=== PATIENT | female | born 1970 | race African-American/Black ===

== ENCOUNTER 2017-02-15 14:03 | Emergency (ER) | payer OTHER ==
--- NOTE | 2017-02-15 14:04 | PDOC ---
History of Present Illness - General History Source: Patient Exam Limitations: No Limitations - History of Present Illness Initial Comments: 02/15/17 14:49 The patient is a 46 year old female, with a significant past medical history of epilepsy, asthma and HTN, who presents to the emergency department with a seizure onset today while in the hospital. The patient used the bathroom while at radiology and was able to call for help befor eher seizure began. This event transpired at 1:55pm. A rapid response was called and the patient was brought to the ED. Upon presentation it is seen that the patient might of hit the left side of her head. The patient denies chest pain, shortness of breath, headache and dizziness. Denies fever, chills, nausea, vomit, diarrhea and constipation. Denies dysuria, frequency, urgency and hematuria. Allergies: None Past surgical history: Lung biopsy (2009) Social history: Marijuana use. Cigarette use (10 daily). No alcohol use. <Tre Mccracken - Last Filed: 02/15/17 14:49> <Iram Modi - Last Filed: 02/15/17 16:53> - General Chief Complaint: Seizure Stated Complaint: RAPID RESPONSE Time Seen by Provider: 02/15/17 14:04 Past History <Tre Mccracken - Last Filed: 02/15/17 14:49> - Past Medical History Asthma: Yes Diabetes: No HTN: Yes Suicide Attempt (Hx): No Seizures: Yes - Surgical History Lung Surgery: Yes (Lung biopsy 2009) - Immunization History Immunization Up to Date: Yes - Psycho/Social/Smoking Cessation Hx Anxiety: No Suicidal Ideation: No Smoking Status: Yes Smoking History: Current every day smoker Have you smoked in the past 12 months: Yes Number of Cigarettes Smoked Daily: 10 'Breaking Loose' booklet given: 06/08/16 Hx Alcohol Use: No Drug/Substance Use Hx: Yes (MARIJUANA) Substance Use Type: None Hx Substance Use Treatment: No <Iram Modi - Last Filed: 02/15/17 16:53> - Past Medical History Allergies/Adverse Reactions: Allergies Allergy/AdvReac Type Severity Reaction Status Date / Time No Known Allergies Allergy Verified 02/15/17 14:03 Home Medications: Ambulatory Orders Unobtainable [Unobtainable] 02/15/17 Review of Systems - Review of Systems Able to Perform ROS?: Yes Comments:: 02/15/17 14:49 GENERAL/CONSTITUTIONAL: No fever or chills. No weakness. HEAD, EYES, EARS, NOSE AND THROAT: No change in vision. No ear pain or discharge. No sore throat. CARDIOVASCULAR: No chest pain or shortness of breath RESPIRATORY: No cough, wheezing, or hemoptysis. GASTROINTESTINAL: No nausea, vomiting, diarrhea or constipation. GENITOURINARY: No dysuria, frequency, or change in urination. MUSCULOSKELETAL: No joint or muscle swelling or pain. No neck or back pain. SKIN: No rash NEUROLOGIC: (+) Seizure. No headache, vertigo, loss of consciousness, or change in strength/sensation. ENDOCRINE: No increased thirst. No abnormal weight change HEMATOLOGIC/LYMPHATIC: No anemia, easy bleeding, or history of blood clots. ALLERGIC/IMMUNOLOGIC: No hives or skin allergy. <Tre Mccracken - Last Filed: 02/15/17 14:49> *Physical Exam - Vital Signs Last Vital Signs Temp Pulse Resp BP Pulse Ox 95 H 16 180/100 98 02/15/17 14:04 02/15/17 14:04 02/15/17 14:04 02/15/17 14:04 <Tre Mccracken - Last Filed: 02/15/17 14:49> - Physical Exam Comments: GENERAL: Awake, alert, confused. Nonverbal. HEAD: No signs of trauma EYES: PERRLA, EOMI, sclera anicteric, conjunctiva clear ENT: Auricles normal inspection, hearing grossly normal, nares patent, oropharynx clear without exudates. Moist mucosa NECK: Normal ROM, supple, no lymphadenopathy, JVD, or masses LUNGS: Breath sounds equal, clear to auscultation bilaterally. No wheezes, and no crackles HEART: Regular rate and rhythm, normal S1 and S2, no murmurs, rubs or gallops ABDOMEN: Soft, nontender, normoactive bowel sounds. No guarding, no rebound. No masses EXTREMITIES: Normal range of motion, no edema. No clubbing or cyanosis. No cords, erythema, or tenderness NEUROLOGICAL: Cranial nerves II through XII grossly intact. Motor and sensation intact. SKIN: Warm, Dry, normal turgor, no rashes or lesions noted. <Iram Modi - Last Filed: 02/15/17 16:53> Heart Score/ECG Review - ECG Impressions Comment:: EKG read 14:22- NSR 98 bpm, no acute ST/T changes <Iram Modi - Last Filed: 02/15/17 16:53> ED Treatment Course - LABORATORY CBC & Chemistry Diagram: 02/15/17 14:04 02/15/17 14:04 - ADDITIONAL ORDERS Additional order review: Laboratory Results 02/15/17 14:04 Sodium 139 Potassium 3.6 Chloride 101 D Carbon Dioxide 23 D Anion Gap 15 BUN 8 Creatinine 0.7 Creat Clearance w eGFR > 60 Random Glucose 59 L D Calcium 9.8 Total Bilirubin 0.4 AST 37 D ALT 65 D Alkaline Phosphatase 111 D Total Protein 7.7 Albumin 4.0 02/15/17 14:04 RBC 4.10 MCV 102.7 H MCHC 32.6 RDW 13.2 MPV 8.7 Neutrophils % 47.8 Lymphocytes % 39.3 Monocytes % 7.4 Eosinophils % 4.7 H Basophils % 0.8 <Tre Mccracken - Last Filed: 02/15/17 14:49> - LABORATORY CBC & Chemistry Diagram: 02/15/17 14:04 02/15/17 14:04 <Iram Modi - Last Filed: 02/15/17 16:53> Medical Decision Making - Medical Decision Making 02/15/17 14:45 Patient awake and alert, answering questions. She is amnestic to the event. Last seizure was in December. She has not missed any meds. No recent illness. Requesting something to eat. <Iram Modi - Last Filed: 02/15/17 16:53> *DC/Admit/Observation/Transfer - Attestations Scribe Attestion: 02/15/17 14:50 Documentation prepared by Tre Mccracken, acting as medical data analyst for Iram Modi MD <Tre Mccracken - Last Filed: 02/15/17 14:49> - Discharge Dispostion Admit: No <Iram Modi - Last Filed: 02/15/17 16:53> Diagnosis at time of Disposition: Seizure disorder Seizure Qualifiers: Convulsion type: unspecified Qualified Code(s): R56.9 - Unspecified convulsions - Discharge Dispostion Disposition: HOME Condition at time of disposition: Stable - Referrals Referrals: Drea Cabral MD [Primary Care Provider] - - Patient Instructions Printed Discharge Instructions: DI for Seizure Disorder -- Adult
[2017-02-15] MEDS ORDERED: SODIUM CHLORIDE 1,000 ML IV STA (14:05)
[2017-02-15 14:06] VITALS: BMI 17.2
[2017-02-15 14:26] LABS: BASOPHIL 0.8 % (0-2.0); EOSINOPHIL 4.7 % (0-4.5); MCH 33.4 pg (25.7-33.7); MCHC 32.6 g/dl (32.0-36.0); MEAN CELL VOLUME 102.7 fl (80-96); MEAN PLT VOLUME 8.7 fl (7.5-11.1); NEUTROPHILS 47.8 % (42.8-82.8); PLATELET COUNT 315 K/MM3 (134-434); RDW 13.2 % (11.6-15.6); WHITE BLOOD COUNT 11.6 K/mm3 (4.0-10.0)
[2017-02-15 14:45] LABS: ANION GAP 15 (8-16); BILIRUBIN,TOTAL 0.4 mg/dL (0.2-1.0); CALCIUM 9.8 mg/dL (8.5-10.1); CO2 23 mmol/L (21-32); CREATININE 0.7 mg/dL (0.55-1.02); GLUCOSE,RANDOM 59 mg/dL (74-106); SGOT/AST 37 U/L (15-37); SGPT/ALT 65 U/L (12-78); TOT PROT 7.7 g/dl (6.4-8.2)
[2017-02-15 14:46] LABS: ALK PHOS 111 U/L (45-117)
[2017-02-15 15:59] VITALS: BP 159/88; PULSE 79
--- NOTE | 2017-02-17 11:17 | EKG ---
Test Reason : Blood Pressure : / mmHG Vent. Rate : 098 BPM Atrial Rate : 098 BPM P-R Int : 166 ms QRS Dur : 080 ms QT Int : 360 ms P-R-T Axes : 052 034 064 degrees QTc Int : 459 ms NORMAL SINUS RHYTHM POSSIBLE LEFT ATRIAL ENLARGEMENT BORDERLINE ECG WHEN COMPARED WITH ECG OF 25-JAN-2016 19:30, NO SIGNIFICANT CHANGE WAS FOUND Confirmed by KATHIE DUNN MD ([id number]) on 02/17/2017 11:16:50 AM Referred By: Confirmed By:KATHIE UDNN MD
== END 2017-02-15 15:59 | disposition home or self-care (01) ==
LOC: JER 14:03
PROC: 3E0337Z Introduction of Electrolytic and Water Balance Substance into Peripheral Vein, Percutaneous Approach (ICD-10-PCS; principal; 2017-02-15)
DX: G40.909 Epilepsy, unspecified, not intractable, without status epilepticus (principal); I10 Essential (primary) hypertension; J44.9 Chronic obstructive pulmonary disease, unspecified; F17.210 Nicotine dependence, cigarettes, uncomplicated
CPT/HCPCS: 36415; 80053; 81003; 84703; 85025; 93005; 93010; 96360; 99285-25

== ENCOUNTER 2017-02-23 05:50 | Emergency (ER) | payer OTHER ==
[2017-02-23 06:00] VITALS: BMI 24.5
--- NOTE | 2017-02-23 06:04 | PDOC ---
History of Present Illness - General History Source: Patient, Old Records Exam Limitations: No Limitations - History of Present Illness Initial Comments: 02/23/17 06:07 The patient is a 46 year old female with a significant past medical history of epilepsy, HTN, asthma, newly diagnosed diabetes, who presents to the emergency department s/p seizure. The patient is awake and oriented x3. The patient denies chest pain and shortness of breath. PCP: Dr. Cabral <Zain Eller - Last Filed: 02/23/17 06:07> - General History Source: Patient <Tre Cee - Last Filed: 02/23/17 20:47> - General Chief Complaint: Seizure Stated Complaint: LOW BLOOD SUGAR Time Seen by Provider: 02/23/17 06:00 Past History <Zain Eller - Last Filed: 02/23/17 06:07> - Past Medical History Asthma: Yes Diabetes: No HTN: Yes Suicide Attempt (Hx): No Seizures: Yes - Surgical History Lung Surgery: Yes (Lung biopsy 2009) - Immunization History Immunization Up to Date: Yes - Psycho/Social/Smoking Cessation Hx Anxiety: No Suicidal Ideation: No Smoking Status: Yes Smoking History: Never smoked Have you smoked in the past 12 months: Yes Number of Cigarettes Smoked Daily: 10 'Breaking Loose' booklet given: 06/08/16 Hx Alcohol Use: No Drug/Substance Use Hx: Yes (MARIJUANA) Substance Use Type: None Hx Substance Use Treatment: No <bNaoliverTre woodard - Last Filed: 02/23/17 20:47> - Past Medical History Allergies/Adverse Reactions: Allergies Allergy/AdvReac Type Severity Reaction Status Date / Time No Known Allergies Allergy Verified 02/23/17 05:59 Home Medications: Ambulatory Orders Levetiracetam [Keppra -] 750 mg PO BID #14 tablet 02/23/17 Levetiracetam [Keppra Xr -] 750 mg PO BID 02/23/17 Review of Systems - Review of Systems Able to Perform ROS?: Yes Comments:: 02/23/17 06:07 CONSTITUTIONAL: Absent: fever, no chills, no fatigue EYES: Absent: visual changes ENT: Absent: ear pain, no sore throat CARDIOVASCULAR: Absent: chest pain, no palpitations RESPIRATORY: Absent: cough, no SOB GI: Absent: abdominal pain, no nausea, no vomiting, no constipation, no diarrhea GENITOURINARY: Absent: dysuria, no frequency, no hematuria MUSCULOSKELETAL: Absent: back pain, no arthralgia, no myalgia SKIN: Absent: rash NEURO: Present: Seizure Absent: Motor deficits <RafitaZain - Last Filed: 02/23/17 06:07> *Physical Exam - Vital Signs Last Vital Signs Temp Pulse Resp BP Pulse Ox 98.5 F 81 18 149/88 100 02/23/17 05:59 02/23/17 05:59 02/23/17 05:59 02/23/17 05:59 02/23/17 05:59 - Physical Exam Comments: 02/23/17 06:08 GENERAL: Well-appearing, well-nourished. No apparent distress. HEENT: Normocephalic, atraumatic. PERRL, EOM intact. CARDIOVASCULAR: Normal S1, S2. Regular rate and rhythm. PULMONARY: Clear to auscultation bilaterally. ABDOMEN: Soft, non-distended, non-tender. EXTREMITIES: Normal ROM in all four extremities. No gross deformities. SKIN: Warm, dry. No rash NEUROLOGICAL: No focal neurological deficits. <Zain Eller - Last Filed: 02/23/17 06:07> - Vital Signs Last Vital Signs Temp Pulse Resp BP Pulse Ox 98.5 F 81 18 149/88 100 02/23/17 05:59 02/23/17 05:59 02/23/17 05:59 02/23/17 05:59 02/23/17 05:59 <Tre Cee - Last Filed: 02/23/17 20:47> ED Treatment Course - LABORATORY CBC & Chemistry Diagram: 02/23/17 06:30 02/23/17 06:30 <Tre Cee - Last Filed: 02/23/17 20:47> Medical Decision Making - Medical Decision Making 02/23/17 20:47 Dr. Cee: The scribe's documentation has been prepared under my direction and personally reviewed by me in its entirery. I confirm that the note above accurately reflects all work, treatment, procedures, and medical decision making performed by me. <Tre Cee - Last Filed: 02/23/17 20:47> *DC/Admit/Observation/Transfer - Attestations Scribe Attestion: 02/23/17 06:08 Documentation prepared by Zain Eller, acting as medical accountant for Tre Cee DO. <Zain Eller - Last Filed: 02/23/17 06:07> - Discharge Dispostion Admit: No <Tre Cee - Last Filed: 02/23/17 20:47> Diagnosis at time of Disposition: Seizure disorder - Discharge Dispostion Disposition: HOME Condition at time of disposition: Stable - Prescriptions Prescriptions: Levetiracetam [Keppra -] 750 mg PO BID #14 tablet - Referrals Referrals: Drea Cabral MD [Primary Care Provider] - - Patient Instructions Printed Discharge Instructions: DI for Seizure Disorder -- Adult
[2017-02-23] MEDS ORDERED: levETIRAcetam 500 MG/5 ML INJECTION VIAL IVPB ONE ×2 (06:05→06:41)
[2017-02-23 06:51] LABS: BASOPHIL 0.9 % (0-2.0); EOSINOPHIL 6.5 % (0-4.5); MCH 33.4 pg (25.7-33.7); MCHC 33.6 g/dl (32.0-36.0); MEAN CELL VOLUME 99.6 fl (80-96); MEAN PLT VOLUME 8.2 fl (7.5-11.1); NEUTROPHILS 59.6 % (42.8-82.8); PLATELET COUNT 255 K/MM3 (134-434); RDW 13.2 % (11.6-15.6)
[2017-02-23 07:00] LABS: INR 1.06 (0.82-1.09); PROTHROMBIN TIME (PATIENT) 11.7 SEC (9.98-11.88)
[2017-02-23 07:08] LABS: ALBUMIN 3.1 g/dl (3.4-5.0); ANION GAP 7 (8-16); BILIRUBIN,TOTAL 0.2 mg/dL (0.2-1.0); CALCIUM 8.8 mg/dL (8.5-10.1); CO2 27 mmol/L (21-32); CREATININE 0.6 mg/dL (0.55-1.02); GLUCOSE,RANDOM 175 mg/dL (74-106); SGOT/AST 24 U/L (15-37); SGPT/ALT 31 U/L (12-78)
[2017-02-23 07:09] LABS: ALK PHOS 69 U/L (45-117)
--- NOTE | 2017-02-23 07:29 | PDOC ---
*Physical Exam - Vital Signs Last Vital Signs Temp Pulse Resp BP Pulse Ox 98.5 F 81 18 149/88 100 02/23/17 05:59 02/23/17 05:59 02/23/17 05:59 02/23/17 05:59 02/23/17 05:59 ED Treatment Course - LABORATORY CBC & Chemistry Diagram: 02/23/17 06:30 02/23/17 06:30 - ADDITIONAL ORDERS Additional order review: Laboratory Results 02/23/17 02/23/17 02/23/17 06:30 06:30 06:30 INR 1.06 Sodium 141 Potassium 4.1 Chloride 107 Carbon Dioxide 27 Anion Gap 7 L BUN 15 D Creatinine 0.6 Creat Clearance w eGFR > 60 Random Glucose 175 H D Calcium 8.8 Total Bilirubin 0.2 D AST 24 D ALT 31 D Alkaline Phosphatase 69 D Total Protein 6.0 L D Albumin 3.1 L D Serum , Qual Negative 02/23/17 06:30 RBC 3.72 MCV 99.6 H MCHC 33.6 RDW 13.2 MPV 8.2 Neutrophils % 59.6 D Lymphocytes % 25.5 D Monocytes % 7.5 Eosinophils % 6.5 H Basophils % 0.9 - Medications Given in the ED: ED Medications Discontinued Medications Generic Name Dose Route Start Last Admin Trade Name Freq PRN Reason Stop Dose Admin Levetiracetam 1,000 mg 02/23/17 06:05 02/23/17 06:52 Keppra Injection - IVPB 02/23/17 06:06 1,000 mg ONCE ONE Administration Medical Decision Making - Medical Decision Making Patient awake and alert at time of 7am shift change. Labs returned with no significant findings. Patient requested a refill for her keppra, as she ran out. Will refund. Stable for DC home. *DC/Admit/Observation/Transfer Diagnosis at time of Disposition: Seizure disorder - Discharge Dispostion Disposition: HOME Condition at time of disposition: Stable Admit: No - Prescriptions Prescriptions: Levetiracetam [Keppra -] 750 mg PO BID #14 tablet - Referrals Referrals: Drea Cabral MD [Primary Care Provider] - - Patient Instructions Printed Discharge Instructions: DI for Seizure Disorder -- Adult - Post Discharge Activity
[2017-02-23 09:12] VITALS: BP 128/71; PULSE 71; TEMP 98
== END 2017-02-23 09:13 | disposition home or self-care (01) ==
LOC: JER 05:50
PROC: 3E033GC Introduction of Other Therapeutic Substance into Peripheral Vein, Percutaneous Approach (ICD-10-PCS; principal; 2017-02-23)
DX: G40.909 Epilepsy, unspecified, not intractable, without status epilepticus (principal); I10 Essential (primary) hypertension; E11.9 Type 2 diabetes mellitus without complications; J45.909 Unspecified asthma, uncomplicated
CPT/HCPCS: 36415; 80053; 84703; 85025; 85610; 96374; 99284-25

== ENCOUNTER 2018-11-18 17:15 | Observation (INO) | payer OTHER ==
--- NOTE | 2018-11-18 17:30 | PDOC ---
Attending Attestation - Resident Resident Name: Jennifer Wheat - ED Attending Attestation I have performed the following: I have examined & evaluated the patient, The case was reviewed & discussed with the resident, I agree w/resident's findings & plan, Exceptions are as noted - Medical Decision Making 11/18/18 18:01 48 yo F h/o DM and siezure disorder on topamax, here s/p seizure. ptstate was sleeping had witnessed seizure in bed. no head trauma. self limited. now at baseline. pt was brougth in by EMS and Police who stated received a call pt became combative. pt yelling on arrival, much calmer after transferred to room and handcuffs removed. pt denies trauma. no f/c no n/v states compliant with meds. last seizure was in august. on exam normal nuero exam. pt head atraumatic. heart and lung and ext exam unremarkable. differential. hypoglycemia, hyperglycemia or other electrolyte abnormality, infection suchas uti, break though seizure. plan labs iv hydration ua. will d/w pt primary nuerologist dr. peterson. if normal and pt back to baseline currently will delroy garrett crawford wiht outpt nuero fu. 11/18/18 19:48 pt with witnessed seizure in the ED. was given 1 mg ativan IV. sugar noted to be 300+ pt states compliant with insulin. normally takes long acting at night, and 6 units with meals. did not take her metformin 1000 mg today. 11/18/18 21:37 d/w with nuerology pt given keppra load 1000mg. recommend admission for [facility], due to second seizure in one day. pt refusing. will leave ama stsates she has to take care of her kids. will encourage her to return and follow up with kristen cabrales. <Ana Jarvis - Last Filed: 11/18/18 21:37> - HPI HPI: 11/18/18 18:10 The patient is a 48-year-old female with past medical history significant for asthma, DM (on insulin), and hx of seizures (dx in October 2013, on Topamax 1000 mg, last episode Aug 2018) presents to the emergency department via EMS s/p a seizure episode The patient presents s/p a witnessed seizure. The patient reports she doesnt recall the incident, she was sleeping on the couch around 3: 50 pm, then the next thing she remembers is being in the elevator. The patient reports being compliant with Topamax and Insulin. Denies the use of marijuana or alcohol use today. The patient reports the use of tobacco. Denies headache, confusion, urinary or bowel incontinence. Allergies: NKDA Social history: Tobacco use, Marijuana use. Denies the use of alcohol. PCP: Dr. Ian Cabral. NEurologist: Dr. Young. - Physicial Exam PE: 11/18/18 17:57 GENERAL: Awake, alert, and fully oriented, in no acute distress HEAD: No signs of trauma EYES: PERRLA, EOMI, sclera anicteric, conjunctiva clear ENT: Auricles normal inspection, hearing grossly normal, nares patent, oropharynx clear without exudates. Moist mucosa NECK: Normal ROM, supple, no lymphadenopathy, JVD, or masses LUNGS: Breath sounds equal, clear to auscultation bilaterally. No wheezes, and no crackles HEART: Regular rate and rhythm, normal S1 and S2, no murmurs, rubs or gallops ABDOMEN: Soft, nontender. No guarding, no rebound. No masses EXTREMITIES: Normal range of motion, no edema. No clubbing or cyanosis. No cords, erythema, or tenderness NEUROLOGICAL: Cranial nerves II through XII grossly intact. 5/5 strength in all four extremities, sensation intact, Normal speech, facial symmetry. SKIN: Warm, Dry, normal turgor, no rashes or lesions noted. - Medical Decision Making 11/18/18 18:12 Documentation prepared by Angeles Serrato, acting as medical research associate for Ana Jarvis MD. 11/18/18 19:[address] Young 7:48 pm. Waiting for a call back. 11/18/18 20:[address] Young. 11/18/18 22:[address] Ian cabral. <Angeles Serrato - Last Filed: 11/18/18 22:32> Heart Score/ECG Review #1 General ECG Interpretation: Sinus Rhythm, Normal Rate (65), Normal Intervals, No acute ischemic changes <Ana Jarvis - Last Filed: 11/18/18 21:37>
[2018-11-18] MEDS ORDERED: SODIUM CHLORIDE 0.9% 1000 ML INFUS.BAG IV ONE (17:42)
--- NOTE | 2018-11-18 17:52 | PDOC ---
History of Present Illness - General History Source: Patient - History of Present Illness Initial Comments: 11/18/18 17:47 Patient is a 48 y/o female with a history of seizures, asthma, and HTN who presents for seizure [facility]. Patient was taking a nap around 3:50 and the next thing she remembers is being in the elevator. Her family found her having a seizure and called the ambulance. Patients last seizure was in August. She was diagnosed in October 2013. She takes her medication twice a day and it typically controls her seizures. She follows with Dr. Young. She denies any alcohol use, she smokes marijuana but did not use any today. She smokes 7-9 cigarettes today. She denies any headache, pain in her tongue, or any incontinence. Patient has no other complaints. <Jennifer Wheat - Last Filed: 11/18/18 17:47> <Twin Delgadillo - Last Filed: 11/18/18 22:40> <Ana Jarvis - Last Filed: 11/19/18 23:05> - General Chief Complaint: Seizure Stated Complaint: SEIZURES Past History - Past Medical History Asthma: Yes COPD: No Diabetes: No HTN: Yes Seizures: Yes - Surgical History Lung Surgery: Yes (Lung biopsy 2009) - Immunization History Immunization Up to Date: Yes - Suicide/Smoking/Psychosocial Hx Smoking Status: Yes Smoking History: Unknown if ever smoked Have you smoked in the past 12 months: No Number of Cigarettes Smoked Daily: 10 Information on smoking cessation initiated: No 'Breaking Loose' booklet given: 06/08/16 Hx Alcohol Use: No Drug/Substance Use Hx: No Substance Use Type: None Hx Substance Use Treatment: No <Jennifer Wheat - Last Filed: 11/18/18 17:47> <Twin Delgadillo - Last Filed: 11/18/18 22:40> <Ana Jarivs - Last Filed: 11/19/18 23:05> - Past Medical History Allergies/Adverse Reactions: Allergies Allergy/AdvReac Type Severity Reaction Status Date / Time No Known Allergies Allergy Verified 02/23/17 05:59 Home Medications: Ambulatory Orders levETIRAcetam [Keppra -] 750 mg PO BID #14 tablet 02/23/17 Review of Systems - Review of Systems Constitutional: No: Chills, Fever HEENTM: No: Eye Pain Respiratory: No: Cough, Shortness of Breath Cardiac (ROS): No: Chest Pain ABD/GI: No: Abdominal Distended, Diarrhea, Nausea, Vomiting : No: Dysuria, Discharge Musculoskeletal: No: Back Pain Neurological: No: Headache, Numbness, Tingling, Tremors <JarretJennifer - Last Filed: 11/18/18 17:47> *Physical Exam - Vital Signs Last Vital Signs Temp Pulse Resp BP Pulse Ox 98.3 F 87 16 124/81 100 11/18/18 17:34 11/18/18 17:34 11/18/18 17:34 11/18/18 17:34 11/18/18 17:34 - Physical Exam Comments: 11/18/18 17:50 GENERAL: A&O x3, no acute complaints HEENT: no lacerations or cuts in the mouth, EOMI, PERRLA, head atraumatic HEART: RRR, no murmurs, rubs, or gallops LUNGS: CTAL B/L ABDOMEN: soft, non tender, non distended NEURO: CN II-XII intact, ROM intact, sensations intact SKIN: no rasehs, lesions, or ulcers noted <JarretJennifer - Last Filed: 11/18/18 17:47> - Vital Signs Last Vital Signs Temp Pulse Resp BP Pulse Ox 98.3 F 87 16 124/81 100 11/18/18 17:34 11/18/18 17:34 11/18/18 17:34 11/18/18 17:34 11/18/18 17:34 <Twin Delgadillo - Last Filed: 11/18/18 22:40> - Vital Signs Last Vital Signs Temp Pulse Resp BP Pulse Ox 98.3 F 87 16 124/81 100 11/18/18 17:34 11/18/18 17:34 11/18/18 17:34 11/18/18 17:34 11/18/18 17:34 <Ana Jarvis - Last Filed: 11/19/18 23:05> ED Treatment Course - LABORATORY CBC & Chemistry Diagram: 11/18/18 18:22 11/18/18 20:53 - ADDITIONAL ORDERS Additional order review: Laboratory Results 11/18/18 11/18/18 11/18/18 21:00 20:53 20:50 Sodium 135 L Potassium 4.1 Chloride 104 Carbon Dioxide 19 L Anion Gap 11 BUN 11 Creatinine 0.9 Creat Clearance w eGFR 67.11 POC Glucometer Random Glucose 259 H Specific [place] Lactic Acid 4.5 H* Calcium 7.8 L Total Bilirubin AST ALT Alkaline Phosphatase Total Protein Albumin Urine Color Urine Appearance Urine pH Ur Specific [place] Urine Protein Urine Glucose (UA) Urine Ketones Urine Blood Urine Nitrite Urine Bilirubin Urine Urobilinogen Ur Leukocyte Esterase Urine WBC (Auto) Urine RBC (Auto) Urine Casts (Auto) U Epithel Cells (Auto) Urine Bacteria (Auto) Urine Butalbital Ur Butalbital Confirm Opiates Screen Negative Urine Opiates Screen Meperidine Urine Normeperidine U Normeperidine GC/MS Urine Codeine U Codeine Confrm GC/MS Urine Morphine Morphine Confirm GC/MS Urine Hydrocodone Ur Hydrocodone (GC/MS) Urine Oxycodone Ur Oxycodone GC/MS Oxymorphone Confirm Urine Oxymorphone U Oxycodone/Oxymorphon Methadone Screen Negative Ur Methadone Ur Methadone Confirm Ur Hydromorphone Ur Hydromorphone (GC/MS) Urine Propoxyphene U Propoxyphene/M GC/MS Barbiturate Screen Negative Ur Barbiturates Screen Urine Barbiturates Phencyclidine Screen Negative Ur Phencyclidine (PCP) Ur PCP Confirm (GC/MS) Amphetamines Amphetamines Grp GC/MS Ur Amphetamines Screen Negative Urine Amphetamine Ur Amphetamines, Quant Methamphetamine Methamphetamine GC/MS MDMA (Ecstasy) Screen Negative Urine Amobarbital Ur Amobarbital GC/MS Urine Pentobarbital U Pentobarbital GC/MS Urine Phenobarbital U Phenobarbital GC/MS Urine Secobarbital U Secobarbital GC/MS Urine Alprazolam U OH-Alprazolam GC/MS Benzodiazepines Screen Negative U Benzodiazepines Scrn Urine Clonazepam U 7-Amino Clonazep GC/MS Ur Nordiazepam Ur Nordiazepam GC/MS Flurazepam Flurazepam Confirm Lorazepam Urine Lorazepam Ur Oxazepam U Oxazepam Confm GC/MS Urine Temazepam Ur Temazepam (GC/MS) Urine Triazolam Ur Triazolam (GC/MS) Meperidine (GC/MS) Ur Meperidine Cocaine Screen Negative Cocaine & Metabolite Urine Cocaine Benzoylecgonine Cannabinoids Urine Cannabinoids U Marijuana (THC) Screen Positive A* Urine Marijuana (THC) Alcohol, Quantitative Ethyl Alc Confirm 11/18/18 11/18/18 11/18/18 20:32 19:00 19:00 Sodium Potassium Chloride Carbon Dioxide Anion Gap BUN Creatinine Cancelled Creat Clearance w eGFR POC Glucometer 276 Random Glucose Specific [place] Cancelled Lactic Acid Calcium Total Bilirubin AST ALT Alkaline Phosphatase Total Protein Albumin Urine Color Yellow Urine Appearance Clear Urine pH 5.0 Ur Specific [place] 1.039 H Urine Protein 1+ H Urine Glucose (UA) 3+ H Urine Ketones Negative Urine Blood Negative Urine Nitrite Negative Urine Bilirubin Negative Urine Urobilinogen 1.0 Ur Leukocyte Esterase Negative Urine WBC (Auto) 2 Urine RBC (Auto) 1 Urine Casts (Auto) 1 U Epithel Cells (Auto) 4.0 Urine Bacteria (Auto) 97.9 Urine Butalbital Cancelled Ur Butalbital Confirm Cancelled Opiates Screen Urine Opiates Screen Cancelled Meperidine Cancelled Urine Normeperidine Cancelled U Normeperidine GC/MS Cancelled Urine Codeine Cancelled U Codeine Confrm GC/MS Cancelled Urine Morphine Cancelled Morphine Confirm GC/MS Cancelled Urine Hydrocodone Cancelled Ur Hydrocodone (GC/MS) Cancelled Urine Oxycodone Cancelled Ur Oxycodone GC/MS Cancelled Oxymorphone Confirm Cancelled Urine Oxymorphone Cancelled U Oxycodone/Oxymorphon Cancelled Methadone Screen Ur Methadone Cancelled Ur Methadone Confirm Cancelled Ur Hydromorphone Cancelled Ur Hydromorphone (GC/MS) Cancelled Urine Propoxyphene Cancelled U Propoxyphene/M GC/MS Cancelled Barbiturate Screen Ur Barbiturates Screen Cancelled Urine Barbiturates Cancelled Phencyclidine Screen Ur Phencyclidine (PCP) Cancelled Ur PCP Confirm (GC/MS) Cancelled Amphetamines Cancelled Amphetamines Grp GC/MS Cancelled Ur Amphetamines Screen Urine Amphetamine Cancelled Ur Amphetamines, Quant Cancelled Methamphetamine Cancelled Methamphetamine GC/MS Cancelled MDMA (Ecstasy) Screen Urine Amobarbital Cancelled Ur Amobarbital GC/MS Cancelled Urine Pentobarbital Cancelled U Pentobarbital GC/MS Cancelled Urine Phenobarbital Cancelled U Phenobarbital GC/MS Cancelled Urine Secobarbital Cancelled U Secobarbital GC/MS Cancelled Urine Alprazolam Cancelled U OH-Alprazolam GC/MS Cancelled Benzodiazepines Screen U Benzodiazepines Scrn Cancelled Urine Clonazepam Cancelled U 7-Amino Clonazep GC/MS Cancelled Ur Nordiazepam Cancelled Ur Nordiazepam GC/MS Cancelled Flurazepam Cancelled Flurazepam Confirm Cancelled Lorazepam Cancelled Urine Lorazepam Cancelled Ur Oxazepam Cancelled U Oxazepam Confm GC/MS Cancelled Urine Temazepam Cancelled Ur Temazepam (GC/MS) Cancelled Urine Triazolam Cancelled Ur Triazolam (GC/MS) Cancelled Meperidine (GC/MS) Cancelled Ur Meperidine Cancelled Cocaine Screen Cocaine & Metabolite Cancelled Urine Cocaine Cancelled Benzoylecgonine Cancelled Cannabinoids Cancelled Urine Cannabinoids Cancelled U Marijuana (THC) Screen Urine Marijuana (THC) Cancelled Alcohol, Quantitative Ethyl Alc Confirm Cancelled 11/18/18 11/18/18 11/18/18 18:22 18:22 18:22 Sodium 133 L Potassium 5.9 H Chloride 103 Carbon Dioxide 23 Anion Gap 7 L BUN 10 Creatinine 0.9 Creat Clearance w eGFR 67.11 POC Glucometer Random Glucose 331 H* Specific [place] Lactic Acid 3.0 H* Calcium 8.7 Total Bilirubin 0.3 AST 40 H ALT 31 Alkaline Phosphatase 58 Total Protein 7.0 Albumin 3.6 Urine Color Urine Appearance Urine pH Ur Specific [place] Urine Protein Urine Glucose (UA) Urine Ketones Urine Blood Urine Nitrite Urine Bilirubin Urine Urobilinogen Ur Leukocyte Esterase Urine WBC (Auto) Urine RBC (Auto) Urine Casts (Auto) U Epithel Cells (Auto) Urine Bacteria (Auto) Urine Butalbital Ur Butalbital Confirm Opiates Screen Urine Opiates Screen Meperidine Urine Normeperidine U Normeperidine GC/MS Urine Codeine U Codeine Confrm GC/MS Urine Morphine Morphine Confirm GC/MS Urine Hydrocodone Ur Hydrocodone (GC/MS) Urine Oxycodone Ur Oxycodone GC/MS Oxymorphone Confirm Urine Oxymorphone U Oxycodone/Oxymorphon Methadone Screen Ur Methadone Ur Methadone Confirm Ur Hydromorphone Ur Hydromorphone (GC/MS) Urine Propoxyphene U Propoxyphene/M GC/MS Barbiturate Screen Ur Barbiturates Screen Urine Barbiturates Phencyclidine Screen Ur Phencyclidine (PCP) Ur PCP Confirm (GC/MS) Amphetamines Amphetamines Grp GC/MS Ur Amphetamines Screen Urine Amphetamine Ur Amphetamines, Quant Methamphetamine Methamphetamine GC/MS MDMA (Ecstasy) Screen Urine Amobarbital Ur Amobarbital GC/MS Urine Pentobarbital U Pentobarbital GC/MS Urine Phenobarbital U Phenobarbital GC/MS Urine Secobarbital U Secobarbital GC/MS Urine Alprazolam U OH-Alprazolam GC/MS Benzodiazepines Screen U Benzodiazepines Scrn Urine Clonazepam U 7-Amino Clonazep GC/MS Ur Nordiazepam Ur Nordiazepam GC/MS Flurazepam Flurazepam Confirm Lorazepam Urine Lorazepam Ur Oxazepam U Oxazepam Confm GC/MS Urine Temazepam Ur Temazepam (GC/MS) Urine Triazolam Ur Triazolam (GC/MS) Meperidine (GC/MS) Ur Meperidine Cocaine Screen Cocaine & Metabolite Urine Cocaine Benzoylecgonine Cannabinoids Urine Cannabinoids U Marijuana (THC) Screen Urine Marijuana (THC) Alcohol, Quantitative < 3.0 Ethyl Alc Confirm 11/18/18 11/18/18 20:32 18:22 RBC 4.18 MCV 94.6 MCHC 32.9 RDW 13.7 MPV 9.2 D Neutrophils % 60.1 Lymphocytes % 24.4 Monocytes % 8.5 Eosinophils % 5.9 H Basophils % 1.1 POC Glucometer 276 - Medications Given in the ED: ED Medications Discontinued Medications Generic Name Dose Route Start Last Admin Trade Name Freq PRN Reason Stop Dose Admin Insulin Human Regular 6 units 11/18/18 19:49 11/18/18 20:02 Novolin R Vial *For Ivpush Or Iv Drip Only* IVPUSH 11/18/18 19:50 6 units ONCE ONE Administration Levetiracetam 1,000 mg 11/18/18 20:23 11/18/18 21:23 Keppra Injection - IVPB 11/18/18 20:24 1,000 mg ONCE ONE Administration Lorazepam 1 mg 11/18/18 19:44 11/18/18 19:49 Ativan Injection - IVPUSH 11/18/18 19:45 1 mg ONCE ONE Administration Sodium Chloride 1,000 ml 11/18/18 17:42 11/18/18 18:11 Normal Saline - IV 11/18/18 17:43 1,000 ml ONCE ONE Administration Sodium Chloride 1,000 ml 11/18/18 19:34 11/18/18 19:38 Normal Saline - IV 11/18/18 19:35 1,000 ml ONCE ONE Administration <Twin Delgadillo - Last Filed: 11/18/18 22:40> - LABORATORY CBC & Chemistry Diagram: 11/18/18 18:22 11/18/18 20:53 - ADDITIONAL ORDERS Additional order review: Laboratory Results 11/18/18 11/18/18 11/18/18 21:00 20:53 20:50 Sodium 135 L Potassium 4.1 Chloride 104 Carbon Dioxide 19 L Anion Gap 11 BUN 11 Creatinine 0.9 Creat Clearance w eGFR 67.11 POC Glucometer Random Glucose 259 H Specific [place] Lactic Acid 4.5 H* Calcium 7.8 L Total Bilirubin AST ALT Alkaline Phosphatase Total Protein Albumin Urine Color Urine Appearance Urine pH Ur Specific [place] Urine Protein Urine Glucose (UA) Urine Ketones Urine Blood Urine Nitrite Urine Bilirubin Urine Urobilinogen Ur Leukocyte Esterase Urine WBC (Auto) Urine RBC (Auto) Urine Casts (Auto) U Epithel Cells (Auto) Urine Bacteria (Auto) Urine Butalbital Ur Butalbital Confirm Opiates Screen Negative Urine Opiates Screen Meperidine Urine Normeperidine U Normeperidine GC/MS Urine Codeine U Codeine Confrm GC/MS Urine Morphine Morphine Confirm GC/MS Urine Hydrocodone Ur Hydrocodone (GC/MS) Urine Oxycodone Ur Oxycodone GC/MS Oxymorphone Confirm Urine Oxymorphone U Oxycodone/Oxymorphon Methadone Screen Negative Ur Methadone Ur Methadone Confirm Ur Hydromorphone Ur Hydromorphone (GC/MS) Urine Propoxyphene U Propoxyphene/M GC/MS Barbiturate Screen Negative Ur Barbiturates Screen Urine Barbiturates Phencyclidine Screen Negative Ur Phencyclidine (PCP) Ur PCP Confirm (GC/MS) Amphetamines Amphetamines Grp GC/MS Ur Amphetamines Screen Negative Urine Amphetamine Ur Amphetamines, Quant Methamphetamine Methamphetamine GC/MS MDMA (Ecstasy) Screen Negative Urine Amobarbital Ur Amobarbital GC/MS Urine Pentobarbital U Pentobarbital GC/MS Urine Phenobarbital U Phenobarbital GC/MS Urine Secobarbital U Secobarbital GC/MS Urine Alprazolam U OH-Alprazolam GC/MS Benzodiazepines Screen Negative U Benzodiazepines Scrn Urine Clonazepam U 7-Amino Clonazep GC/MS Ur Nordiazepam Ur Nordiazepam GC/MS Flurazepam Flurazepam Confirm Lorazepam Urine Lorazepam Ur Oxazepam U Oxazepam Confm GC/MS Urine Temazepam Ur Temazepam (GC/MS) Urine Triazolam Ur Triazolam (GC/MS) Meperidine (GC/MS) Ur Meperidine Cocaine Screen Negative Cocaine & Metabolite Urine Cocaine Benzoylecgonine Cannabinoids Urine Cannabinoids U Marijuana (THC) Screen Positive A* Urine Marijuana (THC) Alcohol, Quantitative Ethyl Alc Confirm 11/18/18 11/18/18 11/18/18 20:32 19:00 19:00 Sodium Potassium Chloride Carbon Dioxide Anion Gap BUN Creatinine Cancelled Creat Clearance w eGFR POC Glucometer 276 Random Glucose Specific [place] Cancelled Lactic Acid Calcium Total Bilirubin AST ALT Alkaline Phosphatase Total Protein Albumin Urine Color Yellow Urine Appearance Clear Urine pH 5.0 Ur Specific [place] 1.039 H Urine Protein 1+ H Urine Glucose (UA) 3+ H Urine Ketones Negative Urine Blood Negative Urine Nitrite Negative Urine Bilirubin Negative Urine Urobilinogen 1.0 Ur Leukocyte Esterase Negative Urine WBC (Auto) 2 Urine RBC (Auto) 1 Urine Casts (Auto) 1 U Epithel Cells (Auto) 4.0 Urine Bacteria (Auto) 97.9 Urine Butalbital Cancelled Ur Butalbital Confirm Cancelled Opiates Screen Urine Opiates Screen Cancelled Meperidine Cancelled Urine Normeperidine Cancelled U Normeperidine GC/MS Cancelled Urine Codeine Cancelled U Codeine Confrm GC/MS Cancelled Urine Morphine Cancelled Morphine Confirm GC/MS Cancelled Urine Hydrocodone Cancelled Ur Hydrocodone (GC/MS) Cancelled Urine Oxycodone Cancelled Ur Oxycodone GC/MS Cancelled Oxymorphone Confirm Cancelled Urine Oxymorphone Cancelled U Oxycodone/Oxymorphon Cancelled Methadone Screen Ur Methadone Cancelled Ur Methadone Confirm Cancelled Ur Hydromorphone Cancelled Ur Hydromorphone (GC/MS) Cancelled Urine Propoxyphene Cancelled U Propoxyphene/M GC/MS Cancelled Barbiturate Screen Ur Barbiturates Screen Cancelled Urine Barbiturates Cancelled Phencyclidine Screen Ur Phencyclidine (PCP) Cancelled Ur PCP Confirm (GC/MS) Cancelled Amphetamines Cancelled Amphetamines Grp GC/MS Cancelled Ur Amphetamines Screen Urine Amphetamine Cancelled Ur Amphetamines, Quant Cancelled Methamphetamine Cancelled Methamphetamine GC/MS Cancelled MDMA (Ecstasy) Screen Urine Amobarbital Cancelled Ur Amobarbital GC/MS Cancelled Urine Pentobarbital Cancelled U Pentobarbital GC/MS Cancelled Urine Phenobarbital Cancelled U Phenobarbital GC/MS Cancelled Urine Secobarbital Cancelled U Secobarbital GC/MS Cancelled Urine Alprazolam Cancelled U OH-Alprazolam GC/MS Cancelled Benzodiazepines Screen U Benzodiazepines Scrn Cancelled Urine Clonazepam Cancelled U 7-Amino Clonazep GC/MS Cancelled Ur Nordiazepam Cancelled Ur Nordiazepam GC/MS Cancelled Flurazepam Cancelled Flurazepam Confirm Cancelled Lorazepam Cancelled Urine Lorazepam Cancelled Ur Oxazepam Cancelled U Oxazepam Confm GC/MS Cancelled Urine Temazepam Cancelled Ur Temazepam (GC/MS) Cancelled Urine Triazolam Cancelled Ur Triazolam (GC/MS) Cancelled Meperidine (GC/MS) Cancelled Ur Meperidine Cancelled Cocaine Screen Cocaine & Metabolite Cancelled Urine Cocaine Cancelled Benzoylecgonine Cancelled Cannabinoids Cancelled Urine Cannabinoids Cancelled U Marijuana (THC) Screen Urine Marijuana (THC) Cancelled Alcohol, Quantitative Ethyl Alc Confirm Cancelled 11/18/18 11/18/18 11/18/18 18:22 18:22 18:22 Sodium 133 L Potassium 5.9 H Chloride 103 Carbon Dioxide 23 Anion Gap 7 L BUN 10 Creatinine 0.9 Creat Clearance w eGFR 67.11 POC Glucometer Random Glucose 331 H* Specific [place] Lactic Acid 3.0 H* Calcium 8.7 Total Bilirubin 0.3 AST 40 H ALT 31 Alkaline Phosphatase 58 Total Protein 7.0 Albumin 3.6 Urine Color Urine Appearance Urine pH Ur Specific [place] Urine Protein Urine Glucose (UA) Urine Ketones Urine Blood Urine Nitrite Urine Bilirubin Urine Urobilinogen Ur Leukocyte Esterase Urine WBC (Auto) Urine RBC (Auto) Urine Casts (Auto) U Epithel Cells (Auto) Urine Bacteria (Auto) Urine Butalbital Ur Butalbital Confirm Opiates Screen Urine Opiates Screen Meperidine Urine Normeperidine U Normeperidine GC/MS Urine Codeine U Codeine Confrm GC/MS Urine Morphine Morphine Confirm GC/MS Urine Hydrocodone Ur Hydrocodone (GC/MS) Urine Oxycodone Ur Oxycodone GC/MS Oxymorphone Confirm Urine Oxymorphone U Oxycodone/Oxymorphon Methadone Screen Ur Methadone Ur Methadone Confirm Ur Hydromorphone Ur Hydromorphone (GC/MS) Urine Propoxyphene U Propoxyphene/M GC/MS Barbiturate Screen Ur Barbiturates Screen Urine Barbiturates Phencyclidine Screen Ur Phencyclidine (PCP) Ur PCP Confirm (GC/MS) Amphetamines Amphetamines Grp GC/MS Ur Amphetamines Screen Urine Amphetamine Ur Amphetamines, Quant Methamphetamine Methamphetamine GC/MS MDMA (Ecstasy) Screen Urine Amobarbital Ur Amobarbital GC/MS Urine Pentobarbital U Pentobarbital GC/MS Urine Phenobarbital U Phenobarbital GC/MS Urine Secobarbital U Secobarbital GC/MS Urine Alprazolam U OH-Alprazolam GC/MS Benzodiazepines Screen U Benzodiazepines Scrn Urine Clonazepam U 7-Amino Clonazep GC/MS Ur Nordiazepam Ur Nordiazepam GC/MS Flurazepam Flurazepam Confirm Lorazepam Urine Lorazepam Ur Oxazepam U Oxazepam Confm GC/MS Urine Temazepam Ur Temazepam (GC/MS) Urine Triazolam Ur Triazolam (GC/MS) Meperidine (GC/MS) Ur Meperidine Cocaine Screen Cocaine & Metabolite Urine Cocaine Benzoylecgonine Cannabinoids Urine Cannabinoids U Marijuana (THC) Screen Urine Marijuana (THC) Alcohol, Quantitative < 3.0 Ethyl Alc Confirm 11/18/18 11/18/18 20:32 18:22 RBC 4.18 MCV 94.6 MCHC 32.9 RDW 13.7 MPV 9.2 D Neutrophils % 60.1 Lymphocytes % 24.4 Monocytes % 8.5 Eosinophils % 5.9 H Basophils % 1.1 POC Glucometer 276 - Medications Given in the ED: ED Medications Discontinued Medications Generic Name Dose Route Start Last Admin Trade Name Freq PRN Reason Stop Dose Admin Insulin Human Regular 6 units 11/18/18 19:49 11/18/18 20:02 Novolin R Vial *For Ivpush Or Iv Drip Only* IVPUSH 11/18/18 19:50 6 units ONCE ONE Administration Levetiracetam 1,000 mg 11/18/18 20:23 11/18/18 21:23 Keppra Injection - IVPB 11/18/18 20:24 1,000 mg ONCE ONE Administration Lorazepam 1 mg 11/18/18 19:44 11/18/18 19:49 Ativan Injection - IVPUSH 11/18/18 19:45 1 mg ONCE ONE Administration Sodium Chloride 1,000 ml 11/18/18 17:42 11/18/18 18:11 Normal Saline - IV 11/18/18 17:43 1,000 ml ONCE ONE Administration Sodium Chloride 1,000 ml 11/18/18 19:34 11/18/18 19:38 Normal Saline - IV 11/18/18 19:35 1,000 ml ONCE ONE Administration <Ana Jarvis - Last Filed: 11/19/18 23:05> Medical Decision Making - Medical Decision Making 11/18/18 17:52 likely seizure f/u labs and UA <Jennifer Wheat - Last Filed: 11/18/18 17:47> *DC/Admit/Observation/Transfer <Jennifer Wheat - Last Filed: 11/18/18 17:47> - Discharge Dispostion Decision to Admit order: Yes Decision to Admit order Date/Time: Decision to Admit Order Category Date Time Status Decision to Admit to Hospital Routine Admission 11/18/18 22:39 Ordered <Twin Delgadillo - Last Filed: 11/18/18 22:40> - Discharge Dispostion Decision to Admit order: No <Ana Jarvis - Last Filed: 11/19/18 23:05> Diagnosis at time of Disposition: Recurrent seizures - Discharge Dispostion Disposition: AGAINST MEDICAL ADVICE Condition at time of disposition: Improved
[2018-11-18 18:07] VITALS: BP 124/81; PULSE 87; TEMP 98.3; BMI 21.6
[2018-11-18 18:45] LABS: HEMATOCRIT 39.6 % (32.4-45.2); MEAN CELL VOLUME 94.6 fl (80-96); RBC 4.18 M/mm3 (3.60-5.2); WHITE BLOOD COUNT 5.8 K/mm3 (4.0-10.0)
[2018-11-18 18:46] LABS: BASO % 1.1 % (0-2.0); EOS % 5.9 % (0-4.5); LYMPH % 24.4 % (8-40); MCH 31.2 pg (25.7-33.7); MCHC 32.9 g/dl (32.0-36.0); MEAN PLT VOLUME 9.2 fl (7.5-11.1); MONO % 8.5 % (3.8-10.2); NEUT % 60.1 % (42.8-82.8); PLATELET COUNT 214 K/MM3 (134-434); RDW 13.7 % (11.6-15.6)
[2018-11-18 19:14] LABS: ALBUMIN 3.6 g/dl (3.4-5.0); ALK PHOS 58 U/L (45-117); ANION GAP 7 MMOL/L (8-16); BILIRUBIN,TOTAL 0.3 mg/dL (0.2-1); BLOOD UREA NITROGEN 10 mg/dL (7-18); CALCIUM 8.7 mg/dL (8.5-10.1); CHLORIDE 103 mmol/L (98-107); CO2 23 mmol/L (21-32); CREATININE 0.9 mg/dL (0.55-1.3); POTASSIUM 5.9 mmol/L (3.5-5.1); SGOT/AST 40 U/L (15-37); SGPT/ALT 31 U/L (13-61); SODIUM 133 mmol/L (136-145)
[2018-11-18 19:16] LABS: GLUCOSE,RANDOM 331 mg/dL (74-106)
[2018-11-18] MEDS ORDERED: SODIUM CHLORIDE 0.9% 500 ML INFUS.BAG IV ONE (19:34)
[2018-11-18] MEDS ORDERED: LORazepam 2 MG/ML SDV VIAL ONE (19:45)
[2018-11-18] MEDS ORDERED: INSULIN REGULAR HUMAN 100 UNITS/ML *VIAL IVPUSH ONE (19:49)
--- NOTE | 2018-11-18 19:49 | PDOC ---
*Physical Exam - Vital Signs Last Vital Signs Temp Pulse Resp BP Pulse Ox 98.3 F 87 16 124/81 100 11/18/18 17:34 11/18/18 17:34 11/18/18 17:34 11/18/18 17:34 11/18/18 17:34 ED Treatment Course - LABORATORY CBC & Chemistry Diagram: 11/18/18 18:22 11/18/18 20:53 - ADDITIONAL ORDERS Additional order review: Laboratory Results 11/18/18 11/18/18 18:22 18:22 Sodium 133 L Potassium 5.9 H Chloride 103 Carbon Dioxide 23 Anion Gap 7 L BUN 10 Creatinine 0.9 Creat Clearance w eGFR 67.11 Random Glucose 331 H* Lactic Acid 3.0 H* Calcium 8.7 Total Bilirubin 0.3 AST 40 H ALT 31 Alkaline Phosphatase 58 Total Protein 7.0 Albumin 3.6 11/18/18 18:22 RBC 4.18 MCV 94.6 MCHC 32.9 RDW 13.7 MPV 9.2 D Neutrophils % 60.1 Lymphocytes % 24.4 Monocytes % 8.5 Eosinophils % 5.9 H Basophils % 1.1 - Medications Given in the ED: ED Medications Discontinued Medications Generic Name Dose Route Start Last Admin Trade Name Freq PRN Reason Stop Dose Admin Sodium Chloride 1,000 ml 11/18/18 17:42 11/18/18 18:11 Normal Saline - IV 11/18/18 17:43 1,000 ml ONCE ONE Administration Sodium Chloride 1,000 ml 11/18/18 19:34 11/18/18 19:38 Normal Saline - IV 11/18/18 19:35 1,000 ml ONCE ONE Administration Medical Decision Making - Medical Decision Making Received patient as a sign out from Dr. Wheat. Patient observed to have another seizure in the ER tonic/clonic and aborted spontaneously after 30 seconds before we gave her 1 mg of lorazepam. Will call patient's neurologist - Dr. Young and consult him to see what he reccommends for further care moving forward. Spoke with Dr. Young - He reccommended loading patient up with 1000 keppra and then admit her to Obs. He will come see her tomorrow. Patient has been warned against leaving and understands she will need to sign an AMA form. - She insists that she must leave bc she has no1 to take care of her children. - Patient has been informed that it is not recommended for her to leave in case she gets another seizure. - She has capacity and is making an informed decision. Will DC AMA *DC/Admit/Observation/Transfer Diagnosis at time of Disposition: Recurrent seizures - Discharge Dispostion Disposition: AGAINST MEDICAL ADVICE - Referrals - Patient Instructions - Post Discharge Activity
[2018-11-18] MEDS ORDERED: INSULIN REGULAR HUMAN 100 UNITS/ML *VIAL ONE (20:00)
[2018-11-18] MEDS ORDERED: levETIRAcetam 500 MG/5 ML INJECTION VIAL IVPB ONE ×2 (20:23→21:25)
[2018-11-18 20:35] LABS: URINE APPEARANCE CLEAR; URINE BACTERIA 97.9 /hpf (NEGATIVE); URINE BILIRUBIN NEGATIVE (NEGATIVE); URINE CASTS 1 /hpf (0-8); URINE COLOR YELLOW; URINE GLUCOSE (UA) 3+ (NEGATIVE); URINE KETONE NEGATIVE (NEGATIVE); URINE LEUK ESTERASE NEGATIVE (NEGATIVE); URINE NITRITE NEGATIVE (NEGATIVE); URINE PROTEIN 1+ (NEGATIVE); URINE RBC 1 /hpf (0-4); URINE WBC 2 /hpf (0-5)
[2018-11-18 21:29] LABS: ANION GAP 11 MMOL/L (8-16); BLOOD UREA NITROGEN 11 mg/dL (7-18); CALCIUM 7.8 mg/dL (8.5-10.1); CHLORIDE 104 mmol/L (98-107); CO2 19 mmol/L (21-32); CREATININE 0.9 mg/dL (0.55-1.3); GLUCOSE,RANDOM 259 mg/dL (74-106); POTASSIUM 4.1 mmol/L (3.5-5.1); SODIUM 135 mmol/L (136-145)
[2018-11-18 22:00] LABS: URINE AMPHETAMINES NEGATIVE ng/ml (CUTOFF=500); URINE BARBITURATES NEGATIVE ng/ml (CUTOFF=200)
[2018-11-18 22:01] LABS: COCAINE, UR NEGATIVE ng/ml (CUTOFF=300); METHADONE, UR NEGATIVE ng/ml (CUTOFF=300); OPIATES, URI NEGATIVE ng/ml (CUTOFF=300); PHENCYCLIDINE,URINE NEGATIVE ng/ml (CUTOFF=25); URINE BENZODIAZEPINES NEGATIVE ng/ml (CUTOFF=200)
--- NOTE | 2018-11-19 12:31 | CON.NEURO ---
Consult Consult Specialty:: Hannah Referred by:: ER - History of Present Illness History of Present Illness: Seizure - Past Medical History ...LMP: 11/17/15 - Alcohol/Substance Use Hx Alcohol Use: No - Smoking History Smoking history: Unknown if ever smoked Have you smoked in the past 12 months: No Aproximately how many cigarettes per day: 10 Home Medications - Allergies Allergies/Adverse Reactions: Allergies Allergy/AdvReac Type Severity Reaction Status Date / Time No Known Allergies Allergy Verified 02/23/17 05:59 - Home Medications Home Medications: Ambulatory Orders levETIRAcetam [Keppra -] 750 mg PO BID #14 tablet 02/23/17 Physical Exam-Neuro Vital Signs: Vital Signs Temperature 98.3 F 11/18/18 17:34 Pulse Rate 87 11/18/18 17:34 Respiratory Rate 16 11/18/18 17:34 Blood Pressure 124/81 11/18/18 17:34 O2 Sat by Pulse Oximetry (%) 100 11/18/18 17:34 Labs: CBC, BMP 11/18/18 18:22 11/18/18 20:53 Problem List - Problems (1) Seizure Assessment/Plan: Keppra 1000 mg po q12 Seizure precautions Code(s): R56.9 - UNSPECIFIED CONVULSIONS
--- NOTE | 2018-11-20 10:16 | EKG ---
Test Reason : Blood Pressure : / mmHG Vent. Rate : 065 BPM Atrial Rate : 065 BPM P-R Int : 168 ms QRS Dur : 084 ms QT Int : 398 ms P-R-T Axes : 057 041 065 degrees QTc Int : 413 ms NORMAL SINUS RHYTHM NORMAL ECG WHEN COMPARED WITH ECG OF 15-FEB-2017 14:18, VENT. RATE HAS DECREASED BY 33 BPM T WAVE VARIATION Confirmed by LATRICE GUERRA MD ([id number]) on 11/20/2018 10:15:47 AM Referred By: Confirmed By:LATRICE GUERRA MD
== END 2018-11-18 23:25 | disposition left against medical advice (07) ==
LOC: JER 17:15 → JERBED 22:40
PROVIDERS: ADMIT Internal Medicine; ATTEND Internal Medicine
PROC: 3E033VG Introduction of Insulin into Peripheral Vein, Percutaneous Approach (ICD-10-PCS; principal; 2018-11-18)
PROC: 3E033GC Introduction of Other Therapeutic Substance into Peripheral Vein, Percutaneous Approach (ICD-10-PCS; 2018-11-18)
PROC: 3E0337Z Introduction of Electrolytic and Water Balance Substance into Peripheral Vein, Percutaneous Approach (ICD-10-PCS; 2018-11-18)
DX: G40.909 Epilepsy, unspecified, not intractable, without status epilepticus (principal); I10 Essential (primary) hypertension; J45.909 Unspecified asthma, uncomplicated
CPT/HCPCS: 36415; 80048; 80053; 80177; 80307; 81003; 82962; 83605; 85025; 93005; 93010; 96374; 96375; 99285-25; G0378; J7030

== ENCOUNTER 2019-02-14 12:03 | Emergency (ER) | payer OTHER ==
[2019-02-14 12:36] VITALS: BP 139/79; PULSE 89
--- NOTE | 2019-02-14 12:38 | PDOC ---
History of Present Illness - General Chief Complaint: Injury Stated Complaint: LT THUMB INJURY Time Seen by Provider: 02/14/19 12:23 History Source: Patient Exam Limitations: No Limitations - History of Present Illness Initial Comments: 02/14/19 12:36 patient states suffers from carpal tunnel syndrome and feels last night may have twisted pulled or strained her left hand causing tenderness to the IP joint of her left thumb. Usually uses splints but states sleeping or too uncomfortable to wear. Denies fever, denies any recent trauma or exercise change.Has taken no medication for relief of Same. Occurred: reports: just prior to arrival Pain Location: reports: upper extremity Modifying Factors: improves with: None Past History - Travel Traveled outside of the country in the last 30 days: No Close contact w/someone who was outside of country & ill: No - Past Medical History Allergies/Adverse Reactions: Allergies Allergy/AdvReac Type Severity Reaction Status Date / Time No Known Allergies Allergy Verified 02/14/19 12:42 Home Medications: Ambulatory Orders Naproxen [Naprosyn -] 500 mg PO BID #30 tablet 02/14/19 Asthma: Yes COPD: No Diabetes: Yes (IDDM) HTN: Yes Seizures: Yes - Surgical History Lung Surgery: Yes (Lung biopsy 2009) - Immunization History Immunization Up to Date: Yes - Suicide/Smoking/Psychosocial Hx Smoking Status: Yes Smoking History: Never smoked Have you smoked in the past 12 months: No Number of Cigarettes Smoked Daily: 10 Information on smoking cessation initiated: No 'Breaking Loose' booklet given: 06/08/16 Hx Alcohol Use: No Drug/Substance Use Hx: No Substance Use Type: None Hx Substance Use Treatment: No Review of Systems - Review of Systems Able to Perform ROS?: Yes Is the patient limited Japanese proficient: Yes Constitutional: Yes: See HPI. No: Symptoms Reported, Fever, Loss of Appetite, Malaise HEENTM: No: Symptoms Reported Musculoskeletal: Yes: Symptoms Reported, See HPI, Joint Pain, Joint Swelling ( left thumb with pain and mild swelling. ) *Physical Exam - Vital Signs Last Vital Signs Temp Pulse Resp BP Pulse Ox 89 16 139/79 100 02/14/19 12:23 02/14/19 12:23 02/14/19 12:23 02/14/19 12:23 - Physical Exam General Appearance: Yes: Nourished, Appropriately Dressed, Apparent Distress HEENT: positive: ALEKSANDER, Normal ENT Inspection, TMs Normal Gastrointestinal/Abdominal: positive: Soft Musculoskeletal: positive: Decreased Range of Motion (mild diminished due to pain with Flexion and extensionat wrist joint ). 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 intact, Fully Oriented, Alert, Normal Mood/ Affect, Normal Response, Motor Strength 5/5 Progress Note - Progress Note Progress Note: swelling due to inflammation/ tendonitis, will treat with NSAIDS and splint *DC/Admit/Observation/Transfer Diagnosis at time of Disposition: Tendinitis of hand - Discharge Dispostion Disposition: HOME Condition at time of disposition: Stable Decision to Admit order: No - Prescriptions Prescriptions: Naproxen [Naprosyn -] 500 mg PO BID #30 tablet - Referrals Referrals: Celestino Syed MD [Staff Physician] - - Patient Instructions Printed Discharge Instructions: DI for Tendinitis Additional Instructions: Rest, ice to area on and off for 15 minutes 4-6 times a day Avoid heavy lifting or exercise until pain and swelling is resolved or until further directed Keep area highly elevated to reduce swelling Use splints/Wil wrap as directed Followup with orthopedist in one to 2 days if not improving, if significantly improved may wait one week for followup with orthopedist May use [id number] milligrams tablet every 12 hours as needed for pain - Post Discharge Activity
== END 2019-02-14 12:44 | disposition home or self-care (01) ==
LOC: JERFT 12:03
DX: M77.9 Enthesopathy, unspecified (principal); J45.909 Unspecified asthma, uncomplicated; E11.9 Type 2 diabetes mellitus without complications; I10 Essential (primary) hypertension; R56.9 Unspecified convulsions; F17.210 Nicotine dependence, cigarettes, uncomplicated
CPT/HCPCS: 99282-25

== ENCOUNTER 2019-06-22 06:55 | Inpatient (IN) | payer OTHER ==
[2019-06-22] MEDS ORDERED: SODIUM CHLORIDE 1,000 ML IV STA ×2 (07:45→08:30)
--- NOTE | 2019-06-22 07:57 | PDOC ---
History of Present Illness - General Chief Complaint: Blood Sugar Problem Stated Complaint: DIABETIC EMERGENCY Time Seen by Provider: 06/22/19 07:45 - History of Present Illness Initial Comments: 06/22/19 07:56 49 yo F with h/o seizure disorder, asthma, HTN, IDDM who p/w nausea and vomiting. Patient reports multiple 3 + episodes of NBNB emesis beginning at 1 AM this morning. Also endorses retrosternal chest discomfort following vomiting , unremitting, and present at rest. Patient stated that prior to vomiting, she had right sided chest discomfort beginning this AM, and unable to characterize pain. Patient also endorses lightheadedness. Patient denies SHORT, vision change, palpitations, cough, wheezing, orthopena, PND, leg swelling/pain, N/V, F,C, SOB , urinary complaints, hematuria, BPR, abdominal pain, diarrhea, constipation, weakness, sensory changes. Last Insulin intake 11 Units 700 PM (06/20/19). Patient did not take morning medications Keppra 1000 mg, Topimax 100 mg. Denies recent sick contacts or travels, or change in diet. Reports h/o ICU stay/DKA. Past History - Past Medical History Allergies/Adverse Reactions: Allergies Allergy/AdvReac Type Severity Reaction Status Date / Time No Known Allergies Allergy Verified 02/14/19 12:42 Home Medications: Ambulatory Orders Insulin Glargine,Hum.rec.anlog [Basaglar Kwikpen U-100] 100 unit SQ 06/22/19 Insulin Lispro [Admelog Solostar] 9 units SQ TID 06/22/19 Levetiracetam 1,000 mg PO BID 06/22/19 Metformin HCl [Glucophage] 1,000 mg PO BID 06/22/19 Multivitamin [Multiple Vitamins] 1 each PO DAILY 06/22/19 Topiramate 100 mg PO BID 06/22/19 Asthma: Yes COPD: No Diabetes: Yes (IDDM) HTN: Yes Seizures: Yes - Surgical History Lung Surgery: Yes (Lung biopsy 2009) - Immunization History Immunization Up to Date: Yes - Psycho Social/Smoking Cessation Hx Smoking Status: Yes Smoking History: Current every day smoker Have you smoked in the past 12 months: Yes Number of Cigarettes Smoked Daily: 10 Information on smoking cessation initiated: No 'Breaking Loose' booklet given: 06/08/16 Hx Alcohol Use: No Drug/Substance Use Hx: No Substance Use Type: None Hx Substance Use Treatment: No Review of Systems - Review of Systems Comments:: 06/22/19 07:56 GENERAL/CONSTITUTIONAL: No fever or chills. No weakness. HEAD, EYES, EARS, NOSE AND THROAT: No change in vision. No ear pain or discharge. No sore throat. CARDIOVASCULAR: + chest pain. No shortness of breath RESPIRATORY: No cough, wheezing, or hemoptysis. GASTROINTESTINAL: + nausea, vomiting. No diarrhea or constipation. GENITOURINARY: No dysuria, frequency, or change in urination. MUSCULOSKELETAL: No joint or muscle swelling or pain. No neck or back pain. SKIN: No rash NEUROLOGIC: No headache, vertigo, loss of consciousness, or change in strength/ sensation. ENDOCRINE: No increased thirst. No abnormal weight change HEMATOLOGIC/LYMPHATIC: No anemia, easy bleeding, or history of blood clots. ALLERGIC/IMMUNOLOGIC: No hives or skin allergy. *Physical Exam - Vital Signs Last Vital Signs Temp Pulse Resp BP Pulse Ox 98.6 F 100 H 20 157/90 100 06/22/19 07:43 06/22/19 07:43 06/22/19 07:43 06/22/19 07:43 06/22/19 07:43 - Physical Exam Comments: 06/22/19 07:57 GENERAL: Awake, alert, and fully oriented, in no acute distress HEAD: No signs of trauma, normocephalic, atraumatic EYES: PERRLA, EOMI, sclera anicteric, conjunctiva clear ENT: + Dry mucous membranes. Auricles normal inspection, hearing grossly normal , nares patent, oropharynx clear without exudates. NECK: Normal ROM, supple, no lymphadenopathy, JVD, or masses LUNGS: No distress, speaks full sentences, clear to auscultation bilaterally HEART: Regular rate and rhythm, normal S1 and S2, no murmurs, rubs or gallops, peripheral pulses normal and equal bilaterally. ABDOMEN: + Epigastric ttp. Soft, NDS, normoactive bowel sounds. No guarding, no rebound. No masses EXTREMITIES : Normal inspection, Normal range of motion, no edema. No clubbing or cyanosis NEUROLOGICAL: Cranial nerves II through XII grossly intact. Normal speech, normal gait, no focal sensorimotor deficits SKIN: Warm, Dry, normal turgor, no rashes or lesions noted ED Treatment Course - LABORATORY CBC & Chemistry Diagram: 06/22/19 08:00 06/22/19 08:00 - ADDITIONAL ORDERS Additional order review: Laboratory Results 06/22/19 07:04 POC Glucometer 514 06/22/19 07:04 POC Glucometer 514 Medical Decision Making - Medical Decision Making 06/22/19 08:23 49 yo F with h/o seizure disorder, asthma, HTN, IDDM who p/w nausea and vomiting. BP 196/79, HR 93, vitals otherwise wnl, AF, A&Ox3. Physical exam notable for dry mucous membranes, and epigastric ttp. ACS/DE r/o. Possible enteritis, gastritis, biliary dz.,pancreatitis. Will evaluate for hypo/ hyperglycemia, DKA, cardiac dyssarythmias, electrolyte abnml, metabolic and toxic derangements, acid-base disturbances, infection. Will provide IV fluid hydration, PO fluids, anti-emetics, and reassess. 06/22/19 08:28 ED Course: NS, Zofran, Famotidine, Lactated Ringers 06/22/19 08:37 EKG: NSR with absent SORAIDA, STD. + LVH. + Peaked T waves, Nml interval duration and axis. Nml R wave progression. Absent Q waves. 06/22/19 08:40 Insulin 10 U, Sodium Bicarb, Albuterol, Lasix 06/22/19 09:12 Laboratory Tests 06/22/19 06/22/19 06/22/19 08:00 08:00 08:00 WBC 18.1 H Hgb 14.2 Hct 42.0 Plt Count 281 D VBG pH 7.13 L* Sodium 129 L Potassium 5.7 H Chloride 97 L Carbon Dioxide 10 L BUN 20.3 H Creatinine 1.2 BS~553 Patient placed on Insulin gtt Will admit to ICU for DKA, requiring Insulin gtt 06/22/19 09:[address] Calero, will admit to ICU 06/22/19 09:[address] Misha Shepard answering service [phone]. Awaiting call back. Patient endorsed to Dr. Cabral, agrees with dispo 06/22/19 09:50 Patient admitted 06/22/19 09:50 BS~442 Dr. Cabral at bedside Discharge - Discharge Information Problems reviewed: Yes Clinical Impression/Diagnosis: Hyperglycemia due to type 1 diabetes mellitus DKA, type 1 Qualifiers: Diabetes mellitus complication detail: without coma Qualified Code(s): E10.10 - Type 1 diabetes mellitus with ketoacidosis without coma - Admission Yes - Follow up/Referral - Patient Discharge Instructions - Post Discharge Activity
[2019-06-22] MEDS ORDERED: TOPIRAMATE 100 MG TABLET PO ONE (08:17)
[2019-06-22] MEDS ORDERED: levETIRAcetam 500 MG/5 ML INJECTION VIAL IVPB ONE (08:17)
[2019-06-22] MEDS ORDERED: ONDANSETRON 4 MG/2 ML VIAL IVPB ONE (08:17)
[2019-06-22 08:25] LABS: VENOUS PO2 59.1 mmHg (28-48)
[2019-06-22 08:28] LABS: BASO % 0.5 % (0-2.0); EOS % 0.1 % (0-4.5); HEMOGLOBIN 14.2 GM/dL (10.7-15.3); LYMPH % 6.8 % (8-40); MCH 33.5 pg (25.7-33.7); MCHC 33.8 g/dl (32.0-36.0); MEAN CELL VOLUME 99.1 fl (80-96); MEAN PLT VOLUME 9.1 fl (7.5-11.1); MONO % 2.6 % (3.8-10.2); PLATELET COUNT 281 K/MM3 (134-434); RBC 4.24 M/mm3 (3.60-5.2); RDW 13.7 % (11.6-15.6); WHITE BLOOD COUNT 18.1 K/mm3 (4.0-10.0)
[2019-06-22] MEDS ORDERED: FAMOTIDINE 20 MG/50 ML IVPB 20 MG/50 ML MG IVPB ONE ×2 (08:28→08:56)
[2019-06-22 08:30] LABS: VENOUS PH 7.13 (7.31-7.41)
[2019-06-22] MEDS ORDERED: INSULIN REGULAR HUMAN 100 UNITS/ML *VIAL IVPUSH ONE (08:35)
[2019-06-22] MEDS ORDERED: SODIUM BICARBONATE 4.2% 5 MEQ/10 ML DISP.SYRIN IVPUSH ONE ×2 (08:39→08:43)
[2019-06-22] MEDS ORDERED: ONDANSETRON 4 MG/2 ML VIAL ONE (08:56)
--- NOTE | 2019-06-22 09:05 | PDOC ---
Attending Attestation - Resident Resident Name: JohnJuanHu - ED Attending Attestation I have performed the following: I have examined & evaluated the patient, The case was reviewed & discussed with the resident, I agree w/resident's findings & plan - HPI HPI: 06/22/19 09:05 49 yo F with h/o seizure disorder, asthma, HTN, IDDM who p/w nausea and vomiting. Patient reports multiple 3 + episodes of NBNB emesis beginning at 1 AM this morning. +retrosternal chest discomfort following vomiting, unremitting , and present at rest. Patient stated that prior to vomiting, she had right sided chest discomfort beginning this AM, and unable to characterize pain. A/W lightheadedness. Last Insulin intake 11 Units 700 PM (06/20/19). Patient did not take morning medications Keppra 1000 mg, Topimax 100 mg. Denies recent sick contacts or travels, or change in diet. Reports h/o ICU stay/DKA. 06/22/19 09:50 - Physicial Exam PE: 06/22/19 09:05 Agree with the resident's HPI and PE as documented in the electronic medical record. NAD, malaised appearing, EOMI, PERRL, nl conjunctiva, anicteric; dry membranes , neck supple. lungs clear, RRR, abdomen soft nontender. no rebound, guarding. Back nontender. LALA x4, no focal neuro deficits. No peripheral edema. normal color for ethnicity, WWP. no rash 06/22/19 09:51 - Critical Care Time Total Critical Care Time: 40 (metabolic crisis, DKA) Critical Care Statement: The care of this patient involved high complexity decision making to prevent further life threatening deterioration of the patient 's condition and/or to evaluate & treat vital organ system(s) failure or risk of failure. - Medical Decision Making 06/22/19 09:05 Vital Signs Temp Pulse Resp BP Pulse Ox 98.6 F 100 H 20 157/90 100 06/22/19 07:43 06/22/19 07:43 06/22/19 07:43 06/22/19 07:43 06/22/19 07:43 Vital signs noted for hypertension, patient clinically appears dry and dehydrated. Differential diagnosis includes DKA, HHS, anemia, electro eye/ metabolic derangements, infection. Laboratory results are notable for pseudo-hyponatremia, corrected for hyperglycemia and within normal limits, hyperglycemia is noted with glucose greater than 500s, anion gap acidosis is noted, also has a white count of 18 K which is consistent with her active stress state and DKA. EKG shows peaking of the T waves though similar to prior EKG, now she has mild hyperkalemia of 5.7 with peaked T waves. We will treat empirically with calcium, Lasix, albuterol, bicarb and insulin -hold dextrose given her hyperglycemia. Antiemetics for nausea, IV fluids with lactated Ringer's - as it is more physiologically balanced. This will prevent worsening of any acidosis. We will also initiate insulin drip. ICU consultation and admission. admitting to Dr Cabral, ICU bed. 06/22/19 09:11 06/22/19 09:51 Heart Score/ECG Review #1 ECG reviewed & interpreted by me at: 08:10 General ECG Interpretation: Sinus Rhythm, Normal Rate, Normal Intervals Compared to previous ECG there are: No significant change 06/22/19 09:10 EKG normal sinus rhythm at 96 bpm, no interval abnormalities, narrow QRS, ST and T wave segments and morphology normal. peaked T wave abnormalities
[2019-06-22 09:08] LABS: ALBUMIN 4.6 g/dl (3.4-5.0); ALK PHOS 79 U/L (45-117); ANION GAP 22 MMOL/L (8-16); BILIRUBIN,TOTAL 0.6 mg/dL (0.2-1); BLOOD UREA NITROGEN 20.3 mg/dL (7-18); CALCIUM 9.6 mg/dL (8.5-10.1); CHLORIDE 97 mmol/L (98-107); CO2 10 mmol/L (21-32); CREATININE 1.2 mg/dL (0.55-1.3); LIPASE 61 U/L (73-393); MAGNESIUM 1.8 mg/dL (1.8-2.4); PHOSPHOROUS 4.7 mg/dL (2.5-4.9); POTASSIUM 5.7 mmol/L (3.5-5.1); SGOT/AST 14 U/L (15-37); SGPT/ALT 21 U/L (13-61); SODIUM 129 mmol/L (136-145); TOT PROT 8.4 g/dl (6.4-8.2)
[2019-06-22 09:10] LABS: GLUCOSE,RANDOM 553 mg/dL (74-106)
[2019-06-22] MEDS ORDERED: FUROSEMIDE 40 MG/4 ML INJECTABLE VIAL IVPUSH ONE (09:13)
[2019-06-22] MEDS ORDERED: ALBUTEROL SO4 0.5 % INH SOLN 2.5 MG/0.5 ML VIAL.NEB. NEB PRN (09:14)
[2019-06-22] MEDS ORDERED: INSULIN REGULAR 100 UNITS in SODIUM CHLORIDE 99 ML IVPB SCH ×2 (09:15→13:26)
[2019-06-22] MEDS ORDERED: LACTATED RINGERS SOLUTION 1,000 ML/1,000 ML INFUS.BAG IV SCH ×2 (09:15→12:11)
[2019-06-22] MEDS ORDERED: FUROSEMIDE 40 MG/4 ML INJECTABLE VIAL ONE (09:22)
[2019-06-22] MEDS ORDERED: ALBUTEROL SO4 0.083% IH SOL 2.5 MG/3 ML VIAL.NEB. NEB ONE (09:22)
[2019-06-22 09:37] LABS: URINE APPEARANCE CLEAR; URINE BILIRUBIN NEGATIVE (NEGATIVE); URINE COLOR YELLOW; URINE GLUCOSE (UA) 3+ (NEGATIVE); URINE KETONE 4+ (NEGATIVE); URINE LEUK ESTERASE NEGATIVE (NEGATIVE); URINE NITRITE NEGATIVE (NEGATIVE); URINE PROTEIN NEGATIVE (NEGATIVE); URINE UROBILINOGEN 0.2 mg/dL (0.2-1.0)
--- NOTE | 2019-06-22 10:45 | CONSULT ---
Consultation: REQUESTING PROVIDER: CONSULT REQUEST: ICU HISTORY OF PRESENT ILLNESS: Lamont Vázquez is a 49yF w PMHx IDDM, seizure disorder, asthma presenting with hyperglycemia, nausea/vomiting. 3+ emesis episodes beginning 1am this morning. Also endorses retrosternal chest discomfort following vomiting, lightheadedness , poor appetite. Measured BG >400 at home. Only took 11u Lispro x1 yesterday. Denies SHORT, vision change, palpitations, cough, wheezing, SOB, AB pain, urinary/ bowel movement changes. REVIEW OF SYSTEMS: CONSTITUTIONAL: + weakness, malaise, loss of appetite Absent: fever, chills, diaphoresis HEENT: Absent: rhinorrhea, nasal congestion, throat pain, throat swelling, visual changes CARDIOVASCULAR: + chest pain, lightheadedness Absent: syncope, palpitations, irregular heart rate, peripheral edema RESPIRATORY: Absent: cough, shortness of breath, dyspnea with exertion, orthopnea, wheezing GASTROINTESTINAL: + nausea, vomiting Absent: abdominal pain, abdominal distension, diarrhea, constipation GENITOURINARY: Absent: dysuria, frequency, urgency MUSCULOSKELETAL: Absent: myalgia, arthralgia, joint swelling SKIN: Absent: rash, itching, pallor HEMATOLOGIC/IMMUNOLOGIC: Absent: easy bleeding, easy bruising ENDOCRINE: Absent: heat intolerance, cold intolerance NEUROLOGIC: Absent: headache, focal weakness or paresthesias, dizziness, unsteady gait PSYCHIATRIC: Absent: anxiety, depression PHYSICAL EXAMINATION Vital Signs - 24 hr 06/22/19 06/22/19 06/22/19 07:01 07:43 08:04 Temperature 98.6 F 98.6 F Pulse Rate 93 H 100 H Pulse Rate [ 100 H 100 H Left Radial] Respiratory 20 20 20 Rate Blood Pressure 196/79 H Blood Pressure 157/90 [Right Arm] O2 Sat by Pulse 100 100 100 Oximetry (%) 06/22/19 10:20 Temperature Pulse Rate Pulse Rate [ 106 H Left Radial] Respiratory 16 Rate Blood Pressure Blood Pressure 154/93 [Right Arm] O2 Sat by Pulse 100 Oximetry (%) GENERAL: Awake, alert, and fully oriented, in no acute distress. LUNGS: Breath sounds equal, clear to auscultation bilaterally. No wheezes, and no crackles. No accessory muscle use. HEART: Regular rate and rhythm, normal S1 and S2 without murmur, rub or gallop. Chest non tender to palpation ABDOMEN: Soft, nontender, not distended, normoactive bowel sounds, no guarding, no rebound, no masses. No hepatomegaly or splenomegaly. EXTREMITIES: Warm. Dry. No peripheral edema. NEUROLOGICAL: AOx3. Normal speech. Laboratory Results - last 24 hr 06/22/19 06/22/19 06/22/19 07:04 08:00 08:00 WBC 18.1 H RBC 4.24 Hgb 14.2 Hct 42.0 MCV 99.1 H MCH 33.5 MCHC 33.8 RDW 13.7 Plt Count 281 D MPV 9.1 Absolute Neuts (auto) 16.3 H Neutrophils % 90.0 H D Lymphocytes % 6.8 L D Monocytes % 2.6 L Eosinophils % 0.1 D Basophils % 0.5 Nucleated RBC % 0 VBG pH POC VBG pCO2 POC VBG pO2 VBG HCO3 VBG O2 Sat (Jazmin) VBG Base Excess Sodium 129 L Potassium 5.7 H Chloride 97 L Carbon Dioxide 10 L Anion Gap 22 H BUN 20.3 H Creatinine 1.2 Est GFR (CKD-EPI)AfAm 61.89 Est GFR (CKD-EPI)NonAf 53.40 POC Glucometer 514 Random Glucose 553 H* Calcium 9.6 Phosphorus 4.7 Magnesium 1.8 Total Bilirubin 0.6 AST 14 L ALT 21 Alkaline Phosphatase 79 Creatine Kinase 102 Troponin I < 0.02 Total Protein 8.4 H Albumin 4.6 Lipase 61 L Urine Color Urine Appearance Urine pH Ur Specific Clare Urine Protein Urine Glucose (UA) Urine Ketones Urine Blood Urine Nitrite Urine Bilirubin Urine Urobilinogen Ur Leukocyte Esterase Urine HCG, Qual 06/22/19 06/22/19 06/22/19 08:00 08:00 09:20 WBC RBC Hgb Hct MCV MCH MCHC RDW Plt Count MPV Absolute Neuts (auto) Neutrophils % Lymphocytes % Monocytes % Eosinophils % Basophils % Nucleated RBC % VBG pH 7.13 L* POC VBG pCO2 26.0 L POC VBG pO2 59.1 H VBG HCO3 8.3 L VBG O2 Sat (Jazmin) 81.1 H VBG Base Excess -20.0 L Sodium Potassium Chloride Carbon Dioxide Anion Gap BUN Creatinine Est GFR (CKD-EPI)AfAm Est GFR (CKD-EPI)NonAf POC Glucometer Random Glucose Calcium Phosphorus Magnesium Total Bilirubin AST ALT Alkaline Phosphatase Creatine Kinase Troponin I Total Protein Albumin Lipase Urine Color Yellow Urine Appearance Clear Urine pH 5.0 Ur Specific Clare 1.023 Urine Protein Negative Urine Glucose (UA) 3+ H Urine Ketones 4+ H Urine Blood Negative Urine Nitrite Negative Urine Bilirubin Negative Urine Urobilinogen 0.2 Ur Leukocyte Esterase Negative Urine HCG, Qual Negative 06/22/19 09:32 WBC RBC Hgb Hct MCV MCH MCHC RDW Plt Count MPV Absolute Neuts (auto) Neutrophils % Lymphocytes % Monocytes % Eosinophils % Basophils % Nucleated RBC % VBG pH POC VBG pCO2 POC VBG pO2 VBG HCO3 VBG O2 Sat (Jazmin) VBG Base Excess Sodium Potassium Chloride Carbon Dioxide Anion Gap BUN Creatinine Est GFR (CKD-EPI)AfAm Est GFR (CKD-EPI)NonAf POC Glucometer 442 Random Glucose Calcium Phosphorus Magnesium Total Bilirubin AST ALT Alkaline Phosphatase Creatine Kinase Troponin I Total Protein Albumin Lipase Urine Color Urine Appearance Urine pH Ur Specific Clare Urine Protein Urine Glucose (UA) Urine Ketones Urine Blood Urine Nitrite Urine Bilirubin Urine Urobilinogen Ur Leukocyte Esterase Urine HCG, Qual Active Medications Generic Name Dose Route Start Last Admin Trade Name Freq PRN Reason Stop Dose Admin Albuterol Sulfate 4 amp 06/22/19 09:14 06/22/19 09:37 Ventolin 0.5% - NEB 4 amp Q6H PRN Administration SHORT OF BREATH/WHEEZING Insulin Human Regular 100 100 mls @ 5.35 mls/hr 06/22/19 09:15 06/22/19 10:20 units/ Sodium Chloride IVPB 0.1 units/kg/hr TITR LYNDSEY 5.35 mls/hr Administration Protocol 0.1 UNITS/KG/HR Lactated Ringer's 1,000 ml in 1,000 mls @ 100 mls/hr 06/22/19 09:15 06/22/19 09:30 Lactated Ringers Solution IV 100 mls/hr ASDIR LYNDSEY Administration ASSESSMENT/PLAN: Lamont Vázquez is a 49yF w PMHx HTN, IDDM, seizure disorder, asthma presenting with hyperglycemia, nausea, vomiting d/t DKA Endo - DKA (BG 553, metabolic acidosis, ketones) - 0.1u/kg/hr insulin drip IV switched to 0.05u/kg/hr when BG<200. D/c when anion gap closed - given 10u levemir Cards b - hyperkalemia - resolved, hx HTN - K 5.7 w peaked T waves V3-4 on EKG 06/22 - repeat K 4.1 after given bicarb, lasix, bicarb - trop neg - restarted home amlodipine Pulm - hx asthma - breathing RA, no distress, O2sat wnl - duoneb PRN GI - nausea/vomiting resolved w zofran, pepcid in ED - started diabetic diet - LR switched to D5 1/2NS @100mL/hr when BG<200. D/c fluids - I/O Neuro - hx seizure - restarted home keppra, topomax ID - leukocytosis 18.1 w neutrophil shift d/t infection vs stress response - no evidence of UTI or PNA FEN - d/c fluids - hypoNa, hyperK, hypoCl - resolved - diabetic diet PPX - no DVT/GI ppx Dispo : accepted to ICU Visit type - Emergency Visit Emergency Visit: Yes ED Registration Date: 06/22/19 Care time: The patient presented to the Emergency Department on the above date and was hospitalized for further evaluation of their emergent condition. - New Patient This patient is new to me today: Yes Date on this admission: 06/23/19 - Critical Care Critical Care patient: Yes Total Critical Care Time (in minutes): 36 Critical Care Statement: The care of this patient involved high complexity decision making to prevent further life threatening deterioration of the patient 's condition and/or to evaluate & treat vital organ system(s) failure or risk of failure. ATTENDING PHYSICIAN STATEMENT I saw and evaluated the patient. I reviewed the resident's note and discussed the case with the resident. I agree with the resident's findings and plan as documented. SUBJECTIVE: OBJECTIVE: ASSESSMENT AND PLAN:
--- NOTE | 2019-06-22 11:53 | PN ---
Teaching Attending Note Name of Resident: Lex Moss ATTENDING PHYSICIAN STATEMENT I saw and evaluated the patient. I reviewed the resident's note and discussed the case with the resident. I agree with the resident's findings and plan as documented. SUBJECTIVE: Patient seen and examined in the ICU. In brief, 49 F, IDDM, seizure disorder, and asthma (likely mild persistent). Admitted via the ER due to nausea/ vomiting. emesis, and a measured blood glucose of > 400 at home. No significant respiratory symptoms. No travel history or sick contacts. Labs consistent with DKA. Intake & Output 06/19/19 06/20/19 06/21/19 06/22/19 23:59 23:59 23:59 23:59 Intake Total 1500 Balance 1500 Weight 120 lb 13.013 oz Last Vital Signs Temp Pulse Resp BP Pulse Ox 97.9 F 113 H 24 H 155/70 100 06/22/19 10:50 06/22/19 10:50 06/22/19 10:50 06/22/19 10:50 06/22/19 10:20 Active Medications Albuterol Sulfate (Ventolin 0.5% -) 4 amp NEB Q6H PRN PRN Reason: SHORT OF BREATH/WHEEZING Last Admin: 06/22/19 09:37 Dose: 4 amp Insulin Human Regular 100 (units/ Sodium Chloride) 100 mls @ 5.35 mls/hr IVPB TITR LYNDSEY; Protocol Last Admin: 06/22/19 10:20 Dose: 0.1 units/kg/hr, 5.35 mls/hr Lactated Ringer's (Lactated Ringers Solution) 1,000 ml in 1,000 mls @ 100 mls/ hr IV ASDIR LYNDSEY Last Admin: 06/22/19 09:30 Dose: 100 mls/hr GENERAL: Awake, alert, and oriented, in no acute distress. LUNGS: Breath sounds equal, clear to auscultation bilaterally. No wheezes, and no crackles. No accessory muscle use. HEART: Regular rate and rhythm, normal S1 and S2 without murmur, rub or gallop. Chest non tender to palpation ABDOMEN: Soft, nontender, not distended, normoactive bowel sounds, no guarding, no rebound, no masses. No hepatomegaly or splenomegaly. EXTREMITIES: Warm. Dry. No peripheral edema. NEUROLOGICAL: AOx3. Laboratory Results - last 24 hr 06/22/19 06/22/19 06/22/19 07:04 08:00 08:00 WBC 18.1 H RBC 4.24 Hgb 14.2 Hct 42.0 MCV 99.1 H MCH 33.5 MCHC 33.8 RDW 13.7 Plt Count 281 D MPV 9.1 Absolute Neuts (auto) 16.3 H Neutrophils % 90.0 H D Lymphocytes % 6.8 L D Monocytes % 2.6 L Eosinophils % 0.1 D Basophils % 0.5 Nucleated RBC % 0 VBG pH POC VBG pCO2 POC VBG pO2 VBG HCO3 VBG O2 Sat (Jazmin) VBG Base Excess Sodium 129 L Potassium 5.7 H Chloride 97 L Carbon Dioxide 10 L Anion Gap 22 H BUN 20.3 H Creatinine 1.2 Est GFR (CKD-EPI)AfAm 61.89 Est GFR (CKD-EPI)NonAf 53.40 POC Glucometer 514 Random Glucose 553 H* Calcium 9.6 Phosphorus 4.7 Magnesium 1.8 Total Bilirubin 0.6 AST 14 L ALT 21 Alkaline Phosphatase 79 Creatine Kinase 102 Troponin I < 0.02 Total Protein 8.4 H Albumin 4.6 Lipase 61 L Urine Color Urine Appearance Urine pH Ur Specific [place] Urine Protein Urine Glucose (UA) Urine Ketones Urine Blood Urine Nitrite Urine Bilirubin Urine Urobilinogen Ur Leukocyte Esterase Urine HCG, Qual 06/22/19 06/22/19 06/22/19 08:00 08:00 09:20 WBC RBC Hgb Hct MCV MCH MCHC RDW Plt Count MPV Absolute Neuts (auto) Neutrophils % Lymphocytes % Monocytes % Eosinophils % Basophils % Nucleated RBC % VBG pH 7.13 L* POC VBG pCO2 26.0 L POC VBG pO2 59.1 H VBG HCO3 8.3 L VBG O2 Sat (Jazmin) 81.1 H VBG Base Excess -20.0 L Sodium Potassium Chloride Carbon Dioxide Anion Gap BUN Creatinine Est GFR (CKD-EPI)AfAm Est GFR (CKD-EPI)NonAf POC Glucometer Random Glucose Calcium Phosphorus Magnesium Total Bilirubin AST ALT Alkaline Phosphatase Creatine Kinase Troponin I Total Protein Albumin Lipase Urine Color Yellow Urine Appearance Clear Urine pH 5.0 Ur Specific [place] 1.023 Urine Protein Negative Urine Glucose (UA) 3+ H Urine Ketones 4+ H Urine Blood Negative Urine Nitrite Negative Urine Bilirubin Negative Urine Urobilinogen 0.2 Ur Leukocyte Esterase Negative Urine HCG, Qual Negative 06/22/19 09:32 WBC RBC Hgb Hct MCV MCH MCHC RDW Plt Count MPV Absolute Neuts (auto) Neutrophils % Lymphocytes % Monocytes % Eosinophils % Basophils % Nucleated RBC % VBG pH POC VBG pCO2 POC VBG pO2 VBG HCO3 VBG O2 Sat (Jazmin) VBG Base Excess Sodium Potassium Chloride Carbon Dioxide Anion Gap BUN Creatinine Est GFR (CKD-EPI)AfAm Est GFR (CKD-EPI)NonAf POC Glucometer 442 Random Glucose Calcium Phosphorus Magnesium Total Bilirubin AST ALT Alkaline Phosphatase Creatine Kinase Troponin I Total Protein Albumin Lipase Urine Color Urine Appearance Urine pH Ur Specific [place] Urine Protein Urine Glucose (UA) Urine Ketones Urine Blood Urine Nitrite Urine Bilirubin Urine Urobilinogen Ur Leukocyte Esterase Urine HCG, Qual ASSESSMENT/PLAN: DKA IDDM Seizure disorder Asthma (Mild Persistent) Leukocytosis: (?) reactive rather than infectious Insulin drip per protocol IVF resuscitation Strict I & O O2 as needed Would monitor off ABX PO as tolerated VTE prophylaxis BD TX PRN Continue AEDs Requires ICU monitoring Dr Zuniga Critical care time spent in reviewing chart, evaluating patient and formulating plan - 36 minutes.
[2019-06-22] MEDS ORDERED: DEXTROSE 5%-0.45% SALINE 1,000 ML IV SCH (13:30)
[2019-06-22] MEDS ORDERED: FLU VACCINE QUAD 60 MCG/0.5 ML (MDV 19-20) IM ONE (14:00)
--- NOTE | 2019-06-22 14:22 | EKG ---
Test Reason : Blood Pressure : / mmHG Vent. Rate : 096 BPM Atrial Rate : 096 BPM P-R Int : 150 ms QRS Dur : 078 ms QT Int : 352 ms P-R-T Axes : 071 057 072 degrees QTc Int : 444 ms NORMAL SINUS RHYTHM MINIMAL VOLTAGE CRITERIA FOR LVH, MAY BE NORMAL VARIANT NONSPECIFIC T WAVE ABNORMALITY PEAKED T WAVES. CLINICAL CORRELATION REQUIRED Confirmed by SANDEEP CAMP MD ([id number]) on 06/22/2019 2:22:19 PM Referred By: Confirmed By:SANDEEP CAMP MD
[2019-06-22 14:23] LABS: BLOOD UREA NITROGEN 17.9 mg/dL (7-18); CALCIUM 8.6 mg/dL (8.5-10.1); POTASSIUM 4.1 mmol/L (3.5-5.1)
[2019-06-22] MEDS ORDERED: PT OWN MED DRAWER 7, Y5N ONE ×2 (17:55→21:26)
[2019-06-22 17:57] LABS: BLOOD UREA NITROGEN 15.1 mg/dL (7-18); CALCIUM 8.4 mg/dL (8.5-10.1); CREATININE 0.9 mg/dL (0.55-1.3); POTASSIUM 3.6 mmol/L (3.5-5.1)
[2019-06-22] MEDS: amLODIPine BESYLATE 5 MG TABLET (FP) PO SCH (18:17)
[2019-06-22] MEDS ORDERED: INSULIN (LEVEMIR) 100 UNITS/ML UNITS SQ ONE (18:21)
[2019-06-22] MEDS ORDERED: amLODIPine BESYLATE 5 MG TABLET (FP) PO ONE (21:10)
[2019-06-22] MEDS: levETIRAcetam 500 MG TABLET (FP) PO SCH ×2 (21:30→22:02)
[2019-06-22] MEDS: INSULIN SLIDING SCALE (NOVOLOG) 1 VIAL SQ SCH (21:31)
[2019-06-22] MEDS: TOPIRAMATE 100 MG TABLET PO SCH (21:31)
[2019-06-22] MEDS: INSULIN (LEVEMIR) 100 UNITS/ML UNITS SQ SCH (21:33)
[2019-06-22] MEDS ORDERED: INSULIN (LEVEMIR) 100 UNITS/ML UNITS SQ SCH ×2 (22:00)
[2019-06-22 22:11] LABS: CALCIUM 8.8 mg/dL (8.5-10.1); CREATININE 1.1 mg/dL (0.55-1.3); POTASSIUM 4.1 mmol/L (3.5-5.1)
[2019-06-23] MEDS: INSULIN SLIDING SCALE (NOVOLOG) 1 VIAL SQ SCH ×4 (07:14→22:09)
[2019-06-23 07:28] LABS: ALBUMIN 3.9 g/dl (3.4-5.0); BILIRUBIN,TOTAL 0.5 mg/dL (0.2-1); BLOOD UREA NITROGEN 11.4 mg/dL (7-18); CALCIUM 8.6 mg/dL (8.5-10.1); CREATININE 0.7 mg/dL (0.55-1.3); MAGNESIUM 1.7 mg/dL (1.8-2.4); PHOSPHOROUS 2.7 mg/dL (2.5-4.9); POTASSIUM 3.5 mmol/L (3.5-5.1)
[2019-06-23 09:09] LABS: BASO % 0.6 % (0-2.0); EOS % 2.3 % (0-4.5); HEMATOCRIT 43.6 % (32.4-45.2); HEMOGLOBIN 15.4 GM/dL (10.7-15.3); LYMPH % 25.8 % (8-40); MCH 33.1 pg (25.7-33.7); MCHC 35.4 g/dl (32.0-36.0); MEAN CELL VOLUME 93.6 fl (80-96); MEAN PLT VOLUME 8.6 fl (7.5-11.1); MONO % 6.1 % (3.8-10.2); NEUT % 65.2 % (42.8-82.8); PLATELET COUNT 290 K/MM3 (134-434); RBC 4.66 M/mm3 (3.60-5.2); WHITE BLOOD COUNT 12.7 K/mm3 (4.0-10.0)
[2019-06-23] MEDS ORDERED: PT OWN MED DRAWER 7, Y5N ONE (09:15)
--- NOTE | 2019-06-23 09:25 | PN ---
Progress Note (short form) - Note Progress Note: PULM/CRITICAL CARE MEDICINE PROGRESS NOTE: SUBJECTIVE: Patient seen and examined in the ICU. Was transitioned to SQ Insulin, and tolerating PO diet. AG closed. OBJECTIVE: Current Medications Albuterol Sulfate (Ventolin 0.5% -) 4 amp NEB Q6H PRN PRN Reason: SHORT OF BREATH/WHEEZING Last Admin: 06/22/19 09:37 Dose: 4 amp Amlodipine Besylate (Norvasc -) 5 mg PO DAILY [facility] Last Admin: 06/22/19 18:17 Dose: 5 mg Insulin Aspart (Novolog Vial Sliding Scale -) 1 vial SQ ACHS [facility]; Protocol Last Admin: 06/23/19 07:14 Dose: Not Given Insulin Detemir (Levemir Vial) 10 units SQ HS [facility] Last Admin: 06/22/19 21:33 Dose: 10 units Levetiracetam (Keppra -) 1,000 mg PO BID [facility] Last Admin: 06/22/19 22:02 Dose: Not Given Topiramate (Topamax -) 100 mg PO DAILY [facility] Last Admin: 06/22/19 21:31 Dose: 100 mg Vital Signs Temp 98.4 F 06/22/19 22:00 Pulse 79 06/23/19 08:30 Resp 16 06/23/19 08:30 BP 138/78 06/23/19 08:30 Pulse Ox 100 06/23/19 08:53 Intake & Output 06/22/19 06/23/19 06/23/19 18:59 06:59 18:59 Intake Total 2077.5 240 Balance 2077.5 240 Weight 54.8 kg Intake: IV 1947.5 D5-1/2Ns - 1,000 ml @ 100 519.5 mls/hr IV ASDIR LYNDSEY Rx#: [id number] NOVOLIN R VIAL *For 28.0 IVPUSH or IV DRIP Only* 100 UNITS In Normal Saline - 99 ml @ 0.05 UNITS/KG/HR 2.67 mls/hr IVPB TITR LYNDSEY Rx#: [id number] Normal Saline - 1,000 ml 400 @ 100 mls/hr IV .Q10H STA Rx#:[id number] Normal Saline - 1,000 ml 1000 @ 1000 mls/hr IV ASDIR STA Rx#:[id number] IVPB 100 Oral 30 240 Other: Voiding Method Toilet Toilet Toilet # Unmeasured Voids Void 2 2 Bowel Movement No No Height 5 ft 7 in Body Mass Index (BMI) 18.9 Weight Measurement Method Stated by Patient Weight Measurement Method Est/Stated by Patient GENERAL: Awake, alert LUNGS: Clear HEART: Regular rate and rhythm ABDOMEN: Soft, nontender EXTREMITIES: warm, no edema NEUROLOGICAL: AOx3. CBC, BMP 06/23/19 08:32 06/23/19 05:30 ASSESSMENT/PLAN: DKA IDDM Seizure disorder Asthma (Mild Persistent) Leukocytosis: (?) reactive rather than infectious -SQ Insulin -PO diet -VTE prophylaxis -BD TX PRN -Continue AEDs She has Insulin, syringes, glucometer and test strips at home. 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
[2019-06-23] MEDS: amLODIPine BESYLATE 5 MG TABLET (FP) PO SCH (09:45)
[2019-06-23] MEDS: levETIRAcetam 500 MG TABLET (FP) PO SCH ×2 (09:46→22:02)
[2019-06-23] MEDS: TOPIRAMATE 100 MG TABLET PO SCH (09:46)
--- NOTE | 2019-06-23 11:02 | PN ---
Progress Note, Physician Chief Complaint: Feels improved - Current Medication List Current Medications: Active Medications Albuterol Sulfate (Ventolin 0.5% -) 4 amp NEB Q6H PRN PRN Reason: SHORT OF BREATH/WHEEZING Last Admin: 06/22/19 09:37 Dose: 4 amp Amlodipine Besylate (Norvasc -) 5 mg PO DAILY [facility] Last Admin: 06/23/19 09:45 Dose: 5 mg Insulin Aspart (Novolog Vial Sliding Scale -) 1 vial SQ [facility]; Protocol Last Admin: 06/23/19 07:14 Dose: Not Given Insulin Detemir (Levemir Vial) 10 units SQ HS [facility] Last Admin: 06/22/19 21:33 Dose: 10 units Levetiracetam (Keppra -) 1,000 mg PO BID [facility] Last Admin: 06/23/19 09:46 Dose: 1,000 mg Topiramate (Topamax -) 100 mg PO DAILY [facility] Last Admin: 06/23/19 09:46 Dose: 100 mg - Objective Vital Signs: Vital Signs Temperature 98.4 F 06/22/19 22:00 Pulse Rate 73 06/23/19 10:00 Respiratory Rate 16 06/23/19 08:30 Blood Pressure 147/95 06/23/19 10:00 O2 Sat by Pulse Oximetry (%) 100 06/23/19 08:53 Young F feels comfortable HEENT: Mm moist, mild anemia, no Jaundice NECK: No JVd No Bruit CHEST: CTA B/L CVS: s1S2 R no m/g/r ABD: No distention, non tender Bs + EXT: No Edema feet 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: 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 non focal Labs: CBC, BMP 06/23/19 08:32 06/23/19 05:30 Problem List - Problems (1) DKA, type 1 Assessment/Plan: AG closed tolerating PO on SQ Insulin can be transfer to floor will optimize Glycemic control Problems reviewed: Yes Code(s): E10.10 - TYPE 1 DIABETES MELLITUS WITH KETOACIDOSIS WITHOUT COMA Qualifiers: Diabetes mellitus complication detail: without coma Qualified Code(s): E10.10 - Type 1 diabetes mellitus with ketoacidosis without coma (2) Seizure disorder Assessment/Plan: Last Seizures was in December 2018 will cont Keppra and Topamx Problems reviewed: Yes Code(s): G40.909 - EPILEPSY, UNSP, NOT INTRACTABLE, WITHOUT STATUS EPILEPTICUS (3) HTN (hypertension) Assessment/Plan: Will resume home meds as indicated Problems reviewed: Yes Code(s): I10 - ESSENTIAL (PRIMARY) HYPERTENSION (4) Elevated WBC count Assessment/Plan: Reactive now improving. Problems reviewed: Yes Code(s): D72.829 - ELEVATED WHITE BLOOD CELL COUNT, UNSPECIFIED Assessment/Plan Transfer to Floor Possible Dc in am.
[2019-06-23] MEDS ORDERED: MAGNESIUM SULF 50% (8.12 MEQ/2 ML-1 GM VIAL) IVPB ONE (11:30)
[2019-06-23] MEDS ORDERED: MAGNESIUM SULF 50% (8.12 MEQ/2 ML-1 GM VIAL) ONE (12:57)
[2019-06-23 14:09] VITALS: BMI 18.8
[2019-06-23] MEDS ORDERED: INSULIN (NOVOLOG) ASPART 100 UNITS/ML 10ML VIAL ONE (21:19)
[2019-06-23] MEDS ORDERED: INSULIN (NOVOLOG) ASPART 100 UNITS/ML 10ML VIAL SQ ONE (22:00)
[2019-06-23] MEDS ORDERED: QUEtiapine FUMARATE 50 MG TABLET PO SCH (22:00)
[2019-06-23] MEDS ORDERED: INSULIN (LEVEMIR) 100 UNITS/ML UNITS SQ SCH (22:00)
[2019-06-23] MEDS: INSULIN (LEVEMIR) 100 UNITS/ML UNITS SQ SCH (22:02)
[2019-06-24] MEDS: INSULIN SLIDING SCALE (NOVOLOG) 1 VIAL SQ SCH ×2 (06:44→09:59)
[2019-06-24 07:47] LABS: BASO % 0.7 % (0-2.0); EOS % 4.7 % (0-4.5); HEMATOCRIT 38.4 % (32.4-45.2); HEMOGLOBIN 13.3 GM/dL (10.7-15.3); LYMPH % 17.6 % (8-40); MCH 32.1 pg (25.7-33.7); MCHC 34.5 g/dl (32.0-36.0); MEAN CELL VOLUME 92.9 fl (80-96); MEAN PLT VOLUME 8.4 fl (7.5-11.1); MONO % 7.8 % (3.8-10.2); NEUT % 69.2 % (42.8-82.8); PLATELET COUNT 202 K/MM3 (134-434); RBC 4.14 M/mm3 (3.60-5.2); RDW 13.2 % (11.6-15.6); WHITE BLOOD COUNT 5.5 K/mm3 (4.0-10.0)
[2019-06-24 08:26] LABS: ALBUMIN 3.5 g/dl (3.4-5.0); BILIRUBIN,TOTAL 0.6 mg/dL (0.2-1); BLOOD UREA NITROGEN 13.3 mg/dL (7-18); CALCIUM 8.4 mg/dL (8.5-10.1); CREATININE 0.7 mg/dL (0.55-1.3); POTASSIUM 3.7 mmol/L (3.5-5.1); TOT PROT 6.5 g/dl (6.4-8.2)
[2019-06-24 09:19] VITALS: BP 148/84; PULSE 92; TEMP 98
[2019-06-24] MEDS: amLODIPine BESYLATE 5 MG TABLET (FP) PO SCH (09:56)
[2019-06-24] MEDS: TOPIRAMATE 100 MG TABLET PO SCH (09:56)
[2019-06-24] MEDS: levETIRAcetam 500 MG TABLET (FP) PO SCH (09:56)
--- NOTE | 2019-06-24 10:04 | DS ---
Physical Examination Vital Signs: Vital Signs Temperature 98 F 06/24/19 09:18 Pulse Rate 92 H 06/24/19 09:18 Respiratory Rate 18 06/24/19 09:18 Blood Pressure 148/84 06/24/19 09:18 O2 Sat by Pulse Oximetry (%) 100 06/24/19 09:00 Young F feels comfortable HEENT: Mm moist, mild anemia, no Jaundice NECK: No JVd No Bruit CHEST: CTA B/L CVS: s1S2 R no m/g/r ABD: No distention, non tender Bs + EXT: No Edema feet NOTEREADER: AOX3 non focal Labs: CBC, BMP 06/24/19 07:08 06/24/19 07:08 Discharge Summary Problems reviewed: Yes Reason For Visit: TYPE 1 DIABETES MELLITTUS W KETOACIDOSIS Current Active Problems DKA, type 1 (Acute) Elevated WBC count (Acute) HTN (hypertension) (Acute) Hyperglycemia due to type 1 diabetes mellitus (Acute) Hospital Course: 49 yo F with h/o seizure disorder, asthma, HTN, T2DM who p/w nausea and vomiting. Patient reports multiple 3 + episodes of NBNB emesis beginning at 1 AM this morning. Also endorses retrosternal chest discomfort following vomiting , unremitting, and present at rest. Patient stated that prior to vomiting, she had right sided chest discomfort beginning this AM, Patent w/u shows DKA large AG with Metabolic acidosis and AG recived IV Hydration , insuin infusion switched back to SQ insulin tolearting PO elevated TWBC but no sourse of infection most likely reactive trended normal Hyperglycemia, metabolic acidosis and AG close, patient wants to go home will Dc Metformin as she admitted with DKA alma rosa Thayer has all his meds at home. patient is advised to increase dose of Basoglar as per am Fs Condition: Improved - Instructions Diet, Activity, Other Instructions: Diabetic Diet Complaince with home meds and Visy ED if develops nausea, vomiting, fever Referrals: Drea Cabral MD [Primary Care Provider] - 1 Week Melissa Toussaint MD [Staff Physician] - 1 Week Disposition: HOME - Home Medications Comprehensive Discharge Medication List: Ambulatory Orders Amlodipine Besylate 5 mg PO DAILY 06/22/19 Insulin Glargine,Hum.rec.anlog [Basaglar Kwikpen U-100] 100 unit SQ 06/22/19 Insulin Lispro [Admelog Solostar] 9 units SQ TID 06/22/19 Levetiracetam 1,000 mg PO BID 06/22/19 Multivitamin [Multiple Vitamins] 1 each PO DAILY 06/22/19 Topiramate 100 mg PO BID 06/22/19 Insulin Sliding Scale [Novolog Vial Sliding Scale -] 1 vial SQ ACHS units 06/24
== END 2019-06-24 15:11 | disposition home or self-care (01) | DRG 420 ==
LOC: JER 06:55 → JERBED 08:33 → JICU 10:43 → J6S 06-23 18:24
PROVIDERS: ADMIT Internal Medicine; ATTEND Internal Medicine
DX: E10.10 Type 1 diabetes mellitus with ketoacidosis without coma (principal); G40.909 Epilepsy, unspecified, not intractable, without status epilepticus; I10 Essential (primary) hypertension; Z79.4 Long term (current) use of insulin; E87.5 Hyperkalemia; E87.1 Hypo-osmolality and hyponatremia; J45.30 Mild persistent asthma, uncomplicated
CPT/HCPCS: 36415; 71045-TC-FY; 80048; 80053; 81003; 82010; 82550; 82803; 82962; 83036; 83690; 83735; 84100; 84484; 84703; 85025; 87086; 93005; 93010; 99285-25; J7030; Q2036

== ENCOUNTER 2019-07-14 13:38 | Emergency (ER) | payer OTHER ==
--- NOTE | 2019-07-14 14:06 | PDOC ---
History of Present Illness - General Stated Complaint: SEIZURES Time Seen by Provider: 07/14/19 14:04 History Source: Patient Exam Limitations: No Limitations - History of Present Illness Initial Comments: Pt is a 49 yo F, with PMH of seizures (1000 mg keppra BID), asthma, HTN, IDDM ( prior DKA visits), who is presenting after a typical seizure. Pt states she did not eat much this morning, which sometimes will prompt a seizure when her BG is too low. Pt states the seizure was witnessed by her family members, and started when she was sleeping, and ending with her standing upright and being combative with family, which is typical for her. She did not fall or hit her head. Her seizures have become less frequent since her keppra was increased in October 2018. Pt denies any recent fevers/chills, headache, vision changes, chest pain, palpitations, SOB, nausea/vomiting, abdominal pain, urinary symptoms, diarrhea/ constipation, or leg swelling. Allergies: NKDA PCP: Dr. Cabral Neuro: Dr. Young Endo: Dr. Toussaint Social: Pt smokes 1/2 ppd. Pt denies any alcohol or drug use. Pt denies any recent travel or sick contacts. Surgical: lung bx (benign) Family: no relevant history. 07/14/19 14:37 Past History - Travel Traveled outside of the country in the last 30 days: No Close contact w/someone who was outside of country & ill: No - Past Medical History Allergies/Adverse Reactions: Allergies Allergy/AdvReac Type Severity Reaction Status Date / Time No Known Allergies Allergy Verified 07/14/19 14:09 Home Medications: Ambulatory Orders Insulin Glargine,Hum.rec.anlog [Basaglar Kwikpen U-100] 100 unit SQ 06/22/19 Insulin Lispro [Admelog Solostar] 9 units SQ TID 06/22/19 Levetiracetam 1,000 mg PO BID 06/22/19 Multivitamin [Multiple Vitamins] 1 each PO DAILY 06/22/19 Topiramate 100 mg PO BID 06/22/19 Amlodipine Besylate 5 mg PO DAILY #30 tablet MDD 1 06/24/19 Famotidine 20 mg PO AC 30 Days #60 tablet 06/24/19 Insulin Sliding Scale [Novolog Vial Sliding Scale -] 1 vial SQ ACHS units 06/24 Nut.tx.gluc Intol,Lf,Soy/Fiber [Glucerna 1.5 Matthew Liquid] 237 ml PO BID #60 liquid 06/24/19 Nut.tx.gluc Intol,Lf,Soy/Fiber [Glucerna 1.5 Matthew Liquid] 237 ml PO BID 30 Days # 60 liquid 06/24/19 Sitagliptin Phosphate [Januvia] 50 mg PO DAILY #30 tablet 06/24/19 Asthma: Yes COPD: No Diabetes: Yes (IDDM, DX 2016) HTN: Yes Seizures: Yes (DX 2011) - Surgical History Lung Surgery: Yes (Lung biopsy 2009) - Immunization History Immunization Up to Date: Yes - Psycho Social/Smoking Cessation Hx Smoking Status: Yes Smoking History: Current every day smoker Have you smoked in the past 12 months: Yes Number of Cigarettes Smoked Daily: 10 'Breaking Loose' booklet given: 06/08/16 Hx Alcohol Use: No Drug/Substance Use Hx: No Substance Use Type: Marijuana Hx Substance Use Treatment: No Neuro Specific PMHX - Complaint Specific PMHX Glaucoma: No Herniated Disk: No Laminectomy: No Migraine: No Multiple Sclerosis: No Neuropathy: No TIA: No Other Neuro History: seizures Review of Systems - Review of Systems Able to Perform ROS?: Yes Is the patient limited Mauritanian proficient: No Constitutional: Yes: Weight Stable. No: Chills, Diaphoresis, Fever, Loss of Appetite, Malaise, Weakness HEENTM: No: Recent change in vision, Nose Congestion, Throat Pain, Throat Swelling, Difficulty Swallowing Respiratory: No: Cough, Orthopnea, Shortness of Breath Cardiac (ROS): No: Chest Pain, Edema, Irregular Heart Rate, Lightheadedness, Palpitations, Syncope, Chest Tightness ABD/GI: No: Constipated, Diarrhea, Nausea, Poor Appetite, Poor Fluid Intake, Vomiting, Abdominal cramping : No: Burning, Dysuria, Frequency, Flank Pain, Hematuria, Pain Musculoskeletal: No: Back Pain, Joint Pain, Muscle Pain, Muscle Weakness Integumentary: No: Bruising, Rash Neurological: Yes: Seizure. No: Headache, Numbness, Paresthesia, Weakness, Unsteady Gait, Ataxia, Dizziness Psychiatric: No: Sleep Pattern Change, Change in Appetite Endocrine: No: Increased Urine, Change in Weight Hematologic/Lymphatic: No: Anemia, Blood Clots, Easy Bleeding, Easy Bruising All Other Systems: Reviewed and Negative *Physical Exam - Physical Exam Comments: Vitals stable, pt afebrile. Pt in NAD, normal body habitus. Pt alert and oriented x3. leverman generally intact, muscular strength and sensation intact. Cerebellar exam WNL. Pt ambulating with steady gait. No midline spinal tenderness, step-offs, or crepitus. Head normocephalic, atraumatic. Eyes PERRLA, EOMI. Oropharynx without erythema or exudates, no LAD b/l. No nasal congestion. Hearing intact. Clear heart sounds, S1/S2, no JVD, b/l pedal edema, or heart murmur. Clear lung sounds, no respiratory distress, wheezes, crackles, or accessory muscle use. No abdominal or CVA tenderness to palpation, no rebound, no guarding. Abdomen soft, non-distended, and with normoactive bowel sounds. Skin without jaundice or rash. 07/14/19 14:57 Medical Decision Making - Medical Decision Making Pt was seen at bedside, also will be seen by attending Dr. Osborne. Pt presenting via EMS from home after a seizure. BGM 300s in ER. Provided 11 units novolog (pts sliding scale) for improvement of hyperglycemia and PO water. Pt appears to be back to baseline, responding to all questions appropriately and ambulating well. Will defer labwork and observe pt in ER. If no further seizures, pt likely to dc to home with PCP and neuro f/u. Will continue to reassess pt and monitor for symptomatic improvement. 07/14/19 14:58 Pt with no further seizure activity Repeat BGM: 301 Tolerating PO intake, mother will take pt home. Safe for d/c to home with PCP f/u. 07/14/19 16:07 07/14/19 16:33 Discharge - Discharge Information Problems reviewed: Yes Clinical Impression/Diagnosis: Seizure Condition: Improved Disposition: HOME - Admission No - Follow up/Referral Referrals: Drea Cabral MD [Primary Care Provider] - - Patient Discharge Instructions Patient Printed Discharge Instructions: DI for Seizure Disorder -- Adult Additional Instructions: You were seen in the ER today for a seizure. Please follow-up with your primary care doctor and Neurology within 1-2 days to discuss your visit and make sure your symptoms have improved. Please return to the ER if you have any worsening pain, more frequent or continued seizure activity, development of fevers or chills, loss of consciousness, inability to tolerate food or fluids, or any other concerns. - Post Discharge Activity
[2019-07-14 14:09] VITALS: BMI 23.5
--- NOTE | 2019-07-14 14:46 | PDOC ---
Attending Attestation - Resident Resident Name: Gissel Umanzor - ED Attending Attestation I have performed the following: I have examined & evaluated the patient, The case was reviewed & discussed with the resident, I agree w/resident's findings & plan, Exceptions are as noted - HPI HPI: 07/14/19 14:47 Ms. Vázquez is a 49 yo F with h/o seizure disorder, asthma, HTN, IDDM who presents to the emergency department status post a seizure Patient has a history of epilepsy, is currently taking Keppra, is followed by Dr. Young Patient reports having a seizure which is typical for her this afternoon Triggers for her seem to be poor blood glucose control This may have been the case today No headache, she seizure occurred while in bed, patient did not fall or hit her head No tongue biting, no bowel or bladder incontinence Patient is overall compliant with her Keppra She is currently at her baseline 07/14/19 14:49 - Physicial Exam PE: 07/14/19 14:49 GENERAL: The patient is in no acute distress. ENT: Ears normal, nares patent, oropharynx clear without exudates. Moist mucous membranes. NECK: Normal range of motion, supple LUNGS: Breath sounds equal, clear to auscultation bilaterally. No wheezes, and no crackles. HEART:Regular rate and rhythm, normal S1 and S2 without murmur, rub or gallop. ABDOMEN: Soft, nontender, normoactive bowel sounds. EXTREMITIES: Normal range of motion, no edema. NEUROLOGICAL: Cranial nerves II through XII grossly intact. Normal speech. No focal neurological deficits. SKIN: Warm, Dry, normal turgor, no rashes or lesions noted. - Medical Decision Making 07/14/19 14:49 49-year-old female with a history of epilepsy presenting to the emergency department status post seizure Patient currently at her baseline We will recheck blood glucose We will plan to discharge home
[2019-07-14] MEDS ORDERED: INSULIN REGULAR HUMAN 100 UNITS/ML *VIAL SQ ONE (14:53)
[2019-07-14] MEDS ORDERED: INSULIN (NOVOLOG MIX 70/30) 100 UNITS/ML MDV SQ ONE (15:08)
[2019-07-14 16:41] VITALS: BP 150/82; PULSE 89; TEMP 97.8
== END 2019-07-14 16:42 | disposition home or self-care (01) ==
LOC: JER 13:38
PROC: 3E013VG Introduction of Insulin into Subcutaneous Tissue, Percutaneous Approach (ICD-10-PCS; principal; 2019-07-14)
DX: G40.909 Epilepsy, unspecified, not intractable, without status epilepticus (principal); I10 Essential (primary) hypertension; E11.9 Type 2 diabetes mellitus without complications; Z79.4 Long term (current) use of insulin; J45.909 Unspecified asthma, uncomplicated; F17.210 Nicotine dependence, cigarettes, uncomplicated
CPT/HCPCS: 82962; 99281-25

== ENCOUNTER 2019-08-07 10:46 | Inpatient (IN) | payer OTHER ==
[2019-08-08 18:03] VITALS: BMI 19.3
[2019-08-08] MEDS ORDERED: amLODIPine BESYLATE 10 MG TABLET (FP) PO ONE (19:00)
--- NOTE | 2019-08-08 21:53 | HP ---
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 ...LMP: 08/08/19 ...: No - Smoking History Smoking history: Current every day smoker Have you smoked in the past 12 months: Yes Aproximately how many cigarettes per day: 10 - Alcohol/Substance Use Hx Alcohol Use: No Home Medications - Allergies Allergies/Adverse Reactions: Allergies Allergy/AdvReac Type Severity Reaction Status Date / Time No Known Allergies Allergy Verified 07/14/19 14:09 - Home Medications Home Medications: Ambulatory Orders Insulin Glargine,Hum.rec.anlog [Basaglar Kwikpen U-100] 100 unit SQ 06/22/19 Insulin Lispro [Admelog Solostar] 9 units SQ TID 06/22/19 Levetiracetam 1,000 mg PO BID 06/22/19 Multivitamin [Multiple Vitamins] 1 each PO DAILY 06/22/19 Topiramate 100 mg PO BID 06/22/19 Amlodipine Besylate 5 mg PO DAILY #30 tablet MDD 1 06/24/19 Famotidine 20 mg PO AC 30 Days #60 tablet 06/24/19 Insulin Sliding Scale [Novolog Vial Sliding Scale -] 1 vial SQ ACHS units 06/24 Nut.tx.gluc Intol,Lf,Soy/Fiber [Glucerna 1.5 Matthew Liquid] 237 ml PO BID #60 liquid 06/24/19 Nut.tx.gluc Intol,Lf,Soy/Fiber [Glucerna 1.5 Matthew Liquid] 237 ml PO BID 30 Days # 60 liquid 06/24/19 Sitagliptin Phosphate [Januvia] 50 mg PO DAILY #30 tablet 06/24/19 Family Medical History Family History: Unremarkable Review of Systems - Review of Systems Constitutional: reports: No Symptoms Eyes: reports: No Symptoms HENT: reports: No Symptoms Neurological: reports: No Symptoms, Headache, Incoordination Physical Examination Vital Signs: Vital Signs Temperature 97.9 F 08/08/19 17:47 Pulse Rate 71 08/08/19 17:47 Respiratory Rate 18 08/08/19 17:47 Blood Pressure 160/84 08/08/19 17:47 O2 Sat by Pulse Oximetry (%) 98 08/08/19 18:32 Neurological: Yes: Alert, Oriented, Babinski negative ...Motor Strength: WNL Problem List - Problems (1) Seizure Assessment/Plan: Keppra elvel Ativam prn Topamax VEEG 72 hours for seizure control Code(s): R56.9 - UNSPECIFIED CONVULSIONS
[2019-08-08] MEDS: levETIRAcetam 500 MG TABLET (FP) PO SCH (22:24)
[2019-08-08] MEDS: TOPIRAMATE 100 MG TABLET PO SCH (23:08)
[2019-08-08] MEDS: INSULIN SLIDING SCALE (NOVOLOG) 1 VIAL SQ SCH (23:08)
[2019-08-08 23:58] LABS: HEMATOCRIT 33.7 % (32.4-45.2); HEMOGLOBIN 11.4 GM/dL (10.7-15.3); MCHC 33.9 g/dl (32.0-36.0); MEAN CELL VOLUME 94.5 fl (80-96); MEAN PLT VOLUME 8.7 fl (7.5-11.1); PLATELET COUNT 232 K/MM3 (134-434); RBC 3.56 M/mm3 (3.60-5.2); RDW 13.5 % (11.6-15.6); WHITE BLOOD COUNT 6.1 K/mm3 (4.0-10.0)
[2019-08-09 00:26] LABS: ALBUMIN 3.2 g/dl (3.4-5.0); BILIRUBIN,DIRECT 0.1 mg/dL (0.0-0.2); BILIRUBIN,TOTAL 0.1 mg/dL (0.2-1); BLOOD UREA NITROGEN 11.8 mg/dL (7-18); CALCIUM 8.7 mg/dL (8.5-10.1); CREATININE 0.7 mg/dL (0.55-1.3); POTASSIUM 4.1 mmol/L (3.5-5.1); TOT PROT 6.1 g/dl (6.4-8.2)
[2019-08-09] MEDS: INSULIN SLIDING SCALE (NOVOLOG) 1 VIAL SQ SCH ×4 (06:31→22:14)
[2019-08-09] MEDS ORDERED: PT OWN MED DRAWER 7, Y5N ONE ×3 (10:20→21:44)
[2019-08-09] MEDS: amLODIPine BESYLATE 5 MG TABLET (FP) PO SCH (10:34)
[2019-08-09] MEDS: levETIRAcetam 500 MG TABLET (FP) PO SCH ×2 (10:34→21:52)
--- NOTE | 2019-08-09 11:55 | EKG ---
Test Reason : Blood Pressure : / mmHG Vent. Rate : 064 BPM Atrial Rate : 064 BPM P-R Int : 162 ms QRS Dur : 086 ms QT Int : 422 ms P-R-T Axes : 048 047 072 degrees QTc Int : 435 ms NORMAL SINUS RHYTHM VOLTAGE CRITERIA FOR LEFT VENTRICULAR HYPERTROPHY ABNORMAL ECG WHEN COMPARED WITH ECG OF 22-JUN-2019 08:09, VENT. RATE HAS DECREASED BY 32 BPM T WAVE AMPLITUDE HAS DECREASED IN ANTERIOR LEADS Confirmed by KATHIE DUNN MD ([id number]) on 08/09/2019 11:55:30 AM Referred By: Confirmed By:KATHIE DUNN MD
[2019-08-09] MEDS: TOPIRAMATE 100 MG TABLET PO SCH ×2 (12:23→21:52)
[2019-08-09] MEDS ORDERED: amLODIPine BESYLATE 10 MG TABLET (FP) PO ONE (19:00)
[2019-08-10] MEDS: INSULIN SLIDING SCALE (NOVOLOG) 1 VIAL SQ SCH ×3 (08:39→17:07)
[2019-08-10] MEDS ORDERED: PT OWN MED DRAWER 7, Y5N ONE ×2 (09:13→10:16)
[2019-08-10] MEDS: amLODIPine BESYLATE 5 MG TABLET (FP) PO SCH (10:21)
[2019-08-10] MEDS: levETIRAcetam 500 MG TABLET (FP) PO SCH (10:21)
[2019-08-10] MEDS: TOPIRAMATE 100 MG TABLET PO SCH (10:22)
[2019-08-10 18:04] VITALS: BP 152/75; PULSE 72; TEMP 98.4
== END 2019-08-10 20:43 | disposition home or self-care (01) | DRG 53 ==
LOC: J4S 08-08 16:37
PROVIDERS: ADMIT Psychiatry & Neurology Neurology; ATTEND Psychiatry & Neurology Neurology
DX: G40.909 Epilepsy, unspecified, not intractable, without status epilepticus (principal); F17.210 Nicotine dependence, cigarettes, uncomplicated; E11.9 Type 2 diabetes mellitus without complications; F41.9 Anxiety disorder, unspecified
CPT/HCPCS: 36415; 80048; 80076; 82962; 83036; 85027; 93005; 93010; 95951

== ENCOUNTER 2019-08-25 14:42 | Emergency (ER) | payer OTHER ==
--- NOTE | 2019-08-25 15:04 | PDOC ---
Attending Attestation - Resident Resident Name: Stephanie Taylor - ED Attending Attestation I have performed the following: I have examined & evaluated the patient, The case was reviewed & discussed with the resident, I agree w/resident's findings & plan, Exceptions are as noted - HPI HPI: 08/25/19 15:35 49y F hx of IDDM, seizure (on keppra) presents with complaint of witnessed seizure. Pt was doing well this morning, went to take a nap and had a seizure witnessed by mother that was tonic clonic, without urinary or bowel incotninence or tongue biting. Pts last seizure was in noveber, but notes it is relatively well controlled -her sleep patterns has been disrupted since approximately June as she lost her ride to see her therapist and has not been getting her like medications, as a result she is sleeping approximately 3 hours a night and napping approximately 2 hours a day, which is atypical for her. The patient notes that her BGM has been in the 200s recently she did not take her blood sugar today, and missed her dose of insulin this morning. Patient denies any associated focal neurologic symptoms, headache, neck pain, back pain, chest pain, shortness of breath, nausea, vomiting, diarrhea, dysuria , blood per rectum, melena. Patient's neurologist is Dr. Young Exam: GENERAL: The patient is awake, alert, and fully oriented, Nontoxic - in no acute distress. HEAD: Normocephalic, atraumatic. EYES: extraocular movements intact, sclera anicteric, conjunctiva clear. ENT: Normal voice, Moist mucous membranes. NECK: Normal range of motion, supple LUNGS: Breath sounds equal, clear to auscultation bilaterally. No wheezes, no rhonchi, no rales. HEART: Regular rate and rhythm, normal S1 and S2 without murmur, rub or gallop. ABDOMEN: Soft, nontender, No guarding, no rebound. No CVA tenderness EXTREMITIES: Normal range of motion, no edema. NEUROLOGICAL: No facial assymetry, Normal speech, moving all 4 extremities spontaneously and symmetrically. PSYCH: Normal mood, normal affect. SKIN: Warm, Dry, normal turgor, Differential for the patient's symptoms includes possible metabolic derangements , DKA, her seizures may also be secondary to her decreased sleep. Will obtain blood work, including VBG, serum acetones, UA. We will continue observe the patient, will have the patient follow-up with Dr. Al. Will defer head CT as the patient's neurologic status is at baseline - Physicial Exam PE: 08/27/19 19:21 see above - Medical Decision Making 08/25/19 17:15 The patient's blood work was reviewed she is noted to have hyperglycemia, without any signs of DKA. The patient's had moderate improvement with fluids we will give the patient dose of insulin. Anticipate discharge with neurology follow-up once her blood sugar has improved 08/25/19 19:21 bgm imroved pt feeling improved will dc with neuro fu return precautions were discussed
[2019-08-25] MEDS ORDERED: SODIUM CHLORIDE 0.9% 500 ML INFUS.BAG IV ONE (15:07)
[2019-08-25 15:15] VITALS: TEMP 99; BMI 18.8
--- NOTE | 2019-08-25 15:25 | PDOC ---
History of Present Illness - General Stated Complaint: SEIZURE Time Seen by Provider: 08/25/19 14:51 - History of Present Illness Initial Comments: Lamont Vázquez is a 49yo woman with a PMH of IDDM, seizures (on keppra and topamax), HTN, asthma who presents following a seizure at home. She reports that she was sleeping on the sofa when she reportedly had the seizure. Her mother saw the event and called EMS. The seizure was reportedly the same as her typical seizures, which she states are grand mal. She denies any injury or fall , saying that she woke up on the sofa prior to EMS arriving. She has been taking her keppra as prescribed, and she denies any new medications, change in diet, change in sleep schedule, illicit drug use, med non-compliance ( intentional or accidental) or any other recent changes that could have triggered her seizure. Past History - Past Medical History Allergies/Adverse Reactions: Allergies Allergy/AdvReac Type Severity Reaction Status Date / Time No Known Allergies Allergy Verified 08/25/19 15:17 Home Medications: Ambulatory Orders Insulin Glargine,Hum.rec.anlog [Basaglar Kwikpen U-100] 100 unit SQ 06/22/19 Insulin Lispro [Admelog Solostar] 9 units SQ TID 06/22/19 Levetiracetam 1,000 mg PO BID 06/22/19 Multivitamin [Multiple Vitamins] 1 each PO DAILY 06/22/19 Topiramate 100 mg PO BID 06/22/19 Amlodipine Besylate 5 mg PO DAILY #30 tablet MDD 1 06/24/19 Famotidine 20 mg PO AC 30 Days #60 tablet 06/24/19 Insulin Sliding Scale [Novolog Vial Sliding Scale -] 1 vial SQ ACHS units 06/24 Nut.tx.gluc Intol,Lf,Soy/Fiber [Glucerna 1.5 Matthew Liquid] 237 ml PO BID #60 liquid 06/24/19 Nut.tx.gluc Intol,Lf,Soy/Fiber [Glucerna 1.5 Matthew Liquid] 237 ml PO BID 30 Days # 60 liquid 06/24/19 Sitagliptin Phosphate [Januvia] 50 mg PO DAILY #30 tablet 06/24/19 Asthma: Yes COPD: No Diabetes: Yes (IDDM, DX 2016) HTN: Yes Seizures: Yes (DX 2011) - Surgical History Lung Surgery: Yes (Lung biopsy 2009) - Immunization History Immunization Up to Date: Yes - Psycho Social/Smoking Cessation Hx Smoking Status: Yes Smoking History: Former smoker Have you smoked in the past 12 months: No Number of Cigarettes Smoked Daily: 10 Information on smoking cessation initiated: No 'Breaking Loose' booklet given: 08/08/19 Hx Alcohol Use: No Drug/Substance Use Hx: No Substance Use Type: Marijuana Hx Substance Use Treatment: No Review of Systems - Review of Systems Comments:: General: No fevers, no chills, no weight or appetite change, no malaise HEENT: No changes in vision, no changes in hearing, no congestion, no sore throat CV: No chest pain, no palpitations, no LE edema Pulm: No SOB, no cough, no wheezing GI: No nausea or vomiting, no change in bowel habits, no melena : No frequency, no urgency, no dysuria Musc: No back pain, no joint swelling, no recent injury Skin: No rash, no lesions, no erythema Endo: No excessive thirst, no heat/cold intolerance, +IDDM Heme: No unusual bruising or bleeding, no swollen glands Neuro: No syncope, no numbness/tingling, no focal weakness. +seizures, see HPI Vasc: No claudication Psych: No recent change in mood, no SI or HI *Physical Exam - Vital Signs Last Vital Signs Temp Pulse Resp BP Pulse Ox 99 F 99 H 20 169/85 100 08/25/19 15:10 08/25/19 15:10 08/25/19 15:10 08/25/19 15:10 08/25/19 15:10 - Physical Exam General: Comfortable, no acute distress HEENT: Atraumatic, PERRL, EOMI, MMM, voice normal, normal neck ROM Cards: RRR, no murmur appreciated Pulm: Comfortable on room air, clear to auscultation bilaterally Abd: Soft, nontender, nondistended Ext: Atraumatic. No LE edema. ROM intact. WWP Skin: Normal color, no rashes or lesions Neuro: A&Ox3, CN grossly intact, normal speech, motor/sensory grossly intact and symmetric. No focal deficits Psych: Mood appropriate to situation ED Treatment Course - LABORATORY CBC & Chemistry Diagram: 08/25/19 15:35 08/25/19 15:35 - ADDITIONAL ORDERS Additional order review: Laboratory Results 08/25/19 15:03 POC Glucometer 497 08/25/19 15:03 POC Glucometer 497 Medical Decision Making - Medical Decision Making 08/25/19 15:20 Lamont Vázquez is a 49yo woman with a PMH of IDDM, seizures (on keppra and topamax), HTN, asthma who presents following a seizure at home. She denies any injury, and her seizure was reportedly typical for her. She states that she has been compliant with her medications. - Per chart review, usually comes to the ED several times per year following seizures. Most recently seen in June. Most likely consistent with her typical seizure - No clear trigger - BGM on arrival was in 470's - CBC, CMP, UA, VBG, ketones for evaluation - IVF - May need insulin 08/25/19 16:54 - Labs notable for glucose 522, beta hydroxybuterate 5.0. - No elevated gap, pH normal. No DKA - Will recheck glucose. Likely d/c home if decreased. Pt reports that her glucose is normally in the 200's 08/25/19 17:03 - Repeat fingerstick still over 400 - 6u insulin ordered 08/25/19 18:07 - Glucose now 347 - Updated pt. Feels well, no current symptoms, awake and alert - Will discharge home to follow up with PMD, neurology. Pt states understanding and agreement with this plan. Discussed with Dr Leonora Taylor PGY2 Discharge - Discharge Information Problems reviewed: Yes Clinical Impression/Diagnosis: Seizure disorder, Seizure, Hyperglycemia due to type 1 diabetes mellitus Disposition: HOME - Admission No - Follow up/Referral - Patient Discharge Instructions Patient Printed Discharge Instructions: DI for Seizure Disorder -- Adult Additional Instructions: Discharge Instructions: You were seen in the emergency department for a seizure at home. Your blood tests did not show any significant concerns, though your blood sugar was found to be over 500. You were given IV fluids and insulin for the high blood sugar. Home Care and Follow Up; - Continue to take all of your regular home medications as prescribed - Monitor your blood sugar closely. Use your sliding scale insulin as directed if needed for high blood sugar. - Call your neurologist, Dr Young, on Tuesday to inform him of your seizure and schedule a follow up appointment. - Consider making an appointment with your primary doctor within the next week for follow up as well. - Seek immediate medical care for continued or worsening symptoms, any additional seizures, fever to 101F, any neurological symptoms (one-sided weakness, numbness, difficulty speaking, confusion, sleepiness) or for any other medical emergency. - Post Discharge Activity
[2019-08-25 15:51] LABS: BASO % 0.7 % (0-2.0); EOS % 3.3 % (0-4.5); HEMATOCRIT 38.4 % (32.4-45.2); HEMOGLOBIN 12.7 GM/dL (10.7-15.3); LYMPH % 17.9 % (8-40); MCH 31.3 pg (25.7-33.7); MEAN CELL VOLUME 94.9 fl (80-96); MEAN PLT VOLUME 8.6 fl (7.5-11.1); MONO % 6.4 % (3.8-10.2); NEUT % 71.7 % (42.8-82.8); PLATELET COUNT 227 K/MM3 (134-434); RBC 4.05 M/mm3 (3.60-5.2); RDW 13.3 % (11.6-15.6)
[2019-08-25 15:53] LABS: VENOUS PC02 40.8 mmHg (38-52); VENOUS PH 7.36 (7.31-7.41)
[2019-08-25 15:54] LABS: VENOUS PO2 < 49 mmHg (28-48)
[2019-08-25 16:27] LABS: ALBUMIN 3.4 g/dl (3.4-5.0); BILIRUBIN,TOTAL 0.4 mg/dL (0.2-1); BLOOD UREA NITROGEN 15.4 mg/dL (7-18); CALCIUM 9.1 mg/dL (8.5-10.1); CREATININE 0.9 mg/dL (0.55-1.3); POTASSIUM 4.5 mmol/L (3.5-5.1); TOT PROT 6.6 g/dl (6.4-8.2)
[2019-08-25] MEDS ORDERED: INSULIN REGULAR HUMAN 100 UNITS/ML *VIAL SQ ONE (17:01)
[2019-08-25 18:28] VITALS: BP 177/82; PULSE 68
[2019-08-25 18:31] LABS: URINE APPEARANCE CLEAR; URINE BILIRUBIN NEGATIVE (NEGATIVE); URINE COLOR YELLOW; URINE GLUCOSE (UA) 3+ (NEGATIVE); URINE KETONE TRACE (NEGATIVE); URINE LEUK ESTERASE NEGATIVE (NEGATIVE); URINE NITRITE NEGATIVE (NEGATIVE); URINE PROTEIN NEGATIVE (NEGATIVE); URINE UROBILINOGEN 0.2 mg/dL (0.2-1.0)
--- NOTE | 2019-08-26 17:05 | EKG ---
Test Reason : Blood Pressure : / mmHG Vent. Rate : 069 BPM Atrial Rate : 069 BPM P-R Int : 156 ms QRS Dur : 084 ms QT Int : 410 ms P-R-T Axes : 055 029 074 degrees QTc Int : 439 ms NORMAL SINUS RHYTHM WITH SINUS ARRHYTHMIA POSSIBLE LEFT ATRIAL ENLARGEMENT BORDERLINE ECG WHEN COMPARED WITH ECG OF 08-AUG-2019 18:18, NO SIGNIFICANT CHANGE WAS FOUND Confirmed by CHARLIE BERMUDEZ, LATRICE ([id number]) on 08/26/2019 5:04:47 PM Referred By: Confirmed By:LATRICE GUERRA MD
== END 2019-08-25 18:28 | disposition home or self-care (01) ==
LOC: JER 14:42
PROC: 3E013VG Introduction of Insulin into Subcutaneous Tissue, Percutaneous Approach (ICD-10-PCS; principal; 2019-08-25)
DX: G40.909 Epilepsy, unspecified, not intractable, without status epilepticus (principal); E10.65 Type 1 diabetes mellitus with hyperglycemia; Z79.4 Long term (current) use of insulin; I10 Essential (primary) hypertension; J45.909 Unspecified asthma, uncomplicated; Z87.891 Personal history of nicotine dependence
CPT/HCPCS: 36415; 80053; 81003; 82010; 82803; 82962; 85025; 93005; 93010; 96372; 99283-25

== ENCOUNTER 2019-10-07 16:52 | Emergency (ER) | payer OTHER ==
[2019-10-07 17:09] VITALS: BP 151/79; PULSE 79; BMI 19.8
[2019-10-07 17:49] LABS: BASO % 1.1 % (0-2.0); EOS % 4.4 % (0-4.5); HEMATOCRIT 43.6 % (32.4-45.2); HEMOGLOBIN 14.4 GM/dL (10.7-15.3); LYMPH % 24.4 % (8-40); MCH 31.5 pg (25.7-33.7); MEAN CELL VOLUME 95.5 fl (80-96); MEAN PLT VOLUME 9.1 fl (7.5-11.1); MONO % 6.8 % (3.8-10.2); NEUT % 63.3 % (42.8-82.8); PLATELET COUNT 231 K/MM3 (134-434); RBC 4.56 M/mm3 (3.60-5.2); RDW 13.3 % (11.6-15.6); WHITE BLOOD COUNT 6.6 K/mm3 (4.0-10.0)
[2019-10-07] MEDS ORDERED: levETIRAcetam 500 MG/5 ML INJECTION VIAL IVPB ONE ×2 (18:15→18:19)
[2019-10-07] MEDS ORDERED: TOPIRAMATE 25 MG TABLET (FP) ONE (18:19)
[2019-10-07] MEDS ORDERED: INSULIN REGULAR HUMAN 100 UNITS/ML *VIAL SQ ONE (18:21)
--- NOTE | 2019-10-07 18:24 | PDOC ---
Attending Attestation - Resident Resident Name: Sivan Magdaleno - ED Attending Attestation I have performed the following: I have examined & evaluated the patient, The case was reviewed & discussed with the resident, I agree w/resident's findings & plan, Exceptions are as noted - HPI HPI: 49 yo F history of seizures, DM, HTN, asthma presents s/p seizure at home. She states she did not take her seizure or diabetes medication today, attributes it to stress at home. She ate peanut butter and jelly on bread last night. Seizure was witnessed by family. No prolonged postictal period. No complaints at present. - Physicial Exam PE: GENERAL: Awake, alert, and fully oriented, in no acute distress HEAD: No signs of trauma EYES: PERRLA, EOMI, sclera anicteric, conjunctiva clear ENT: Auricles normal inspection, hearing grossly normal, nares patent, oropharynx clear without exudates. Moist mucosa NECK: Normal ROM, supple, no lymphadenopathy, JVD, or masses LUNGS: Breath sounds equal, clear to auscultation bilaterally. No wheezes, and no crackles HEART: Regular rate and rhythm, normal S1 and S2, no murmurs, rubs or gallops ABDOMEN: Soft, nontender, normoactive bowel sounds. No guarding, no rebound. No masses EXTREMITIES: Normal range of motion, no edema. No clubbing or cyanosis. No cords, erythema, or tenderness NEUROLOGICAL: Cranial nerves II through XII grossly intact. Normal speech, normal gait. Motor and sensation intact SKIN: Warm, dry, normal turgor, no rashes or lesions noted. - Medical Decision Making Pt with seizure and hyperglycemia secondary to poor medication adherence. Will give her evening doses of topamax, keppra. Will give insulin SQ to lower below 300, then she can take her nighttime doses at home.
--- NOTE | 2019-10-07 18:45 | PDOC ---
History of Present Illness - General Chief Complaint: Seizure Stated Complaint: SEIZURES Time Seen by Provider: 10/07/19 17:28 - History of Present Illness Initial Comments: 10/07/19 18:44 49 y/o F with a PMH of seizures (on keppra and topamax), uncontrolled DM, HTN, asthma who presents following a seizure at home. She reports that she was sleeping when she reportedly had the seizure. Her seizure was witnessed by her entire family and they called EMS. Pt explains that she was told by the family that there was no tongue biting or foaming at the mouth. She denies any injury or fall. She has been taking her keppra as prescribed, and she denies any new medications, change in diet, change in sleep schedule, illicit drug use. She admits to not being compliant with her diabetes lifestyle modifications. She didnt take her anticonvulsive medications this morning. PSH: right lung biopsy social Hx: down to 5 cig a day, 1 marijuana joint every other day. PE: Gen:NAD HEENT: PERRLA, moist membranes CHEST: vesicular breath sounds b/l HEART: RRR no MRG Abdomen: +BS, NTND extremities: 2+ pulses, no edema neuro: CN 2-12 intact, motor strength 5/5, sensory intact throughout skin: warm, dry Assessment: seizure due to hyperglycemia and non-adherence to seizure medication 10/07/19 18:49 Plan: CBC, CMP, UA, urine culture, keppra and topiramate level regular insulin 6 units once, IV home dose of keppra, PO topiramate 100mg 10/07/19 19:31 CBC WBC 6.6 K/mm3 (4.0-10.0) 10/07/19 17:17 RBC 4.56 M/mm3 (3.60-5.2) 10/07/19 17:17 Hgb 14.4 GM/dL (10.7-15.3) 10/07/19 17:17 Hct 43.6 % (32.4-45.2) 10/07/19 17:17 MCV 95.5 fl (80-96) 10/07/19 17:17 MCH 31.5 pg (25.7-33.7) 10/07/19 17:17 MCHC 33.0 g/dl (32.0-36.0) 10/07/19 17:17 RDW 13.3 % (11.6-15.6) 10/07/19 17:17 Plt Count 231 K/MM3 (134-434) 10/07/19 17:17 MPV 9.1 fl (7.5-11.1) 10/07/19 17:17 Absolute Neuts (auto) 4.2 K/mm3 (1.5-8.0) 10/07/19 17:17 Neutrophils % 63.3 % (42.8-82.8) 10/07/19 17:17 Lymphocytes % 24.4 % (8-40) D 10/07/19 17:17 Monocytes % 6.8 % (3.8-10.2) 10/07/19 17:17 Eosinophils % 4.4 % (0-4.5) 10/07/19 17:17 Basophils % 1.1 % (0-2.0) 10/07/19 17:17 Nucleated RBC % 0 % (0-0) 10/07/19 17:17 unremarkable 10/07/19 19:31 POC glucose 257, serum negative 10/07/19 19:45 pending CMP 10/07/19 20:18 CMP Sodium 136 mmol/L (136-145) 10/07/19 18:20 Potassium 4.4 mmol/L (3.5-5.1) 10/07/19 18:20 Chloride 106 mmol/L (98-107) 10/07/19 18:20 Carbon Dioxide 22 mmol/L (21-32) 10/07/19 18:20 Anion Gap 8 MMOL/L (8-16) 10/07/19 18:20 BUN 15.5 mg/dL (7-18) 10/07/19 18:20 Creatinine 0.8 mg/dL (0.55-1.3) 10/07/19 18:20 Est GFR (CKD-EPI)AfAm 101.04 10/07/19 18:20 Est GFR (CKD-EPI)NonAf 87.18 10/07/19 18:20 POC Glucometer 257 UNITS (80-120) 10/07/19 18:31 Random Glucose 281 mg/dL (74-106) H 10/07/19 18:20 Calcium 9.1 mg/dL (8.5-10.1) 10/07/19 18:20 Total Bilirubin 0.3 mg/dL (0.2-1) 10/07/19 18:20 AST 18 U/L (15-37) 10/07/19 18:20 ALT 24 U/L (13-61) 10/07/19 18:20 Alkaline Phosphatase 58 U/L (45-117) 10/07/19 18:20 Total Protein 7.0 g/dl (6.4-8.2) 10/07/19 18:20 Albumin 3.7 g/dl (3.4-5.0) 10/07/19 18:20 Serum , Qual Negative 10/07/19 17:17 no electrolyte abnormal Past History - Past Medical History Allergies/Adverse Reactions: Allergies Allergy/AdvReac Type Severity Reaction Status Date / Time No Known Allergies Allergy Verified 10/07/19 17:09 Home Medications: Ambulatory Orders Amlodipine Besylate [Norvasc -] 5 mg PO DAILY 10/07/19 Insulin Glargine,Hum.rec.anlog [Basaglar Kwikpen U-100] 16 unit SQ HS 10/07/19 Insulin Lispro [Admelog Solostar] unit SQ AC 10/07/19 Multivitamin [Multiple Vitamins] 1 each PO DAILY 10/07/19 Nut.tx.gluc.intoler,Lac-Fr,Soy [Glucerna] 237 ml PO BID 10/07/19 Topiramate 100 mg PO BID 10/07/19 levETIRAcetam [Keppra Xr -] 1,250 mg PO BID 10/07/19 Asthma: Yes COPD: No Diabetes: Yes (IDDM, DX 2016) HTN: Yes Seizures: Yes (DX 2011) - Surgical History Lung Surgery: Yes (Lung biopsy 2009) - Immunization History Immunization Up to Date: Yes - Psycho Social/Smoking Cessation Hx Smoking Status: Yes Smoking History: Never smoked Have you smoked in the past 12 months: No Number of Cigarettes Smoked Daily: 10 'Breaking Loose' booklet given: 08/08/19 Hx Alcohol Use: No Drug/Substance Use Hx: No Substance Use Type: Marijuana Hx Substance Use Treatment: No Review of Systems - Review of Systems Constitutional: No: Chills, Fever HEENTM: No: Recent change in vision Respiratory: No: Cough, Shortness of Breath Cardiac (ROS): No: Chest Pain, Lightheadedness, Palpitations ABD/GI: No: Constipated, Diarrhea, Nausea, Vomiting : No: Burning, Dysuria, Discharge Musculoskeletal: No: Back Pain, Joint Pain, Joint Swelling Integumentary: No: Change in Color Neurological: No: Headache, Numbness, Weakness Psychiatric: Yes: Frequent Crying. No: Change in Appetite Endocrine: No: Change in Weight *Physical Exam - Vital Signs Last Vital Signs Temp Pulse Resp BP Pulse Ox 79 18 151/79 100 10/07/19 17:07 10/07/19 17:07 10/07/19 17:07 10/07/19 17:07 - Physical Exam General Appearance: Yes: Appropriately Dressed. No: Apparent Distress HEENT: positive: EOMI, ALEKSNADER Neck: positive: Trachea midline, Supple Respiratory/Chest: positive: Lungs Clear, Normal Breath Sounds Cardiovascular: positive: Regular Rhythm, Regular Rate, S1, S2. negative: JVD, Murmur Gastrointestinal/Abdominal: positive: Normal Bowel Sounds, Flat Rectal Exam: positive: deferred Musculoskeletal: positive: Normal Inspection. negative: CVA Tenderness Extremity: positive: Normal Capillary Refill Integumentary: positive: Normal Color, Dry, Warm Neurologic: positive: accounts payable manager II-XII NML intact, Normal Mood/Affect, Motor Strength 5/5. negative: Sensory Deficit ED Treatment Course - LABORATORY CBC & Chemistry Diagram: 10/07/19 17:17 10/07/19 18:20 - ADDITIONAL ORDERS Additional order review: Laboratory Results 10/07/19 10/07/19 10/07/19 18:31 17:17 17:17 Sodium Cancelled Potassium Cancelled Chloride Cancelled Carbon Dioxide Cancelled Anion Gap Cancelled BUN Cancelled Creatinine Cancelled Est GFR (CKD-EPI)AfAm Cancelled Est GFR (CKD-EPI)NonAf Cancelled POC Glucometer 257 Random Glucose Cancelled Calcium Cancelled Total Bilirubin Cancelled AST Cancelled ALT Cancelled Alkaline Phosphatase Cancelled Total Protein Cancelled Albumin Cancelled Serum , Qual Negative 10/07/19 17:06 Sodium Potassium Chloride Carbon Dioxide Anion Gap BUN Creatinine Est GFR (CKD-EPI)AfAm Est GFR (CKD-EPI)NonAf POC Glucometer 356 Random Glucose Calcium Total Bilirubin AST ALT Alkaline Phosphatase Total Protein Albumin Serum , Qual 02/16/20 02/16/20 02/16/20 18:31 17:17 17:06 RBC 4.56 MCV 95.5 MCHC 33.0 RDW 13.3 MPV 9.1 Neutrophils % 63.3 Lymphocytes % 24.4 D Monocytes % 6.8 Eosinophils % 4.4 Basophils % 1.1 POC Glucometer 257 356 - Medications Given in the ED: ED Medications Discontinued Medications Generic Name Dose Route Start Last Admin Trade Name Marce PRN Reason Stop Dose Admin Insulin Human Regular 6 units 10/07/19 18:21 10/07/19 18:39 Novolin R Vial *For Ivpush Or Iv Drip Only* SQ 10/07/19 18:22 Not Given ONCE ONE Levetiracetam 1,250 mg 10/07/19 18:15 10/07/19 18:31 Keppra Injection - IVPB 10/07/19 18:16 1,250 mg ONCE ONE Administration Discharge - Discharge Information Problems reviewed: Yes Clinical Impression/Diagnosis: Seizure disorder, Hyperglycemia due to type 1 diabetes mellitus, Recurrent seizures Condition: Improved Disposition: HOME - Admission No - Follow up/Referral - Patient Discharge Instructions Patient Printed Discharge Instructions: DI for Seizure Disorder -- Adult - Post Discharge Activity
[2019-10-07 19:51] LABS: ALBUMIN 3.7 g/dl (3.4-5.0); BILIRUBIN,TOTAL 0.3 mg/dL (0.2-1); BLOOD UREA NITROGEN 15.5 mg/dL (7-18); CALCIUM 9.1 mg/dL (8.5-10.1); CREATININE 0.8 mg/dL (0.55-1.3); POTASSIUM 4.4 mmol/L (3.5-5.1)
[2019-10-08] MEDS ORDERED: TOPIRAMATE 100 MG TABLET PO ONE (18:17)
== END 2019-10-07 20:25 | disposition home or self-care (01) ==
LOC: JER 16:52
PROC: 3E033GC Introduction of Other Therapeutic Substance into Peripheral Vein, Percutaneous Approach (ICD-10-PCS; principal; 2019-10-07)
DX: G40.909 Epilepsy, unspecified, not intractable, without status epilepticus (principal); E10.65 Type 1 diabetes mellitus with hyperglycemia; Z79.4 Long term (current) use of insulin; I10 Essential (primary) hypertension; J45.909 Unspecified asthma, uncomplicated
CPT/HCPCS: 36415; 80053; 80177; 80201; 82962; 84703; 85025; 96374; 99284-25

== ENCOUNTER 2020-03-27 12:27 | Emergency (ER) | payer OTHER ==
[2020-03-27 12:43] VITALS: BP 190/88; PULSE 75; TEMP 98.8; BMI 18.6
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
== END 2020-03-27 13:03 | disposition home or self-care (01) ==
LOC: JERFT 12:27
DX: Z76.0 Encounter for issue of repeat prescription (principal)
CPT/HCPCS: 99281-25

== ENCOUNTER 2020-05-11 07:32 | Inpatient (IN) | payer OTHER ==
--- NOTE | 2020-05-11 08:10 | PDOC ---
History of Present Illness - General Stated Complaint: VOMITING Time Seen by Provider: 05/11/20 08:07 History Source: Patient Exam Limitations: No Limitations - History of Present Illness Initial Comments: 05/11/20 08:08 HPI: This is a 49 y/o female with a PMH of seizures, HTN, asthma, and uncontrolled IDDM BIBA from home due to nausea/vomiting, abdominal pain, and progressive generalized weakness since last night. Per the patient she ate a hotdog prior to feeling ill. She has since had 5-6 episodes of NBNB emesis, the last one in the ambulance. She has not been able to eat or take any of her home medications since last night. Patient is an insulin dependent diabetic. Patient reports that she was admitted to the ICU in the past because of her sugar. Denies systemic symptoms. Denies fever/chills, dysuria, cough, chest pain, SOB. Denies any hx of abdominal surgeries. Last BM 3 days ago. PCP: Neal Neuro: Servando PMH: seizures (on keppra and topiramate), HTN, asthma, Uncontrolled IDDM PSH: Denied Social hx: Admits to marijuana use Meds: See nurse note Allergies: KNDA Constitutional - Pt denies Fever, Chills, Admits to weakness HEENT: denies vision changes, sore throat Respiratory: Denies cough, sob, hemoptysis Cardiac: denies chest pain, palpitations Abd/GI: Admits to abdominal pain, N/V. Denies blood per rectum, diarrhea : denies dysuria, frequency Musculskelatal - denies back pain, joint swelling skin - denies bruising, erythema, rash neurological: denies headache, numbness, focal weakness, tingling hematologic: denies anemia, easy bruising, easy bleeding PE: ADULT Physical ExaM GENERAL: The patient is awake, and fully oriented. Lethargic but arousable. HEAD: Normocephalic, atraumatic. EYES: extraocular movements intact, sclera anicteric ENT: Normal voice, dry mucus membranes NECK: Normal range of motion, supple without lymphadenopathy, JVD, or masses. LUNGS: Breath sounds equal, clear to auscultation bilaterally. Tachypneic HEART: Regular rate and rhythm, normal S1 and S2 without murmur, rub or gallop. ABDOMEN: Soft, diffuse mild tenderness to palpation. normoactive bowel sounds. No guarding, no rebound. No masses. EXTREMITIES: Normal range of motion, no edema. NEUROLOGICAL: No facial asymmetry, Normal speech. SKIN: Warm, Dry MDM: 05/11/20 09:29 This is a 49 y/o female with a PMH of seizures, HTN, asthma, and uncontrolled IDDM BIBA from home due to nausea/vomiting, abdominal pain, and progressive generalized weakness since last night. - Patient likely not compliant with home medications - On exam, patient is lethargic but arousable. Tachypneic. Mild abdominal tend erness. - Previous hospitalizations for DKA - BGM on arrival to ED >600. Suspect patient is in DKA - Will also check levels of anti-epileptics although doubt seizure - CBC, CMP, VBG, b-hydroxy, UA, Upreg, Utox, levitiracetem, topiramate - Zofran for nausea, 1L normal saline 05/11/20 10:00 - VBG pH 7.12 - will follow with ABG - Patient reports improvement in nausea with medication Labs notable for: ABG 7.112 Anion Gap 24 B- Hydroxybutyrate 106.5 - Patient already received 1L NS - K is 5.5 will start insulin drip at .1mg/kg/hr - Patient accepted for admission by ICU Past History - Medical History Allergies/Adverse Reactions: Allergies Allergy/AdvReac Type Severity Reaction Status Date / Time No Known Allergies Allergy Verified 10/07/19 17:09 Home Medications: Ambulatory Orders Insulin Glargine,Hum.rec.anlog [Basagldavid Prather U-100] 16 unit SQ HS 10/07/19 Insulin Lispro [Admelog Solostar] unit SQ AC 10/07/19 Multivitamin [Multiple Vitamins] 1 each PO DAILY 10/07/19 Topiramate 100 mg PO BID 10/07/19 levETIRAcetam [Keppra Xr -] 1,250 mg PO BID 10/07/19 Insulin Lispro [Admelog Solostar] 9 - 13 unit SQ TID #1 insuln.pen 03/27/20 Lisinopril 2.5 mg PO DAILY 05/11/20 Metformin HCl [Glucophage] 1,000 mg PO BID 05/11/20 Sertraline HCl [Zoloft] 50 mg PO DAILY 05/11/20 traZODone HCL [Trazodone HCl] 50 mg PO HS PRN 05/11/20 Asthma: Yes COPD: No Diabetes: Yes (IDDM, DX 2016) HTN: Yes Seizures: Yes (DX 2011) - Surgical History Lung Surgery: Yes (Lung biopsy 2009) - Immunization History Immunization Up to Date: Yes - Psycho-Social/Smoking History Smoking Status: Yes Smoking History: Never smoked Have you smoked in the past 12 months: No Number of Cigarettes Smoked Daily: 10 'Breaking Loose' booklet given: 08/08/19 Heart Score/ECG Review - ECG Intrepretation Comment:: 05/11/20 09:[address] elevations Vent rate 92bpm Sinus rhythm LA interval 148ms QRS duration 82ms QT/QTc 372/460ms 05/11/20 20:12 ED Treatment Course - LABORATORY CBC & Chemistry Diagram: 05/11/20 18:10 05/11/20 18:10 Discharge - Discharge Information Problems reviewed: Yes Clinical Impression/Diagnosis: DKA, type 1 Qualifiers: Diabetes mellitus complication detail: without coma Qualified Code(s): E10.10 - Type 1 diabetes mellitus with ketoacidosis without coma - Admission Yes - Follow up/Referral - Patient Discharge Instructions - Post Discharge Activity
--- OUTSIDE RECORDS SUMMARY | 2020-05-11 08:22 | XMS ---
:1970 Author Organization [facility] Care Team Providers Name Role Phone HHHVCC Unavailable Unavailable RACIEL REYNOLDS Unavailable Unavailable KIM MCCLELLAN Unavailable Unavailable [facility] Unavailable Unavailable [facility] Unavailable Unavailable Amber Unavailable Unavailable Amber Unavailable Unavailable Amber Unavailable Unavailable Amber Unavailable Unavailable Amber Unavailable Unavailable MARIMAR MAKI Unavailable Unavailable [facility] Unavailable Unavailable LEV TOMAS Unavailable Unavailable Re-disclosure Warning The records that you are about to access may contain information from federally- assisted alcohol or drug abuse programs. If such information is present, then the following federally mandated warning applies: This information has been disclosed to you from records protected by federal confidentiality rules (42 CFR part 2). The federal rules prohibit you from making any further disclosure of this information unless further disclosure is expressly permitted by the written consent of the person to whom it pertains or as otherwise permitted by 42 CFR part 2. A general authorization for the release of medical or other information is NOT sufficient for this purpose. The Federal rules restrict any use of the information to criminally investigate or prosecute any alcohol or drug abuse patient.The records that you are about to access may contain highly sensitive health information, the redisclosure of which is protected by Article 27-F of the [facility] Public Health law. If you continue you may haveaccess to information: Regarding HIV / AIDS; Provided by facilities licensed or operated by the [facility] Office of Mental Health; or Provided by the [facility] Office for People With Developmental Disabilities. If such information is present, then the following [facility] mandated warning applies: This information has been disclosed to you from confidential records which are protected by state law. State law prohibits you from making any further disclosure of this information without the specific written consent of the person to whom it pertains, or as otherwise permitted by law. Any unauthorized further disclosure in violation of state law may result in a fine or long-term sentence or both. A general authorization for the release of medical or other information is NOT sufficient authorization for further disclosure. Encounters Encounter Providers Location Date Indications Data Source(s ) [facility]: [facility] Attender: SKYE, [facility] 06:[facility]:00 [facility] Attender: SKYE, [facility] Outpatient Attender: [id number] 03/22/2020 [facility] 11:15:33 AM Care Lucy dasilva EDT Patient admitted. Outpatient Attender: SKYE, 03/13/2020 04:23:00 PM [facility] RICKttender: FERNANDEZ REYNOLDS [facility] KHAIANAdmitter: TOMAS CHEUNG Outpatient Attender: [id number] [facility] 02/18/2020 12:04:01 PM [facility] ([facility]) Patient admitted. Outpatient Attender: [id number] [facility] 02/18/2020 12:03:58 PM [facility]) Patient admitted. Outpatient Attender: [id number] [facility] 02/18/2020 12:03:01 PM [facility]) Patient admitted. Outpatient Attender: [id number] [facility] 02/18/2020 12:02:58 PM [facility] ([facility]) Patient admitted. Outpatient Attender: GAIL 01/16/2020 06:00:00 [facility] FERNANDEZ REYNOLDS [facility] RACIEL Outpatient Attender: GAIL 12/17/2019 06:00:00 AM [facility] FERNANDEZ REYNOLDS [facility] RACIEL Outpatient Attender: [id number] [facility] 12/14/2019 03:50:09 PM [facility] ([facility]) Patient admitted. Outpatient Attender: [id number] [facility] 12/14/2019 03:50:06 PM [facility] ([facility]) Patient admitted. Outpatient Attender: GAIL 11/26/2019 06:00:00 [facility] FERNANDE[facility] REYNOLDS [facility] RACIEL Outpatient Attender: GAIL 10/31/2019 06:00:00 AM [facility] FERNANDEZ REYNOLDS [facility] RACIEL Outpatient Attender: ELEUTERIO 10/15/2019 06:00:00 AM [facility] KIM MackeyAttender: GAIL [facility] MCdmitter: KIM MCCLELLAN Outpatient Attender: [id number] [facility] 10/09/2019 11:58:13 AM [facility] ([facility]) Patient admitted. Outpatient Attender: [id number] [facility] 07/27/2019 02:35:32 PM [facility] ([facility]) Patient admitted. Outpatient Attender: [id number] [facility] 07/27/2019 02:35:29 PM [facility] ([facility]) Patient admitted. Outpatient Attender: [id number] [facility] 07/06/2019 03:54:51 PM [facility] ([facility]) Patient admitted. Outpatient Attender: [id number] [facility] 07/06/2019 03:54:48 PM [facility] ([facility]) Patient admitted. Outpatient Attender: GAIL 05/17/2019 06:00:00 AM [facility] GIL[facility]ERTdmitter: FERNANDEZ REYNOLDS [facility] RACIEL Outpatient Attender: GAIL 04/25/2019 06:00:00 AM [facility]ERTdmitter: FERNANDEZ REYNOLDS [facility] RACIEL Outpatient Attender: [id number] 04/16/2019 06:00:00 AM [facility] ILYA MAKI; [facility] M.Attender: Eve REYNOLDSitter: [id number] MARIMAR MAKI Outpatient Attender: [id number] 04/09/2019 06:00:00 AM [facility] ILYA MAKI; [employer] M.Attender: Eve REYNOLDSitter: [id number] MARIMAR MAKI Outpatient Attender: [id number] 04/02/2019 06:00:00 AM [facility] ILYA MAKI; [facility] [employer] M.Attender: Pop REYNOLDS: [id number] MARIMAR MAKI Outpatient Attender: GAIL 03/08/2019 06:00:00 AM [facility] MCdmitter: FERNANDEZ REYNOLDS [facility] RACIEL Outpatient Attender: Joe 02/05/2019 06:00:00 AM [facility] [employer] [employer] Eveitter: Joe Clark Outpatient Attender: GAIL 02/01/2019 06:00:00 AM [facility] MCdmitter: FERNANDEZ REYNOLDS [facility] RACIEL Outpatient Attender: Joe 01/04/2019 06:00:00 AM [facility] GAIL [employer] Eveitter: Joe Clark Outpatient Attender: GAIL, 12/28/2018 06:00:00 AM [facility] JODIGN[facility] GIL[facility]ERTdmitter: FERNANDEZ REYNOLDS [facility] RACIEL Outpatient Attender: KHADIJAHWILBERT, 11/30/2018 06:00:00 AM [facility]ERTdmitter: FERNANDEZ REYNOLDS [facility] RACIEL Outpatient Attender: GAIL, 11/27/2018 06:00[facility] RACIEL Outpatient Attender: GAIL, 11/23/2018 06:00:00 [facility]ERNAN[facility]OLDS [facility] RACIEL Outpatient Attender: GAIL, 11/16/2018 09:08:00 AM [facility] FERNAN[facility]Z REYNOLDS [facility] [employer] RACIEL Outpatient Attender: [id number] 10/06/2018 06:00:00 AM [facility] ILYA MAKI; [facility] PeytonAdmitter: [id number] MARIMAR MAKI Outpatient Attender: ELEUTERIO, 09/29/2018 06:00:00 AM [facility] KIM MackeyAdmitter: RUST [facility] KIM MCCLELLAN Immunizations Vaccine Date Status Description Data Source(s) Tdap 04/06/2014 completed Tdap on: 06-Apr-2014 Site: St ructure of deltoid muscle (body structure) [facility] 12:00:00 AM EDT [id number] Medications Medication Brand Start Product Dose Route Administrative Pharmacy St atus Indications Reaction Description Data Name Date Form Instructions Instructions Source(s) 200 ACTUAT Ventol 09/04/ AEROSOL 2 RESPIR complet [facility] Albuterol in HFA 2018 {puff [facility] 0.09 90 11:49: (s)} (INHAL System MG/ACTUAT mcg/in 47 AM ATION) Metered h EST Dose inhala Inhaler tion Ventolin aeroso HFA 90 l mcg/inh inhalation aerosol For inhalation only.It is very important that you take or use this exactly as directed. Do not skip doses or disconti nue unless directed by your doctor.Obtain medical advice before taking any non-pre scription drugs as some may affect the action of this medication.Shake well before use . Basaglar 3 ML 09/04/2018 SOLUTION 25 SUBCUTANEOUS completed [facility] KwikPen 100 Insulin 10:30:27 AM {units} Health units/mL Glargine EST System subcutaneous 100 UNT/ML solution Pen Injector [Basaglar] Do not drink alcoholic beverages when ta reva this medication.It is very important that you take or use this exactly as dir ected. Do not skip doses or discontinue unless directed by your doctor.Keep in r efrigerator. Do not freeze. quetiapine 50 QUEtiapine 50 09/04/2018 TABLET 1 ORAL completed [facility] MG Oral mg oral 10:29:47 AM {tab(s)} Health Tablet tablet EST System QUEtiapine 50 mg oral tablet Multivitamin Multiple 09/04/2018 TABLET 1 ORAL completed [facility] preparation Vitamins oral 10:29:36 AM {tab(s)} Health Multiple tablet EST System Vitamins oral tablet Mirtazapine mirtazapine 09/04/2018 TABLET 1 ORAL completed [facility] 30 MG Oral 30 mg oral 10:28:36 AM {tab(s)} Health Tablet tablet EST System mirtazapine 30 mg oral tablet topiramate topiramate 09/04/2018 TABLET 1 ORAL completed [facility] 100 MG Oral 100 mg oral 10:28:24 AM {tab(s)} Health Tablet tablet EST System topiramate 100 mg oral tablet Metformin metFORMIN 09/04/2018 TABLET 1 ORAL completed [facility] hydrochloride 1000 mg oral 10:27:39 AM {tab(s)} Health 1000 MG Oral tablet EST Syste m Tablet metFORMIN 1000 mg oral tablet Lisinopril 20 lisinopril 20 09/04/2018 TABLET 1 ORAL completed [facility] MG Oral mg oral 10:25:29 AM {tab(s)} Health Tablet tablet EST System lisinopril 20 mg oral tablet Levetiracetam levETIRAcetam 09/04/2018 TABLET 1 ORAL completed [facility] 1000 MG Oral 1000 mg oral 10:24:56 AM {tab(s)} Health Tablet tablet EST System levETIRAcetam 1000 mg oral tablet Hydrochloroth hydroCHLOROth 09/04/2018 CAPSULE 1 ORAL complete d [facility] iazide 12.5 iazide 12.5 10:20:48 AM {cap(s)} Health MG Oral mg oral EST System Capsule capsule hydroCHLOROth iazide 12.5 mg oral capsule gabapentin gabapentin 09/04/2018 CAPSULE 1 ORAL completed [facility] 300 MG Oral 300 mg oral 10:19:21 AM {cap(s)} Health Capsule capsule EST System gabapentin 300 mg oral capsule It is very important that you take or us e this exactly as directed. Do not skip doses or discontinue unless directed by your doctor.May cause drowsiness. Alcohol may intensify this effect. Use care whe n operating dangerous machinery. Folic Acid folic acid 09/04/2018 TABLET 1 ORAL completed [facility] 1 MG Oral 1 mg oral 10:16:57 AM {tab(s)} Health Tablet tablet EST System folic acid 1 mg oral tablet duloxetine DULoxetine 09/04/2018 1 ORAL completed [facility] 30 MG 30 mg oral 10:15:28 AM {cap(s)} Health Delayed delayed EST System Release release Oral capsule Capsule DULoxetine 30 mg oral delayed release capsule Ascorbic ascorbic 09/04/2018 TABLET 1 ORAL completed [facility] Acid 1000 acid 1000 10:15:02 AM {tab(s)} Health MG Extended mg oral EST Syste m Release tablet Oral Tablet ascorbic acid 1000 mg oral tablet Admelog 3 ML 09/04/2018 SOLUTION 8 {units} completed [facility] SoloStar Insulin 10:13:54 AM H ealth 100 Lispro 100 EST System units/mL UNT/ML Pen injectable Injector solution [Admelog] Insulin insulin 09/04/2018 25 SUBCUTAN completed [facility] Glargine glargine 10:03:07 AM {units} EOUS Health insulin EST System glargine Amlodipine amLODIPine 12/19/2014 TABLET 1 ORAL completed [facility] 5 MG Oral 5 mg oral 04:58:32 PM {tab(s)} Health Tablet tablet EDT System amLODIPine 5 mg oral tablet Acetaminoph acetaminoph 04/06/2014 TABLET 1 ORAL completed [facility] en 500 MG en 500 mg 05:59:06 PM {tab(s)} Health Oral Tablet oral tablet EDT S ystem acetaminoph en 500 mg oral tablet This product contains acetaminophen. Do not use with any other product containing acetaminophen to prevent possible liver damage. Levetiracetam levETIRAcetam 01/18/2014 2 ORAL completed [facility] 500 MG Oral 500 mg oral 04:22:29 PM {tab(s)} Health Tablet tablet EDT System levETIRAcetam 500 mg oral tablet Albuterol 0.09 Ventolin 90 3 RESPIRA completed [facility] MG/ACTUAT mcg/inh TORY Health Metered Dose inhalation (INHALA System Inhaler aerosol TION) Ventolin 90 mcg/inh inhalation aerosol duloxetine 30 DULoxetine 30 1 ORAL completed [facility] MG Delayed mg oral {cap(s)} He alth Release Oral delayed Syst em Capsule release DULoxetine 30 capsule mg oral delayed release capsule gabapentin 300 gabapentin 300 0 ORAL completed [facility] MG Oral Tablet mg oral tablet Health gabapentin 300 Syste m mg oral tablet gabapentin gabapentin 0 ORAL completed [facility] Metformin metFORMIN 0 ORAL completed [facility] metFORMIN Health System Folic Acid 1 folic acid 1 TABL 1 ORAL completed [facility] MG Oral Tablet mg oral tablet ET {tab(s)} Health folic acid 1 System mg oral tablet Levetiracetam Keppra 1000 mg TABL 1 ORAL completed [facility] 1000 MG Oral oral tablet ET {tab(s)} Health Tablet System [Keppra] Keppra 1000 mg oral tablet Phenytoin phenytoin 100 1 ORAL completed [facility] sodium 100 MG mg oral {cap(s)} Health Extended capsule, System Release Oral extended Capsule release phenytoin 100 mg oral capsule, extended release Naproxen 250 Naprosyn 250 TABL 1 ORAL completed [facility] MG Oral Tablet mg oral tablet ET {tab(s)} Health Naprosyn 250 System mg oral tablet Basaglar 3 ML Insulin SOLU 14 SUBCUTA completed [facility] KwikPen 100 Glargine 100 TION {units} [facility] units/mL UNT/ML Pen Syste m subcutaneous Injector solution [Basaglar] Ultralente insulin 0 SUBCUTA completed [facility] Insulin, Human NEOUS Heal th insulin System Levetiracetam levETIRAcetam TABL 1 ORAL completed [facility] 750 MG Oral 750 mg oral ET {tab(s)} Health Tablet tablet System levETIRAcetam 750 mg oral tablet 200 ACTUAT Ventolin HFA AERO 2 RESPIRA completed [facility] Albuterol 0.09 [facility] free 90 BRAD {puff(s)} [facility] MG/ACTUAT mcg/inh (INHALA Syst em Metered Dose inhalation TION) Inhaler aerosol Ventolin HFA [facility]FC free 90 mcg/inh inhalation aerosol Insurance Providers Payer name Policy type Policy ID Covered Covered libertarian's Policy P emmy / Coverage libertarian ID relationship to Liu Inf ormation type liu YANIV [id number] 100 HEALTH NON CAP MEDICAID [id number] SP [id number] YANIV [id number] 100 HEALTH NON CAP Problems, Conditions, and Diagnoses Code Display Name Description Problem Type Effective Data Sour ce(s) Dates 345.90 Seizure disorder Seizure disorder Problem [id number] Z79.4 form tamper [employer] Diagnosis 04/10/2020 [place] (current) use of (CURRENT) USE OF 06:00:00 AM C Nveloped insulin INSULIN EDT [employer] 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, NOT 06:00:00 AM [facility] epilepsy and INTRACTABLE, W/O EDT Care epileptic STAT EPI [employer] syndromes, not intractable, without status epilepticus I10 Essential ESSENTIAL Diagnosis 04/10/2020 [place] (primary) (PRIMARY) 06:00:00 AM [facility] hypertension HYPERTENSION EDT [employer] G56.00 Carpal tunnel CARPAL TUNNEL Diagnosis 04/10/2020 [facility] syndrome, SYNDROME, 06:00:00 AM [facility] unspecified upper UNSPECIFIED UPPER EDT Care limb [employer] E11.40 Type 2 diabetes TYPE 2 DIABETES Diagnosis 04/10/2020 [place] mellitus with MELLITUS WITH 06:00:00 AM [facility] diabetic DIABETIC EDT Care neuropathy, NEUROPATHY, UNSP Corpora tion unspecified F41.1 Generalized GENERALIZED Diagnosis 04/10/2020 [place] anxiety disorder ANXIETY DISORDER 06:00:00 AM [facility] EDT [facility] [employer] F17.200 Nicotine NICOTINE Diagnosis 04/10/2020 [place] dependence, DEPENDENCE, 06:00:00 AM [facility] unspecified, UNSPECIFIED, EDT Care uncomplicated UNCOMPLICATED Corporat ion G47.00 Insomnia, INSOMNIA, Diagnosis 04/10/2020 [place] unspecified UNSPECIFIED 06:00:00 AM [facility] EDT [employer] F33.1 Major depressive MAJOR DEPRESSIVE Diagnosis [facility] disorder, DISORDER, 06:00:00 AM [facility] recurrent, RECURRENT, EDT Care moderate MODERATE Corporation F17.210 Nicotine NICOTINE Diagnosis 04/09/2019 [place] dependence, DEPENDENCE, 06:00:00 AM [facility] cigarettes, CIGARETTES, EDT Care uncomplicated UNCOMPLICATED Corporat ion E13.10 DKA (diabetic DKA (diabetic Diagnosis [facility] re ketoacidoses) ketoacidoses) Health S ystem Surgeries/Procedures Procedure Description Date Indications Data Source(s) Electroencephalogram 08/30/2018 [facility] 01:29:00 PM System EST - 08/30/2018 01:29:00 PM EST MV HbA1c 08/28/2018 [facility] 07:19:00 PM System EST - 08/28/2018 07:19:00 PM EST Electrocardiogram 12 Lead 08/28/2018 [facility] 03:22:00 PM System EST - 08/28/2018 03:22:00 PM EST Urine Test POCT 08/28/2018 [facility] 02:24:35 PM System EST - 08/28/2018 02:24:35 PM EST Manual Diff 08/28/2018 [facility] 02:24:00 PM System EST - 08/28/2018 02:24:00 PM EST XR Chest PA and Left Lateral 02/12/2015 [facility] 04:06:00 PM System EDT - 02/12/2015 04:06:00 PM EDT Venipuncture 02/12/2014 [facility] 12:00:00 AM System EDT - 02/12/2014 12:00:00 AM EDT Venipuncture 02/12/2014 [facility] 12:00:00 AM System EDT - 02/12/2014 12:00:00 AM EDT Electroencephalogram 01/16/2014 [facility] 10:46:00 AM System EDT - 01/16/2014 10:46:00 AM EDT Electrocardiogram 12 Lead 01/15/2014 [facility] 12:43:00 PM System EDT - 01/15/2014 12:43:00 PM EDT Venipuncture 12/07/2013 [facility] 12:00:00 AM System EDT - 12/07/2013 12:00:00 AM EDT Electrocardiogram 12 Lead 09/16/2013 [facility] 11:13:00 PM System EST - 09/16/2013 11:13:00 PM EST Electroencephalogram Awake + 09/12/2013 [facility] Asleep 02:20:00 PM System EST - 09/12/2013 02:20:00 PM EST [facility] 12 [facility] 04[facility]17[facility] EST - 09/10/2013 04:17:00 PM EST Venipuncture 09/10/2013 [facility] th 03:44:00 PM System EST - 09/10/2013 03:44:00 PM EST Venipuncture 04/09/2013 [facility] th 12:00:00 AM System EDT - 04/09/2013 12:00:00 AM EDT Electroencephalogram 03/30/2013 [facility] 01:43:00 PM System EDT - 03/30/2013 01:43:00 PM EDT Electroencephalogram 03/28/2013 [facility] 01:47:00 PM System EDT - 03/28/2013 01:47:00 PM EDT Electrocardiogram 12 Lead 03/28/2013 [facility] 11:36:00 AM System EDT - 03/28/2013 11:36:00 AM EDT XR Chest Single PA view 03/27/2013 [facility] 12:13:20 PM System EDT - 03/27/2013 12:13:20 PM EDT Electrocardiogram 12 Lead 03/27/2013 [facility] 10:33:00 AM System EDT - 03/27/2013 10:33:00 AM EDT XR Chest Single AP view 03/27/2013 [facility] 10:32:00 AM System EDT - 03/27/2013 10:32:00 AM EDT Auto Differential 02/09/2013 [facility] 08:15:00 AM System EDT - 02/09/2013 08:15:00 AM EDT Dilantin Free 01/25/2012 [facility] 02:48:34 PM System EDT - 01/25/2012 02:48:34 PM EDT [facility]in [facility] AM System EDT - 01/18/2012 11:33:00 AM EDT Electroencephalogram Awake + 12/01/2011 [facility] Asleep 10:32:00 AM System EDT - 12/01/2011 10:32:00 AM EDT LevETIRAcetam Level, Serum 11/28/2011 [facility] 07:30:00 AM System EDT - 11/28/2011 07:30:00 AM EDT Electrocardiogram 12 Lead 11/28/2011 [facility] 06:35:16 AM System EDT - 11/28/2011 06:35:16 AM EDT Electroencephalogram 10/25/2011 [facility] 09:00:00 AM System EST - 10/25/2011 09:00:00 AM EST Electrocardiogram 12 Lead [facility]00 PM System EST - 10/24/2011 10:00:00 PM EST Results ID Date Data Source [id number] 09/04/2018 06:00:00 AM EST [facility] He alth System Name Value Range Interpretation Description Data Sup porting Code Source(s) Document(s ) Leukocytes 5.6 4.8 - Normal (applies WBC Count [facility] [#/volume] in {10^3_u 10.8 to non-numeric Health Unspecified L} 10^3 uL results) System specimen by Automated count Erythrocytes 3.83 3.80 - Normal (applies RBC Count [facility] [#/volume] in {10^6_u 5.20 to non-numeric Health Blood by L} 10^6 uL results) System Automated count Hemoglobin 11.9 12.0 - Below low normal Hemoglobin [facility] [Mass/volume] in {gm/dL} 16.0 Health Blood gm/dL System Hematocrit 35.0 % 36.0 - Below low normal Hematocrit [facility] [Volume 46.0 % Health Fraction] of System Blood Erythrocyte mean 91.4 fl 83.0 - Normal (applies MCV [facility] corpuscular 98.0 fl to non-numeric Health volume [Entitic results) System volume] by Automated count Erythrocyte mean 31.1 pg 26.0 - Normal (applies [facility] ore corpuscular 34.0 pg to non-numeric Health hemoglobin results) System [Entitic mass] by Automated count Erythrocyte mean 34.0 33.0 - Normal (applies MCHC [facility] corpuscular {gm/dL} 37.0 to non-numeric Health hemoglobin gm/dL results) System concentration [Mass/volume] by Automated count Erythrocyte 12.5 % 11.5 - Normal (applies RDW-CV [facility] distribution 14.5 % to non-numeric Health width [Entitic results) System volume] by Automated count Platelets 178 130 - Normal (applies Platelet Count [facility] [#/volume] in {10^3_u 400 to non-numeric Health Plasma by L} 10^3 uL results) System Automated count Platelet mean 11.0 fl 7.4 - Above high MPV [facility] volume [Entitic 10.4 fl normal Health volume] in Blood System by Automated count Monocytes 0.6 0.3 - Normal (applies Monocyte # [facility] [#/volume] in {10^3_u 0.9 to non-numeric Health Blood by Manual L} 10^3 uL results) System count Eosinophils 0.52 0.05 - Above high Eosinophil # [facility] [#/volume] in {10^3_u 0.30 normal Health Blood L} 10^3 uL System Neutrophils 2.4 2.0 - Normal (applies Neutrophil # [facility] [#/volume] in {10^3_u 8.1 to non-numeric Health Body fluid L} 10^3 uL results) System Basophils 0.06 0.00 - Normal (applies Basophil # [facility] [#/volume] in {10^3_u 0.10 to non-numeric Health Blood by L} 10^3 uL results) System Automated count Lymphocyte # 2.1 1.0 - Normal (applies Lymphocyte # [facility] {10^3_u 5.5 to non-numeric Health L} 10^3 uL results) System Neutrophils/100 42.3 % 55.0 - Below low normal Neutrophil % [facility] leukocytes in 75.0 % Health Blood by System Automated count Monocytes/100 10.5 % 6.0 - Above high Monocyte % [facility] leukocytes in 9.0 % normal Health Blood System Eosinophils/100 9.3 % 0.0 - Above high Eosinophil % [facility] leukocytes in 4.0 % normal Health Unspecified System specimen Basophils/100 1.1 % 0.0 - Above high Basophil % [facility] leukocytes in 1.0 % normal Health Unspecified System specimen by Manual count Lymphocytes 36.6 % 21.0 - Normal (applies Lymphocyte % [facility] [#/volume] in 51.0 % to non-numeric Health Blood by results) System Automated count Immature 0.2 % 0.0 - Normal (applies Immature [facility] Granulocytes % 0.8 % to non-numeric Granulocytes % [facility] results) System Nucleated 0.0 0.0 - Normal (applies NRBC % [facility] erythrocytes {/100_W 0.0 to non-numeric Health [#/volume] in BC} /100 results) System Body fluid WBC Immature 0.01 0.00 - Normal (applies Immature [facility] Granulocytes # {10^3_u 0.09 to non-numeric Granulocytes # [facility] L} 10^3 uL results) System NRBC # 0.00 0.90 - Below low normal NRBC # [facility] {10^3_u 11.20 Health L} 10^3 uL System ID Date Data Source [id number] 09/04/2018 06:00:00 AM EST [facility] Name Value Range Interpretation Description Data Sup porting Code Source(s) Document(s ) Sodium 136 137 - Below low normal Sodium, Serum [facility] [Moles/volume] in mmol/L 145 Health Serum or Plasma mmol/L System Potassium 3.9 3.6 - Normal (applies Potassium, [facility] [Mass/volume] in mmol/L 5.0 to non-numeric Serum Health Serum or Plasma mmol/L results) System Chloride 106 98 - Normal (applies Chloride, [facility] [Moles/volume] in mmol/L 107 to non-numeric Serum Health Serum or Plasma mmol/L results) System Carbon dioxide, 22.0 22.0 - Normal (applies CO2, Serum [facility] total mmol/L 30.0 to non-numeric Health [Moles/volume] in mmol/L results) System Serum or Plasma Total Protein 5.7 6.3 - Below low normal Total Protein [facility] mg/dl 8.2 Health mg/dl System Glucose 212 65 - Above high Glucose, [facility] [Mass/volume] in mg/dL 105 normal Serum Health Serum or Plasma mg/dL System Urea nitrogen 25 7 - 18 Above high Blood Urea [facility] [Mass/volume] in mg/dl mg/dl normal Nitrogen, Health Serum or Plasma Serum System Creatinine 0.90 0.70 - Normal (applies Creatinine, [facility] [Mass/volume] in mg/dl 1.20 to non-numeric Serum Health Serum or Plasma mg/dl results) System Alkaline 36 38 - Below low normal Alkaline [facility] phosphatase {IU/L} 126 Phosphatase, Health isoenzymes IU/L Serum System [Enzymatic activity/volume] in Serum or Plasma by Heat stability Bilirubin.total 0.2 0.2 - Normal (applies Bilirubin, [facility] [Mass/volume] in mg/dl 1.3 to non-numeric Serum Total Health Serum or Plasma mg/dl results) System Direct Bilirubin 0.1 0.0 - Normal (applies Direct [facility] mg/dl 0.4 to non-numeric Bilirubin [facility] mg/dl results) System Aspartate 11 5 - 40 Normal (applies Aspartate [facility] aminotransferase {IU/L} IU/L to non-numeric Transaminase, [facility] [Enzymatic results) Serum System activity/volume] in Serum or Plasma by With P-5'-P Albumin 3.8 3.9 - Below low normal Albumin, [facility] [Mass/volume] in {gm/dl} 5.0 Serum Health Serum or Plasma gm/dl System I. Phosphorus 3.9 2.5 - Normal (applies I. Phosphorus [facility] mg/dl 4.5 to non-numeric [facility] mg/dl results) System Alanine 11 7 - 56 Normal (applies Alanine [facility] aminotransferase {IU/L} IU/L to non-numeric Aminotransfer [facility] [Enzymatic results) ase, Serum System activity/volume] in Serum or Plasma Calcium 8.9 8.4 - Normal (applies Calcium, [facility] [Mass/volume] in mg/dl 10.2 to non-numeric Total Serum Health Serum or Plasma mg/dl results) System A/G Ratio 2.00 Normal (applies A/G Ratio [facility] to non-numeric Health results) System Urate 4.3 2.5 - Normal (applies Uric Acid, [facility] [Mass/volume] in mg/dl 7.5 to non-numeric Serum Health Serum or Plasma mg/dl results) System Anion gap in Serum 8.00 8.00 - Normal (applies Anion Gap [facility] or Plasma mmol/L 12.00 to non-numeric Health mmol/L results) System Glomerular 67.03 Normal (applies GFR [facility] filtration to non-numeric Health rate/1.73 sq results) System M.predicted [Volume Rate/Area] in Serum or Plasma by Creatinine-based formula (CKD-EPI) eGFR will provide clinicians with a more accurate indicator of renal function then the serum creatinine. The eGFR is automa tically calculated from an empiric formula (endorsed by the [employer]) which incorporates age, sex, and race.Clinicians may notice surprisingly low GFR's with serum creatinine valueswithin normal range- particularly in elderly wo men (with low muscle mass).In the hospital setting, the eGFR should add an element of safety in drug dosing, in assessing the risk of IV contrast administration, and in assessing vascular risk.The NKF staging system is as follows:Normal: eGFR >90 with no kidney markersStage 1: eGFR >90 with kidney markers*Stage 2: eGFR 60- 89Stage 3: eGFR 30-59Stage 4: eGFR 15-29Stage 5: eGFR <15 (usually requir ing dialysis)*Markers include: Proteinuria, Hematuria, abnormal imaging-studies, or other blood or urine test abnormalities ID Date Data Source [id number] 09/03/2018 06:00:00 AM EST [facility] System Name Value Range Interpretation Description Data Sup porting Code Source(s) Document(s ) Leukocytes 5.7 4.8 - Normal (applies WBC Count [facility] [#/volume] in {10^3_u 10.8 to non-numeric Health Unspecified L} 10^3 uL results) System specimen by Automated count Erythrocytes 4.33 3.80 - Normal (applies RBC Count [facility] [#/volume] in {10^6_u 5.20 to non-numeric Health Blood by L} 10^6 uL results) System Automated count Hemoglobin 13.3 12.0 - Normal (applies Hemoglobin [facility] [Mass/volume] in {gm/dL} 16.0 to non-numeric Health Blood gm/dL results) System Hematocrit 39.6 % 36.0 - Normal (applies Hematocrit [facility] [Volume 46.0 % to non-numeric Health Fraction] of results) System Blood Erythrocyte mean 91.5 fl 83.0 - Normal (applies MCV [facility] corpuscular 98.0 fl to non-numeric Health volume [Entitic results) System volume] by Automated count Erythrocyte mean 30.7 pg 26.0 - Normal (applies MCH [facility] corpuscular 34.0 pg to non-numeric Health hemoglobin results) System [Entitic mass] by Automated count Erythrocyte mean 33.6 33.0 - Normal (applies MCHC [facility] corpuscular {gm/dL} 37.0 to non-numeric Health hemoglobin gm/dL results) System concentration [Mass/volume] by Automated count Erythrocyte 12.5 % 11.5 - Normal (applies RDW-CV [facility] distribution 14.5 % to non-numeric Health width [Entitic results) System volume] by Automated count Platelets 189 130 - Normal (applies Platelet Count [facility] [#/volume] in {10^3_u 400 to non-numeric Health Plasma by L} 10^3 uL results) System Automated count Platelet mean 11.0 fl 7.4 - Above high MPV [facility] volume [Entitic 10.4 fl normal Health volume] in Blood System by Automated count Monocytes 0.6 0.3 - Normal (applies Monocyte # [facility] [#/volume] in {10^3_u 0.9 to non-numeric Health Blood by Manual L} 10^3 uL results) System count Eosinophils 0.56 0.05 - Above high Eosinophil # [facility] [#/volume] in {10^3_u 0.30 normal Health Blood L} 10^3 uL System Neutrophils 2.1 2.0 - Normal (applies Neutrophil # [facility] [#/volume] in {10^3_u 8.1 to non-numeric Health Body fluid L} 10^3 uL results) System Basophils 0.05 0.00 - Normal (applies Basophil # [facility] [#/volume] in {10^3_u 0.10 to non-numeric Health Blood by L} 10^3 uL results) System Automated count Lymphocyte # 2.4 1.0 - Normal (applies Lymphocyte # [facility] {10^3_u 5.5 to non-numeric Health L} 10^3 uL results) System Neutrophils/100 36.4 % 55.0 - Below low normal Neutrophil % [facility] leukocytes in 75.0 % [facility] Blood by System Automated count Monocytes/100 10.1 % 6.0 - Above high Monocyte % [facility] leukocytes in 9.0 % normal Health Blood System Eosinophils/100 9.9 % 0.0 - Above high Eosinophil % [facility] leukocytes in 4.0 % normal Health Unspecified System specimen Basophils/100 0.9 % 0.0 - Normal (applies Basophil % [facility] leukocytes in 1.0 % to non-numeric Health Unspecified results) System specimen by Manual count Lymphocytes 42.7 % 21.0 - Normal (applies Lymphocyte % [facility] [#/volume] in 51.0 % to non-numeric Health Blood by results) System Automated count Immature 0.0 % 0.0 - Normal (applies Immature [facility] Granulocytes % 0.8 % to non-numeric Granulocytes % [facility] results) System Nucleated 0.0 0.0 - Normal (applies NRBC % [facility] erythrocytes {/100_W 0.0 to non-numeric Health [#/volume] in BC} /100 results) System Body fluid WBC Immature 0.00 0.00 - Normal (applies Immature [facility] Granulocytes # {10^3_u 0.09 to non-numeric Granulocytes # [facility]alt [facility] L} 10^3 uL results) System NRBC # 0.00 0.90 - Below low normal NRBC # [facility] {10^3_u 11.20 Health L} 10^3 uL System ID Date Data Source [id number] 09/03/2018 06:00:00 AM EST [facility] Name Value Range Interpretation Description Data Sup porting Code Source(s) Document(s ) Sodium 134 137 - Below low normal Sodium, Serum [facility] [Moles/volume] in mmol/L 145 [facility] Serum or Plasma mmol/L System Potassium 4.8 3.6 - Normal (applies Potassium, [facility] [Mass/volume] in mmol/L 5.0 to non-numeric Serum Health Serum or Plasma mmol/L results) System Chloride 99 98 - Normal (applies Chloride, [facility] [Moles/volume] in mmol/L 107 to non-numeric Serum Health Serum or Plasma mmol/L results) System Carbon dioxide, 26.0 22.0 - Normal (applies CO2, Serum [facility] total mmol/L 30.0 to non-numeric Health [Moles/volume] in mmol/L results) System Serum or Plasma Total Protein 6.5 6.3 - Normal (applies Total Protein [facility] mg/dl 8.2 to non-numeric Health mg/dl results) System Glucose 334 65 - Above high Glucose, [facility] [Mass/volume] in mg/dL 105 normal Serum Health Serum or Plasma mg/dL System Urea nitrogen 21 7 - 18 Above high Blood Urea [facility] [Mass/volume] in mg/dl mg/dl normal Nitrogen, Health Serum or Plasma Serum System Creatinine 1.10 0.70 - Normal (applies Creatinine, [facility] [Mass/volume] in mg/dl 1.20 to non-numeric Serum Health Serum or Plasma mg/dl results) System Alkaline 47 38 - Normal (applies Alkaline [facility] phosphatase {IU/L} 126 to non-numeric Phosphatase, Health isoenzymes IU/L results) Serum System [Enzymatic activity/volume] in Serum or Plasma by Heat stability Bilirubin direct 0.5 0.2 - Normal (applies Bilirubin, [facility] and total panel mg/dl 1.3 to non-numeric Serum Total [facility] [Mass/volume] - mg/dl results) System Serum or Plasma Direct Bilirubin 0.2 0.0 - Normal (applies Direct [facility] mg/dl 0.4 to non-numeric Bilirubin [facility] mg/dl results) System Aspartate 10 5 - 40 Normal (applies Aspartate [facility] aminotransferase {IU/L} IU/L to non-numeric Transaminase, [facility] [Enzymatic results) Serum System activity/volume] in Serum or Plasma by With P-5'-P Albumin 4.1 3.9 - Normal (applies Albumin, [facility] [Mass/volume] in {gm/dl} 5.0 to non-numeric Serum [facility] Serum or Plasma gm/dl results) System I. Phosphorus 4.2 2.5 - Normal (applies I. Phosphorus [facility] mg/dl 4.5 to non-numeric [facility] mg/dl results) System Alanine 14 7 - 56 Normal (applies Alanine [facility] aminotransferase {IU/L} IU/L to non-numeric Aminotransfer [facility] [Enzymatic results) ase, Serum System activity/volume] in Serum or Plasma Calcium 9.9 8.4 - Normal (applies Calcium, [facility] [Mass/volume] in mg/dl 10.2 to non-numeric Total Serum Health Serum or Plasma mg/dl results) System A/G Ratio 1.71 Normal (applies A/G Ratio [facility] to non-numeric Health results) System Urate 4.0 2.5 - Normal (applies Uric Acid, [facility] [Mass/volume] in mg/dl 7.5 to non-numeric Serum Health Serum or Plasma mg/dl results) System Anion gap in Serum 9.00 8.00 - Normal (applies Anion Gap [facility] or Plasma mmol/L 12.00 to non-numeric Health mmol/L results) System Glomerular 53.17 Normal (applies GFR [facility] filtration to non-numeric Health rate/1.73 sq results) System M.predicted [Volume Rate/Area] in Serum or Plasma by Creatinine-based formula (CKD-EPI) eGFR will provide clinicians with a more accurate indicator of renal function then the serum creatinine. The eGFR is automa tically calculated from an empiric formula (endorsed by the [employer]) which incorporates age, sex, and race.Clinicians may notice surprisingly low GFR's with serum creatinine valueswithin normal range- particularly in elderly wo men (with low muscle mass).In the hospital setting, the eGFR should add an element of safety in drug dosing, in assessing the risk of IV contrast administration, and in assessing vascular risk.The NKF staging system is as follows:Normal: eGFR >90 with no kidney markersStage 1: eGFR >90 with kidney markers*Stage 2: eGFR 60- 89Stage 3: eGFR 30-59Stage 4: eGFR 15-29Stage 5: eGFR <15 (usually requir ing dialysis)*Markers include: Proteinuria, Hematuria, abnormal imaging-studies, or other blood or urine test abnormalities ID Date Data Source [id number] 09/02/2018 10:20:00 PM EST [facility] Name Value Range Interpretation Description Data Sup porting Code Source(s) Document(s ) Sodium 130 137 - Below low normal Sodium, Serum [facility] [Moles/volum mmol/L 145 Health System e] in Serum mmol/L or Plasma Potassium 4.8 3.6 - Normal (applies Potassium, [facility] [Mass/volume mmol/L 5.0 to non-numeric Serum Health Syste m ] in Serum mmol/L results) or Plasma Chloride 96 98 - 107 Below low normal Chloride, [facility] [Moles/volum mmol/L mmol/L Serum Health System e] in Serum or Plasma Carbon 23.0 22.0 - Normal (applies CO2, Serum [facility] dioxide, mmol/L 30.0 to non-numeric Health System total mmol/L results) [Moles/volum e] in Serum or Plasma Total 6.7 6.3 - Normal (applies Total Protein [facility] Protein mg/dl 8.2 to non-numeric Health System mg/dl results) Glucose 573 65 - 105 Above upper panic Glucose, Serum [facility] [Mass/volume mg/dL mg/dL limits Health System ] in Serum or Plasma Result Reporting|Telephone|sadie Lopez| 08/22 at 12:04 AMCalled to:sadie Yung Name:Yin by:sadie Lopez 09/03/2018 / 12:04 AM Urea nitrogen 25 mg/dl 7 - 18 Above high Blood Urea [facility] [Mass/volume] in Serum mg/dl normal Nitrogen, Serum H ealth System or Plasma Creatinine 1.20 mg/dl 0.70 - Normal Creatinine, [facility] [Mass/volume] in Serum 1.20 mg/dl (applies to Serum Heal System or Plasma non-numeric results) Alkaline phosphatase 49 {IU/L} 38 - 126 Normal Alkaline [facility] isoenzymes [Enzymatic IU/L (applies to Phosphatase, [facility] System activity/volume] in non-numeric Serum Serum or Plasma by results) Heat stability Bilirubin.total 0.3 mg/dl 0.2 - 1.3 Normal Bilirubin, [facility] [Mass/volume] in Serum mg/dl (applies to Serum Total [facility] System or Plasma non-numeric results) Direct Bilirubin 0.2 mg/dl 0.0 - 0.4 Normal Direct [facility] mg/dl (applies to Bilirubin Health System non-numeric results) Aspartate 12 {IU/L} 5 - 40 Normal Aspartate [facility] aminotransferase IU/L (applies to Transaminase, Health System [Enzymatic non-numeric Serum activity/volume] in results) Serum or Plasma by With P-5'-P Albumin [Mass/volume] 4.5 3.9 - 5.0 Normal Albumin, Serum [facility] in Serum or Plasma {gm/dl} gm/dl (applies to Health Sy stem non-numeric results) I. Phosphorus 3.8 mg/dl 2.5 - 4.5 Normal I. Phosphorus [facility] mg/dl (applies to Health System non-numeric results) Alanine 15 {IU/L} 7 - 56 Normal Alanine [facility] aminotransferase IU/L ([facility] [Enzymatic non-numeric e, Serum activity/volume] in results) Serum or Plasma Calcium [Mass/volume] 10.1 mg/dl 8.4 - 10.2 Normal Calcium, Total [facility] in Serum or Plasma mg/dl (applies to Serum Health Sy stem non-numeric results) A/G Ratio 2.05 Normal A/G Ratio [facility] (applies to Health System non-numeric results) Urate [Mass/volume] in 4.0 mg/dl 2.5 - 7.5 Normal Uric Acid, [facility] Serum or Plasma mg/dl (applies to Serum Health Syste m non-numeric results) Anion gap in Serum or 11.00 8.00 - Normal Anion Gap [facility] Plasma mmol/L 12.00 (applies to Health System mmol/L non-numeric results) Glomerular filtration 48.09 Normal GFR [facility] rate/1.73 sq (applies to Health System M.predicted [Volume non-numeric Rate/Area] in Serum or results) Plasma by Creatinine-based formula (CKD-EPI) eGFR will provide clinicians with a more accurate indicator of renal function then the serum creatinine. The eGFR is automa tically calculated from an empiric formula (endorsed by the [employer]) which incorporates age, sex, and race.Clinicians may notice surprisingly low GFR's with serum creatinine valueswithin normal range- particularly in elderly wo men (with low muscle mass).In the hospital setting, the eGFR should add an element of safety in drug dosing, in assessing the risk of IV contrast administration, and in assessing vascular risk.The NKF staging system is as follows:Normal: eGFR >90 with no kidney markersStage 1: eGFR >90 with kidney markers*Stage 2: eGFR 60- 89Stage 3: eGFR 30-59Stage 4: eGFR 15-29Stage 5: eGFR <15 (usually requir ing dialysis)*Markers include: Proteinuria, Hematuria, abnormal imaging-studies, or other blood or urine test abnormalities ID Date Data Source [id number] 09/02/2018 06:00:00 AM EST [facility] Name Value Range Interpretation Description Data Sup porting Code Source(s) Document(s ) Leukocytes 5.7 4.8 - Normal (applies WBC Count [facility] [#/volume] in {10^3_u 10.8 to non-numeric Health Unspecified L} 10^3 uL results) System specimen by Automated count Erythrocytes 4.48 3.80 - Normal (applies RBC Count [facility] [#/volume] in {10^6_u 5.20 to non-numeric Health Blood by L} 10^6 uL results) System Automated count Hemoglobin 13.8 12.0 - Normal (applies Hemoglobin [facility] [Mass/volume] in {gm/dL} 16.0 to non-numeric Health Blood gm/dL results) System Hematocrit 40.3 % 36.0 - Normal (applies Hematocrit [facility] [Volume 46.0 % to non-numeric Health Fraction] of results) System Blood Erythrocyte mean 90.0 fl 83.0 - Normal (applies MCV [facility] corpuscular 98.0 fl to non-numeric Health volume [Entitic results) System volume] by Automated count Erythrocyte mean 30.8 pg 26.0 - Normal (applies MCH [facility] corpuscular 34.0 pg to non-numeric Health hemoglobin results) System [Entitic mass] by Automated count Erythrocyte mean 34.2 33.0 - Normal (applies MCHC [facility] corpuscular {gm/dL} 37.0 to non-numeric Health hemoglobin gm/dL results) System concentration [Mass/volume] by Automated count Erythrocyte 12.4 % 11.5 - Normal (applies RDW-CV [facility] distribution 14.5 % to non-numeric Health width [Entitic results) System volume] by Automated count Platelets 191 130 - Normal (applies Platelet Count [facility] [#/volume] in {10^3_u 400 to non-numeric Health Plasma by L} 10^3 uL results) System Automated count Platelet mean 10.7 fl 7.4 - Above high MPV [facility] volume [Entitic 10.4 fl normal Health volume] in Blood System by Automated count Monocytes 0.5 0.3 - Normal (applies Monocyte # [facility] [#/volume] in {10^3_u 0.9 to non-numeric Health Blood by Manual L} 10^3 uL results) System count Eosinophils 0.56 0.05 - Above high Eosinophil # [facility] [#/volume] in {10^3_u 0.30 normal Health Blood L} 10^3 uL System Neutrophils 2.1 2.0 - Normal (applies Neutrophil # [facility] [#/volume] in {10^3_u 8.1 to non-numeric Health Body fluid L} 10^3 uL results) System Basophils 0.06 0.00 - Normal (applies Basophil # [facility] [#/volume] in {10^3_u 0.10 to non-numeric Health Blood by L} 10^3 uL results) System Automated count Lymphocyte # 2.4 1.0 - Normal (applies Lymphocyte # [facility] {10^3_u 5.5 to non-numeric Health L} 10^3 uL results) System Neutrophils/100 37.7 % 55.0 - Below low normal Neutrophil % [facility] leukocytes in 75.0 % Health Blood by System Automated count Monocytes/100 8.3 % 6.0 - Normal (applies Monocyte % [facility] leukocytes in 9.0 % to non-numeric Health Blood results) System Eosinophils/100 9.9 % 0.0 - Above high Eosinophil % [facility] leukocytes in 4.0 % normal Health Unspecified System specimen Basophils/100 1.1 % 0.0 - Above high Basophil % [facility] leukocytes in 1.0 % normal Health Unspecified System specimen by Manual count Lymphocytes 42.8 % 21.0 - Normal (applies Lymphocyte % [facility] [#/volume] in 51.0 % to non-numeric Health Blood by results) System Automated count Immature 0.2 % 0.0 - Normal (applies Immature [facility] Granulocytes % 0.8 % to non-numeric Granulocytes % Healt h results) System Nucleated 0.0 0.0 - Normal (applies NRBC % [facility] erythrocytes {/100_W 0.0 to non-numeric Health [#/volume] in BC} /100 results) System Body fluid WBC Immature 0.01 0.00 - Normal (applies Immature [facility] Granulocytes # {10^3_u 0.09 to non-numeric Granulocytes # [facility]alt h L} 10^3 uL results) System NRBC # 0.00 0.90 - Below low normal NRBC # [facility] {10^3_u 11.20 Health L} 10^3 uL System ID Date Data Source [id number] 09/02/2018 06:00:00 AM EST [facility] Name Value Range Interpretation Description Data Sup porting Code Source(s) Document(s ) Sodium 134 137 - Below low normal Sodium, Serum [facility] [Moles/volume] in mmol/L 145 Health Serum or Plasma mmol/L System Potassium 4.2 3.6 - Normal (applies Potassium, [facility] [Mass/volume] in mmol/L 5.0 to non-numeric Serum Health Serum or Plasma mmol/L results) System Chloride 102 98 - Normal (applies Chloride, [facility] [Moles/volume] in mmol/L 107 to non-numeric Serum Health Serum or Plasma mmol/L results) System Carbon dioxide, 22.0 22.0 - Normal (applies CO2, Serum [facility] total mmol/L 30.0 to non-numeric Health [Moles/volume] in mmol/L results) System Serum or Plasma Total Protein 6.5 6.3 - Normal (applies Total Protein [facility] mg/dl 8.2 to non-numeric Health mg/dl results) System Glucose 389 65 - Above high Glucose, [facility] [Mass/volume] in mg/dL 105 normal Serum Health Serum or Plasma mg/dL System Urea nitrogen 16 7 - 18 Normal (applies Blood Urea [facility] [Mass/volume] in mg/dl mg/dl to non-numeric Nitrogen, Health Serum or Plasma results) Serum System Creatinine 1.00 0.70 - Normal (applies Creatinine, [facility] [Mass/volume] in mg/dl 1.20 to non-numeric Serum Health Serum or Plasma mg/dl results) System Alkaline 47 38 - Normal (applies Alkaline [facility] phosphatase {IU/L} 126 to non-numeric Phosphatase, [facility] isoenzymes IU/L results) Serum System [Enzymatic activity/volume] in Serum or Plasma by Heat stability Bilirubin.total 0.4 0.2 - Normal (applies Bilirubin, [facility] [Mass/volume] in mg/dl 1.3 to non-numeric Serum Total Health Serum or Plasma mg/dl results) System Direct Bilirubin 0.2 0.0 - Normal (applies Direct [facility] mg/dl 0.4 to non-numeric Bilirubin Health mg/dl results) System Aspartate 11 5 - 40 Normal (applies Aspartate [facility] aminotransferase {IU/L} IU/L to non-numeric Transaminase, Heal th [Enzymatic results) Serum System activity/volume] in Serum or Plasma by With P-5'-P Albumin 4.3 3.9 - Normal (applies Albumin, [facility] [Mass/volume] in {gm/dl} 5.0 to non-numeric Serum Health Serum or Plasma gm/dl results) System I. Phosphorus 3.4 2.5 - Normal (applies I. Phosphorus [facility] mg/dl 4.5 to non-numeric Health mg/dl results) System Alanine 15 7 - 56 Normal (applies Alanine [facility] aminotransferase {IU/L} IU/L to non-numeric Aminotransfer Heal th [Enzymatic results) ase, Serum System activity/volume] in Serum or Plasma Calcium 9.8 8.4 - Normal (applies Calcium, [facility] [Mass/volume] in mg/dl 10.2 to non-numeric Total Serum Health Serum or Plasma mg/dl results) System A/G Ratio 1.95 Normal (applies A/G Ratio [facility] to non-numeric Health results) System Urate 3.8 2.5 - Normal (applies Uric Acid, [facility] [Mass/volume] in mg/dl 7.5 to non-numeric Serum Health Serum or Plasma mg/dl results) System Anion gap in Serum 10.00 8.00 - Normal (applies Anion Gap [facility] or Plasma mmol/L 12.00 to non-numeric Health mmol/L results) System Glomerular 59.36 Normal (applies GFR [facility] filtration to non-numeric Health rate/1.73 sq results) System M.predicted [Volume Rate/Area] in Serum or Plasma by Creatinine-based formula (CKD-EPI) eGFR will provide clinicians with a more accurate indicator of renal function then the serum creatinine. The eGFR is automa tically calculated from an empiric formula (endorsed by the [employer]) which incorporates age, sex, and race.Clinicians may notice surprisingly low GFR's with serum creatinine valueswithin normal range- particularly in elderly wo men (with low muscle mass).In the hospital setting, the eGFR should add an element of safety in drug dosing, in assessing the risk of IV contrast administration, and in assessing vascular risk.The NKF staging system is as follows:Normal: eGFR >90 with no kidney markersStage 1: eGFR >90 with kidney markers*Stage 2: eGFR 60- 89Stage 3: eGFR 30-59Stage 4: eGFR 15-29Stage 5: eGFR <15 (usually requir ing dialysis)*Markers include: Proteinuria, Hematuria, abnormal imaging-studies, or other blood or urine test abnormalities ID Date Data Source [id number] 09/01/2018 06:00:00 AM EST [facility] Name Value Range Interpretation Description Data Source(s ) Supporting Code Document(s ) [id number] 347.03 Normal (applies to [id number] [facility] results) tHbWB 3845.61 Normal (applies to tHbWB [facility] results) %HbA1C 10.41 % 3.00 - Above high normal %HbA1C [facility] 6.50 % [facility] ID Date Data Source [id number] 09/01/2018 06:00:00 AM EST [facility] Name Value Range Interpretation Description Data Sup porting Code Source(s) Document(s ) Leukocytes 5.7 4.8 - Normal (applies WBC Count [facility] [#/volume] in {10^3_u 10.8 to non-numeric Health Unspecified L} 10^3 uL results) System specimen by Automated count Erythrocytes 4.60 3.80 - Normal (applies RBC Count [facility] [#/volume] in {10^6_u 5.20 to non-numeric Health Blood by L} 10^6 uL results) System Automated count Hemoglobin 14.2 12.0 - Normal (applies Hemoglobin [facility] [Mass/volume] in {gm/dL} 16.0 to non-numeric Health Blood gm/dL results) System Hematocrit 41.3 % 36.0 - Normal (applies Hematocrit [facility] [Volume 46.0 % to non-numeric Health Fraction] of results) System Blood Erythrocyte mean 89.8 fl 83.0 - Normal (applies MCV [facility] corpuscular 98.0 fl to non-numeric Health volume [Entitic results) System volume] by Automated count Erythrocyte mean 30.9 pg 26.0 - Normal (applies MCH [facility] corpuscular 34.0 pg to non-numeric Health hemoglobin results) System [Entitic mass] by Automated count Erythrocyte mean 34.4 33.0 - Normal (applies MCHC [facility] corpuscular {gm/dL} 37.0 to non-numeric Health hemoglobin gm/dL results) System concentration [Mass/volume] by Automated count Erythrocyte 12.3 % 11.5 - Normal (applies RDW-CV [facility] distribution 14.5 % to non-numeric Health width [Entitic results) System volume] by Automated count Platelets 193 130 - Normal (applies Platelet Count [facility] [#/volume] in {10^3_u 400 to non-numeric Health Plasma by L} 10^3 uL results) System Automated count Platelet mean 10.5 fl 7.4 - Above high MPV [facility] volume [Entitic 10.4 fl normal Health volume] in Blood System by Automated count Monocytes 0.6 0.3 - Normal (applies Monocyte # [facility] [#/volume] in {10^3_u 0.9 to non-numeric Health Blood by Manual L} 10^3 uL results) System count Eosinophils 0.49 0.05 - Above high Eosinophil # [facility] [#/volume] in {10^3_u 0.30 normal Health Blood L} 10^3 uL System Neutrophils 1.7 2.0 - Below low normal Neutrophil # [facility] [#/volume] in {10^3_u 8.1 Health Body fluid L} 10^3 uL System Basophils 0.06 0.00 - Normal (applies Basophil # [facility] [#/volume] in {10^3_u 0.10 to non-numeric Health Blood by L} 10^3 uL results) System Automated count Lymphocyte # 2.8 1.0 - Normal (applies Lymphocyte # [facility] {10^3_u 5.5 to non-numeric Health L} 10^3 uL results) System Neutrophils/100 30.4 % 55.0 - Below low normal Neutrophil % [facility] leukocytes in 75.0 % Health Blood by System Automated count Monocytes/100 10.0 % 6.0 - Above high Monocyte % [facility] leukocytes in 9.0 % normal Health Blood System Eosinophils/100 8.6 % 0.0 - Above high Eosinophil % [facility] leukocytes in 4.0 % normal Health Unspecified System specimen Basophils/100 1.1 % 0.0 - Above high Basophil % [facility] leukocytes in 1.0 % normal Health Unspecified System specimen by Manual count Lymphocytes 49.7 % 21.0 - Normal (applies Lymphocyte % [facility] [#/volume] in 51.0 % to non-numeric Health Blood by results) System Automated count Immature 0.2 % 0.0 - Normal (applies Immature [facility] Granulocytes % 0.8 % to non-numeric Granulocytes % [facility]alt h results) System Nucleated 0.0 0.0 - Normal (applies NRBC % [facility] erythrocytes {/100_W 0.0 to non-numeric Health [#/volume] in BC} /100 results) System Body fluid WBC Immature 0.01 0.00 - Normal (applies Immature [facility] Granulocytes # {10^3_u 0.09 to non-numeric Granulocytes # [facility]alt [facility] L} 10^3 uL results) System NRBC # 0.00 0.90 - Below low normal NRBC # [facility] {10^3_u 11.20 Health L} 10^3 uL System ID Date Data Source [id number] 09/01/2018 06:00:00 AM EST [facility] Name Value Range Interpretation Description Data Sup porting Code Source(s) Document(s ) Sodium 137 137 - Normal (applies Sodium, Serum [facility] [Moles/volume] in mmol/L 145 to non-numeric Health Serum or Plasma mmol/L results) System Potassium 4.2 3.6 - Normal (applies Potassium, [facility] [Mass/volume] in mmol/L 5.0 to non-numeric Serum Health Serum or Plasma mmol/L results) System Chloride 105 98 - Normal (applies Chloride, [facility] [Moles/volume] in mmol/L 107 to non-numeric Serum Health Serum or Plasma mmol/L results) System Carbon dioxide, 22.0 22.0 - Normal (applies CO2, Serum [facility] total mmol/L 30.0 to non-numeric Health [Moles/volume] in mmol/L results) System Serum or Plasma Total Protein 6.3 6.3 - Normal (applies Total Protein [facility] mg/dl 8.2 to non-numeric Health mg/dl results) System Glucose 226 65 - Above high Glucose, [facility] [Mass/volume] in mg/dL 105 normal Serum Health Serum or Plasma mg/dL System Urea nitrogen 16 7 - 18 Normal (applies Blood Urea [facility] [Mass/volume] in mg/dl mg/dl to non-numeric Nitrogen, Health Serum or Plasma results) Serum System Creatinine 0.90 0.70 - Normal (applies Creatinine, [facility] [Mass/volume] in mg/dl 1.20 to non-numeric Serum Health Serum or Plasma mg/dl results) System Alkaline 51 38 - Normal (applies Alkaline [facility] phosphatase {IU/L} 126 to non-numeric Phosphatase, Health isoenzymes IU/L results) Serum System [Enzymatic activity/volume] in Serum or Plasma by Heat stability Bilirubin.total 0.5 0.2 - Normal (applies Bilirubin, [facility] [Mass/volume] in mg/dl 1.3 to non-numeric Serum Total Health Serum or Plasma mg/dl results) System Direct Bilirubin 0.2 0.0 - Normal (applies Direct [facility] mg/dl 0.4 to non-numeric Bilirubin Health mg/dl results) System Aspartate 9 5 - 40 Normal (applies Aspartate [facility] aminotransferase {IU/L} IU/L to non-numeric Transaminase, Heal th [Enzymatic results) Serum System activity/volume] in Serum or Plasma by With P-5'-P Albumin 3.9 3.9 - Normal (applies Albumin, [facility] [Mass/volume] in {gm/dl} 5.0 to non-numeric Serum Health Serum or Plasma gm/dl results) System I. Phosphorus 4.0 2.5 - Normal (applies I. Phosphorus [facility] mg/dl 4.5 to non-numeric Health mg/dl results) System Alanine 12 7 - 56 Normal (applies Alanine [facility] aminotransferase {IU/L} IU/L to non-numeric Aminotransfer Heal [Enzymatic results) ase, Serum System activity/volume] in Serum or Plasma Calcium 9.1 8.4 - Normal (applies Calcium, [facility] [Mass/volume] in mg/dl 10.2 to non-numeric Total Serum Health Serum or Plasma mg/dl results) System A/G Ratio 1.63 Normal (applies A/G Ratio [facility] to non-numeric Health results) System Urate 3.8 2.5 - Normal (applies Uric Acid, [facility] [Mass/volume] in mg/dl 7.5 to non-numeric Serum Health Serum or Plasma mg/dl results) System Anion gap in Serum 10.00 8.00 - Normal (applies Anion Gap [facility] or Plasma mmol/L 12.00 to non-numeric Health mmol/L results) System Glomerular 67.03 Normal (applies GFR [facility] filtration to non-numeric Health rate/1.73 sq results) System M.predicted [Volume Rate/Area] in Serum or Plasma by Creatinine-based formula (CKD-EPI) eGFR will provide clinicians with a more accurate indicator of renal function then the serum creatinine. The eGFR is automa tically calculated from an empiric formula (endorsed by the [employer]) which incorporates age, sex, and race.Clinicians may notice surprisingly low GFR's with serum creatinine valueswithin normal range- particularly in elderly wo men (with low muscle mass).In the hospital setting, the eGFR should add an element of safety in drug dosing, in assessing the risk of IV contrast administration, and in assessing vascular risk.The NKF staging system is as follows:Normal: eGFR >90 with no kidney markersStage 1: eGFR >90 with kidney markers*Stage 2: eGFR 60- 89Stage 3: eGFR 30-59Stage 4: eGFR 15-29Stage 5: eGFR <15 (usually requir ing dialysis)*Markers include: Proteinuria, Hematuria, abnormal imaging-studies, or other blood or urine test abnormalities ID Date Data Source [id number] 08/31/2018 12:59:00 PM EST [facility] Name Value Range Interpretation Description Data Sup porting Code Source(s) Document(s ) Sodium 127 137 - Below lower panic Sodium, Serum [facility] [Moles/vol mmol/L 145 limits Health System ume] in mmol/L Serum or Plasma Result Reporting|Telephone|DR HANCOCK| 08/22 at 2:45 PMCalled to:DR Coker Name:TBReadback by:DR HANCOCK 08/31/2018 / 2:44 PM Potassium Cancelled Potassium, [facility] [Mass/volume] in SPECIMEN Serum Health System Serum or Plasma HEMOLYZED. REPORTED TO DR HANCOCK Chloride 94 mmol/L 98 - 107 Below low Chloride, Serum [facility] [Moles/volume] in mmol/L normal Health Syste m Serum or Plasma Carbon dioxide, 15.0 mmol/L 22.0 - Below low CO2, Serum [facility] total 30.0 normal Health System [Moles/volume] in mmol/L Serum or Plasma Previously released as 18.0 on 08/31/2018 , 02:44 PM by [id number] - repeated Total Protein 8.5 mg/dl 6.3 - 8.2 Above high Total Protein [facility] mg/dl normal System Previously released as 8.4 on 08/31/2018, 02:44 PM by [id number] - repeated Glucose 633 mg/dL 65 - 105 Above upper Glucose, Serum [facility] [Mass/volume] in mg/dL panic limits Health Sys tem Serum or Plasma Previously released as 595 on 08/31/2018, 02:44 PM by [id number] - repeatedResult Reporting|Telephone|DR HANCOCK| 08/31/2018 at 2:45 PMCalled to:DR Coker Name:TBReadback by:DR HANCOCK 08/31/2018 / 2:44 PMResult Reporting|Telephone|....| 09/04/2018 at 11:26 AMCalled to:Tech Name :Readback by: 09/04/2018 / 11:26 AM Urea nitrogen 17 mg/dl 7 - 18 Normal (applies Blood Urea [facility] [Mass/volume] in mg/dl to non-numeric Nitrogen, Health S ystem Serum or Plasma results) Serum Previously released as 15 on 08/31/2018, 02:44 PM by [id number] - repeated Creatinine 1.40 mg/dl 0.70 - 1.20 Above high Creatinine, [facility] [Mass/volume] in mg/dl normal Serum Health System Serum or Plasma Previously released as 1.30 on 08/31/2018 , 02:44 PM by [id number] - repeated Alkaline phosphatase 60 {IU/L} 38 - 126 Normal (applies Alkaline [facility] isoenzymes IU/L to non-numeric Phosphatase, Health Syst em [Enzymatic results) Serum activity/volume] in Serum or Plasma by Heat stability Previously released as 62 on 08/31/2018, 02:44 PM by [id number] - repeated Bilirubin.total 0.5 mg/dl 0.2 - 1.3 Normal (applies Bilirubin, [facility] [Mass/volume] in mg/dl to non-numeric Serum Total Health System Serum or Plasma results) Direct Bilirubin 0.2 mg/dl 0.0 - 0.4 Normal (applies Direct [facility] mg/dl to non-numeric Bilirubin [facility] results) Previously released as 0.1 on 08/31/2018, 02:44 PM by [id number] - repeated Aspartate 32 {IU/L} 5 - 40 Normal (applies Aspartate [facility] aminotransferase IU/L to non-numeric Transaminase, Heal System [Enzymatic results) Serum activity/volume] in Serum or Plasma by With P-5'-P Previously released as 28 on 08/31/2018, 02:44 PM by [id number] - repeated Albumin 4.9 {gm/dl} 3.9 - 5.0 Normal (applies Albumin, [facility] [Mass/volume] in gm/dl to non-numeric Serum Health S te Serum or Plasma results) Previously released as 4.5 on 08/31/2018, 02:44 PM by [id number] - repeated I. Phosphorus 4.7 mg/dl 2.5 - 4.5 Above high I. Phosphorus [facility] mg/dl normal Health System Alanine 22 {IU/L} 7 - 56 Normal Alanine [facility] aminotransferase IU/L (applies to Aminotransferas Healt h System [Enzymatic non-numeric e, Serum activity/volume] in results) Serum or Plasma Previously released as 18 on 08/31/2018, 02:44 PM by [id number] - repeated Calcium 9.9 mg/dl 8.4 - 10.2 Normal (applies Calcium, [facility] [Mass/volume] in mg/dl to non-numeric Total Serum [facility] Serum or Plasma results) Previously released as 9.6 on 08/31/2018, 02:44 PM by [id number] - repeated A/G Ratio 1.36 Normal (applies to non-numeric A/G [facility] at[facility] results) Previously released as 1.13 on 09/04/2018 , 11:25 AM by [id number] - repeatedPreviously released as 1.15 on 08/31/2018, 02:44 PM by [id number] - repeated Urate [Mass/volume] 3.3 mg/dl 2.5 - 7.5 Normal (applies Uric Acid, [facility] in Serum or Plasma mg/dl to non-numeric Serum Health System results) Previously released as 3.2 on 08/31/2018, 02:44 PM by [id number] - repeated Anion gap in 18.00 mmol/L 8.00 - 12.00 Above high Anion Gap [facility] Serum or mmol/L normal System Plasma Previously released as 15.00 on 9, 02:44 PM by [id number] - repeated Glomerular filtration 40.26 Normal (applies to GFR [facility] rate/1.73 sq M.predicted non-numeric results) System [Volume Rate/Area] in Serum or Plasma by Creatinine-based formula (CKD-EPI) Previously released as 43.85 on 9, 02:44 PM by [id number] - repeatedeGFR will provide clinicians with a more accurate indicator of renal function then the serum creatinine. The eGFR is automatically ca lculated from an empiric formula (endorsed by the [employer]) which in corporates age, sex, and race.Clinicians may notice surprisingly low GFR's with serum creatinine valueswithin normal range- particularly in elderly women (with low muscle mass).In the hospital setting, the eGFR should add an element of safety in drug dosing, in assessing the risk of IV contrast administration, and in assessin g vascular risk.The NKF staging system is as follows:Normal: eGFR >90 with no kidn ey markersStage 1: eGFR >90 with kidney markers*Stage 2: eGFR 60-89Stage 3: eGFR 30-59Stage 4: eGFR 15-29Stage 5: eGFR <15 (usually requiring dialysis)*Ma rkers include: Proteinuria, Hematuria, abnormal imaging-studies, or other blood or urine test abnormalities ID Date Data Source [id number] 08/31/2018 06:00:00 AM EST [facility] Name Value Range Interpretation Description Data Sup porting Code Source(s) Document(s ) Leukocytes 6.1 4.8 - Normal (applies WBC Count [facility] [#/volume] in {10^3_u 10.8 to non-numeric Health Unspecified L} 10^3 uL results) System specimen by Automated count Erythrocytes 4.59 3.80 - Normal (applies RBC Count [facility] [#/volume] in {10^6_u 5.20 to non-numeric Health Blood by L} 10^6 uL results) System Automated count Hemoglobin 14.3 12.0 - Normal (applies Hemoglobin [facility] [Mass/volume] in {gm/dL} 16.0 to non-numeric Health Blood gm/dL results) System Hematocrit 40.7 % 36.0 - Normal (applies Hematocrit [facility] [Volume 46.0 % to non-numeric Health Fraction] of results) System Blood Erythrocyte mean 88.7 fl 83.0 - Normal (applies MCV [facility] corpuscular 98.0 fl to non-numeric Health volume [Entitic results) System volume] by Automated count Erythrocyte mean 31.2 pg 26.0 - Normal (applies MCH [facility] corpuscular 34.0 pg to non-numeric Health hemoglobin results) System [Entitic mass] by Automated count Erythrocyte mean 35.1 33.0 - Normal (applies MCHC [facility] corpuscular {gm/dL} 37.0 to non-numeric Health hemoglobin gm/dL results) System concentration [Mass/volume] by Automated count Erythrocyte 12.3 % 11.5 - Normal (applies RDW-CV [facility] distribution 14.5 % to non-numeric Health width [Entitic results) System volume] by Automated count Platelets 208 130 - Normal (applies Platelet Count [facility] [#/volume] in {10^3_u 400 to non-numeric Health Plasma by L} 10^3 uL results) System Automated count Platelet mean 10.4 fl 7.4 - Normal (applies MPV [facility] volume [Entitic 10.4 fl to non-numeric Health volume] in Blood results) System by Automated count Monocytes 0.6 0.3 - Normal (applies Monocyte # [facility] [#/volume] in {10^3_u 0.9 to non-numeric Health Blood by Manual L} 10^3 uL results) System count Eosinophils 0.49 0.05 - Above high Eosinophil # [facility] [#/volume] in {10^3_u 0.30 normal Health Blood L} 10^3 uL System Neutrophils 2.2 2.0 - Normal (applies Neutrophil # [facility] [#/volume] in {10^3_u 8.1 to non-numeric Health Body fluid L} 10^3 uL results) System Basophils 0.06 0.00 - Normal (applies Basophil # [facility] [#/volume] in {10^3_u 0.10 to non-numeric Health Blood by L} 10^3 uL results) System Automated count Lymphocyte # 2.7 1.0 - Normal (applies Lymphocyte # [facility] {10^3_u 5.5 to non-numeric Health L} 10^3 uL results) System Neutrophils/100 36.6 % 55.0 - Below low normal Neutrophil % [facility] leukocytes in 75.0 % Health Blood by System Automated count Monocytes/100 10.5 % 6.0 - Above high Monocyte % [facility] leukocytes in 9.0 % normal Health Blood System Eosinophils/100 8.0 % 0.0 - Above high Eosinophil % [facility] leukocytes in 4.0 % normal Health Unspecified System specimen Basophils/100 1.0 % 0.0 - Normal (applies Basophil % [facility] leukocytes in 1.0 % to non-numeric Health Unspecified results) System specimen by Manual count Lymphocytes 43.7 % 21.0 - Normal (applies Lymphocyte % [facility] [#/volume] in 51.0 % to non-numeric Health Blood by results) System Automated count Immature 0.2 % 0.0 - Normal (applies Immature [facility] Granulocytes % 0.8 % to non-numeric Granulocytes % Healt h results) System Nucleated 0.0 0.0 - Normal (applies NRBC % [facility] erythrocytes {/100_W 0.0 to non-numeric Health [#/volume] in BC} /100 results) System Body fluid WBC Immature 0.01 0.00 - Normal (applies Immature [facility] Granulocytes # {10^3_u 0.09 to non-numeric Granulocytes # [facility]alt [facility] L} 10^3 uL results) System NRBC # 0.00 0.90 - Below low normal NRBC # [facility] {10^3_u 11.20 Health L} 10^3 uL System ID Date Data Source [id number] 08/31/2018 06:00:00 AM EST [facility] Name Value Range Interpretation Description Data Source(s ) Supporting Code Document(s ) [id number] 355.54 Normal (applies to [id number] [facility] non-numeric [facility] results) tHbWB 3918.27 Normal (applies to tHbWB [facility] non-numeric [facility] results) %HbA1C 10.45 % 3.00 - Above high normal %HbA1C [facility] 6.50 % Health System ID Date Data Source [id number] 08/30/2018 06:00:00 AM EST [facility] Name Value Range Interpretation Description Data Sup porting Code Source(s) Document(s ) Leukocytes 6.2 4.8 - Normal (applies WBC Count [facility] [#/volume] in {10^3_u 10.8 to non-numeric Health Unspecified L} 10^3 uL results) System specimen by Automated count Erythrocytes 4.21 3.80 - Normal (applies RBC Count [facility] [#/volume] in {10^6_u 5.20 to non-numeric Health Blood by L} 10^6 uL results) System Automated count Hemoglobin 13.1 12.0 - Normal (applies Hemoglobin [facility] [Mass/volume] in {gm/dL} 16.0 to non-numeric Health Blood gm/dL results) System Hematocrit 37.6 % 36.0 - Normal (applies Hematocrit [facility] [Volume 46.0 % to non-numeric Health Fraction] of results) System Blood Erythrocyte mean 89.3 fl 83.0 - Normal (applies MCV [facility] corpuscular 98.0 fl to non-numeric Health volume [Entitic results) System volume] by Automated count Erythrocyte mean 31.1 pg 26.0 - Normal (applies MCH [facility] corpuscular 34.0 pg to non-numeric Health hemoglobin results) System [Entitic mass] by Automated count Erythrocyte mean 34.8 33.0 - Normal (applies MCHC [facility] corpuscular {gm/dL} 37.0 to non-numeric Health hemoglobin gm/dL results) System concentration [Mass/volume] by Automated count Erythrocyte 12.4 % 11.5 - Normal (applies RDW-CV [facility] distribution 14.5 % to non-numeric Health width [Entitic results) System volume] by Automated count Platelets 207 130 - Normal (applies Platelet Count [facility] [#/volume] in {10^3_u 400 to non-numeric Health Plasma by L} 10^3 uL results) System Automated count Platelet mean 10.3 fl 7.4 - Normal (applies MPV [facility] volume [Entitic 10.4 fl to non-numeric Health volume] in Blood results) System by Automated count Monocytes 0.6 0.3 - Normal (applies Monocyte # [facility] [#/volume] in {10^3_u 0.9 to non-numeric Health Blood by Manual L} 10^3 uL results) System count Eosinophils 0.37 0.05 - Above high Eosinophil # [facility] [#/volume] in {10^3_u 0.30 normal Health Blood L} 10^3 uL System Neutrophils 3.1 2.0 - Normal (applies Neutrophil # [facility] [#/volume] in {10^3_u 8.1 to non-numeric Health Body fluid L} 10^3 uL results) System Basophils 0.06 0.00 - Normal (applies Basophil # [facility] [#/volume] in {10^3_u 0.10 to non-numeric Health Blood by L} 10^3 uL results) System Automated count Lymphocyte # 2.1 1.0 - Normal (applies Lymphocyte # [facility] {10^3_u 5.5 to non-numeric Health L} 10^3 uL results) System Neutrophils/100 49.1 % 55.0 - Below low normal Neutrophil % [facility] leukocytes in 75.0 % Health Blood by System Automated count Monocytes/100 9.8 % 6.0 - Above high Monocyte % [facility] leukocytes in 9.0 % normal Health Blood System Eosinophils/100 5.9 % 0.0 - Above high Eosinophil % [facility] leukocytes in 4.0 % normal Health Unspecified System specimen Basophils/100 1.0 % 0.0 - Normal (applies Basophil % [facility] leukocytes in 1.0 % to non-numeric Health Unspecified results) System specimen by Manual count Lymphocytes 33.7 % 21.0 - Normal (applies Lymphocyte % [facility] [#/volume] in 51.0 % to non-numeric Health Blood by results) System Automated count Immature 0.5 % 0.0 - Normal (applies Immature [facility] Granulocytes % 0.8 % to non-numeric Granulocytes % Healt h results) System Nucleated 0.0 0.0 - Normal (applies NRBC % [facility] erythrocytes {/100_W 0.0 to non-numeric Health [#/volume] in BC} /100 results) System Body fluid WBC Immature 0.03 0.00 - Normal (applies Immature [facility] Granulocytes # {10^3_u 0.09 to non-numeric Granulocytes # Healt h L} 10^3 uL results) System NRBC # 0.00 0.90 - Below low normal NRBC # [facility] {10^3_u 11.20 Health L} 10^3 uL System ID Date Data Source [id number] 08/30/2018 06:00:00 AM EST [facility] Name Value Range Interpretation Description Data Sup porting Code Source(s) Document(s ) Sodium 133 137 - Below low normal Sodium, Serum [facility] [Moles/volume] in mmol/L 145 Health Serum or Plasma mmol/L System Potassium 4.2 3.6 - Normal (applies Potassium, [facility] [Mass/volume] in mmol/L 5.0 to non-numeric Serum Health Serum or Plasma mmol/L results) System Chloride 106 98 - Normal (applies Chloride, [facility] [Moles/volume] in mmol/L 107 to non-numeric Serum Health Serum or Plasma mmol/L results) System Carbon dioxide, 18.0 22.0 - Below low normal CO2, Serum [facility] total mmol/L 30.0 Health [Moles/volume] in mmol/L System Serum or Plasma Total Protein 6.1 6.3 - Below low normal Total Protein [facility] mg/dl 8.2 Health mg/dl System Glucose 319 65 - Above high Glucose, [facility] [Mass/volume] in mg/dL 105 normal Serum Health Serum or Plasma mg/dL System Urea nitrogen 10 7 - 18 Normal (applies Blood Urea [facility] [Mass/volume] in mg/dl mg/dl to non-numeric Nitrogen, Health Serum or Plasma results) Serum System Creatinine 0.80 0.70 - Normal (applies Creatinine, [facility] [Mass/volume] in mg/dl 1.20 to non-numeric Serum Health Serum or Plasma mg/dl results) System Alkaline 47 38 - Normal (applies Alkaline [facility] phosphatase {IU/L} 126 to non-numeric Phosphatase, Health isoenzymes IU/L results) Serum System [Enzymatic activity/volume] in Serum or Plasma by Heat stability Bilirubin.total 0.4 0.2 - Normal (applies Bilirubin, [facility] [Mass/volume] in mg/dl 1.3 to non-numeric Serum Total Health Serum or Plasma mg/dl results) System Direct Bilirubin 0.2 0.0 - Normal (applies Direct [facility] mg/dl 0.4 to non-numeric Bilirubin Health mg/dl results) System Aspartate 18 5 - 40 Normal (applies Aspartate [facility] aminotransferase {IU/L} IU/L to non-numeric Transaminase, [facility]al [facility] [Enzymatic results) Serum System activity/volume] in Serum or Plasma by With P-5'-P Albumin 3.8 3.9 - Below low normal Albumin, [facility] [Mass/volume] in {gm/dl} 5.0 Serum Health Serum or Plasma gm/dl System I. Phosphorus 2.3 2.5 - Below low normal I. Phosphorus [place] [facility] mg/dl 4.5 Health mg/dl System Alanine 17 7 - 56 Normal (applies Alanine [facility] aminotransferase {IU/L} IU/L to non-numeric Aminotransfer [facility] [Enzymatic results) ase, Serum System activity/volume] in Serum or Plasma Calcium 8.6 8.4 - Normal (applies Calcium, [facility] [Mass/volume] in mg/dl 10.2 to non-numeric Total Serum Health Serum or Plasma mg/dl results) System A/G Ratio 1.65 Normal (applies A/G Ratio [facility] to non-numeric Health results) System Urate 3.9 2.5 - Normal (applies Uric Acid, [facility] [Mass/volume] in mg/dl 7.5 to non-numeric Serum Health Serum or Plasma mg/dl results) System Anion gap in Serum 9.00 8.00 - Normal (applies Anion Gap [place] [facility] or Plasma mmol/L 12.00 to non-numeric Health mmol/L results) System Glomerular 76.79 Normal (applies GFR [facility] filtration to non-numeric Health rate/1.73 sq results) System M.predicted [Volume Rate/Area] in Serum or Plasma by Creatinine-based formula (CKD-EPI) eGFR will provide clinicians with a more accurate indicator of renal function then the serum creatinine. The eGFR is automa tically calculated from an empiric formula (endorsed by the [employer] ion) which incorporates age, sex, and race.Clinicians may notice surprisingly low GFR's with serum creatinine valueswithin normal range- particularly in elderly wo men (with low muscle mass).In the hospital setting, the eGFR should add an element of safety in drug dosing, in assessing the risk of IV contrast administration, and in assessing vascular risk.The NKF staging system is as follows:Normal: eGFR >90 with no kidney markersStage 1: eGFR >90 with kidney markers*Stage 2: eGFR 60- 89Stage 3: eGFR 30-59Stage 4: eGFR 15-29Stage 5: eGFR <15 (usually requir ing dialysis)*Markers include: Proteinuria, Hematuria, abnormal imaging-studies, or other blood or urine test abnormalities ID Date Data Source [id number] 08/29/2018 05:31:00 AM EST [facility] Venous blood gas Name Value Range Interpretation Description Data Sup porting Code Source(s) Document(s ) pH 7.334 7.350 - Below low normal pH [facility] {pH_unit 7.450 pH Health s} units System Carbon dioxide 31.0 32.0 - Below low normal pCO2, [facility] [Partial {mm_Hg} 45.0 mm Arterial Health pressure] in Hg System Arterial blood Oxygen 63.8 83.0 - Below low normal pO2, Aterial [facility] [Partial {mm_Hg} 108.0 mm Health pressure] in Hg System Arterial blood Base Excess. -9.4 -3.0 - Below low normal Base Excess. [facility] mmol/L 3.0 Health mmol/L System Bicarbonate 16.5 20.0 - Below low normal HCO3 [facility] [Moles/volume] mmol/L 26.0 Health in Venous mmol/L System blood TCO2 15.0 24.0 - Below low normal TCO2 [facility] mmol/L 30.0 Health mmol/L System O2 Saturation 93.3 % 95.0 - Below low normal O2 Saturation [place] 99.0 % Health System Sodium, WB 136 137 - Below low normal Sodium, WB [facility] mmol/L 145 Health mmol/L System Potassium, WB 4.5 3.6 - Normal (applies Potassium, WB [facility] mmol/L 5.0 to non-numeric Health mmol/L results) System Chloride, WB 114 98 - 107 Above high normal Chloride, WB [facility] mmol/L mmol/L Health System Glucose, WB 60 mg/dL 70 - 105 Below low normal Glucose, WB [facility] mg/dL Health System Ionized 1.22 1.15 - Normal (applies Ionized [facility] Calcium mmol/L 1.29 to non-numeric Calcium Health mmol/L results) System Lactate 0.9 0.5 - Normal (applies Lactate [facility] [Mass/volume] mmol/L 1.6 to non-numeric Health in Serum or mmol/L results) System Plasma ID Date Data Source [id number] 08/29/2018 04:43:00 AM EST [facility] Name Value Range Interpretation Description Data Sup porting Code Source(s) Document(s ) Beta 0.19 0.02 - Normal (applies Beta [facility] Hydroxybutyrate mg/dL 0.27 to non-numeric Hydroxybutyrate Hea lth mg/dL results) System ID Date Data Source [id number] 08/29/2018 04:43:00 AM [facility] System Name Value Range Interpretation Description Data Sup porting Code Source(s) Document(s ) aPTT in Blood 28.4 20.0 - Normal (applies Activated [facility] by {Second 30.3 to non-numeric Partial Health Coagulation s} Seconds results) Thromboplastin System assay Time ID Date Data Source [id number] 08/29/2018 04:43:00 AM EST [facility] System Name Value Range Interpretation Description Data Sup porting Code Source(s) Document(s ) Prothrombin 11.20 9.40 - Normal (applies Prothrombin [facility] time (PT) {seconds 11.30 to non-numeric time (PT) Health } seconds results) System INR in Blood 1.07 0.70 - Normal (applies INR Result [facility] by Coagulation {Ratio} 1.10 to non-numeric Health assay Ratio results) System Normal = 0.7-1.1Therapeutic = 2.0-3.0Mec hanical Heart = 3.0-4.5 ID Date Data Source [id number] 08/29/2018 04:43:00 AM [facility] System Name Value Range Interpretation Description Data Sup porting Code Source(s) Document(s ) Sodium 137 137 - Normal (applies Sodium, Serum [facility] [Moles/volume] in mmol/L 145 to non-numeric Health Serum or Plasma mmol/L results) System Potassium 4.1 3.6 - Normal (applies Potassium, [facility] [Mass/volume] in mmol/L 5.0 to non-numeric Serum Health Serum or Plasma mmol/L results) System Chloride 112 98 - Above high Chloride, [facility] [Moles/volume] in mmol/L 107 normal Serum Health Serum or Plasma mmol/L System Carbon dioxide, 16.0 22.0 - Below low normal CO2, Serum [facility] total mmol/L 30.0 Health [Moles/volume] in mmol/L System Serum or Plasma Total Protein 6.3 6.3 - Normal (applies Total Protein [facility] mg/dl 8.2 to non-numeric Health mg/dl results) System Glucose 52 65 - Below low normal Glucose, [facility] [Mass/volume] in mg/dL 105 Serum Health Serum or Plasma mg/dL System Urea nitrogen 10 7 - 18 Normal (applies Blood Urea [facility] [Mass/volume] in mg/dl mg/dl to non-numeric Nitrogen, Health Serum or Plasma results) Serum System Creatinine 0.80 0.70 - Normal (applies Creatinine, [facility] [Mass/volume] in mg/dl 1.20 to non-numeric Serum Health Serum or Plasma mg/dl results) System Alkaline 53 38 - Normal (applies Alkaline [facility] phosphatase {IU/L} 126 to non-numeric Phosphatase, Health isoenzymes IU/L results) Serum System [Enzymatic activity/volume] in Serum or Plasma by Heat stability Bilirubin.total 0.5 0.2 - Normal (applies Bilirubin, [facility] [Mass/volume] in mg/dl 1.3 to non-numeric Serum Total Health Serum or Plasma mg/dl results) System Direct Bilirubin 0.2 0.0 - Normal (applies Direct [facility] mg/dl 0.4 to non-numeric Bilirubin [facility] mg/dl results) System Aspartate 17 5 - 40 Normal (applies Aspartate [facility] aminotransferase {IU/L} IU/L to non-numeric Transaminase, [facility]al [facility] [Enzymatic results) Serum System activity/volume] in Serum or Plasma by With P-5'-P Albumin 4.0 3.9 - Normal (applies Albumin, [facility] [Mass/volume] in {gm/dl} 5.0 to non-numeric Serum Health Serum or Plasma gm/dl results) System I. Phosphorus 1.8 2.5 - Below low normal I. Phosphorus [place] mg/dl 4.5 Health mg/dl System Alanine 11 7 - 56 Normal (applies Alanine [facility] aminotransferase {IU/L} IU/L to non-numeric Aminotransfer Heal th [Enzymatic results) ase, Serum System activity/volume] in Serum or Plasma Calcium 8.7 8.4 - Normal (applies Calcium, [facility] [Mass/volume] in mg/dl 10.2 to non-numeric Total Serum Health Serum or Plasma mg/dl results) System A/G Ratio 1.74 Normal (applies A/G Ratio [facility] to non-numeric Health results) System Urate 6.2 2.5 - Normal (applies Uric Acid, [facility] [Mass/volume] in mg/dl 7.5 to non-numeric Serum Health Serum or Plasma mg/dl results) System Anion gap in Serum 9.00 8.00 - Normal (applies Anion Gap [place] [facility] or Plasma mmol/L 12.00 to non-numeric Health mmol/L results) System Glomerular 76.79 Normal (applies GFR [facility] filtration to non-numeric Health rate/1.73 sq results) System M.predicted [Volume Rate/Area] in Serum or Plasma by Creatinine-based formula (CKD-EPI) eGFR will provide clinicians with a more accurate indicator of renal function then the serum creatinine. The eGFR is automa tically calculated from an empiric formula (endorsed by the [employer] ion) which incorporates age, sex, and race.Clinicians may notice surprisingly low GFR's with serum creatinine valueswithin normal range- particularly in elderly wo men (with low muscle mass).In the hospital setting, the eGFR should add an element of safety in drug dosing, in assessing the risk of IV contrast administration, and in assessing vascular risk.The NKF staging system is as follows:Normal: eGFR >90 with no kidney markersStage 1: eGFR >90 with kidney markers*Stage 2: eGFR 60- 89Stage 3: eGFR 30-59Stage 4: eGFR 15-29Stage 5: eGFR <15 (usually requir ing dialysis)*Markers include: Proteinuria, Hematuria, abnormal imaging-studies, or other blood or urine test abnormalities ID Date Data Source [id number] 08/29/2018 04:43:00 AM EST [facility] System Name Value Range Interpretation Description Data Sup porting Code Source(s) Document(s ) Magnesium 1.6 1.5 - Normal (applies Magnesium, [facility] [Mass/volume {mEq/L} 2.2 to non-numeric Serum Health Syste m ] in Serum mEq/L results) or Plasma ID Date Data Source [id number] 08/29/2018 04:43:00 AM EST [facility] System Name Value Range Interpretation Description Data Sup porting Code Source(s) Document(s ) Creatine 199 30 - 135 Above high normal Creatine [facility] kinase.MB {IU/L} IU/L Kinase, Serum Health System [Mass/volum e] in Serum or Plasma ID Date Data Source [id number] 08/29/2018 04:43:00 AM EST [facility] Name Value Range Interpretation Description Data Sup porting Code Source(s) Document(s ) Polys 61 % 55 - 75 Normal (applies Polys [facility] % to non-numeric Health results) System Lymphocyte %. 31 % 21 - 51 Normal (applies Lymphocyte %. [facility] % to non-numeric Health results) System Platelets Adequate Normal (applies Platelet [facility] [#/volume] in to non-numeric Count Health Blood by results) Estimate System Estimate Monocyte %. 7 % 6 - 9 % Normal (applies Monocyte %. [facility] to non-numeric Health results) System Eosinophils %. 1 % 1 - 3 % Normal (applies Eosinophils [facility] to non-numeric %. Health results) System NORM Yes Normal (applies NORM [facility] to non-numeric Health results) System ID Date Data Source [id number] 08/29/2018 04:43:00 AM EST [facility] System Name Value Range Interpretation Description Data Sup porting Code Source(s) Document(s ) Leukocytes 11.2 4.8 - Above high WBC Count [facility] [#/volume] in {10^3_u 10.8 normal Health Unspecified L} 10^3 uL System specimen by Automated count Erythrocytes 4.14 3.80 - Normal (applies RBC Count [facility] [#/volume] in {10^6_u 5.20 to non-numeric Health Blood by L} 10^6 uL results) System Automated count Hemoglobin 12.7 12.0 - Normal (applies Hemoglobin [facility] [Mass/volume] in {gm/dL} 16.0 to non-numeric Health Blood gm/dL results) System Hematocrit 37.9 % 36.0 - Normal (applies Hematocrit [facility] [Volume 46.0 % to non-numeric Health Fraction] of results) System Blood Erythrocyte mean 91.5 fl 83.0 - Normal (applies MCV [facility] corpuscular 98.0 fl to non-numeric Health volume [Entitic results) System volume] by Automated count Erythrocyte mean 30.7 pg 26.0 - Normal (applies MCH [facility] corpuscular 34.0 pg to non-numeric Health hemoglobin results) System [Entitic mass] by Automated count Erythrocyte mean 33.5 33.0 - Normal (applies MCHC [facility] corpuscular {gm/dL} 37.0 to non-numeric Health hemoglobin gm/dL results) System concentration [Mass/volume] by Automated count Erythrocyte 12.4 % 11.5 - Normal (applies RDW-CV [facility] distribution 14.5 % to non-numeric Health width [Entitic results) System volume] by Automated count Platelets 254 130 - Normal (applies Platelet Count [facility] [#/volume] in {10^3_u 400 to non-numeric Health Plasma by L} 10^3 uL results) System Automated count Platelet mean 10.3 fl 7.4 - Normal (applies MPV [facility] volume [Entitic 10.4 fl to non-numeric Health volume] in Blood results) System by Automated count Monocytes 1.0 0.3 - Above high Monocyte # [facility] [#/volume] in {10^3_u 0.9 normal Health Blood by Manual L} 10^3 uL System count Eosinophils 0.21 0.05 - Normal (applies Eosinophil # [facility] [#/volume] in {10^3_u 0.30 to non-numeric Health Blood L} 10^3 uL results) System Neutrophils 6.5 2.0 - Normal (applies Neutrophil # [facility] [#/volume] in {10^3_u 8.1 to non-numeric Health Body fluid L} 10^3 uL results) System Basophils 0.04 0.00 - Normal (applies Basophil # [facility] [#/volume] in {10^3_u 0.10 to non-numeric Health Blood by L} 10^3 uL results) System Automated count Lymphocyte # 3.4 1.0 - Normal (applies Lymphocyte # [facility] {10^3_u 5.5 to non-numeric Health L} 10^3 uL results) System Neutrophils/100 58.1 % 55.0 - Normal (applies Neutrophil % [place] [facility] leukocytes in 75.0 % to non-numeric Health Blood by results) System Automated count Monocytes/100 9.1 % 6.0 - Above high Monocyte % [facility] leukocytes in 9.0 % normal Health Blood System Eosinophils/100 1.9 % 0.0 - Normal (applies Eosinophil % [place] leukocytes in 4.0 % to non-numeric Health Unspecified results) System specimen Basophils/100 0.4 % 0.0 - Normal (applies Basophil % [facility] leukocytes in 1.0 % to non-numeric Health Unspecified results) System specimen by Manual count Lymphocytes 30.1 % 21.0 - Normal (applies Lymphocyte % [facility] [#/volume] in 51.0 % to non-numeric Health Blood by results) System Automated count Immature 0.4 % 0.0 - Normal (applies Immature [facility] Granulocytes % 0.8 % to non-numeric Granulocytes % Healt h results) System Nucleated 0.0 0.0 - Normal (applies NRBC % [facility] erythrocytes {/100_W 0.0 to non-numeric Health [#/volume] in BC} /100 results) System Body fluid WBC Immature 0.04 0.00 - Normal (applies Immature [facility] Granulocytes # {10^3_u 0.09 to non-numeric Granulocytes # Healt h L} 10^3 uL results) System NRBC # 0.00 0.90 - Below low normal NRBC # [facility] {10^3_u 11.20 Health L} 10^3 uL System ID Date Data Source [id number] 08/29/2018 04:43:00 AM EST [facility] Name Value Range Interpretation Description Data Sup porting Code Source(s) Document(s ) Triglyceride 51 mg/dl 35 - 135 Normal (applies Triglycerides [facility] [Mass/volume] mg/dl to non-numeric , Serum Health in Serum or results) System Plasma Optimal = < 100 mg/dLBoderline High = 15 0 - 199 mg/dLHigh = 200 - 499 mg/dLVery High = > 500 mg/dL Cholesterol 176 mg/dl *.* mg/dl Normal (applies Cholesterol, [facility] [Mass/volume] in to non-numeric Serum Health S yste Serum or Plasma results) <200 mg/dL = Xosibwdih175 - 239 md/dL = Borderline>240 mg/dL = High Risk Cholesterol in HDL 57.0 mg/dL 32.0 - Normal (applies HDL Choleste rol, [facility] [Mass/volume] in 75.0 mg/dL to non-numeric Serum Health System Serum or Plasma results) Cholesterol in LDL 108.8 Normal (applies Low Density [facility] [Mass/volume] in mg/dL to non-numeric Lipoprotein, Healt h System Serum or Plasma results) Calculated OPTIMAL: LESS THAN 100 mg/dLNEAR OPTIMAL : 100 - 129 mg/dLBODERLINE HIGH: 130 - 150 mg/dL Cholesterol in VLDL 10.2 Normal (applies to VLDL, Serum [facility] [Mass/volume] in non-numeric System Serum or Plasma results) CHD Risk 3.09 2.40 - Normal (applies to CHD Risk [facility] 5.30 non-numeric System results) ID Date Data Source [id number] 08/29/2018 12:11:00 AM EST [facility] System Name Value Range Interpretation Description Data Sup porting Code Source(s) Document(s ) Bacteria NO GROWTH Culture [facility] identified in [employer] Blood Health Syst em Blood by Aerobe culture ID Date Data Source [id number] 08/28/2018 11:54:00 PM EST [facility] Name Value Range Interpretation Description Data Sup porting Code Source(s) Document(s ) pH 7.311 7.350 - Below low normal pH [facility] {pH_unit 7.450 pH Health s} units System Carbon dioxide 30.2 32.0 - Below low normal pCO2, [facility] [Partial {mm_Hg} 45.0 mm Arterial Health pressure] in Hg System Arterial blood Oxygen 110.0 83.0 - Above high normal pO2, Aterial [facility] [Partial {mm_Hg} 108.0 mm Health pressure] in Hg System Arterial blood Base Excess. -11.1 -3.0 - Below low normal Base Excess. [facility] mmol/L 3.0 Health mmol/L System Bicarbonate 15.2 20.0 - Below low normal HCO3 [facility] [Moles/volume] mmol/L 26.0 Health in Venous mmol/L System blood TCO2 14.0 24.0 - Below low normal TCO2 [facility] mmol/L 30.0 Health mmol/L System O2 Saturation 98.5 % 95.0 - Normal (applies O2 Saturation [facility] 99.0 % to non-numeric Health results) System Sodium, WB 134 137 - Below low normal Sodium, WB [facility] mmol/L 145 Health mmol/L System Potassium, WB 4.2 3.6 - Normal (applies Potassium, WB [facility] mmol/L 5.0 to non-numeric Health mmol/L results) System Chloride, WB 114 98 - 107 Above high normal Chloride, WB [facility] mmol/L mmol/L Health System Glucose, WB 192 70 - 105 Above high normal Glucose, WB [facility] mg/dL mg/dL Health System Ionized 1.19 1.15 - Normal (applies Ionized [facility] Calcium mmol/L 1.29 to non-numeric Calcium Health mmol/L results) System Lactate 1.3 0.5 - Normal (applies Lactate [facility] [Mass/volume] mmol/L 1.6 to non-numeric Health in Serum or mmol/L results) System Plasma ID Date Data Source [id number] 08/28/2018 09:18:00 PM EST [facility] Name Value Range Interpretation Description Data Sup porting Code Source(s) Document(s ) pH 7.279 7.350 - Below low normal pH [facility] {pH_unit 7.450 pH Health s} units System Carbon dioxide 28.9 32.0 - Below low normal pCO2, [facility] [Partial {mm_Hg} 45.0 mm Arterial Health pressure] in Hg System Arterial blood Oxygen 95.5 83.0 - Normal (applies pO2, Aterial [facility] [Partial {mm_Hg} 108.0 mm to non-numeric Health pressure] in Hg results) System Arterial blood Base Excess. -13.2 -3.0 - Below low normal Base Excess. [facility] mmol/L 3.0 Health mmol/L System Bicarbonate 13.6 20.0 - Below low normal HCO3 [facility] [Moles/volume] mmol/L 26.0 Health in Venous mmol/L System blood TCO2 12.4 24.0 - Below low normal TCO2 [facility] mmol/L 30.0 Health mmol/L System O2 Saturation 97.9 % 95.0 - Normal (applies O2 Saturation [facility] 99.0 % to non-numeric Health results) System Sodium, WB 136 137 - Below low normal Sodium, WB [facility] mmol/L 145 Health mmol/L System Potassium, WB 4.2 3.6 - Normal (applies Potassium, WB [facility] mmol/L 5.0 to non-numeric Health mmol/L results) System Chloride, WB 115 98 - 107 Above high normal Chloride, WB [facility] mmol/L mmol/L Health System ok Glucose, WB 142 mg/dL 70 - 105 mg/dL Above high Glucose, WB [facility] normal System ok Ionized 1.21 mmol/L 1.15 - 1.29 Normal (applies Ionized [facility] Calcium mmol/L to non-numeric Calcium Health System results) Lactate 0.8 mmol/L 0.5 - 1.6 Normal (applies Lactate [facility] [Mass/volume] mmol/L to non-numeric Health Syst em in Serum or results) Plasma ID Date Data Source [id number] 08/28/2018 09:18:00 PM EST [facility] System Name Value Range Interpretation Description Data Sup porting Code Source(s) Document(s ) Chloride 87.0 Normal (applies Chloride Spot, [facility] Spot, Urine mmol/L to non-numeric Urine Health System results) Potassium, 43.0 Normal (applies Potassium, [facility] Spot Urine mmol/L to non-numeric Spot Urine Health System results) Sodium 94.0 30.0 - Above high normal Sodium Spot, [facility] Spot, Urine mmol/L 90.0 Urine Health System mmol/L Creatinine, 70.9 Normal (applies Creatinine, [facility] Spot Urine mg/dl to non-numeric Spot Urine Health System results) ID Date Data Source [id number] 08/28/2018 08:20:00 PM EST [facility] System Name Value Range Interpretation Description Data Sup porting Code Source(s) Document(s ) Deprecated Micro Result Normal (applies Aerobic [facility] Bacteria Final Culture to non-numeric Culture, Health identified Reading results) Urine System in Urine by Note::"MULTIPL Aer[facility] E BACTERIAL culture MORPHOTYPES PRESENT, POSSIBLE CONTAMINATION, SUGGEST RECOLLECTION IF CLINICALLY INDICATED". ID Date Data Source [id number] 08/28/2018 07:19:00 PM [facility] System Name Value Range Interpretation Description Data Sup porting Code Source(s) Document(s ) Beta 2.31 0.02 - Above high Beta [facility] Hydroxybutyrate mg/dL 0.27 normal Hydroxybutyrate Health mg/dL System ID Date Data Source [id number] 08/28/2018 07:19:00 PM EST [facility] System Name Value Range Interpretation Description Data Sup porting Code Source(s) Document(s ) Procalcitonin 0.05 0.00 - Normal (applies Procalcitonin [facility] (PCT), Serum - ng/mL 0.09 to non-numeric (PCT), Serum - Healt h MV Only ng/mL results) MV Only System SUSPECTED LOWER RESPIRATORY TRACT INFECT ION0.020-0.25 ng/mL: low likelihood of bacterial infection: Antibiotics discour aged>0.25 ng/mL: Increased likelihood of bacterial infection: Antibiotics encoura gedSUSPECTED SEPSIS: Strongly consider initiating antibiotics in all unstable p atients0.020-0.5 ng/mL: Low likelihood of sepsis: Antibiotics discouraged.>0.5 ng/ mL: Increased likelihood of sepsis: Antibiotics encouraged>2.0 ng/mL: high r isk of sepsis/septic shock: Antibiotics strongly encouraged ID Date Data Source [id number] 08/28/2018 07:19:00 PM EST [facility] Name Value Range Interpretation Description Data Sup porting Code Source(s) Document(s ) Sodium 135 137 - Below low normal Sodium, Serum [facility] [Moles/volum mmol/L 145 Health System e] in Serum mmol/L or Plasma Potassium 4.1 3.6 - Normal (applies Potassium, [facility] [Mass/volume mmol/L 5.0 to non-numeric Serum Health Syste m ] in Serum mmol/L results) or Plasma ok Chloride 112 mmol/L 98 - 107 Above high Chloride, [facility] [Moles/volume] in mmol/L normal Serum Health Syste m Serum or Plasma ok Carbon dioxide, 11.0 mmol/L 22.0 - 30.0 Below low CO2, Serum [facility] total [Moles/volume] mmol/L normal Health Sy stem in Serum or Plasma Glucose 202 mg/dL 65 - 105 Above high Glucose, [facility] [Mass/volume] in mg/dL normal Serum Health System Serum or Plasma ok Urea nitrogen 13 mg/dl 7 - 18 Normal (applies Blood Urea [facility] [Mass/volume] in mg/dl to non-numeric Nitrogen, Health S yste Serum or Plasma results) Serum Creatinine 1.00 mg/dl 0.70 - Normal (applies Creatinine, [facility] [Mass/volume] in 1.20 mg/dl to non-numeric Serum Health System Serum or Plasma results) ok Calcium 8.2 mg/dl 8.4 - 10.2 Below low Calcium, Total [facility] [Mass/volume] in mg/dl normal Serum Health System Serum or Plasma ok Anion gap in 12.00 mmol/L 8.00 - 12.00 Normal (applies to Anion Gap [facility] Serum or mmol/L non-numeric Health System Plasma results) ok ID Date Data Source [id number] 08/28/2018 07:19:00 PM [facility] System Name Value Range Interpretation Description Data Sup porting Code Source(s) Document(s ) Troponin I 0.03 0.00 - Normal (applies Troponin I [facility] Quantitative - ng/mL 0.04 to non-numeric Quantitative - Healt h MV Only ng/mL results) MV Only System ID Date Data Source [id number] 08/28/2018 07:19:00 PM EST [facility] System Name Value Range Interpretation Description Data Sup porting Code Source(s) Document(s ) Magnesium 1.5 1.5 - Normal (applies Magnesium, [facility] [Mass/volume {mEq/L} 2.2 to non-numeric Serum Health Syste m ] in Serum mEq/L results) or Plasma ID Date Data Source [id number] 08/28/2018 07:19:00 PM EST [facility] System Name Value Range Interpretation Description Data Sup porting Code Source(s) Document(s ) Bacteria NO GROWTH Culture [facility] identified in Bacteria Blood Health Syst em Blood by Aer[facility] culture ID Date Data Source [id number] 08/28/2018 03:40:00 PM [facility] System Name Value Range Interpretation Description Data Sup porting Code Source(s) Document(s ) Sodium 134 137 - Below low normal Sodium, Serum [facility] [Moles/volume mmol/L 145 Health ] in Serum or mmol/L System Plasma Potassium 5.1 3.6 - Above high normal Potassium, [facility] [Mass/volume] mmol/L 5.0 Serum Health in Serum or mmol/L System Plasma Chloride 101 98 - 107 Normal (applies Chloride, [facility] [Moles/volume mmol/L mmol/L to non-numeric Serum Health ] in Serum or results) System Plasma Carbon 10.0 22.0 - Below low normal CO2, Serum [facility] dioxide, mmol/L 30.0 Health total mmol/L System [Moles/volume ] in Serum or Plasma Glucose 465 65 - 105 Above high normal Glucose, Serum [facility] [Mass/volume] mg/dL mg/dL Health in Serum or System Plasma Urea nitrogen 18 mg/dl 7 - 18 Normal (applies Blood Urea [facility] [Mass/volume] mg/dl to non-numeric Nitrogen, Health in Serum or results) Serum System Plasma Creatinine 1.50 0.70 - Above high normal Creatinine, [facility] [Mass/volume] mg/dl 1.20 Serum Health in Serum or mg/dl System Plasma Calcium 10.2 8.4 - Normal (applies Calcium, Total [facility] [Mass/volume] mg/dl 10.2 to non-numeric Serum Health in Serum or mg/dl results) System Plasma Anion gap in 23.00 8.00 - Above high normal Anion Gap [facility] Serum or mmol/L 12.00 Health Plasma mmol/L System ID Date Data Source [id number] 08/28/2018 02:57:00 PM EST [facility] Name Value Range Interpretation Description Data Sup porting Code Source(s) Document(s ) Amphetamine Negative Negative Normal (applies Amphetamine [facility] [Mass/volume] ng/ml to non-numeric Level, Urine Health in Urine results) System Cut-off = 1000 ng/mL Barbiturates Negative Negative Normal (applies Barbiturate [facility] [Mass/volume] in ng/ml to non-numeric Screen, Urine Heal System Urine by Screen results) method Cut-off = 200 ng/mL Benzodiazepines Negative Negative Normal Benzodiazepines, [facility] [Mass/volume] in ng/mL (applies to Urine Health Urine non-numeric System results) Cut-off = 200 ng/mL Cocaine Negative Negative Normal (applies Cocaine [facility] metabolites.other ng/ml to non-numeric Metabolite Health System [Mass/volume] in results) Screen, Urine Urine Cut-off = 300 ng/mL Methadone Negative Negative Normal (applies Methadone [facility] [Mass/volume] in ng/mL to non-numeric Level, Urine Healt h System Urine results) Cut-off = 300 ng/mL Opiate 300, Negative Negative ng/ml Normal (applies to Opiate 300, [facility] Urine non-numeric Urine [facility] System results) Cut-off = 300 ng/mL Phencyclidine Negative Negative Normal (applies Phencyclidine, [facility] [Mass/volume] in ng/ml to non-numeric Urine Health S yste Urine results) Cut-off = 25 ng/mL Cannabinoid Positive Negative Abnormal Cannabinoid [facility] (THC) ng/mL (applies to (THC) Health System non-numeric results) Cutt-off = 50These results are for medic al treatment only. The positive findings are unconfirmed. Request confirmatory/quanti tative test if needed. ID Date Data Source [id number] 08/28/2018 02:20:00 PM EST [facility] Name Value Range Interpretation Description Data Sup porting Code Source(s) Document(s ) Influenza virus Negative Normal (applies Flu A Viral [facility] A RNA [Presence] to non-numeric RNA Health in Unspecified results) System specimen by Probe and target amplification method Influenza virus Negative Normal (applies Flu B Viral [facility] B RNA [Presence] to non-numeric RNA Health in Unspecified results) System specimen by Probe and target amplification method ID Date Data Source [id number] 08/28/2018 01:54:00 PM EST [facility] Name Value Range Interpretation Description Data Sup porting Code Source(s) Document(s ) Leukocytes 14.8 4.8 - Above high WBC Count [facility] [#/volume] in {10^3_u 10.8 normal Health Unspecified L} 10^3 uL System specimen by Automated count Erythrocytes 4.93 3.80 - Normal (applies RBC Count [facility] [#/volume] in {10^6_u 5.20 to non-numeric Health Blood by L} 10^6 uL results) System Automated count Hemoglobin 15.2 12.0 - Normal (applies Hemoglobin [facility] [Mass/volume] in {gm/dL} 16.0 to non-numeric Health Blood gm/dL results) System Hematocrit 46.8 % 36.0 - Above high Hematocrit [facility] [Volume 46.0 % normal Health Fraction] of System Blood Erythrocyte mean 94.9 fl 83.0 - Normal (applies MCV [facility] corpuscular 98.0 fl to non-numeric Health volume [Entitic results) System volume] by Automated count Erythrocyte mean 30.8 pg 26.0 - Normal (applies MCH [facility] corpuscular 34.0 pg to non-numeric Health hemoglobin results) System [Entitic mass] by Automated count Erythrocyte mean 32.5 33.0 - Below low normal MCHC [facility] corpuscular {gm/dL} 37.0 Health hemoglobin gm/dL System concentration [Mass/volume] by Automated count Erythrocyte 12.6 % 11.5 - Normal (applies RDW-CV [facility] distribution 14.5 % to non-numeric Health width [Entitic results) System volume] by Automated count Platelets 300 130 - Normal (applies Platelet Count [facility] [#/volume] in {10^3_u 400 to non-numeric Health Plasma by L} 10^3 uL results) System Automated count Platelet mean 10.7 fl 7.4 - Above high MPV [facility] volume [Entitic 10.4 fl normal Health volume] in Blood System by Automated count Monocytes 0.5 0.3 - Normal (applies Monocyte # [facility] [#/volume] in {10^3_u 0.9 to non-numeric Health Blood by Manual L} 10^3 uL results) System count Eosinophils 0.00 0.05 - Below low normal Eosinophil # [facility] [#/volume] in {10^3_u 0.30 Health Blood L} 10^3 uL System Neutrophils 13.3 2.0 - Above high Neutrophil # [facility] [#/volume] in {10^3_u 8.1 normal Health Body fluid L} 10^3 uL System Basophils 0.05 0.00 - Normal (applies Basophil # [facility] [#/volume] in {10^3_u 0.10 to non-numeric Health Blood by L} 10^3 uL results) System Automated count Lymphocyte # 0.8 1.0 - Below low normal Lymphocyte # [facility] {10^3_u 5.5 Health L} 10^3 uL System Neutrophils/100 89.9 % 55.0 - Above high Neutrophil % [facility] leukocytes in 75.0 % normal Health Blood by System Automated count Monocytes/100 3.6 % 6.0 - Below low normal Monocyte % [facility] leukocytes in 9.0 % Health Blood System Eosinophils/100 0.0 % 0.0 - Normal (applies Eosinophil % [facility]ianca leukocytes in 4.0 % to non-numeric Health Unspecified results) System specimen Basophils/100 0.3 % 0.0 - Normal (applies Basophil % [facility] leukocytes in 1.0 % to non-numeric Health Unspecified results) System specimen by Manual count Lymphocytes 5.7 % 21.0 - Below low normal Lymphocyte % [facility] [#/volume] in 51.0 % Health Blood by System Automated count Immature 0.5 % 0.0 - Normal (applies Immature [facility] Granulocytes % 0.8 % to non-numeric Granulocytes % Healt h results) System Nucleated 0.0 0.0 - Normal (applies NRBC % [facility] erythrocytes {/100_W 0.0 to non-numeric Health [#/volume] in BC} /100 results) System Body fluid WBC Immature 0.08 0.00 - Normal (applies Immature [facility] Granulocytes # {10^3_u 0.09 to non-numeric Granulocytes # Healt h L} 10^3 uL results) System NRBC # 0.00 0.90 - Below low normal NRBC # [facility] {10^3_u 11.20 Health L} 10^3 uL System ID Date Data Source [id number] 08/28/2018 01:54:00 PM EST [facility] Name Value Range Interpretation Code Description Data Katie rce(s) Supporting Document(s ) pH 7.151 7.350 - Below lower panic pH [facility] {pH_units} 7.450 pH limits Health System units Result Reporting|Telephone|CHIDI NOEL| 2018 at 2:52 PMCalled to:CHIDI NOELTech Name:ROBReadback by:CHIDI NOEL 08/28/2018 / 2:52 PM Carbon dioxide 19.1 {mm_Hg} 32.0 - Below low pCO2, Arterial [facility] [Partial pressure] 45.0 mm Hg normal Health Sys tem in Arterial blood Oxygen [Partial 130.0 {mm_Hg} 83.0 - Above high pO2, Aterial [facility] pressure] in 108.0 mm normal Health System Arterial blood Hg Base Excess. -22.2 mmol/L -3.0 - 3.0 Below low Base Excess. [facility] mmol/L normal Health System Bicarbonate 6.7 mmol/L 20.0 - Below low HCO3 [facility] [Moles/volume] in 26.0 normal Health Syste m Venous blood mmol/L TCO2 6.3 mmol/L 24.0 - Below lower TCO2 [facility] 30.0 panic limits Health System mmol/L Result Reporting|Telephone|CHIDI NOEL| 2018 at 2:52 PMCalled to:CHIDI NOELTech Name:ROBReadback by:CHIDI NOEL 08/28/2018 / 2:52 PM O2 Saturation 98.5 % 95.0 - Normal (applies O2 Saturation [facility] 99.0 % to non-numeric Health System results) Sodium, WB 133 mmol/L 137 - 145 Below low normal Sodium, WB [facility] mmol/L [facility] System Potassium, WB 4.6 mmol/L 3.6 - 5.0 Normal (applies Potassium, WB [facility] mmol/L to non-numeric Health System results) Chloride, WB 109 mmol/L 98 - 107 Above high normal Chloride, WB [facility] mmol/L Health System Glucose, WB 454 mg/dL 70 - 105 Above high normal Glucose, WB [facility] mg/dL [facility] System Ionized Calcium 1.21 1.15 - Normal (applies Ionized Calcium [facility] mmol/L 1.29 to non-numeric Health System mmol/L results) Lactate 1.4 mmol/L 0.5 - 1.6 Normal (applies Lactate [facility] [Mass/volume] in mmol/L to non-numeric Health S ystem Serum or Plasma results) ID Date Data Source [id number] 08/28/2018 01:54:00 PM EST [facility] Name Value Range Interpretation Description Data Sup porting Code Source(s) Document(s ) Osmolalit 508 50 - 1400 Normal (applies Osmolality, [facility] y, Spot {mOsm/kg} mOsm/kg to non-numeric Spot Urine Health System Urine results) ID Date Data Source [id number] 08/28/2018 01:54:00 PM EST [facility] Name Value Range Interpretation Description Data Sup porting Code Source(s) Document(s ) Osmolality of 323 280 - Above high normal Osmolality, [facility] Serum or {mOsm/kg 300 Serum Health Plasma } mOsm/kg System ID Date Data Source [id number] 08/28/2018 01:54:00 PM EST [facility] Name Value Range Interpretation Description Data Sup porting Code Source(s) Document(s ) Chloride 75.0 Normal (applies Chloride Spot, [facility] Spot, Urine mmol/L to non-numeric Urine Health System results) Potassium, 20.6 Normal (applies Potassium, [facility] Spot Urine mmol/L to non-numeric Spot Urine Health System results) Sodium 124.0 30.0 - Above high normal Sodium Spot, [facility] Spot, Urine mmol/L 90.0 Urine Health System mmol/L Creatinine, 16.4 Normal (applies Creatinine, [facility] Spot Urine mg/dl to non-numeric Spot Urine Health System results) ID Date Data Source [id number] 08/28/2018 10:56:00 AM EST [facility] System Name Value Range Interpretation Description Data Sup porting Code Source(s) Document(s ) Topiramate 1.00 see note Normal (applies Topiramate [facility] [Mass/volume] {mcg/mL} mcg/mL to non-numeric Level, Serum Health in Serum or results) System Plasma Unable to flag abnormal result(s), p stepan referto reference range(s) below:THERAPEUTIC RANGES FOR TOPIRAMATE: Daily Dose Peak Trough(mg) (mcg/mL) (mcg/mL) 100 6.5-9.2 4.5-6.6200 12 .0-16.0 8.0-12.0400 20.0-30.0 14.0-20.0This test was developed and its analytical performancecharacteristics have been determined by [employer] [place], [place]. It hasnot been cleared or approved by the [place] d and DrugAdministration. This assay has been validated pursuantto the CLIA regulation s and is used for clinicalpurposes.This test was performed at:[facility] [address] [id number] Performed a t:[facility], [address] [place] [address] [id number] Robert M.D., Ph.D. ID Date Data Source [id number] 08/28/2018 10:56:00 AM EST [facility] System Name Value Range Interpretation Description Data Sup porting Code Source(s) Document(s ) Levetiracetam 1.00 Normal (applies LevETIRAcetam [facility] [Mass/volume] in {mcg/mL to non-numeric Level, Serum Healt h Serum or Plasma } results) System Unable to flag abnormal result(s), pl easerefer to reference range(s) below:Therapeutic Levels:Drug Dosage Trough Pstz344 mg BID 3.1-10.0 mcg/mL 10.0-25.0 mcg/vB2162 m g BID 4.9-37.1 mcg/mL 30.0-40.0 mcg/tN5725 mg BID 7.0-34.0 mcg/mL 36 .1-70.0 mcg/mLToxic level: Not establishedFor additional information, p stepan refer tohttp://education.[employer]/ faq/BAR620(This link is being provided for informational/educational purposes only. )This test was developed and its analytical performancecharacteristics have been det ermined by [facility] [place], [place]. It hasnot been cleared or approved by the U.S. Food and DrugAdministration. This assay has been validated pursuantto the CLIA regulations and is used for clinicalpurposes.This test w as performed at:[facility] [address] [id number] Performed at:[facility] - [facility], [address] [place] [id number] Robert M.D., Ph.D. ID Date Data Source [id number] 08/28/2018 10:56:00 AM EST [facility] Name Value Range Interpretation Description Data Sup porting Code Source(s) Document(s ) Beta 7.17 0.02 - Above high Beta [facility] Hydroxybutyrate mg/dL 0.27 normal Hydroxybutyrate Health mg/dL System ID Date Data Source [id number] 08/28/2018 10:56:00 AM EST [facility] Name Value Range Interpretation Description Data Sup porting Code Source(s) Document(s ) Color YELLOW Yellow Normal (applies Color [facility] to non-numeric Health results) System Appearance of CLEAR Clear Normal (applies Urine [facility] Urine to non-numeric Appearance Health results) System Specific 1.020 1.001 - Normal (applies Urine Specific [facility] gravity of 1.035 to non-numeric [facility] Urine results) System pH.. 5.5 4.6 - 8.0 Normal (applies pH.. [facility] {pH_units} pH units to non-numeric Health results) System Glucose, UA NEGATIVE < 50 Normal (applies Glucose, UA [facility] mg/dl to non-numeric Health results) System Protein NEGATIVE < 30 Normal (applies Protein [facility] [Mass/volume] mg/dl to non-numeric Health in Serum or results) System Plasma Bilirubin NEGATIVE Negative Normal (applies Bilirubin [facility] Urine Sm to Lg to non-numeric Urine Health results) System Urobilinogen 0.2 mg/dL 0.2 - 1.0 Normal (applies Urobilinogen [facility] [Mass/volume] mg/dL to non-numeric UA Health in Urine results) System Ketones > =80 Negative Abnormal Ketones UA [facility] [Mass/volume] mg/dL (applies to Health in Urine non-numeric System results) Nitrate+Nitrit NEGATIVE Negative Normal (applies Nitrite [facility] Neg/Pos to non-numeric Health [Mass/volume] results) System in Unspecified specimen Leukocyte NEGATIVE Negative Normal (applies Leukocyte [facility] esterase Tr to Lg to non-numeric Esterase Health [Units/volume] results) Concentration System in Urine Leukocytes 0 {/HPF} 0 - 2 Normal (applies White Blood [facility] [#/volume] in /HPF to non-numeric Cells Health Unspecified results) System specimen by Automated count Red Blood 0 {/HPF} 0 - 1 Normal (applies Red Blood [facility] Cells /HPF to non-numeric Cells Health results) System Urine Blood TRACE-INTA Negative Abnormal Urine Blood [facility] CT Sm to Lg (applies to Health non-numeric System results) ID Date Data Source [id number] 08/28/2018 10:56:00 AM EST [facility] Name Value Range Interpretation Description Data Sup porting Code Source(s) Document(s ) Polys 88 % 55 - 75 Above high normal Polys [facility] % Health System Lymphocyte %. 7 % 21 - 51 Below low normal Lymphocyte %. [place] bianca % Health System Platelets Adequate Normal (applies Platelet [facility] [#/volume] in to non-numeric Count Health Blood by results) Estimate System Estimate Monocyte %. 5 % 6 - 9 % Below low normal Monocyte %. [facility] MACRO Slight Normal (applies MACRO [facility] to non-numeric Health results) System ID Date Data Source [id number] 08/28/2018 10:56:00 AM EST [facility] Name Value Range Interpretation Description Data Sup porting Code Source(s) Document(s ) Leukocytes 13.9 4.8 - Above high WBC Count [facility] [#/volume] in {10^3_u 10.8 normal Health Unspecified L} 10^3 uL System specimen by Automated count Erythrocytes 4.70 3.80 - Normal (applies RBC Count [facility] [#/volume] in {10^6_u 5.20 to non-numeric Health Blood by L} 10^6 uL results) System Automated count Hemoglobin 14.6 12.0 - Normal (applies Hemoglobin [facility] [Mass/volume] in {gm/dL} 16.0 to non-numeric Health Blood gm/dL results) System Hematocrit 45.1 % 36.0 - Normal (applies Hematocrit [facility] [Volume 46.0 % to non-numeric Health Fraction] of results) System Blood Erythrocyte mean 96.0 fl 83.0 - Normal (applies MCV [facility] corpuscular 98.0 fl to non-numeric Health volume [Entitic results) System volume] by Automated count Erythrocyte mean 31.1 pg 26.0 - Normal (applies MCH [facility] corpuscular 34.0 pg to non-numeric Health hemoglobin results) System [Entitic mass] by Automated count Erythrocyte mean 32.4 33.0 - Below low normal MCHC [facility] corpuscular {gm/dL} 37.0 Health hemoglobin gm/dL System concentration [Mass/volume] by Automated count Erythrocyte 12.4 % 11.5 - Normal (applies RDW-CV [facility] distribution 14.5 % to non-numeric Health width [Entitic results) System volume] by Automated count Platelets 285 130 - Normal (applies Platelet Count [facility] [#/volume] in {10^3_u 400 to non-numeric Health Plasma by L} 10^3 uL results) System Automated count Platelet mean 10.5 fl 7.4 - Above high MPV [facility] volume [Entitic 10.4 fl normal Health volume] in Blood System by Automated count Monocytes 0.6 0.3 - Normal (applies Monocyte # [facility] [#/volume] in {10^3_u 0.9 to non-numeric Health Blood by Manual L} 10^3 uL results) System count Eosinophils 0.02 0.05 - Below low normal Eosinophil # [facility] [#/volume] in {10^3_u 0.30 Health Blood L} 10^3 uL System Neutrophils 12.0 2.0 - Above high Neutrophil # [facility] [#/volume] in {10^3_u 8.1 normal Health Body fluid L} 10^3 uL System Basophils 0.07 0.00 - Normal (applies Basophil # [facility] [#/volume] in {10^3_u 0.10 to non-numeric Health Blood by L} 10^3 uL results) System Automated count Lymphocyte # 1.1 1.0 - Normal (applies Lymphocyte # [facility] {10^3_u 5.5 to non-numeric Health L} 10^3 uL results) System Neutrophils/100 86.6 % 55.0 - Above high Neutrophil % [facility] leukocytes in 75.0 % normal Health Blood by System Automated count Monocytes/100 4.5 % 6.0 - Below low normal Monocyte % [facility] leukocytes in 9.0 % Health Blood System Eosinophils/100 0.1 % 0.0 - Normal (applies Eosinophil % [facility] leukocytes in 4.0 % to non-numeric Health Unspecified results) System specimen Basophils/100 0.5 % 0.0 - Normal (applies Basophil % [facility] leukocytes in 1.0 % to non-numeric Health Unspecified results) System specimen by Manual count Lymphocytes 7.9 % 21.0 - Below low normal Lymphocyte % [facility] [#/volume] in 51.0 % Health Blood by System Automated count Immature 0.4 % 0.0 - Normal (applies Immature [facility] Granulocytes % 0.8 % to non-numeric Granulocytes % Healt h results) System Nucleated 0.0 0.0 - Normal (applies NRBC % [facility] erythrocytes {/100_W 0.0 to non-numeric Health [#/volume] in BC} /100 results) System Body fluid WBC Immature 0.06 0.00 - Normal (applies Immature [facility] Granulocytes # {10^3_u 0.09 to non-numeric Granulocytes # Healt h L} 10^3 uL results) System NRBC # 0.00 0.90 - Below low normal NRBC # [facility] {10^3_u 11.20 Health L} 10^3 uL System ID Date Data Source [id number] 08/28/2018 10:56:00 AM EST [facility] Name Value Range Interpretation Description Data Sup porting Code Source(s) Document(s ) Sodium 132 137 - Below low normal Sodium, Serum [facility] [Moles/volum mmol/L 145 Health System e] in Serum mmol/L or Plasma Potassium 5.1 3.6 - Above high normal Potassium, [facility] [Mass/volume mmol/L 5.0 Serum Health System ] in Serum mmol/L or Plasma Chloride 97 98 - 107 Below low normal Chloride, [facility] [Moles/volum mmol/L mmol/L Serum Health System e] in Serum or Plasma Carbon 11.0 22.0 - Below low normal CO2, Serum [facility] dioxide, mmol/L 30.0 Health System total mmol/L [Moles/volum e] in Serum or Plasma Total 9.0 6.3 - Above high normal Total Protein [facility] Protein mg/dl 8.2 Health System mg/dl Glucose 589 65 - 105 Above upper panic Glucose, Serum [facility] [Mass/volume mg/dL mg/dL limits Health System ] in Serum or Plasma Result Reporting|Telephone|SADIE MURILLO| 08/28 at 1:15 PMCalled to:SADIE MURILLOTech Name:Chuyita by:SADIE MURILLO 02/2019 / 1:15 PM Urea nitrogen 20 mg/dl 7 - 18 Above high Blood Urea [facility] [Mass/volume] in Serum mg/dl normal Nitrogen, Serum H ealth System or Plasma Creatinine 1.60 mg/dl 0.70 - Above high Creatinine, [facility] [Mass/volume] in Serum 1.20 mg/dl normal Serum Health System or Plasma Alkaline phosphatase 73 {IU/L} 38 - 126 Normal Alkaline [facility] isoenzymes [Enzymatic IU/L (applies to Phosphatase, Hea lth System activity/volume] in non-numeric Serum Serum or Plasma by results) Heat stability Bilirubin.total 0.3 mg/dl 0.2 - 1.3 Normal Bilirubin, [facility] [Mass/volume] in Serum mg/dl (applies to Serum Total Hea lth System or Plasma non-numeric results) Direct Bilirubin 0.2 mg/dl 0.0 - 0.4 Normal Direct [facility] mg/dl (applies to Bilirubin Health System non-numeric results) Aspartate 16 {IU/L} 5 - 40 Normal Aspartate [facility] aminotransferase IU/L (applies to Transaminase, Health System [Enzymatic non-numeric Serum activity/volume] in results) Serum or Plasma by With P-5'-P Albumin [Mass/volume] 5.6 3.9 - 5.0 Above high Albumin, Serum [facility] in Serum or Plasma {gm/dl} gm/dl normal Health Syst em I. Phosphorus 5.4 mg/dl 2.5 - 4.5 Above high I. Phosphorus [facility] mg/dl normal Health System Alanine 17 {IU/L} 7 - 56 Normal Alanine [facility] aminotransferase IU/L ([facility] [Enzymatic non-numeric e, Serum activity/volume] in results) Serum or Plasma Calcium [Mass/volume] 10.7 mg/dl 8.4 - 10.2 Above high Calcium, Total [facility] in Serum or Plasma mg/dl normal Serum Health Syst em A/G Ratio 1.65 Normal A/G Ratio [facility] (applies to Health System non-numeric results) Urate [Mass/volume] in 9.8 mg/dl 2.5 - 7.5 Above high Uric Acid, [facility] bianca Serum or Plasma mg/dl normal Serum Health System Anion gap in Serum or 24.00 8.00 - Above high Anion Gap [facility] Plasma mmol/L 12.00 normal Health System mmol/L Glomerular filtration 34.51 Normal GFR [facility] rate/1.73 sq (applies to Health System M.predicted [Volume non-numeric Rate/Area] in Serum or results) Plasma by Creatinine-based formula (CKD-EPI) eGFR will provide clinicians with a more accurate indicator of renal function then the serum creatinine. The eGFR is automa tically calculated from an empiric formula (endorsed by the [employer] ion) which incorporates age, sex, and race.Clinicians may notice surprisingly low GFR's with serum creatinine valueswithin normal range- particularly in elderly wo men (with low muscle mass).In the hospital setting, the eGFR should add an element of safety in drug dosing, in assessing the risk of IV contrast administration, and in assessing vascular risk.The NKF staging system is as follows:Normal: eGFR >90 with no kidney markersStage 1: eGFR >90 with kidney markers*Stage 2: eGFR 60- 89Stage 3: eGFR 30-59Stage 4: eGFR 15-29Stage 5: eGFR <15 (usually requir ing dialysis)*Markers include: Proteinuria, Hematuria, abnormal imaging-studies, or other blood or urine test abnormalities ID Date Data Source [id number] 08/28/2018 10:56:00 AM EST [facility] Name Value Range Interpretation Description Data Source(s ) Supporting Code Document(s ) PH* 7.089 7.310 - Below low normal PH* [facility] {pH_units 7.410 pH Health System } units PCO2* 38.8 40.0 - Below low normal PCO2* [facility] {mm_Hg} 52.0 mm Health System Hg Base -18.10 -3.00 - Below low normal Base Excess* [facility] Excess* {mEq/L} 3.00 [facility] mEq/L HCO3* 11.7 22.0 - Below low normal HCO3* [facility] mmol/L 27.0 [facility] mmol/L Chloride 102 98 - 107 Normal (applies to Chloride, VB [facility] , VB mmol/L mmol/L non-numeric Health System results) Lactate. 2.8 0.5 - 2.0 Above upper panic Lactate. [facility] mmol/L mmol/L limits [facility] Result Reporting|Telephone|CHIDI NOEL| 2018 at 11:43 AMCalled to:CHIDI James Name:ROBReadback by:CHIDI NOEL 08/28/2018 1:43 AM Glucose, VB 545 mg/dL 65 - 110 mg/dL Above upper Glucose, VB [facility] panic limits System Result Reporting|Telephone|CHIDI NOEL| 2018 at 11:43 AMCalled to:CHIDI James Name:ROBReadback by:CHIDI NOEL 08/28/2018 1:43 AM Potassium, VB 5.0 mmol/L 3.6 - 5.0 Normal (applies Potassium, VB [facility] mmol/L to non-numeric Health System results) Sodium, VB 135 mmol/L 137 - 145 Below low normal Sodium, VB [facility] mmol/L [facility] Ionized 1.34 mmol/L 1.15 - 1.29 Above high Ionized [facility] Calcium, VB mmol/L normal Calcium, VB [facility] O2 Saturation* 39.50 % Normal (applies O2 Saturation* [facility] to non-numeric [facility] results) ID Date Data Source [id number] 02/12/2015 07:48:00 PM EDT [facility] Name Value Range Interpretation Description Data Sup porting Code Source(s) Document(s ) Levetiracetam 21.30 Normal (applies LevETIRAcetam [facility] [Mass/volume] in {mcg/mL to non-numeric Level, Serum Healt h Serum or Plasma } results) System Unable to flag abnormal result(s), pl ease refer to reference range(s) below: Therapeutic Levels: Drug Dosage Tr ough Peak 500 mg BID 3.1-10.0 mcg/mL 10.0-25.0 mcg/hN1495 mg BID 4 .9-37.1 mcg/mL 30.0-40.0 mcg/nL3106 mg BID 7.0-34.0 mcg/mL 36.1-70.0 mcg/mL To xic level: Not established This test was performed at: [facility] [address] Test Performed at: [facility], [address] [place] [address] Spike morales M.D., Ph.D. ID Date Data Source [id number] 02/12/2015 07:48:00 PM EDT [facility] Name Value Range Interpretation Description Data Sup porting Code Source(s) Document(s ) Creatine 89 30 - 135 Normal (applies Creatine [facility] kinase.MB {IU/L} IU/L to non-numeric Kinase, Serum Health Syst em [Mass/volum results) e] in Serum or Plasma ID Date Data Source [id number] 02/12/2015 04:06:00 PM EDT [facility] Name Value Range Interpretation Description Data Sup porting Code Source(s) Document(s ) Color YELLOW Yellow Normal (applies Color [facility] to non-numeric Health results) System Appearance of CLEAR Clear Normal (applies Urine [facility] Urine to non-numeric Appearance Health results) System Specific 1.020 Normal (applies Urine Specific [facility] gravity of to non-numeric [facility] Urine results) System pH.. 6.0 4.6 - 8.0 Normal (applies pH.. [facility] {pH_units} pH units to non-numeric Health results) System Glucose, UA NEGATIVE < 50 Normal (applies Glucose, UA [facility] mg/dl to non-numeric Health results) System Protein 30 mg/dl < 30 Normal (applies Protein [facility] [Mass/volume] mg/dl to non-numeric Health in Serum or results) System Plasma Bilirubin NEGATIVE Negative Normal (applies Bilirubin [facility] Urine Sm to Lg to non-numeric Urine Health results) System Urobilinogen 0.2 mg/dL Normal (applies Urobilinogen [facility] [Mass/volume] to non-numeric UA Health in Urine results) System Ketones NEGATIVE Negative Normal (applies Ketones UA [facility] [Mass/volume] Tr to Lg to non-numeric Health in Urine results) System Nitrate+Nitrit NEGATIVE Negative Normal (applies Nitrite [facility] Neg/Pos to non-numeric Health [Mass/volume] results) System in Unspecified specimen Leukocyte NEGATIVE Negative Normal (applies Leukocyte [facility] esterase Tr to Lg to non-numeric Esterase Health [Units/volume] results) Concentration System in Urine Leukocytes 0-1 0 - 2 Normal (applies White Blood [facility] [#/volume] in /HPF to non-numeric Cells Health Unspecified results) System specimen by Automated count Red Blood 0-1 0 - 1 Normal (applies Red Blood [facility] Cells /HPF to non-numeric Cells Health results) System Epithelial 1-3 0 - 3 Normal (applies Epithelial [facility] cells /HPF to non-numeric Cells Health [Presence] in results) System Unspecified specimen by Wet preparation Urine Blood NEGATIVE Normal (applies Urine Blood [facility] to non-numeric Health results) System ID Date Data Source [id number] 02/12/2015 04:06:00 PM EDT [facility] System Name Value Range Interpretation Description Data Sup porting Code Source(s) Document(s ) Poikilocytosis Slight Normal (applies Poikilocytosis [facility] [Presence] in to non-numeric Health Blood by results) System Automated count Anisocytosis Slight Normal (applies Anisocytosis [facility] [Presence] in to non-numeric Health Blood by results) System Automated count Basophil %. 1 % 0 - 1 % Normal (applies Basophil %. [facility] to non-numeric Health results) System Polys 44 % Normal (applies Polys [facility] to non-numeric Health results) System Lymphocyte %. 41 % 21 - 51 Normal (applies Lymphocyte %. [facility] % to non-numeric Health results) System Platelets Adequate Normal (applies Platelet Count [facility] [#/volume] in to non-numeric Estimate Health Blood by results) System Estimate Monocyte %. 6 % 6 - 9 % Normal (applies Monocyte %. [facility] to non-numeric Health results) System Eosinophils %. 6 % 1 - 3 % Above high Eosinophils %. [facility] normal [facility] ID Date Data Source [id number] 02/12/2015 04:06:00 PM EDT [facility] Name Value Range Interpretation Description Data Sup porting Code Source(s) Document(s ) Leukocytes 6.8 4.8 - Normal (applies WBC Count [facility] [#/volume] in {10^3_uL 10.8 to non-numeric Health Unspecified } 10^3 uL results) System specimen by Automated count Erythrocytes 4.18 3.80 - Normal (applies RBC Count [facility] [#/volume] in {10^6_uL 5.20 to non-numeric Health Blood by } 10^6 uL results) System Automated count Hemoglobin 13.5 12.0 - Normal (applies Hemoglobin [facility] [Mass/volume] in {gm/dL} 16.0 to non-numeric Health Blood gm/dL results) System Hematocrit 39.0 % 36.0 - Normal (applies Hematocrit [facility] [Volume 46.0 % to non-numeric Health Fraction] of results) System Blood Erythrocyte mean 93.3 fl 80.0 - Normal (applies MCV [facility] corpuscular 100.0 to non-numeric Health volume [Entitic fl results) System volume] by Automated count Erythrocyte mean 32.3 pg 26.0 - Normal (applies MCH [facility] corpuscular 34.0 pg to non-numeric Health hemoglobin results) System [Entitic mass] by Automated count Erythrocyte mean 34.6 33.0 - Normal (applies MCHC [facility] corpuscular {gm/dL} 37.0 to non-numeric Health hemoglobin gm/dL results) System concentration [Mass/volume] by Automated count Erythrocyte 13.4 % 11.5 - Normal (applies RDW-CV [facility] distribution 14.5 % to non-numeric Health width [Entitic results) System volume] by Automated count Platelets 166 130 - Normal (applies Platelet [facility] [#/volume] in {10^3_uL 400 to non-numeric Count Health Plasma by } 10^3 uL results) System Automated count Platelet mean 10.2 fl 7.4 - Normal (applies MPV [facility] volume [Entitic 10.4 fl to non-numeric Health volume] in Blood results) System by Automated count Monocytes 0.4 0.3 - Normal (applies Monocyte # [facility] [#/volume] in {10^3_uL 0.9 to non-numeric Health Blood by Manual } 10^3 uL results) System count Eosinophils 0.41 0.05 - Above high Eosinophil # [facility] [#/volume] in {10^3_uL 0.30 normal Health Blood } 10^3 uL System Neutrophils 3.1 2.0 - Normal (applies Neutrophil # [facility] [#/volume] in {10^3_uL 8.1 to non-numeric Health Body fluid } 10^3 uL results) System Basophils 0.07 0.00 - Normal (applies Basophil # [facility] [#/volume] in {10^3_uL 0.10 to non-numeric Health Blood by } 10^3 uL results) System Automated count Lymphocyte # 2.8 1.0 - Normal (applies Lymphocyte # [facility] {10^3_uL 5.5 to non-numeric Health } 10^3 uL results) System Neutrophils/100 45.0 % 0.0 - Normal (applies Neutrophil % [facility] leukocytes in 120.0 % to non-numeric Health Blood by results) System Automated count Monocytes/100 6.4 % 6.0 - Normal (applies Monocyte % [facility] leukocytes in 9.0 % to non-numeric Health Blood results) System Eosinophils/100 6.0 % 1.0 - Above high Eosinophil % [facility] leukocytes in 3.0 % normal Health Unspecified System specimen Basophils/100 1.0 % 0.0 - Normal (applies Basophil % [facility] leukocytes in 1.0 % to non-numeric Health Unspecified results) System specimen by Manual count Lymphocytes 41.6 % 21.0 - Normal (applies Lymphocyte % [facility] [#/volume] in 51.0 % to non-numeric Health Blood by results) System Automated count ID Date Data Source [id number] 02/12/2015 04:06:00 PM EDT [facility] Name Value Range Interpretation Description Data Sup porting Code Source(s) Document(s ) HCG NEGATIVE Negative Normal (applies HCG [facility] Qualitative mIU/ml to non-numeric Qualitative Health results) System Default Normal RangesNegative <5Indeterm inate 5-25(Please repeat in 2 days.)Positive >25 ID Date Data Source [id number] 02/12/2015 04:06:00 PM EDT [facility] Name Value Range Interpretation Description Data Sup porting Code Source(s) Document(s ) Sodium 138 137 - Normal (applies Sodium, Serum [facility] [Moles/volume] in mmol/L 145 to non-numeric Health Serum or Plasma mmol/L results) System Potassium 4.2 3.6 - Normal (applies Potassium, [facility] [Mass/volume] in mmol/L 5.0 to non-numeric Serum Health Serum or Plasma mmol/L results) System Chloride 107 98 - Normal (applies Chloride, [facility] [Moles/volume] in mmol/L 107 to non-numeric Serum Health Serum or Plasma mmol/L results) System Carbon dioxide, 16.0 22.0 - Below low normal CO2, Serum [facility] total mmol/L 30.0 Health [Moles/volume] in mmol/L System Serum or Plasma Total Protein 6.8 6.3 - Normal (applies Total Protein [facility] mg/dl 8.2 to non-numeric Health mg/dl results) System Glucose 100 65 - Normal (applies Glucose, [facility] [Mass/volume] in mg/dL 105 to non-numeric Serum Health Serum or Plasma mg/dL results) System Urea nitrogen 7 mg/dl 7 - 18 Normal (applies Blood Urea [facility] [Mass/volume] in mg/dl to non-numeric Nitrogen, Health Serum or Plasma results) Serum System Creatinine 0.80 0.70 - Normal (applies Creatinine, [facility] [Mass/volume] in mg/dl 1.20 to non-numeric Serum Health Serum or Plasma mg/dl results) System Alkaline 39 38 - Normal (applies Alkaline [facility] phosphatase {IU/L} 126 to non-numeric Phosphatase, Health isoenzymes IU/L results) Serum System [Enzymatic activity/volume] in Serum or Plasma by Heat stability Bilirubin.total 0.4 0.2 - Normal (applies Bilirubin, [facility] [Mass/volume] in mg/dl 1.3 to non-numeric Serum Total Health Serum or Plasma mg/dl results) System Direct Bilirubin 0.1 0.0 - Normal (applies Direct [facility] mg/dl 0.4 to non-numeric Bilirubin Health mg/dl results) System Aspartate 15 5 - 40 Normal (applies Aspartate [facility] aminotransferase {IU/L} IU/L to non-numeric Transaminase, Heal th [Enzymatic results) Serum System activity/volume] in Serum or Plasma by With P-5'-P Albumin 4.3 3.9 - Normal (applies Albumin, [facility] [Mass/volume] in {gm/dl} 5.0 to non-numeric Serum Health Serum or Plasma gm/dl results) System I. Phosphorus 3.2 2.5 - Normal (applies I. Phosphorus [facility] mg/dl 4.5 to non-numeric Health mg/dl results) System Alanine 11 7 - 56 Normal (applies Alanine [facility] aminotransferase {IU/L} IU/L to non-numeric Aminotransfer Heal th [Enzymatic results) ase, Serum System activity/volume] in Serum or Plasma Calcium 9.2 8.4 - Normal (applies Calcium, [facility] [Mass/volume] in mg/dl 10.2 to non-numeric Total Serum Health Serum or Plasma mg/dl results) System A/G Ratio 1.72 Normal (applies A/G Ratio [facility] to non-numeric Health results) System Urate 5.5 2.5 - Normal (applies Uric Acid, [facility] [Mass/volume] in mg/dl 7.5 to non-numeric Serum Health Serum or Plasma mg/dl results) System Anion gap in Serum 15.00 8.00 - Above high Anion Gap [facility] or Plasma mmol/L 12.00 normal Health mmol/L System Glomerular 78.02 Normal (applies GFR [facility] filtration to non-numeric Health rate/1.73 sq results) System M.predicted [Volume Rate/Area] in Serum or Plasma by Creatinine-based formula (CKD-EPI) eGFR will provide clinicians with a more accurate indicator of renal function then the serum creatinine. The eGFR is automa tically calculated from an empiric formula (endorsed by the National Kid[employer] ion) which incorporates age, sex, and race.Clinicians may notice surprisingly low GFR's with serum creatinine valueswithin normal range- particularly in elderly wo men (with low muscle mass).In the hospital setting, the eGFR should add an element of safety in drug dosing, in assessing the risk of IV contrast administration, and in assessing vascular risk.The NKF staging system is as follows:Normal: eGFR >90 with no kidney markersStage 1: eGFR >90 with kidney markers*Stage 2: eGFR 60- 89Stage 3: eGFR 30-59Stage 4: eGFR 15-29Stage 5: eGFR <15 (usually requir ing dialysis)*Markers include: Proteinuria, Hematuria, abnormal imaging-studies, or other blood or urine test abnormalities ID Date Data Source [id number] 02/12/2015 04:06:00 PM EDT [facility] Name Value Range Interpretation Description Data Sup porting Code Source(s) Document(s ) Amphetamine Negative Negative Normal (applies Amphetamine [facility] [Mass/volume] ng/ml to non-numeric Level, Urine Health in Urine results) System Cut-off = 1000 ng/mL Barbiturates Negative Negative Normal (applies Barbiturate [facility] [Mass/volume] in ng/ml to non-numeric Screen, Urine Heal System Urine by Screen results) method Cut-off = 200 ng/mL Benzodiazepines Negative Negative Normal Benzodiazepines, [facility] [Mass/volume] in ng/mL (applies to Urine Health Urine non-numeric System results) Cut-off = 200 ng/mL Cocaine Negative Negative Normal (applies Cocaine [facility] metabolites.other ng/ml to non-numeric Metabolite Health System [Mass/volume] in results) Screen, Urine Urine Cut-off = 300 ng/mL Methadone Negative Negative Normal (applies Methadone [facility] [Mass/volume] in to non-numeric Level, Urine Healt h System Urine results) Cut-off = 300 ng/mL Opiate 300, Negative Negative ng/ml Normal (applies to Opiate 300, [facility] Urine non-numeric Urine [facility] System results) Cut-off = 300 ng/mL Phencyclidine Negative Negative Normal (applies Phencyclidine, [facility] [Mass/volume] in ng/ml to non-numeric Urine Health S yste Urine results) Cut-off = 25 ng/mL THC Positive Negative ng/mL Abnormal (applies to [facility] non-numeric results) Cutt-off = 50These results are for medic al treatment only. The positive findings are unconfirmed. Request confirmatory/quanti tative test if needed. ID Date Data Source [id number] 02/12/2014 10:47:00 AM EDT [facility] System Name Value Range Interpretation Description Data Sup porting Code Source(s) Document(s ) Levetiracetam 7.50 Normal (applies LevETIRAcetam [facility] [Mass/volume] in {mcg/mL to non-numeric Level, Serum Healt h Serum or Plasma } results) System Unable to flag abnormal result(s), p lease refer to reference range(s) below:Therapeutic Levels:Drug Dosage Trough Peak 500 mg BID 3.1-10.0 mcg/mL 10.0-25.0 mcg/dY4919 m g BID 4.9-37.1 mcg/mL 30.0-40.0 mcg/gY5073 mg BID 7.0-34.0 mcg/mL 36 .1-70.0 mcg/mLToxic level: Not established This test was performed at: [facility] [address] Test P erformed at: [facility] - [facility], [address] [place] [address] Iam Nagel MD,PhD ID Date Data Source [id number] 01/17/2014 06:22:00 AM EDT [facility] System Name Value Range Interpretation Description Data Sup porting Code Source(s) Document(s ) Phenytoin 15.0 10.0 - Normal (applies Phenytoin [facility] [Mass/volume ug/ml 20.0 to non-numeric Level, Serum Health Sy stem ] in Serum ug/ml results) or Plasma ID Date Data Source [id number] 01/16/2014 06:50:00 AM EDT [facility] Name Value Range Interpretation Description Data Sup porting Code Source(s) Document(s ) Leukocytes 8.1 4.8 - Normal (applies WBC Count [facility] [#/volume] in {10^3_uL 10.8 to non-numeric Health Unspecified } 10^3 uL results) System specimen by Automated count Erythrocytes 4.23 3.80 - Normal (applies RBC Count [facility] [#/volume] in {10^6_uL 5.20 to non-numeric Health Blood by } 10^6 uL results) System Automated count Hemoglobin 13.1 12.0 - Normal (applies Hemoglobin, [facility] [Mass/volume] in {gm/dL} 16.0 to non-numeric Whole Blood Health Blood gm/dL results) System Hematocrit 38.8 % 36.0 - Normal (applies Hematocrit, [facility] [Volume 46.0 % to non-numeric Whole Blood Health Fraction] of results) System Blood Erythrocyte mean 91.7 fl 80.0 - Normal (applies MCV [facility] corpuscular 100.0 to non-numeric Health volume [Entitic fl results) System volume] by Automated count Erythrocyte mean 31.0 pg 26.0 - Normal (applies MCH [facility] corpuscular 34.0 pg to non-numeric Health hemoglobin results) System [Entitic mass] by Automated count Erythrocyte mean 33.8 33.0 - Normal (applies MCHC [facility] corpuscular {gm/dL} 37.0 to non-numeric Health hemoglobin gm/dL results) System concentration [Mass/volume] by Automated count Erythrocyte 13.6 % 11.5 - Normal (applies RDW [facility] distribution 14.5 % to non-numeric Health width [Entitic results) System volume] by Automated count Platelets 167 130 - Normal (applies Platelet [facility] [#/volume] in {10^3_uL 400 to non-numeric Count Health Plasma by } 10^3 uL results) System Automated count Platelet mean 10.0 fl 7.4 - Normal (applies MPV [facility] volume [Entitic 10.4 fl to non-numeric Health volume] in Blood results) System by Automated count Monocytes 0.5 0.3 - Normal (applies Monocyte [facility] [#/volume] in {10^3_uL 0.9 to non-numeric Count Health Blood by Manual } 10^3 uL results) System count Eosinophils 0.2 0.1 - Normal (applies Eosinophil [facility] [#/volume] in {10^3_uL 0.3 to non-numeric Count Blood Health Blood } 10^3 uL results) System Neutrophils 5.2 2.0 - Normal (applies Absolute [facility] [#/volume] in {10^3_uL 8.1 to non-numeric Neutrophil Health Body fluid } 10^3 uL results) Count System Basophils 0.0 0.0 - Normal (applies Basophil [facility] [#/volume] in {10^3_uL 0.1 to non-numeric Count Health Blood by } 10^3 uL results) System Automated count Lymphocyte 2.1 1.0 - Normal (applies Lymphocyte [facility] Absolute {10^3_uL 5.5 to non-numeric Absolute Health } 10^3 uL results) System Neutrophils/100 64.2 % 0.0 - Normal (applies Neutrophil % [facility] leukocytes in 120.0 % to non-numeric Health Blood by results) System Automated count Monocytes/100 6.6 % 6.0 - Normal (applies Monocyte % [facility] leukocytes in 9.0 % to non-numeric Health Blood results) System Eosinophils/100 2.9 % 1.0 - Normal (applies Eosinophil % [facility] leukocytes in 3.0 % to non-numeric Health Unspecified results) System specimen Basophils/100 0.5 % 0.0 - Normal (applies Basophil % [facility] leukocytes in 1.0 % to non-numeric Health Unspecified results) System specimen by Manual count Lymphocytes 25.8 % 21.0 - Normal (applies Lymphocyte % [facility] [#/volume] in 51.0 % to non-numeric Health Blood by results) System Automated count ID Date Data Source [id number] 01/16/2014 06:50:00 AM [facility] System Name Value Range Interpretation Description Data Sup porting Code Source(s) Document(s ) Sodium 137 mmol/L 137 - Normal (applies Sodium, [facility] [Moles/volume] 145 to non-numeric Serum Health in Serum or mmol/L results) System Plasma Potassium 3.6 mmol/L 3.6 - Normal (applies Potassium, [facility] [Mass/volume] 5.0 to non-numeric Serum Health in Serum or mmol/L results) System Plasma Chloride 107 mmol/L 98 - Normal (applies Chloride, [facility] [Moles/volume] 107 to non-numeric Serum Health in Serum or mmol/L results) System Plasma Carbon dioxide, 22.0 mmol/L 22.0 - Normal (applies CO2, Serum [facility] total 30.0 to non-numeric Health [Moles/volume] mmol/L results) System in Serum or Plasma Total Protein 6.0 mg/dl 6.3 - Below low Total [facility] 8.2 normal Protein Health mg/dl System Glucose 111 mg/dL 65 - Above high Glucose, [facility] [Mass/volume] 105 normal Serum Health in Serum or mg/dL System Plasma Urea nitrogen 8 mg/dl 7 - 18 Normal (applies Blood Urea [facility] [Mass/volume] mg/dl to non-numeric Nitrogen, Health in Serum or results) Serum System Plasma Creatinine 0.70 mg/dl 0.70 - Normal (applies Creatinine, [facility] [Mass/volume] 1.20 to non-numeric Serum Health in Serum or mg/dl results) System Plasma Alkaline 58 {IU/L} 38 - Normal (applies Alkaline [facility] phosphatase 126 to non-numeric Phosphatase, Health isoenzymes IU/L results) Serum System [Enzymatic activity/volume ] in Serum or Plasma by Heat stability Bilirubin 0.9 mg/dl 0.2 - Normal (applies Bilirubin, [facility] direct and 1.3 to non-numeric Serum Total Health total panel mg/dl results) System [Mass/volume] - Serum or Plasma Aspartate 17 {IU/L} 5 - 40 Normal (applies Aspartate [facility] aminotransferas IU/L to non-numeric Transaminase Health e [Enzymatic results) , Serum System activity/volume ] in Serum or Plasma by With P-5'-P Albumin 3.7 {gm/dl} 3.9 - Below low Albumin, [facility] [Mass/volume] 5.0 normal Serum Health in Serum or gm/dl System Plasma I. Phosphorus 2.6 mg/dl 2.5 - Normal (applies I. [facility] 4.5 to non-numeric Phosphorus Health mg/dl results) System Alanine 19 {IU/L} 7 - 56 Normal (applies Alanine [facility] aminotransferas IU/L to non-numeric Aminotransfe Health e [Enzymatic results) rase, Serum System activity/volume ] in Serum or Plasma Calcium 8.6 mg/dl 8.4 - Normal (applies Calcium, [facility] [Mass/volume] 10.2 to non-numeric Total Serum Health in Serum or mg/dl results) System Plasma A/G Ratio 1.61 Normal (applies A/G Ratio [facility] to non-numeric Health results) System Urate 5.2 mg/dl 2.5 - Normal (applies Uric Acid, [facility] [Mass/volume] 7.5 to non-numeric Serum Health in Serum or mg/dl results) System Plasma Anion gap in 8.00 mmol/L 8.00 - Normal (applies Anion Gap [facility] Serum or Plasma 12.00 to non-numeric Health mmol/L results) System Glomerular Greater than Normal (applies GFR [facility] filtration 90 eGFR will to non-numeric Health rate/1.73 sq provide results) System M.predicted clinicians [Volume with a more Rate/Area] in accurate Serum or Plasma indicator of by renal function Creatinine-base then the serum d formula creatinine. (CKD-EPI) The eGFR is automatically calculated from an empiric formula (endorsed by the [employer]) which incorporates age, sex, and race.Clinician s may notice surprisingly low GFR's with serum creatinine valueswithin normal range- particularly in elderly women (with low muscle mass).In the hospital setting, the eGFR should add an element of safety in drug dosing, in assessing the risk of IV contrast administration , and in assessing vascular risk.The NKF staging system is as follows:Normal : eGFR >90 with no kidney markersStage 1: eGFR >90 with kidney markers*Stage 2: eGFR 60-89Stage 3: eGFR 30-59Stage 4: eGFR 15-29Stage 5: eGFR <15 (usually requiring dialysis)*César ers include: Proteinuria, Hematuria, abnormal imaging-studie s, or other blood or urine test abnormalities ID Date Data Source [id number] 01/16/2014 06:50:00 AM EDT [facility] System Name Value Range Interpretation Description Data Sup porting Code Source(s) Document(s ) Phenytoin 16.3 10.0 - Normal (applies Phenytoin [facility] [Mass/volume ug/ml 20.0 to non-numeric Level, Serum Health Sy stem ] in Serum ug/ml results) or Plasma ID Date Data Source [id number] 01/15/2014 11:00:00 AM EDT [facility] Name Value Range Interpretation Description Data Sup porting Code Source(s) Document(s ) Color YELLOW YELLOW Normal (applies Color [facility] to non-numeric Health results) System Appearance of SL CLOUDY CLEAR Abnormal Urine [facility] Urine (applies to [facility] non-numeric System results) Specific 1.025 Normal (applies Urine [facility] gravity of to non-numeric Specific Health Urine results) [place] [facility] pH.. 6.5 4.6 - Normal (applies pH.. [facility] {pH_units} 8.0 pH to non-numeric Health units results) System Glucose, UA NEGATIVE Normal (applies Glucose, UA [facility] to non-numeric Health results) System Negative Protein 100 mg/dl Normal (applies Protein [facility] [Mass/volume] in to non-numeric Health S ystem Serum or Plasma results) Bilirubin Urine NEGATIVE Normal (applies Bilirubin Urine [facility] to non-numeric [facility] System results) Urobilinogen 0.20 {eu/dL} 0.20 Normal (applies Urobilinogen UA [facility] [Mass/volume] in - to non-numeric Health S yste Urine 1.00 results) eu/dL Ketones NEGATIVE Normal (applies Ketones UA [facility] [Mass/volume] in to non-numeric Health S yste Urine results) Negative Nitrate+Nitrite NEGATIVE Normal (applies to Nitrite [facility] [Mass/volume] in non-numeric results) Sy stem Unspecified specimen Negative Leukocyte esterase NEGATIVE Normal (applies Leukocyte Aura ase [facility] [Units/volume] in to non-numeric Concentration [facility] System Urine results) Negative Urine Blood NEGATIVE Normal (applies to Urine Blood [facility] non-numeric results) System ID Date Data Source [id number] 01/15/2014 11:00:00 AM EDT [facility] Name Value Range Interpretation Description Data Sup porting Code Source(s) Document(s ) hCG Less than 5 Normal (applies hCG [facility] Quantitative Negative = <5 to non-numeric Quantitative Healt h mIU/mLAPPROXIM results) System ATE GEST. AGE APPROXIMATE HCG mIU/ML 0.2 - 1 week 5 - 50 1 - 2 weeks 50 - 500 2 - 3 weeks 100 - 5,000 3 - 4 weeks 500 - 10,000 4 - 5 weeks 1,000 - 50,000 5 - 6 weeks 10,000 - 100,000 6 - 8 weeks 15,000 - 200,000 8 - 12 weeks 10,000 - 100,000HCG levels between 5-25 mIU/mL may be indicative of early . Correlation with other clinical findings and/or repeat of HCG quantitative testing recommened. ID Date Data Source [id number] 01/15/2014 11:00:00 AM EDT [facility] Name Value Range Interpretation Description Data Sup porting Code Source(s) Document(s ) Sodium 137 137 - Normal (applies Sodium, Serum [facility] [Moles/volume] in mmol/L 145 to non-numeric Health Serum or Plasma mmol/L results) System Potassium 4.0 3.6 - Normal (applies Potassium, [facility] [Mass/volume] in mmol/L 5.0 to non-numeric Serum Health Serum or Plasma mmol/L results) System Chloride 107 98 - Normal (applies Chloride, [facility] [Moles/volume] in mmol/L 107 to non-numeric Serum Health Serum or Plasma mmol/L results) System Carbon dioxide, 20.0 22.0 - Below low normal CO2, Serum [facility] total mmol/L 30.0 Health [Moles/volume] in mmol/L System Serum or Plasma Total Protein 6.1 6.3 - Below low normal Total Protein [facility] mg/dl 8.2 Health mg/dl System Glucose 147 65 - Above high Glucose, [facility] [Mass/volume] in mg/dL 105 normal Serum Health Serum or Plasma mg/dL System Urea nitrogen 13 7 - 18 Normal (applies Blood Urea [facility] [Mass/volume] in mg/dl mg/dl to non-numeric Nitrogen, Health Serum or Plasma results) Serum System Creatinine 0.80 0.70 - Normal (applies Creatinine, [facility] [Mass/volume] in mg/dl 1.20 to non-numeric Serum Health Serum or Plasma mg/dl results) System Alkaline 53 38 - Normal (applies Alkaline [facility] phosphatase {IU/L} 126 to non-numeric Phosphatase, Health isoenzymes IU/L results) Serum System [Enzymatic activity/volume] in Serum or Plasma by Heat stability Bilirubin.total 0.3 0.2 - Normal (applies Bilirubin, [facility] [Mass/volume] in mg/dl 1.3 to non-numeric Serum Total Health Serum or Plasma mg/dl results) System Aspartate 17 5 - 40 Normal (applies Aspartate [facility] aminotransferase {IU/L} IU/L to non-numeric Transaminase, Heal th [Enzymatic results) Serum System activity/volume] in Serum or Plasma by With P-5'-P Albumin 3.8 3.9 - Below low normal Albumin, [facility] [Mass/volume] in {gm/dl} 5.0 Serum Health Serum or Plasma gm/dl System I. Phosphorus 2.3 2.5 - Below low normal I. Phosphorus [facility] mg/dl 4.5 Health mg/dl System Alanine 20 7 - 56 Normal (applies Alanine [facility] aminotransferase {IU/L} IU/L to non-numeric Aminotransfer Heal th [Enzymatic results) ase, Serum System activity/volume] in Serum or Plasma Calcium 8.7 8.4 - Normal (applies Calcium, [facility] [Mass/volume] in mg/dl 10.2 to non-numeric Total Serum Health Serum or Plasma mg/dl results) System A/G Ratio 1.65 Normal (applies A/G Ratio [facility] to non-numeric Health results) System Urate 6.8 2.5 - Normal (applies Uric Acid, [facility] [Mass/volume] in mg/dl 7.5 to non-numeric Serum Health Serum or Plasma mg/dl results) System Anion gap in Serum 10.00 8.00 - Normal (applies Anion Gap [facility] or Plasma mmol/L 12.00 to non-numeric Health mmol/L results) System Glomerular 78.41 Normal (applies GFR [facility] filtration to non-numeric Health rate/1.73 sq results) System M.predicted [Volume Rate/Area] in Serum or Plasma by Creatinine-based formula (CKD-EPI) eGFR will provide clinicians with a more accurate indicator of renal function then the serum creatinine. The eGFR is automa tically calculated from an empiric formula (endorsed by the [employer] ion) which incorporates age, sex, and race.Clinicians may notice surprisingly low GFR's with serum creatinine valueswithin normal range- particularly in elderly wo men (with low muscle mass).In the hospital setting, the eGFR should add an element of safety in drug dosing, in assessing the risk of IV contrast administration, and in assessing vascular risk.The NKF staging system is as follows:Normal: eGFR >90 with no kidney markersStage 1: eGFR >90 with kidney markers*Stage 2: eGFR 60- 89Stage 3: eGFR 30-59Stage 4: eGFR 15-29Stage 5: eGFR <15 (usually requir ing dialysis)*Markers include: Proteinuria, Hematuria, abnormal imaging-studies, or other blood or urine test abnormalities ID Date Data Source [id number] 01/15/2014 11:00:00 AM EDT [facility] Name Value Range Interpretation Description Data Sup porting Code Source(s) Document(s ) Phenytoin 8.4 10.0 - Below low normal Phenytoin [facility] [Mass/volume ug/ml 20.0 Level, Serum Health System ] in Serum ug/ml or Plasma ID Date Data Source [id number] 01/15/2014 11:00:00 AM EDT [facility] Name Value Range Interpretation Description Data Sup porting Code Source(s) Document(s ) Amphetamine Negative Negative Normal (applies Amphetamine [facility] [Mass/volume] ng/ml to non-numeric Level, Urine Health in Urine results) System Cut-off = 1000 ng/mL Barbiturates Negative Negative Normal (applies Barbiturate [facility] [Mass/volume] in ng/ml to non-numeric Screen, Urine [facility] System Urine by Screen results) method Cut-off = 200 ng/mL Benzodiazepines Negative Negative Normal Benzodiazepines, [facility] [Mass/volume] in ng/mL (applies to Urine Health Urine non-numeric System results) Cut-off = 200 ng/mL Cocaine Negative Negative Normal (applies Cocaine [facility] metabolites.other ng/ml to non-numeric Metabolite Health System [Mass/volume] in results) Screen, Urine Urine Cut-off = 300 ng/mL Methadone Negative Negative Normal (applies Methadone [facility] [Mass/volume] in to non-numeric Level, Urine Healt h System Urine results) Cut-off = 300 ng/mL Opiate 300, Negative Negative ng/ml Normal (applies to Opiate 300, [facility] Urine non-numeric Urine Health System results) Cut-off = 300 ng/mL Phencyclidine Negative Negative Normal (applies Phencyclidine, [facility] [Mass/volume] in ng/ml to non-numeric Urine Health S ystem Urine results) Cut-off = 25 ng/mL THC Positive Negative ng/mL Abnormal (applies to THC [facility] System non-numeric results) These results are for medical treatment only. The positive findings are unconfirmed. Request confirmatory/quantitative test i f needed. ID Date Data Source [id number] 01/15/2014 06:00:00 AM EDT [facility] Name Value Range Interpretation Description Data Sup porting Code Source(s) Document(s ) Prothrombin 11.00 9.40 - Above high Prothrombin [facility] time (PT) {seconds 10.90 normal time (PT) Health } seconds System INR in Blood 1.06 0.70 - Normal (applies INR Result [facility] by Coagulation {Ratio} 1.10 to non-numeric Health assay Ratio results) System Normal = 0.7-1.1Therapeutic = 2.0-3.0Mec hanical Heart = 3.0-4.5 ID Date Data Source [id number] 01/15/2014 06:00:00 AM EDT [facility] Name Value Range Interpretation Description Data Sup porting Code Source(s) Document(s ) Leukocytes 8.7 4.8 - Normal (applies WBC Count [facility] [#/volume] in {10^3_uL 10.8 to non-numeric Health Unspecified } 10^3 uL results) System specimen by Automated count Erythrocytes 4.11 3.80 - Normal (applies RBC Count [facility] [#/volume] in {10^6_uL 5.20 to non-numeric Health Blood by } 10^6 uL results) System Automated count Hemoglobin 12.9 12.0 - Normal (applies Hemoglobin, [facility] [Mass/volume] in {gm/dL} 16.0 to non-numeric Whole Blood Health Blood gm/dL results) System Hematocrit 38.0 % 36.0 - Normal (applies Hematocrit, [facility] [Volume 46.0 % to non-numeric Whole Blood Health Fraction] of results) System Blood Erythrocyte mean 92.5 fl 80.0 - Normal (applies MCV [facility] corpuscular 100.0 to non-numeric Health volume [Entitic fl results) System volume] by Automated count Erythrocyte mean 31.4 pg 26.0 - Normal (applies MCH [facility] corpuscular 34.0 pg to non-numeric Health hemoglobin results) System [Entitic mass] by Automated count Erythrocyte mean 33.9 33.0 - Normal (applies MCHC [facility] corpuscular {gm/dL} 37.0 to non-numeric Health hemoglobin gm/dL results) System concentration [Mass/volume] by Automated count Erythrocyte 13.6 % 11.5 - Normal (applies RDW [facility] distribution 14.5 % to non-numeric Health width [Entitic results) System volume] by Automated count Platelets 168 130 - Normal (applies Platelet [facility] [#/volume] in {10^3_uL 400 to non-numeric Count Health Plasma by } 10^3 uL results) System Automated count Platelet mean 10.4 fl 7.4 - Normal (applies MPV [facility] volume [Entitic 10.4 fl to non-numeric Health volume] in Blood results) System by Automated count Monocytes 0.5 0.3 - Normal (applies Monocyte [facility] [#/volume] in {10^3_uL 0.9 to non-numeric Count Health Blood by Manual } 10^3 uL results) System count Eosinophils 0.2 0.1 - Normal (applies Eosinophil [facility] [#/volume] in {10^3_uL 0.3 to non-numeric Count Blood Health Blood } 10^3 uL results) System Neutrophils 6.5 2.0 - Normal (applies Absolute [facility] [#/volume] in {10^3_uL 8.1 to non-numeric Neutrophil Health Body fluid } 10^3 uL results) Count System Basophils 0.0 0.0 - Normal (applies Basophil [facility] [#/volume] in {10^3_uL 0.1 to non-numeric Count Health Blood by } 10^3 uL results) System Automated count Lymphocyte 1.4 1.0 - Normal (applies Lymphocyte [facility] Absolute {10^3_uL 5.5 to non-numeric Absolute Health } 10^3 uL results) System Neutrophils/100 74.6 % 0.0 - Normal (applies Neutrophil % [facility] leukocytes in 120.0 % to non-numeric Health Blood by results) System Automated count Monocytes/100 6.1 % 6.0 - Normal (applies Monocyte % [facility] leukocytes in 9.0 % to non-numeric Health Blood results) System Eosinophils/100 2.5 % 1.0 - Normal (applies Eosinophil % [facility] leukocytes in 3.0 % to non-numeric Health Unspecified results) System specimen Basophils/100 0.3 % 0.0 - Normal (applies Basophil % [facility] leukocytes in 1.0 % to non-numeric Health Unspecified results) System specimen by Manual count Lymphocytes 16.5 % 21.0 - Below low normal Lymphocyte % [facility] [#/volume] in 51.0 % Health Blood by System Automated count ID Date Data Source [id number] 12/13/2013 03:20:00 PM EDT [facility] Name Value Range Interpretation Description Data Sup porting Code Source(s) Document(s ) Color YELLOW YELLOW Normal (applies Color [facility] to non-numeric Health results) System Appearance of CLEAR CLEAR Normal (applies Urine [facility] Urine to non-numeric Appearance Health results) System Specific 1.020 Normal (applies Urine [facility] gravity of to non-numeric Specific Health Urine results) [facility] pH.. 7.5 4.6 - Normal (applies pH.. [facility] {pH_units} 8.0 pH to non-numeric Health units results) System Glucose, UA NEGATIVE Normal (applies Glucose, UA [facility] to non-numeric Health results) System Negative Protein NEGATIVE Normal (applies Protein [facility] [Mass/volume] in to non-numeric Health S yste Serum or Plasma results) Bilirubin Urine NEGATIVE Normal (applies Bilirubin Urine [facility] to non-numeric [facility] System results) Urobilinogen 0.20 {eu/dL} 0.20 Normal (applies Urobilinogen UA [facility] [Mass/volume] in - to non-numeric Health S yste Urine 1.00 results) eu/dL Ketones NEGATIVE Normal (applies Ketones UA [facility] [Mass/volume] in to non-numeric Health S yste Urine results) Negative Nitrate+Nitrite NEGATIVE Normal (applies to Nitrite [facility] [Mass/volume] in non-numeric results) Sy stem Unspecified specimen Negative Leukocyte esterase NEGATIVE Normal (applies Leukocyte Aura ase [facility] [Units/volume] in to non-numeric Concentration [facility] System Urine results) Negative Urine Blood NEGATIVE Normal (applies to Urine Blood [facility] non-numeric results) System ID Date Data Source [id number] 12/13/2013 03:20:00 PM EDT [facility] Name Value Range Interpretation Description Data Sup porting Code Source(s) Document(s ) Phenytoin 3.1 10.0 - Below low normal Phenytoin [facility] [Mass/volume ug/ml 20.0 Level, Serum Health System ] in Serum ug/ml or Plasma ID Date Data Source [id number] 12/13/2013 03:20:00 PM EDT [facility] Name Value Range Interpretation Description Data Sup porting Code Source(s) Document(s ) Amphetamine Negative Negative Normal (applies Amphetamine [facility] [Mass/volume] ng/ml to non-numeric Level, Urine Health in Urine results) System Cut-off = 1000 ng/mL Barbiturates Negative Negative Normal (applies Barbiturate [facility] [Mass/volume] in ng/ml to non-numeric Screen, Urine [facility] System Urine by Screen results) method Cut-off = 200 ng/mL Benzodiazepines Negative Negative Normal Benzodiazepines, [facility] [Mass/volume] in ng/mL (applies to Urine Health Urine non-numeric System results) Cut-off = 200 ng/mL Cocaine Negative Negative Normal (applies Cocaine [facility] metabolites.other ng/ml to non-numeric Metabolite [facility] System [Mass/volume] in results) Screen, Urine Urine Cut-off = 300 ng/mL Methadone Negative Negative Normal (applies Methadone [facility] [Mass/volume] in to non-numeric Level, Urine [facility] System Urine results) Cut-off = 300 ng/mL Opiate 300, Negative Negative ng/ml Normal (applies to Opiate 300, [facility] Urine non-numeric Urine Health System results) Cut-off = 300 ng/mL Phencyclidine Negative Negative Normal (applies Phencyclidine, [facility] [Mass/volume] in ng/ml to non-numeric Urine Health S yste Urine results) Cut-off = 25 ng/mL THC Positive Negative ng/mL Abnormal (applies to [facility] non-numeric results) These results are for medical treatment only. The positive findings are unconfirmed. Request confirmatory/quantitative test i f needed. ID Date Data Source [id number] 12/13/2013 11:45:00 AM EDT [facility] Name Value Range Interpretation Description Data Sup porting Code Source(s) Document(s ) Leukocytes 13.7 4.8 - Above high normal WBC Count [facility] [#/volume] in {10^3_uL 10.8 Health System Unspecified } 10^3 uL specimen by Automated count [place] Erythrocytes 4.38 {10^6_uL} 3.80 - Normal (applies RBC Count [facility] [#/volume] in 5.20 to non-numeric Health Syst em Blood by Automated 10^6 uL results) count Hemoglobin 14.1 {gm/dL} 12.0 - Normal (applies Hemoglobin, [facility] [Mass/volume] in 16.0 to non-numeric Whole Blood [facility] System Blood gm/dL results) Hematocrit [Volume 42.2 % 36.0 - Normal (applies Hematocrit, [facility] Fraction] of Blood 46.0 % to non-numeric Whole Blood [facility] System results) Erythrocyte mean 96.3 fl 80.0 - Normal (applies MCV [facility] corpuscular volume 100.0 fl to non-numeric Health System [Entitic volume] results) by Automated count Erythrocyte mean 32.2 pg 26.0 - Normal (applies MCH [facility] corpuscular 34.0 pg to non-numeric [facility] System hemoglobin results) [Entitic mass] by Automated count Erythrocyte mean 33.4 {gm/dL} 33.0 - Normal (applies MCHC [facility] corpuscular 37.0 to non-numeric [facility] System hemoglobin gm/dL results) concentration [Mass/volume] by Automated count Erythrocyte 13.8 % 11.5 - Normal (applies RDW [facility] distribution width 14.5 % to non-numeric Health System [Entitic volume] results) by Automated count Platelets 202 {10^3_uL} 130 - Normal (applies Platelet Count [facility] [#/volume] in 400 10^3 to non-numeric Health Syst em Plasma by uL results) Automated count Platelet mean 9.5 fl 7.4 - Normal (applies MPV [facility] volume [Entitic 10.4 fl to non-numeric Health Sy stem volume] in Blood results) by Automated count Monocytes 0.8 {10^3_uL} 0.3 - Normal (applies Monocyte Count [facility] [#/volume] in 0.9 10^3 to non-numeric Health Syst em Blood by Manual uL results) count Eosinophils 0.1 {10^3_uL} 0.1 - Normal (applies Eosinophil [facility] [#/volume] in 0.3 10^3 to non-numeric Count Blood Health Sy stem Blood uL results) Basophils 0.0 {10^3_uL} 0.0 - Normal (applies Basophil Count [facility] [#/volume] in 0.1 10^3 to non-numeric Health Syst em Blood by Automated uL results) count Neutrophils 10.5 {10^3_uL} 2.0 - Above high Absolute [facility] [#/volume] in Body 8.1 10^3 normal Neutrophil Health Sys tem fluid uL Count Lymphocyte 2.2 {10^3_uL} 1.0 - Normal (applies Lymphocyte [facility] Absolute 5.5 10^3 to non-numeric Absolute Health System uL results) Neutrophils/100 77.0 % 0.0 - Normal (applies Neutrophil % [facility] leukocytes in 120.0 % to non-numeric Health Syst em Blood by Automated results) count Monocytes/100 5.9 % 6.0 - Below low Monocyte % [facility] leukocytes in 9.0 % normal Health System Blood Eosinophils/100 0.7 % 1.0 - Below low Eosinophil % [facility] leukocytes in 3.0 % normal Health System Unspecified specimen Basophils/100 0.3 % 0.0 - Normal (applies Basophil % [facility] leukocytes in 1.0 % to non-numeric Health Syst em Unspecified results) specimen by Manual count Lymphocytes 16.1 % 21.0 - Below low Lymphocyte % [facility] [#/volume] in 51.0 % normal Health System Blood by Automated count ID Date Data Source [id number] 12/13/2013 11:45:00 AM EDT [facility] Name Value Range Interpretation Description Data Sup porting Code Source(s) Document(s ) hCG Less than 5.0 Normal (applies hCG [facility] Quantitative Negative = <5 to non-numeric Quantitative Healt h mIU/mLAPPROXIM results) System ATE GEST. AGE APPROXIMATE HCG mIU/ML 0.2 - 1 week 5 - 50 1 - 2 weeks 50 - 500 2 - 3 weeks 100 - 5,000 3 - 4 weeks 500 - 10,000 4 - 5 weeks 1,000 - 50,000 5 - 6 weeks 10,000 - 100,000 6 - 8 weeks 15,000 - 200,000 8 - 12 weeks 10,000 - 100,000HCG levels between 5-25 mIU/mL may be indicative of early . Correlation with other clinical findings and/or repeat of HCG quantitative testing recommened. ID Date Data Source [id number] 12/13/2013 11:45:00 AM EDT [facility] Name Value Range Interpretation Description Data Sup porting Code Source(s) Document(s ) Sodium 141 137 - Normal (applies Sodium, Serum [facility] [Moles/volum mmol/L 145 to non-numeric Health Syste m e] in Serum mmol/L results) or Plasma Potassium 3.5 3.6 - Below low normal Potassium, [facility] [Mass/volume mmol/L 5.0 Serum Health System ] in Serum mmol/L or Plasma ok Chloride 106 mmol/L 98 - 107 Normal (applies Chloride, [facility] [Moles/volume] in mmol/L to non-numeric Serum Health System Serum or Plasma results) Carbon dioxide, 14.0 mmol/L 22.0 - 30.0 Below low CO2, Serum [facility] total mmol/L normal Health System [Moles/volume] in Serum or Plasma ok Total Protein 7.1 mg/dl 6.3 - 8.2 Normal (applies to Total Protein [facility] mg/dl non-numeric Health System results) Glucose 116 mg/dL 65 - 105 Above high normal Glucose, [facility] [Mass/volume] mg/dL Serum Health System in Serum or Plasma ok Urea nitrogen 9 mg/dl 7 - 18 Normal (applies Blood Urea [facility] [Mass/volume] in mg/dl to non-numeric Nitrogen, Health S yste Serum or Plasma results) Serum Creatinine 0.80 mg/dl 0.70 - Normal (applies Creatinine, [facility] [Mass/volume] in 1.20 to non-numeric Serum Health S yste Serum or Plasma mg/dl results) Alkaline phosphatase 69 {IU/L} 38 - 126 Normal (applies Alkaline [facility] isoenzymes [Enzymatic IU/L to non-numeric Phosphatase, Health System activity/volume] in results) Serum Serum or Plasma by Heat stability Bilirubin.total 0.4 mg/dl 0.2 - 1.3 Normal (applies Bilirubin, [facility] [Mass/volume] in mg/dl to non-numeric Serum Total Health System Serum or Plasma results) Aspartate 15 {IU/L} 5 - 40 Normal (applies Aspartate [facility] aminotransferase IU/L to non-numeric Transaminase, [facility] System [Enzymatic results) Serum activity/volume] in Serum or Plasma by With P-5'-P Albumin [Mass/volume] 4.4 3.9 - 5.0 Normal (applies Albumin, Ser um [facility] in Serum or Plasma {gm/dl} gm/dl to non-numeric Health System results) I. Phosphorus 3.2 mg/dl 2.5 - 4.5 Normal (applies I. Phosphorus [facility] mg/dl to non-numeric Health System results) Alanine 23 {IU/L} 7 - 56 Normal (applies Alanine [facility] aminotransferase IU/L to non-numeric Aminotransfera [facility] [Enzymatic results) se, Serum activity/volume] in Serum or Plasma Calcium [Mass/volume] 8.9 mg/dl 8.4 - Normal (applies Calcium, Tot al [facility] in Serum or Plasma 10.2 to non-numeric Serum Health System mg/dl results) A/G Ratio 1.63 Normal (applies A/G Ratio [facility] to non-numeric Health System results) Urate [Mass/volume] 6.4 mg/dl 2.5 - 7.5 Normal (applies Uric Acid, [facility] in Serum or Plasma mg/dl to non-numeric Serum Health System results) Anion gap in Serum or 21.00 8.00 - Above high Anion Gap [facility] Plasma mmol/L 12.00 normal Health System mmol/L Glomerular filtration 78.45 Normal (applies GFR [facility] rate/1.73 sq to non-numeric Health Syste m M.predicted [Volume results) Rate/Area] in Serum or Plasma by Creatinine-based formula (CKD-EPI) eGFR will provide clinicians with a more accurate indicator of renal function then the serum creatinine. The eGFR is automa tically calculated from an empiric formula (endorsed by the National [employer] ion) which incorporates age, sex, and race.Clinicians may notice surprisingly low GFR's with serum creatinine valueswithin normal range- particularly in elderly wo men (with low muscle mass).In the hospital setting, the eGFR should add an element of safety in drug dosing, in assessing the risk of IV contrast administration, and in assessing vascular risk.The NKF staging system is as follows:Normal: eGFR >90 with no kidney markersStage 1: eGFR >90 with kidney markers*Stage 2: eGFR 60- 89Stage 3: eGFR 30-59Stage 4: eGFR 15-29Stage 5: eGFR <15 (usually requir ing dialysis)*Markers include: Proteinuria, Hematuria, abnormal imaging-studies, or other blood or urine test abnormalities ID Date Data Source [id number] 12/07/2013 11:08:00 AM EDT [facility] System Name Value Range Interpretation Description Data Sup porting Code Source(s) Document(s ) Leukocytes 6.0 4.8 - Normal (applies WBC Count [facility] [#/volume] in {10^3_uL 10.8 to non-numeric Health Unspecified } 10^3 uL results) System specimen by Automated count Erythrocytes 4.32 3.80 - Normal (applies RBC Count [facility] [#/volume] in {10^6_uL 5.20 to non-numeric Health Blood by } 10^6 uL results) System Automated count Hemoglobin 13.8 12.0 - Normal (applies Hemoglobin, [facility] [Mass/volume] in {gm/dL} 16.0 to non-numeric Whole Blood Health Blood gm/dL results) System Hematocrit 40.8 % 36.0 - Normal (applies Hematocrit, [facility] [Volume 46.0 % to non-numeric Whole Blood Health Fraction] of results) System Blood Erythrocyte mean 94.4 fl 80.0 - Normal (applies MCV [facility] corpuscular 100.0 to non-numeric Health volume [Entitic fl results) System volume] by Automated count Erythrocyte mean 31.9 pg 26.0 - Normal (applies MCH [facility] corpuscular 34.0 pg to non-numeric Health hemoglobin results) System [Entitic mass] by Automated count Erythrocyte mean 33.8 33.0 - Normal (applies MCHC [facility] corpuscular {gm/dL} 37.0 to non-numeric Health hemoglobin gm/dL results) System concentration [Mass/volume] by Automated count Erythrocyte 14.0 % 11.5 - Normal (applies RDW [facility] distribution 14.5 % to non-numeric Health width [Entitic results) System volume] by Automated count Platelets 260 130 - Normal (applies Platelet [facility] [#/volume] in {10^3_uL 400 to non-numeric Count Health Plasma by } 10^3 uL results) System Automated count Platelet mean 10.4 fl 7.4 - Normal (applies MPV [facility] volume [Entitic 10.4 fl to non-numeric Health volume] in Blood results) System by Automated count Monocytes 0.4 0.3 - Normal (applies Monocyte [facility] [#/volume] in {10^3_uL 0.9 to non-numeric Count Health Blood by Manual } 10^3 uL results) System count Eosinophils 0.4 0.1 - Above high Eosinophil [facility] [#/volume] in {10^3_uL 0.3 normal Count Blood Health Blood } 10^3 uL System Neutrophils 2.8 2.0 - Normal (applies Absolute [facility] [#/volume] in {10^3_uL 8.1 to non-numeric Neutrophil Health Body fluid } 10^3 uL results) Count System Basophils 0.0 0.0 - Normal (applies Basophil [facility] [#/volume] in {10^3_uL 0.1 to non-numeric Count Health Blood by } 10^3 uL results) System Automated count Lymphocyte 2.3 1.0 - Normal (applies Lymphocyte [facility] Absolute {10^3_uL 5.5 to non-numeric Absolute Health } 10^3 uL results) System Neutrophils/100 47.0 % 0.0 - Normal (applies Neutrophil % [facility] leukocytes in 120.0 % to non-numeric Health Blood by results) System Automated count Monocytes/100 6.9 % 6.0 - Normal (applies Monocyte % [facility] leukocytes in 9.0 % to non-numeric Health Blood results) System Eosinophils/100 7.4 % 1.0 - Above high Eosinophil % [facility] leukocytes in 3.0 % normal Health Unspecified System specimen Basophils/100 0.5 % 0.0 - Normal (applies Basophil % [facility] leukocytes in 1.0 % to non-numeric Health Unspecified results) System specimen by Manual count Lymphocytes 38.2 % 21.0 - Normal (applies Lymphocyte % [facility] [#/volume] in 51.0 % to non-numeric Health Blood by results) System Automated count ID Date Data Source [id number] 12/07/2013 11:08:00 AM EDT [facility] Name Value Range Interpretation Description Data Sup porting Code Source(s) Document(s ) Sodium 141 137 - Normal (applies Sodium, Serum [facility] [Moles/volume] in mmol/L 145 to non-numeric Health Serum or Plasma mmol/L results) System Potassium 4.3 3.6 - Normal (applies Potassium, [facility] [Mass/volume] in mmol/L 5.0 to non-numeric Serum Health Serum or Plasma mmol/L results) System Chloride 105 98 - Normal (applies Chloride, [facility] [Moles/volume] in mmol/L 107 to non-numeric Serum Health Serum or Plasma mmol/L results) System Carbon dioxide, 25.0 22.0 - Normal (applies CO2, Serum [facility] total mmol/L 30.0 to non-numeric Health [Moles/volume] in mmol/L results) System Serum or Plasma Total Protein 7.1 6.3 - Normal (applies Total Protein [facility] mg/dl 8.2 to non-numeric Health mg/dl results) System Glucose 162 65 - Above high Glucose, [facility] [Mass/volume] in mg/dL 105 normal Serum Health Serum or Plasma mg/dL System Urea nitrogen 13 7 - 18 Normal (applies Blood Urea [facility] [Mass/volume] in mg/dl mg/dl to non-numeric Nitrogen, Health Serum or Plasma results) Serum System Creatinine 1.00 0.70 - Normal (applies Creatinine, [facility] [Mass/volume] in mg/dl 1.20 to non-numeric Serum Health Serum or Plasma mg/dl results) System Alkaline 63 38 - Normal (applies Alkaline [facility] phosphatase {IU/L} 126 to non-numeric Phosphatase, [facility] isoenzymes IU/L results) Serum System [Enzymatic activity/volume] in Serum or Plasma by Heat stability Bilirubin.total 0.4 0.2 - Normal (applies Bilirubin, [facility] [Mass/volume] in mg/dl 1.3 to non-numeric Serum Total Health Serum or Plasma mg/dl results) System Aspartate 16 5 - 40 Normal (applies Aspartate [facility] aminotransferase {IU/L} IU/L to non-numeric Transaminase, Heal th [Enzymatic results) Serum System activity/volume] in Serum or Plasma by With P-5'-P Albumin 4.3 3.9 - Normal (applies Albumin, [facility] [Mass/volume] in {gm/dl} 5.0 to non-numeric Serum Health Serum or Plasma gm/dl results) System I. Phosphorus 3.1 2.5 - Normal (applies I. Phosphorus [facility] mg/dl 4.5 to non-numeric Health mg/dl results) System Alanine 14 7 - 56 Normal (applies Alanine [facility] aminotransferase {IU/L} IU/L to non-numeric Aminotransfer Heal th [Enzymatic results) ase, Serum System activity/volume] in Serum or Plasma Calcium 9.4 8.4 - Normal (applies Calcium, [facility] [Mass/volume] in mg/dl 10.2 to non-numeric Total Serum Health Serum or Plasma mg/dl results) System A/G Ratio 1.54 Normal (applies A/G Ratio [facility] to non-numeric Health results) System Urate 4.7 2.5 - Normal (applies Uric Acid, [facility] [Mass/volume] in mg/dl 7.5 to non-numeric Serum Health Serum or Plasma mg/dl results) System Anion gap in Serum 11.00 8.00 - Normal (applies Anion Gap [facility] or Plasma mmol/L 12.00 to non-numeric Health mmol/L results) System Glomerular 60.64 Normal (applies GFR [facility] filtration to non-numeric Health rate/1.73 sq results) System M.predicted [Volume Rate/Area] in Serum or Plasma by Creatinine-based formula (CKD-EPI) eGFR will provide clinicians with a more accurate indicator of renal function then the serum creatinine. The eGFR is automa tically calculated from an empiric formula (endorsed by the [employer] ion) which incorporates age, sex, and race.Clinicians may notice surprisingly low GFR's with serum creatinine valueswithin normal range- particularly in elderly wo men (with low muscle mass).In the hospital setting, the eGFR should add an element of safety in drug dosing, in assessing the risk of IV contrast administration, and in assessing vascular risk.The NKF staging system is as follows:Normal: eGFR >90 with no kidney markersStage 1: eGFR >90 with kidney markers*Stage 2: eGFR 60- 89Stage 3: eGFR 30-59Stage 4: eGFR 15-29Stage 5: eGFR <15 (usually requir ing dialysis)*Markers include: Proteinuria, Hematuria, abnormal imaging-studies, or other blood or urine test abnormalities ID Date Data Source [id number] 12/07/2013 11:08:00 AM EDT [facility] Name Value Range Interpretation Description Data Sup porting Code Source(s) Document(s ) Phenytoin 3.4 10.0 - Below low normal Phenytoin [facility] [Mass/volume ug/ml 20.0 Level, Serum Health System ] in Serum ug/ml or Plasma ID Date Data Source [id number] 12/07/2013 11:08:00 AM EDT [facility] System Name Value Range Interpretation Description Data Sup porting Code Source(s) Document(s ) Triglyceride 51 mg/dl 35 - 135 Normal (applies Triglycerides [facility] [Mass/volume] mg/dl to non-numeric , Serum Health in Serum or results) System Plasma Optimal = < 100 mg/dLBoderline High = 15 0 - 199 mg/dLHigh = 200 - 499 mg/dLVery High = > 500 mg/dL Cholesterol 212 mg/dl *.* mg/dl Above high Cholesterol, [facility] [Mass/volume] in normal Serum Health System Serum or Plasma <200 mg/dL = [id number] - 239 md/dL = Borderline>240 mg/dL = High Risk Cholesterol in HDL 58.0 mg/dL 32.0 - Normal (applies HDL Choleste rol, [facility] [Mass/volume] in 75.0 mg/dL to non-numeric Serum Health System Serum or Plasma results) Cholesterol in LDL 143.8 Normal (applies Low Density [facility] [Mass/volume] in mg/dL to non-numeric Lipoprotein, Healt h System Serum or Plasma results) Calculated OPTIMAL: LESS THAN 100 mg/dLNEAR OPTIMAL : 100 - 129 mg/dLBODERLINE HIGH: 130 - 150 mg/dL Cholesterol in VLDL 10.2 Normal (applies to VLDL, Serum [facility] [Mass/volume] in non-numeric System Serum or Plasma results) CHD Risk 3.66 2.40 - Normal (applies to CHD Risk [facility] 5.30 non-numeric System results) ID Date Data Source [id number] 10/29/2013 09:50:00 AM EDT [facility] System Name Value Range Interpretation Description Data Sup porting Code Source(s) Document(s ) Prothrombin Cancelled Prothrombin [facility] time (PT) time (PT) Health System INR in Blood Cancelled INR Result [facility] by Coagulation no specimen Health assay received System ID Date Data Source [id number] 10/29/2013 09:50:00 AM EDT [facility] System Name Value Range Interpretation Description Data Sup porting Code Source(s) Document(s ) Leukocytes 6.1 4.8 - Normal (applies WBC Count [facility] [#/volume] in {10^3_uL 10.8 to non-numeric Health Unspecified } 10^3 uL results) System specimen by Automated count Erythrocytes 4.36 3.80 - Normal (applies RBC Count [facility] [#/volume] in {10^6_uL 5.20 to non-numeric Health Blood by } 10^6 uL results) System Automated count Hemoglobin 13.7 12.0 - Normal (applies Hemoglobin, [facility] [Mass/volume] in {gm/dL} 16.0 to non-numeric Whole Blood Health Blood gm/dL results) System Hematocrit 40.8 % 36.0 - Normal (applies Hematocrit, [facility] [Volume 46.0 % to non-numeric Whole Blood Health Fraction] of results) System Blood Erythrocyte mean 93.6 fl 80.0 - Normal (applies MCV [facility] corpuscular 100.0 to non-numeric Health volume [Entitic fl results) System volume] by Automated count Erythrocyte mean 31.4 pg 26.0 - Normal (applies MCH [facility] corpuscular 34.0 pg to non-numeric Health hemoglobin results) System [Entitic mass] by Automated count Erythrocyte mean 33.6 33.0 - Normal (applies MCHC [facility] corpuscular {gm/dL} 37.0 to non-numeric Health hemoglobin gm/dL results) System concentration [Mass/volume] by Automated count Erythrocyte 13.8 % 11.5 - Normal (applies RDW [facility] distribution 14.5 % to non-numeric Health width [Entitic results) System volume] by Automated count Platelets 256 130 - Normal (applies Platelet [facility] [#/volume] in {10^3_uL 400 to non-numeric Count Health Plasma by } 10^3 uL results) System Automated count Platelet mean 9.7 fl 7.4 - Normal (applies MPV [facility] volume [Entitic 10.4 fl to non-numeric Health volume] in Blood results) System by Automated count Monocytes 0.4 0.3 - Normal (applies Monocyte [facility] [#/volume] in {10^3_uL 0.9 to non-numeric Count Health Blood by Manual } 10^3 uL results) System count Eosinophils 0.3 0.1 - Normal (applies Eosinophil [facility] [#/volume] in {10^3_uL 0.3 to non-numeric Count Blood Health Blood } 10^3 uL results) System Neutrophils 3.5 2.0 - Normal (applies Absolute [facility] [#/volume] in {10^3_uL 8.1 to non-numeric Neutrophil Health Body fluid } 10^3 uL results) Count System Basophils 0.1 0.0 - Normal (applies Basophil [facility] [#/volume] in {10^3_uL 0.1 to non-numeric Count Health Blood by } 10^3 uL results) System Automated count Lymphocyte 1.9 1.0 - Normal (applies Lymphocyte [facility] Absolute {10^3_uL 5.5 to non-numeric Absolute Health } 10^3 uL results) System Neutrophils/100 57.5 % 0.0 - Normal (applies Neutrophil % [facility] leukocytes in 120.0 % to non-numeric Health Blood by results) System Automated count Monocytes/100 6.7 % 6.0 - Normal (applies Monocyte % [facility] leukocytes in 9.0 % to non-numeric Health Blood results) System Eosinophils/100 4.6 % 1.0 - Above high Eosinophil % [facility] leukocytes in 3.0 % normal Health Unspecified System specimen Basophils/100 1.0 % 0.0 - Normal (applies Basophil % [facility] leukocytes in 1.0 % to non-numeric Health Unspecified results) System specimen by Manual count Lymphocytes 30.2 % 21.0 - Normal (applies Lymphocyte % [facility] [#/volume] in 51.0 % to non-numeric Health Blood by results) System Automated count ID Date Data Source [id number] 10/29/2013 09:50:00 AM EDT [facility] Name Value Range Interpretation Description Data Sup porting Code Source(s) Document(s ) hCG Less than 1.20 Normal (applies hCG [facility] Quantitative Negative = <5 to non-numeric Quantitative Healt h mIU/mLAPPROXIM results) System ATE GEST. AGE APPROXIMATE HCG mIU/ML 0.2 - 1 week 5 - 50 1 - 2 weeks 50 - 500 2 - 3 weeks 100 - 5,000 3 - 4 weeks 500 - 10,000 4 - 5 weeks 1,000 - 50,000 5 - 6 weeks 10,000 - 100,000 6 - 8 weeks 15,000 - 200,000 8 - 12 weeks 10,000 - 100,000HCG levels between 5-25 mIU/mL may be indicative of early . Correlation with other clinical findings and/or repeat of HCG quantitative testing recommened. ID Date Data Source [id number] 10/29/2013 09:50:00 AM EDT [facility] Name Value Range Interpretation Description Data Sup porting Code Source(s) Document(s ) Sodium 139 137 - Normal (applies Sodium, Serum [facility] [Moles/volume] in mmol/L 145 to non-numeric Health Serum or Plasma mmol/L results) System Potassium 5.2 3.6 - Above high Potassium, [facility] [Mass/volume] in mmol/L 5.0 normal Serum Health Serum or Plasma mmol/L System Chloride 108 98 - Above high Chloride, [facility] [Moles/volume] in mmol/L 107 normal Serum Health Serum or Plasma mmol/L System Carbon dioxide, 19.0 22.0 - Below low normal CO2, Serum [facility] total mmol/L 30.0 Health [Moles/volume] in mmol/L System Serum or Plasma Total Protein 7.3 6.3 - Normal (applies Total Protein [facility] mg/dl 8.2 to non-numeric Health mg/dl results) System Glucose 111 65 - Above high Glucose, [facility] [Mass/volume] in mg/dL 105 normal Serum Health Serum or Plasma mg/dL System Urea nitrogen 9 mg/dl 7 - 18 Normal (applies Blood Urea [facility] [Mass/volume] in mg/dl to non-numeric Nitrogen, Health Serum or Plasma results) Serum System Creatinine 0.80 0.70 - Normal (applies Creatinine, [facility] [Mass/volume] in mg/dl 1.20 to non-numeric Serum Health Serum or Plasma mg/dl results) System Alkaline 61 38 - Normal (applies Alkaline [facility] phosphatase {IU/L} 126 to non-numeric Phosphatase, Health isoenzymes IU/L results) Serum System [Enzymatic activity/volume] in Serum or Plasma by Heat stability Bilirubin.total 0.2 0.2 - Normal (applies Bilirubin, [facility] [Mass/volume] in mg/dl 1.3 to non-numeric Serum Total Health Serum or Plasma mg/dl results) System Aspartate 21 5 - 40 Normal (applies Aspartate [facility] aminotransferase {IU/L} IU/L to non-numeric Transaminase, Heal th [Enzymatic results) Serum System activity/volume] in Serum or Plasma by With P-5'-P Albumin 4.1 3.9 - Normal (applies Albumin, [facility] [Mass/volume] in {gm/dl} 5.0 to non-numeric Serum Health Serum or Plasma gm/dl results) System I. Phosphorus 2.9 2.5 - Normal (applies I. Phosphorus [facility] mg/dl 4.5 to non-numeric Health mg/dl results) System Alanine 18 7 - 56 Normal (applies Alanine [facility] aminotransferase {IU/L} IU/L to non-numeric Aminotransfer Heal th [Enzymatic results) ase, Serum System activity/volume] in Serum or Plasma Calcium 9.0 8.4 - Normal (applies Calcium, [facility] [Mass/volume] in mg/dl 10.2 to non-numeric Total Serum Health Serum or Plasma mg/dl results) System A/G Ratio 1.28 Normal (applies A/G Ratio [facility] to non-numeric Health results) System Urate 5.8 2.5 - Normal (applies Uric Acid, [facility] [Mass/volume] in mg/dl 7.5 to non-numeric Serum Health Serum or Plasma mg/dl results) System Anion gap in Serum 12.00 8.00 - Normal (applies Anion Gap [facility] or Plasma mmol/L 12.00 to non-numeric Health mmol/L results) System Glomerular 78.49 Normal (applies GFR [facility] filtration to non-numeric Health rate/1.73 sq results) System M.predicted [Volume Rate/Area] in Serum or Plasma by Creatinine-based formula (CKD-EPI) eGFR will provide clinicians with a more accurate indicator of renal function then the serum creatinine. The eGFR is automa tically calculated from an empiric formula (endorsed by the [employer] ion) which incorporates age, sex, and race.Clinicians may notice surprisingly low GFR's with serum creatinine valueswithin normal range- particularly in elderly wo men (with low muscle mass).In the hospital setting, the eGFR should add an element of safety in drug dosing, in assessing the risk of IV contrast administration, and in assessing vascular risk.The NKF staging system is as follows:Normal: eGFR >90 with no kidney markersStage 1: eGFR >90 with kidney markers*Stage 2: eGFR 60- 89Stage 3: eGFR 30-59Stage 4: eGFR 15-29Stage 5: eGFR <15 (usually requir ing dialysis)*Markers include: Proteinuria, Hematuria, abnormal imaging-studies, or other blood or urine test abnormalities ID Date Data Source [id number] 10/29/2013 09:50:00 AM EDT [facility] System Name Value Range Interpretation Description Data Sup porting Code Source(s) Document(s ) Phenytoin 5.6 10.0 - Below low normal Phenytoin [facility] [Mass/volume ug/ml 20.0 Level, Serum Health System ] in Serum ug/ml or Plasma ID Date Data Source [id number] 09/16/2013 10:45:00 PM EST [facility] Name Value Range Interpretation Description Data Sup porting Code Source(s) Document(s ) Leukocytes 8.1 4.8 - Normal (applies WBC Count [facility] [#/volume] in {10^3_uL 10.8 to non-numeric Health Unspecified } 10^3 uL results) System specimen by Automated count Erythrocytes 3.84 3.80 - Normal (applies RBC Count [facility] [#/volume] in {10^6_uL 5.20 to non-numeric Health Blood by } 10^6 uL results) System Automated count Hemoglobin 12.3 12.0 - Normal (applies Hemoglobin, [facility] [Mass/volume] in {gm/dL} 16.0 to non-numeric Whole Blood Health Blood gm/dL results) System Hematocrit 35.9 % 36.0 - Below low normal Hematocrit, [facility] [Volume 46.0 % Whole Blood Health Fraction] of System Blood Erythrocyte mean 93.5 fl 80.0 - Normal (applies MCV [facility] corpuscular 100.0 to non-numeric Health volume [Entitic fl results) System volume] by Automated count Erythrocyte mean 32.0 pg 26.0 - Normal (applies MCH [facility] corpuscular 34.0 pg to non-numeric Health hemoglobin results) System [Entitic mass] by Automated count Erythrocyte mean 34.3 33.0 - Normal (applies MCHC [facility] corpuscular {gm/dL} 37.0 to non-numeric Health hemoglobin gm/dL results) System concentration [Mass/volume] by Automated count Erythrocyte 13.7 % 11.5 - Normal (applies RDW [facility] distribution 14.5 % to non-numeric Health width [Entitic results) System volume] by Automated count Platelets 256 130 - Normal (applies Platelet [facility] [#/volume] in {10^3_uL 400 to non-numeric Count Health Plasma by } 10^3 uL results) System Automated count ok Platelet mean 10.7 fl 7.4 - 10.4 Above high MPV [facility] volume [Entitic fl normal Health System volume] in Blood by Automated count Monocytes 0.5 0.3 - 0.9 Normal Monocyte Count [facility] [#/volume] in {10^3_uL} 10^3 uL (applies to Health System Blood by Manual non-numeric count results) Eosinophils 0.4 0.1 - 0.3 Above high Eosinophil Count [facility] [#/volume] in {10^3_uL} 10^3 uL normal Blood Health System Blood Basophils 0.0 0.0 - 0.1 Normal Basophil Count [facility] [#/volume] in {10^3_uL} 10^3 uL (applies to Health System Blood by Automated non-numeric count results) Neutrophils 5.5 2.0 - 8.1 Normal Absolute [facility] [#/volume] in Body {10^3_uL} 10^3 uL (applies to Neutrophil Count He alth System fluid non-numeric results) Lymphocyte 1.7 1.0 - 5.5 Normal Lymphocyte [facility] Absolute {10^3_uL} 10^3 uL (applies to Absolute Health System non-numeric results) Neutrophils/100 67.9 % 0.0 - Normal Neutrophil % [facility] leukocytes in 120.0 % (applies to Health System Blood by Automated non-numeric count results) Monocytes/100 6.4 % 6.0 - 9.0 Normal Monocyte % [facility] leukocytes in % (applies to Health System Blood non-numeric results) Eosinophils/100 4.3 % 1.0 - 3.0 Above high Eosinophil % [facility] leukocytes in % normal Health System Unspecified specimen Basophils/100 0.4 % 0.0 - 1.0 Normal Basophil % [facility] leukocytes in % (applies to Health System Unspecified non-numeric specimen by Manual results) count Lymphocytes 21.0 % 21.0 - Normal Lymphocyte % [facility] [#/volume] in 51.0 % (applies to Health System Blood by Automated non-numeric count results) ID Date Data Source [id number] 09/16/2013 10:45:00 PM EST [facility] Name Value Range Interpretation Description Data Sup porting Code Source(s) Document(s ) HCG NEGATIVE Negative Normal (applies HCG [facility] Qualitative mIU/ml to non-numeric Qualitative Health results) System Default Normal RangesNegative <5Indeterm inate 5-25(Please repeat in 2 days.)Positive >25 ID Date Data Source [id number] 09/16/2013 10:45:00 PM EST [facility] Name Value Range Interpretation Description Data Sup porting Code Source(s) Document(s ) Sodium 137 137 - Normal (applies Sodium, Serum [facility] [Moles/volu mmol/L 145 to non-numeric Health System me] in mmol/L results) Serum or Plasma Chloride 103 98 - 107 Normal (applies Chloride, [facility] [Moles/volu mmol/L mmol/L to non-numeric Serum Health System me] in results) Serum or Plasma Carbon 18.0 22.0 - Below low normal CO2, Serum [facility] dioxide, mmol/L 30.0 Health System total mmol/L [Moles/volu me] in Serum or Plasma HEMOLYZED Total Protein 7.4 mg/dl 6.3 - 8.2 Normal (applies Total Protein [facility] mg/dl to non-numeric [facility] System results) Glucose [Mass/volume] 127 mg/dL 65 - 105 Above high Glucose, [facility] in Serum or Plasma mg/dL normal Serum Health Syst em Urea nitrogen 11 mg/dl 7 - 18 Normal (applies Blood Urea [facility] [Mass/volume] in mg/dl to non-numeric Nitrogen, Health S ystem Serum or Plasma results) Serum Creatinine 0.80 mg/dl 0.70 - Normal (applies Creatinine, [facility] [Mass/volume] in 1.20 mg/dl to non-numeric Serum Health System Serum or Plasma results) Alkaline phosphatase 68 {IU/L} 38 - 126 Normal (applies Alkaline [facility] isoenzymes [Enzymatic IU/L to non-numeric Phosphatase, Health System activity/volume] in results) Serum Serum or Plasma by Heat stability Bilirubin.total 0.1 mg/dl 0.2 - 1.3 Below low Bilirubin, [facility] [Mass/volume] in mg/dl normal Serum Total Health Syst em Serum or Plasma Aspartate 61 {IU/L} 5 - 40 Above high Aspartate [facility] aminotransferase IU/L normal Transaminase, Health Sy stem [Enzymatic Serum activity/volume] in Serum or Plasma by With P-5'-P HEMOLYZED Albumin [Mass/volume] 3.4 {gm/dl} 3.9 - 5.0 Below low Albumin, Serum [facility] in Serum or Plasma gm/dl normal Health Syst em I. Phosphorus 3.9 mg/dl 2.5 - 4.5 Normal I. Phosphorus [facility] mg/dl (applies to Health System non-numeric results) Alanine 71 {IU/L} 7 - 56 Above high Alanine [facility] aminotransferase IU/L normal Aminotransferas Health System [Enzymatic e, Serum activity/volume] in Serum or Plasma HEMOLYZED Calcium 8.4 mg/dl 8.4 - 10.2 Normal (applies Calcium, [facility] [Mass/volume] in mg/dl to non-numeric Total Serum Health System Serum or Plasma results) A/G Ratio 0.85 Normal (applies A/G Ratio [facility] to non-numeric Health System results) Urate [Mass/volume] 5.1 mg/dl 2.5 - 7.5 Normal (applies Uric Acid, [facility] in Serum or Plasma mg/dl to non-numeric Serum Health System results) Anion gap in Serum 16.00 8.00 - Above high Anion Gap [facility] or Plasma mmol/L 12.00 normal Health System mmol/L Glomerular 78.54 Normal (applies GFR [facility] filtration to non-numeric Health System rate/1.73 sq results) M.predicted [Volume Rate/Area] in Serum or Plasma by Creatinine-based formula (CKD-EPI) eGFR will provide clinicians with a more accurate indicator of renal function then the serum creatinine. The eGFR is automa tically calculated from an empiric formula (endorsed by the [employer]) which incorporates age, sex, and race.Clinicians may notice surprisingly low GFR's with serum creatinine valueswithin normal range- particularly in elderly wo men (with low muscle mass).In the hospital setting, the eGFR should add an element of safety in drug dosing, in assessing the risk of IV contrast administration, and in assessing vascular risk.The NKF staging system is as follows:Normal: eGFR >90 with no kidney markersStage 1: eGFR >90 with kidney markers*Stage 2: eGFR 60- 89Stage 3: eGFR 30-59Stage 4: eGFR 15-29Stage 5: eGFR <15 (usually requir ing dialysis)*Markers include: Proteinuria, Hematuria, abnormal imaging-studies, or other blood or urine test abnormalities ID Date Data Source [id number] 09/16/2013 10:45:00 PM EST [facility] Name Value Range Interpretation Description Data Sup porting Code Source(s) Document(s ) Phenytoin 3.1 10.0 - Below low normal Phenytoin [facility] [Mass/volume ug/ml 20.0 Level, Serum [facility] ] in Serum ug/ml or Plasma ID Date Data Source [id number] 09/14/2013 05:40:00 AM EST [facility] Name Value Range Interpretation Description Data Sup porting Code Source(s) Document(s ) Leukocytes 8.5 4.8 - Normal (applies WBC Count [facility] [#/volume] in {10^3_uL 10.8 to non-numeric Health Syst em Unspecified } 10^3 uL results) specimen by Automated count [place] Erythrocytes 4.26 {10^6_uL} 3.80 - Normal (applies RBC Count [facility] [#/volume] in 5.20 to non-numeric Health Syst em Blood by Automated 10^6 uL results) count Hemoglobin 13.3 {gm/dL} 12.0 - Normal (applies Hemoglobin, [facility] [Mass/volume] in 16.0 to non-numeric Whole Blood [facility] Blood gm/dL results) Hematocrit [Volume 39.2 % 36.0 - Normal (applies Hematocrit, [facility] Fraction] of Blood 46.0 % to non-numeric Whole Blood [facility] System results) Erythrocyte mean 92.0 fl 80.0 - Normal (applies MCV [facility] corpuscular volume 100.0 fl to non-numeric Health System [Entitic volume] results) by Automated count Erythrocyte mean 31.2 pg 26.0 - Normal (applies MCH [facility] corpuscular 34.0 pg to non-numeric Health System hemoglobin results) [Entitic mass] by Automated count Erythrocyte mean 33.9 {gm/dL} 33.0 - Normal (applies MCHC [facility] corpuscular 37.0 to non-numeric Health System hemoglobin gm/dL results) concentration [Mass/volume] by Automated count Erythrocyte 13.3 % 11.5 - Normal (applies RDW [facility] distribution width 14.5 % to non-numeric Health System [Entitic volume] results) by Automated count Platelets 179 {10^3_uL} 130 - Normal (applies Platelet Count [facility] [#/volume] in 400 10^3 to non-numeric Health Syst em Plasma by uL results) Automated count Platelet mean 10.4 fl 7.4 - Normal (applies MPV [facility] volume [Entitic 10.4 fl to non-numeric Health Sy stem volume] in Blood results) by Automated count Monocytes 1.5 {10^3_uL} 0.3 - Above high Monocyte Count [facility] [#/volume] in 0.9 10^3 normal Health System Blood by Manual uL count Eosinophils 0.1 {10^3_uL} 0.1 - Normal (applies Eosinophil [facility] [#/volume] in 0.3 10^3 to non-numeric Count Blood Health Sy stem Blood uL results) Basophils 0.0 {10^3_uL} 0.0 - Normal (applies Basophil Count [facility] [#/volume] in 0.1 10^3 to non-numeric Health Syst em Blood by Automated uL results) count Neutrophils 5.6 {10^3_uL} 2.0 - Normal (applies Absolute [facility] [#/volume] in Body 8.1 10^3 to non-numeric Neutrophil [facility]alt [facility] System fluid uL results) Count Lymphocyte 1.2 {10^3_uL} 1.0 - Normal (applies Lymphocyte [facility] Absolute 5.5 10^3 to non-numeric Absolute [facility] uL results) Neutrophils/100 66.2 % 0.0 - Normal (applies Neutrophil % [facility] leukocytes in 120.0 % to non-numeric Health Syst em Blood by Automated results) count Monocytes/100 17.5 % 6.0 - Above high Monocyte % [facility] leukocytes in 9.0 % normal Health System Blood Eosinophils/100 1.3 % 1.0 - Normal (applies Eosinophil % [facility] leukocytes in 3.0 % to non-numeric Health Syst em Unspecified results) specimen Basophils/100 0.4 % 0.0 - Normal (applies Basophil % [facility] leukocytes in 1.0 % to non-numeric [facility] Syst em Unspecified results) specimen by Manual count Lymphocytes 14.6 % 21.0 - Below low Lymphocyte % [facility] [#/volume] in 51.0 % normal Health System Blood by Automated count ID Date Data Source [id number] 09/14/2013 05:40:00 AM EST [facility] Name Value Range Interpretation Description Data Sup porting Code Source(s) Document(s ) Sodium 135 137 - Below low normal Sodium, Serum [facility] [Moles/volum mmol/L 145 [facility] System e] in Serum mmol/L or Plasma Potassium 4.2 3.6 - Normal (applies Potassium, [facility] [Mass/volume mmol/L 5.0 to non-numeric Serum Health Syste m ] in Serum mmol/L results) or Plasma ok Chloride 101 mmol/L 98 - 107 Normal (applies Chloride, [facility] [Moles/volume] in mmol/L to non-numeric Serum Health System Serum or Plasma results) Carbon dioxide, 23.0 mmol/L 22.0 - 30.0 Normal (applies CO2, Serum [facility] total mmol/L to non-numeric [facility] System [Moles/volume] in results) Serum or Plasma ok Total Protein 6.2 mg/dl 6.3 - 8.2 Below low Total Protein [facility] mg/dl normal System Glucose 124 mg/dL 65 - 105 Above high Glucose, Serum [facility] [Mass/volume] mg/dL normal System in Serum or Plasma ok Urea nitrogen 6 mg/dl 7 - 18 Below low Blood Urea [facility] [Mass/volume] in Serum mg/dl normal Nitrogen, Serum H ealth System or Plasma Creatinine 0.80 mg/dl 0.70 - Normal Creatinine, [facility] [Mass/volume] in Serum 1.20 mg/dl (applies to Serum Heal th System or Plasma non-numeric results) Alkaline phosphatase 95 {IU/L} 38 - 126 Normal Alkaline [facility] isoenzymes [Enzymatic IU/L (applies to Phosphatase, Hea lth System activity/volume] in non-numeric Serum Serum or Plasma by results) Heat stability Bilirubin.total 0.4 mg/dl 0.2 - 1.3 Normal Bilirubin, [facility] [Mass/volume] in Serum mg/dl (applies to Serum Total Hea lth System or Plasma non-numeric results) Aspartate 31 {IU/L} 5 - 40 Normal Aspartate [facility] aminotransferase IU/L (applies to Transaminase, Health System [Enzymatic non-numeric Serum activity/volume] in results) Serum or Plasma by With P-5'-P Albumin [Mass/volume] 3.6 3.9 - 5.0 Below low Albumin, Serum [facility] in Serum or Plasma {gm/dl} gm/dl normal Health Syst em I. Phosphorus 2.8 mg/dl 2.5 - 4.5 Normal I. Phosphorus [facility] mg/dl (applies to Health System non-numeric results) Alanine 43 {IU/L} 7 - 56 Normal Alanine [facility] aminotransferase IU/L (applies to Aminotransferas Healt h System [Enzymatic non-numeric e, Serum activity/volume] in results) Serum or Plasma Calcium [Mass/volume] 8.6 mg/dl 8.4 - 10.2 Normal Calcium, Total [facility] in Serum or Plasma mg/dl (applies to Serum Health Sy stem non-numeric results) A/G Ratio 1.38 Normal A/G Ratio [facility] (applies to Health System non-numeric results) Urate [Mass/volume] in 3.7 mg/dl 2.5 - 7.5 Normal Uric Acid, [facility] Serum or Plasma mg/dl (applies to Serum Health Syste m non-numeric results) Anion gap in Serum or 11.00 8.00 - Normal Anion Gap [facility] Plasma mmol/L 12.00 (applies to Health System mmol/L non-numeric results) Glomerular filtration 78.54 Normal GFR [facility] rate/1.73 sq (applies to Health System M.predicted [Volume non-numeric Rate/Area] in Serum or results) Plasma by Creatinine-based formula (CKD-EPI) eGFR will provide clinicians with a more accurate indicator of renal function then the serum creatinine. The eGFR is automa tically calculated from an empiric formula (endorsed by the [employer] ion) which incorporates age, sex, and race.Clinicians may notice surprisingly low GFR's with serum creatinine valueswithin normal range- particularly in elderly wo men (with low muscle mass).In the hospital setting, the eGFR should add an element of safety in drug dosing, in assessing the risk of IV contrast administration, and in assessing vascular risk.The NKF staging system is as follows:Normal: eGFR >90 with no kidney markersStage 1: eGFR >90 with kidney markers*Stage 2: eGFR 60- 89Stage 3: eGFR 30-59Stage 4: eGFR 15-29Stage 5: eGFR <15 (usually requir ing dialysis)*Markers include: Proteinuria, Hematuria, abnormal imaging-studies, or other blood or urine test abnormalities ID Date Data Source [id number] 09/14/2013 05:40:00 AM EST [facility] Name Value Range Interpretation Description Data Sup porting Code Source(s) Document(s ) Phenytoin 19.1 10.0 - Normal (applies Phenytoin [facility] [Mass/volume ug/ml 20.0 to non-numeric Level, Serum Health Sy stem ] in Serum ug/ml results) or Plasma ID Date Data Source [id number] 09/13/2013 06:40:00 AM EST [facility] 2 sets of blood culture for leukocytosis . Name Value Range Interpretation Description Data Sup porting Code Source(s) Document(s ) Bacteria NO GROWTH Culture [facility] identified in Bacteria Blood Health Syst em Blood by Aerobe culture ID Date Data Source [id number] 09/13/2013 06:40:00 AM EST [facility] Name Value Range Interpretation Description Data Sup porting Code Source(s) Document(s ) Leukocytes 18.0 4.8 - Above high WBC Count [facility] [#/volume] in {10^3_uL 10.8 normal Health Unspecified } 10^3 uL System specimen by Automated count Erythrocytes 4.41 3.80 - Normal (applies RBC Count [facility] [#/volume] in {10^6_uL 5.20 to non-numeric Health Blood by } 10^6 uL results) System Automated count Hemoglobin 13.7 12.0 - Normal (applies Hemoglobin, [facility] [Mass/volume] in {gm/dL} 16.0 to non-numeric Whole Blood Health Blood gm/dL results) System Hematocrit 40.4 % 36.0 - Normal (applies Hematocrit, [facility] [Volume 46.0 % to non-numeric Whole Blood Health Fraction] of results) System Blood Erythrocyte mean 91.6 fl 80.0 - Normal (applies MCV [facility] corpuscular 100.0 to non-numeric Health volume [Entitic fl results) System volume] by Automated count Erythrocyte mean 31.1 pg 26.0 - Normal (applies MCH [facility] corpuscular 34.0 pg to non-numeric Health hemoglobin results) System [Entitic mass] by Automated count Erythrocyte mean 33.9 33.0 - Normal (applies MCHC [facility] corpuscular {gm/dL} 37.0 to non-numeric Health hemoglobin gm/dL results) System concentration [Mass/volume] by Automated count Erythrocyte 13.3 % 11.5 - Normal (applies RDW [facility] distribution 14.5 % to non-numeric Health width [Entitic results) System volume] by Automated count Platelets 201 130 - Normal (applies Platelet [facility] [#/volume] in {10^3_uL 400 to non-numeric Count Health Plasma by } 10^3 uL results) System Automated count Platelet mean 10.5 fl 7.4 - Above high MPV [facility] volume [Entitic 10.4 fl normal Health volume] in Blood System by Automated count Monocytes 1.9 0.3 - Above high Monocyte [facility] [#/volume] in {10^3_uL 0.9 normal Count Health Blood by Manual } 10^3 uL System count Eosinophils 0.1 0.1 - Normal (applies Eosinophil [facility] [#/volume] in {10^3_uL 0.3 to non-numeric Count Blood Health Blood } 10^3 uL results) System Basophils 0.0 0.0 - Normal (applies Basophil [facility] [#/volume] in {10^3_uL 0.1 to non-numeric Count Health Blood by } 10^3 uL results) System Automated count Neutrophils 14.4 2.0 - Above high Absolute [facility] [#/volume] in {10^3_uL 8.1 normal Neutrophil Health Body fluid } 10^3 uL Count System Lymphocyte 1.7 1.0 - Normal (applies Lymphocyte [facility] Absolute {10^3_uL 5.5 to non-numeric Absolute Health } 10^3 uL results) System Neutrophils/100 79.6 % 0.0 - Normal (applies Neutrophil % [place] leukocytes in 120.0 % to non-numeric Health Blood by results) System Automated count Monocytes/100 10.3 % 6.0 - Above high Monocyte % [facility] leukocytes in 9.0 % normal Health Blood System Eosinophils/100 0.4 % 1.0 - Below low normal Eosinophil % [facility] leukocytes in 3.0 % Health Unspecified System specimen Basophils/100 0.2 % 0.0 - Normal (applies Basophil % [facility] leukocytes in 1.0 % to non-numeric Health Unspecified results) System specimen by Manual count Lymphocytes 9.5 % 21.0 - Below low normal Lymphocyte % [facility] [#/volume] in 51.0 % Health Blood by System Automated count ID Date Data Source [id number] 09/13/2013 06:40:00 AM EST [facility] Name Value Range Interpretation Description Data Sup porting Code Source(s) Document(s ) Sodium 133 mmol/L 137 - Below low Sodium, [facility] [Moles/volume] in 145 normal Serum Health Serum or Plasma mmol/L System Potassium Cancelled Potassium, [facility] [Mass/volume] in HEMOLYZED Serum Health Serum or Plasma SPECIMEN System Chloride 101 mmol/L 98 - Normal (applies Chloride, [facility] [Moles/volume] in 107 to non-numeric Serum Health Serum or Plasma mmol/L results) System Carbon dioxide, 17.0 mmol/L 22.0 - Below low CO2, Serum [facility] total 30.0 normal Health [Moles/volume] in mmol/L System Serum or Plasma Total Protein 6.6 mg/dl 6.3 - Normal (applies Total [facility] 8.2 to non-numeric Protein Health mg/dl results) System Glucose 111 mg/dL 65 - Above high Glucose, [facility] [Mass/volume] in 105 normal Serum Health Serum or Plasma mg/dL System Urea nitrogen 5 mg/dl 7 - 18 Below low Blood Urea [facility] [Mass/volume] in mg/dl normal Nitrogen, Health Serum or Plasma Serum System Creatinine 0.80 mg/dl 0.70 - Normal (applies Creatinine, [facility] [Mass/volume] in 1.20 to non-numeric Serum Health Serum or Plasma mg/dl results) System Alkaline 105 {IU/L} 38 - Normal (applies Alkaline [facility] phosphatase 126 to non-numeric Phosphatase, Health isoenzymes IU/L results) Serum System [Enzymatic activity/volume] in Serum or Plasma by Heat stability Bilirubin.total 0.5 mg/dl 0.2 - Normal (applies Bilirubin, [facility] [Mass/volume] in 1.3 to non-numeric Serum Total Health Serum or Plasma mg/dl results) System Aspartate 26 {IU/L} 5 - 40 Normal (applies Aspartate [facility] aminotransferase IU/L to non-numeric Transaminase Healt h [Enzymatic results) , Serum System activity/volume] in Serum or Plasma by With P-5'-P Albumin 3.4 {gm/dl} 3.9 - Below low Albumin, [facility] [Mass/volume] in 5.0 normal Serum Health Serum or Plasma gm/dl System I. Phosphorus 3.4 mg/dl 2.5 - Normal (applies I. [facility] 4.5 to non-numeric Phosphorus Health mg/dl results) System Alanine 34 {IU/L} 7 - 56 Normal (applies Alanine [facility] aminotransferase IU/L to non-numeric Aminotransfe Healt h [Enzymatic results) rase, Serum System activity/volume] in Serum or Plasma Calcium 8.3 mg/dl 8.4 - Below low Calcium, [facility] [Mass/volume] in 10.2 normal Total Serum Health Serum or Plasma mg/dl System A/G Ratio 1.06 Normal (applies A/G Ratio [facility] to non-numeric Health results) System Urate 4.1 mg/dl 2.5 - Normal (applies Uric Acid, [facility] [Mass/volume] in 7.5 to non-numeric Serum Health Serum or Plasma mg/dl results) System Anion gap in Serum 15.00 8.00 - Above high Anion Gap [facility] or Plasma mmol/L 12.00 normal Health mmol/L System Glomerular 78.54 Normal (applies GFR [facility] filtration to non-numeric Health rate/1.73 sq results) System M.predicted [Volume Rate/Area] in Serum or Plasma by Creatinine-based formula (CKD-EPI) eGFR will provide clinicians with a more accurate indicator of renal function then the serum creatinine. The eGFR is automa tically calculated from an empiric formula (endorsed by the [employer] ion) which incorporates age, sex, and race.Clinicians may notice surprisingly low GFR's with serum creatinine valueswithin normal range- particularly in elderly wo men (with low muscle mass).In the hospital setting, the eGFR should add an element of safety in drug dosing, in assessing the risk of IV contrast administration, and in assessing vascular risk.The NKF staging system is as follows:Normal: eGFR >90 with no kidney markersStage 1: eGFR >90 with kidney markers*Stage 2: eGFR 60- 89Stage 3: eGFR 30-59Stage 4: eGFR 15-29Stage 5: eGFR <15 (usually requir ing dialysis)*Markers include: Proteinuria, Hematuria, abnormal imaging-studies, or other blood or urine test abnormalities ID Date Data Source [id number] 09/13/2013 06:40:00 AM EST [facility] Name Value Range Interpretation Description Data Sup porting Code Source(s) Document(s ) Phenytoin 23.8 10.0 - Above upper panic Phenytoin [facility] [Mass/volume ug/ml 20.0 limits Level, Serum Health System ] in Serum ug/ml or Plasma Result Reporting|Telephone|mike shipley rn rb| 09/13/2013 at 10:19 AMCalled to:mike mccainTech Name:gsReadback by:wai mccain 09/13/2013 / 10:18 AM ID Date Data Source [id number] 09/12/2013 09:05:00 PM EST [facility] Name Value Range Interpretation Description Data Sup porting Code Source(s) Document(s ) Deprecated Micro Result Normal (applies Aerobic Culture, [facility] Bacteria to non-numeric Urine Health identified results) System in Urine by Aerobe culture XXX Escherichia Organism [facility] microorganis coli Health m serotype System [Identifier] in Isolate by Agglutinatio n [place] Count > 100,000 [place] Count [facility] CFU/ML Health System Amikacin <=16 - Amikacin [facility] [Susceptibil Sensitive Health ity] System Ampicillin <=8 - Ampicillin [facility] [Susceptibil Sensitive Health ity] System Ampicillin+S <=8/4 - [facility] ulbactam Sensitive Ampicillin/Sulbac Health [Susceptibil villarreal System ity] Aztreonam <=8 - Aztreonam [facility] [Susceptibil Sensitive Health ity] System Cefazolin <=8 - cefazolin [facility] [Susceptibil Sensitive Health ity] System Cefoxitin <=8 - Cefoxitin [facility] [Mass/volume Sensitive Health ] in System Unspecified specimen Ceftriaxone <=8 - Ceftriaxone [facility] [Susceptibil Sensitive Health ity] System Ciprofloxaci <=1 - Ciprofloxacin [facility] n Sensitive Health [Susceptibil System ity] Ertapenem <=1 - Ertapenem [facility] [Susceptibil Sensitive Health ity] by System Minimum inhibitory concentratio n (CRISTOBAL) Gentamicin <=4 - Gentamicin [facility] [Susceptibil Sensitive Health ity] System Nitrofuranto <=32 - Nitrofurantoin [facility] in Sensitive Health [Mass/volume System ] in Serum or Plasma Piperacillin <=16 - [facility] +Tazobactam Sensitive Piperacillin/Tazo Health [Susceptibil bactam System ity] Trimethoprim <=2/38 - Trimethoprim/ [facility] +Sulfamethox Sensitive Sulfamethoxazole Health azole System [Susceptibil ity] ID Date Data Source [id number] 09/12/2013 09:05:00 PM EST [facility] Name Value Range Interpretation Description Data Sup porting Code Source(s) Document(s ) Color DARK YELLOW Abnormal Color [facility] YELLOW (applies to Health non-numeric System results) Appearance of CLOUDY CLEAR Abnormal Urine [facility] Urine (applies to Appearance Health non-numeric System results) Specific 1.025 Normal (applies Urine [facility] gravity of to non-numeric Specific Health Urine results) [facility] pH.. 5.5 4.6 - Normal (applies pH.. [facility] {pH_units} 8.0 pH to non-numeric Health units results) System Glucose, UA NEGATIVE Normal (applies Glucose, UA [facility] to non-numeric Health results) System Negative Protein 100 mg/dl Normal (applies Protein [facility] [Mass/volume] in to non-numeric Health S ystem Serum or Plasma results) Bilirubin Urine SMALL Normal (applies Bilirubin Urine [facility] to non-numeric Health System results) Urobilinogen 2.00 {eu/dL} 0.20 Above high Urobilinogen UA [facility] [Mass/volume] in - normal Health System Urine 1.00 eu/dL Ketones NEGATIVE Normal (applies Ketones UA [facility] [Mass/volume] in to non-numeric Health S ystem Urine results) Negative Nitrate+Nitrite NEGATIVE Normal (applies to Nitrite [facility] [Mass/volume] in non-numeric results) Sy stem Unspecified specimen Negative Leukocyte esterase MODERATE Normal (applies Leukocyte Aura ase [facility] [Units/volume] in to non-numeric Concentration [facility] System Urine results) Negative Leukocytes 30-50 Normal (applies [facility]] in non-numeric System Unspecified results) specimen by Automated count Red Blood Cells 3-5 Normal (applies to Red Blood Cells [facility] non-numeric System results) Epithelial cells 3-6 Normal (applies to Epithelial Izabela ls [facility] [Presence] in non-numeric System Unspecified results) specimen by Wet preparation Mucus MODERATE Normal (applies to Mucus [facility] non-[facility] System results) Bacteria [Presence] LARGE Normal (applies to Bacteria [facility] in Unspecified non-numeric System specimen results) Urine Blood SMALL Normal (applies to Urine Blood [facility] System results) ID Date Data Source [id number] 09/12/2013 01:50:00 PM EST [facility] System Name Value Range Interpretation Description Data Sup porting Code Source(s) Document(s ) Leukocytes 19.0 4.8 - Above high WBC Count [facility] [#/volume] in {10^3_uL 10.8 normal Health Unspecified } 10^3 uL System specimen by Automated count Erythrocytes 4.45 3.80 - Normal (applies RBC Count [facility] [#/volume] in {10^6_uL 5.20 to non-numeric Health Blood by } 10^6 uL results) System Automated count Hemoglobin 14.1 12.0 - Normal (applies Hemoglobin, [facility] [Mass/volume] in {gm/dL} 16.0 to non-numeric Whole Blood Health Blood gm/dL results) System Hematocrit 41.1 % 36.0 - Normal (applies Hematocrit, [facility] [Volume 46.0 % to non-numeric Whole Blood Health Fraction] of results) System Blood Erythrocyte mean 92.4 fl 80.0 - Normal (applies MCV [facility] corpuscular 100.0 to non-numeric Health volume [Entitic fl results) System volume] by Automated count Erythrocyte mean 31.7 pg 26.0 - Normal (applies MCH [facility] corpuscular 34.0 pg to non-numeric Health hemoglobin results) System [Entitic mass] by Automated count Erythrocyte mean 34.3 33.0 - Normal (applies MCHC [facility] corpuscular {gm/dL} 37.0 to non-numeric Health hemoglobin gm/dL results) System concentration [Mass/volume] by Automated count Erythrocyte 13.1 % 11.5 - Normal (applies RDW [facility] distribution 14.5 % to non-numeric Health width [Entitic results) System volume] by Automated count Platelets 178 130 - Normal (applies Platelet [facility] [#/volume] in {10^3_uL 400 to non-numeric Count Health Plasma by } 10^3 uL results) System Automated count Platelet mean 10.1 fl 7.4 - Normal (applies MPV [facility] volume [Entitic 10.4 fl to non-numeric Health volume] in Blood results) System by Automated count Monocytes 1.7 0.3 - Above high Monocyte [facility] [#/volume] in {10^3_uL 0.9 normal Count Health Blood by Manual } 10^3 uL System count Eosinophils 0.0 0.1 - Below low normal Eosinophil [facility] [#/volume] in {10^3_uL 0.3 Count Blood Health Blood } 10^3 uL System Neutrophils 15.9 2.0 - Above high Absolute [facility] [#/volume] in {10^3_uL 8.1 normal Neutrophil Health Body fluid } 10^3 uL Count System Basophils 0.0 0.0 - Normal (applies Basophil [facility] [#/volume] in {10^3_uL 0.1 to non-numeric Count Health Blood by } 10^3 uL results) System Automated count Lymphocyte 1.4 1.0 - Normal (applies Lymphocyte [facility] Absolute {10^3_uL 5.5 to non-numeric Absolute Health } 10^3 uL results) System Neutrophils/100 83.5 % 0.0 - Normal (applies Neutrophil % [facility] leukocytes in 120.0 % to non-numeric Health Blood by results) System Automated count Monocytes/100 8.8 % 6.0 - Normal (applies Monocyte % [facility] leukocytes in 9.0 % to non-numeric Health Blood results) System Eosinophils/100 0.2 % 1.0 - Below low normal Eosinophil % [facility] leukocytes in 3.0 % Health Unspecified System specimen Basophils/100 0.2 % 0.0 - Normal (applies Basophil % [facility] leukocytes in 1.0 % to non-numeric Health Unspecified results) System specimen by Manual count Lymphocytes 7.3 % 21.0 - Below low normal Lymphocyte % [facility] [#/volume] in 51.0 % Health Blood by System Automated count ID Date Data Source [id number] 09/12/2013 06:10:00 AM EST [facility] Name Value Range Interpretation Description Data Sup porting Code Source(s) Document(s ) Leukocytes 16.3 4.8 - Above high normal WBC Count [facility] [#/volume] in {10^3_uL 10.8 Health System Unspecified } 10^3 uL specimen by Automated count ok Erythrocytes 4.48 {10^6_uL} 3.80 - Normal (applies RBC Count [facility] [#/volume] in 5.20 to non-numeric Health Syst em Blood by Automated 10^6 uL results) count Hemoglobin 14.3 {gm/dL} 12.0 - Normal (applies Hemoglobin, [facility] [Mass/volume] in 16.0 to non-numeric Whole Blood [facility] Blood gm/dL results) Hematocrit [Volume 41.4 % 36.0 - Normal (applies Hematocrit, [facility] Fraction] of Blood 46.0 % to non-numeric Whole Blood [facility] System results) Erythrocyte mean 92.4 fl 80.0 - Normal (applies MCV [facility] corpuscular volume 100.0 fl to non-numeric Health System [Entitic volume] results) by Automated count Erythrocyte mean 31.9 pg 26.0 - Normal (applies MCH [facility] corpuscular 34.0 pg to non-numeric Health System hemoglobin results) [Entitic mass] by Automated count Erythrocyte mean 34.5 {gm/dL} 33.0 - Normal (applies MCHC [facility] corpuscular 37.0 to non-numeric Health System hemoglobin gm/dL results) concentration [Mass/volume] by Automated count Erythrocyte 13.1 % 11.5 - Normal (applies RDW [facility] distribution width 14.5 % to non-numeric Health System [Entitic volume] results) by Automated count Platelets 200 {10^3_uL} 130 - Normal (applies Platelet Count [facility] [#/volume] in 400 10^3 to non-numeric Health Syst em Plasma by uL results) Automated count Platelet mean 10.5 fl 7.4 - Above high MPV [facility] volume [Entitic 10.4 fl normal Health System volume] in Blood by Automated count Monocytes 1.5 {10^3_uL} 0.3 - Above high Monocyte Count [facility] [#/volume] in 0.9 10^3 normal Health System Blood by Manual uL count Eosinophils 0.0 {10^3_uL} 0.1 - Below low Eosinophil [facility] [#/volume] in 0.3 10^3 normal Count Blood Health System Blood uL Basophils 0.0 {10^3_uL} 0.0 - Normal (applies Basophil Count [facility] [#/volume] in 0.1 10^3 to non-numeric Health Syst em Blood by Automated uL results) count Neutrophils 13.2 {10^3_uL} 2.0 - Above high Absolute [facility] [#/volume] in Body 8.1 10^3 normal Neutrophil Health Sys tem fluid uL Count Lymphocyte 1.5 {10^3_uL} 1.0 - Normal (applies Lymphocyte [facility] Absolute 5.5 10^3 to non-numeric Absolute Health System uL results) Neutrophils/100 81.0 % 0.0 - Normal (applies Neutrophil % [facility] leukocytes in 120.0 % to non-numeric Health Syst em Blood by Automated results) count Monocytes/100 9.3 % 6.0 - Above high Monocyte % [facility] leukocytes in 9.0 % normal Health System Blood Eosinophils/100 0.2 % 1.0 - Below low Eosinophil % [facility] leukocytes in 3.0 % normal Health System Unspecified specimen Basophils/100 0.2 % 0.0 - Normal (applies Basophil % [facility] leukocytes in 1.0 % to non-numeric Health Syst em Unspecified results) specimen by Manual count Lymphocytes 9.3 % 21.0 - Below low Lymphocyte % [facility] [#/volume] in 51.0 % normal Health System Blood by Automated count ID Date Data Source [id number] 09/12/2013 06:10:00 AM EST [facility] Name Value Range Interpretation Description Data Sup porting Code Source(s) Document(s ) Sodium 134 137 - Below low normal Sodium, Serum [facility] [Moles/volume] in mmol/L 145 Health Serum or Plasma mmol/L System Potassium 3.3 3.6 - Below low normal Potassium, [facility] [Mass/volume] in mmol/L 5.0 Serum Health Serum or Plasma mmol/L System Chloride 101 98 - Normal (applies Chloride, [facility] [Moles/volume] in mmol/L 107 to non-numeric Serum Health Serum or Plasma mmol/L results) System Carbon dioxide, 20.0 22.0 - Below low normal CO2, Serum [facility] total mmol/L 30.0 Health [Moles/volume] in mmol/L System Serum or Plasma Total Protein 6.5 6.3 - Normal (applies Total Protein [facility] mg/dl 8.2 to non-numeric Health mg/dl results) System Glucose 158 65 - Above high Glucose, [facility] [Mass/volume] in mg/dL 105 normal Serum Health Serum or Plasma mg/dL System Urea nitrogen 6 mg/dl 7 - 18 Below low normal Blood Urea [facility] [Mass/volume] in mg/dl Nitrogen, Health Serum or Plasma Serum System Creatinine 0.80 0.70 - Normal (applies Creatinine, [facility] [Mass/volume] in mg/dl 1.20 to non-numeric Serum Health Serum or Plasma mg/dl results) System Alkaline 90 38 - Normal (applies Alkaline [facility] phosphatase {IU/L} 126 to non-numeric Phosphatase, [facility] isoenzymes IU/L results) Serum System [Enzymatic activity/volume] in Serum or Plasma by Heat stability Bilirubin.total 0.7 0.2 - Normal (applies Bilirubin, [facility] [Mass/volume] in mg/dl 1.3 to non-numeric Serum Total Health Serum or Plasma mg/dl results) System Aspartate 29 5 - 40 Normal (applies Aspartate [facility] aminotransferase {IU/L} IU/L to non-numeric Transaminase, Heal th [Enzymatic results) Serum System activity/volume] in Serum or Plasma by With P-5'-P Albumin 3.9 3.9 - Normal (applies Albumin, [facility] [Mass/volume] in {gm/dl} 5.0 to non-numeric Serum Health Serum or Plasma gm/dl results) System I. Phosphorus 3.3 2.5 - Normal (applies I. Phosphorus [facility] mg/dl 4.5 to non-numeric Health mg/dl results) System Alanine 40 7 - 56 Normal (applies Alanine [facility] aminotransferase {IU/L} IU/L to non-numeric Aminotransfer Heal th [Enzymatic results) ase, Serum System activity/volume] in Serum or Plasma Calcium 8.7 8.4 - Normal (applies Calcium, [facility] [Mass/volume] in mg/dl 10.2 to non-numeric Total Serum Health Serum or Plasma mg/dl results) System A/G Ratio 1.50 Normal (applies A/G Ratio [facility] to non-numeric Health results) System Urate 4.0 2.5 - Normal (applies Uric Acid, [facility] [Mass/volume] in mg/dl 7.5 to non-numeric Serum Health Serum or Plasma mg/dl results) System Anion gap in Serum 13.00 8.00 - Above high Anion Gap [facility] or Plasma mmol/L 12.00 normal Health mmol/L System Glomerular 78.54 Normal (applies GFR [facility] filtration to non-numeric Health rate/1.73 sq results) System M.predicted [Volume Rate/Area] in Serum or Plasma by Creatinine-based formula (CKD-EPI) eGFR will provide clinicians with a more accurate indicator of renal function then the serum creatinine. The eGFR is automa tically calculated from an empiric formula (endorsed by the National Kid[employer] ion) which incorporates age, sex, and race.Clinicians may notice surprisingly low GFR's with serum creatinine valueswithin normal range- particularly in elderly wo men (with low muscle mass).In the hospital setting, the eGFR should add an element of safety in drug dosing, in assessing the risk of IV contrast administration, and in assessing vascular risk.The NKF staging system is as follows:Normal: eGFR >90 with no kidney markersStage 1: eGFR >90 with kidney markers*Stage 2: eGFR 60- 89Stage 3: eGFR 30-59Stage 4: eGFR 15-29Stage 5: eGFR <15 (usually requir ing dialysis)*Markers include: Proteinuria, Hematuria, abnormal imaging-studies, or other blood or urine test abnormalities ID Date Data Source [id number] 09/12/2013 06:10:00 AM [facility] System Name Value Range Interpretation Description Data Sup porting Code Source(s) Document(s ) Phenytoin 30.0 10.0 - Above upper panic Phenytoin [facility] [Mass/volume ug/ml 20.0 limits Level, Serum Health System ] in Serum ug/ml or Plasma Result Reporting|Telephone|mike shipley rn rb| 09/12/2013 at 2:07 PMCalled to:mike shipley rn rbTech Name:gsReadback by:wai shipley rn rb 09/12/2013 / 2:07 PM ID Date Data Source [id number] 09/11/2013 07:49:28 AM EST [facility] Name Value Range Interpretation Description Data Sup porting Code Source(s) Document(s ) Phenytoin 31.6 10.0 - Above upper panic Phenytoin [facility] [Mass/volume ug/ml 20.0 limits Level, Serum Health System ] in Serum ug/ml or Plasma Result Reporting|Telephone|jaspreet hdz rn/rb| 09/11/2013 at 11:33 AMCalled to:jaspreet spears rn/rbTech Name:col garland copelandgradyMaryadback by:jaspreet spears rn/rbverified 09/11/2013 / 11:32 AM ID Date Data Source [id number] 09/10/2013 06:50:33 PM EST [facility] System Name Value Range Interpretation Description Data Sup porting Code Source(s) Document(s ) Amphetamine Negative Negative Normal (applies Amphetamine [facility] [Mass/volume] ng/ml to non-numeric Level, Urine Health in Urine results) System Cut-off = 1000 ng/mL Barbiturates Negative Negative Normal (applies Barbiturate [facility] [Mass/volume] in ng/ml to non-numeric Screen, Urine Heal th System Urine by Screen results) method Cut-off = 200 ng/mL Benzodiazepines Negative Negative Normal Benzodiazepines, [facility] [Mass/volume] in ng/mL (applies to Urine Health Urine non-numeric System results) Cut-off = 200 ng/mL Cocaine Negative Negative Normal (applies Cocaine [facility] metabolites.other ng/ml to non-numeric Metabolite Health System [Mass/volume] in results) Screen, Urine Urine Cut-off = 300 ng/mL Methadone Negative Negative Normal (applies Methadone [facility] [Mass/volume] in to non-numeric Level, Urine Healt h System Urine results) Cut-off = 300 ng/mL Opiate 300, Negative Negative ng/ml Normal (applies to Opiate 300, [facility] Urine non-numeric Urine Health System results) Cut-off = 300 ng/mL Phencyclidine Negative Negative Normal (applies Phencyclidine, [facility] [Mass/volume] in ng/ml to non-numeric Urine Health S ystem Urine results) Cut-off = 25 ng/mL THC Positive Negative ng/mL Abnormal ([facility] non-numeric results) These results are for medical treatment only. The positive findings are unconfirmed. Request confirmatory/quantitative test i f needed. ID Date Data Source [id number] 09/10/2013 05:30:50 PM EST [facility] Name Value Range Interpretation Description Data Sup porting Code Source(s) Document(s ) Phenytoin 30.7 10.0 - Above upper panic Phenytoin [facility] [Mass/volume ug/ml 20.0 limits Level, Serum Health System ] in Serum ug/ml or Plasma Result Reporting|Telephone|[facility] ROC[facility] CRUM S| 09/10/2013 at 6:48 PMCalled to:[employer] Name:Lyubov by:RESULTS VERIFIEDMCCULLOUGH-[facility] WILKINS 09/10/2013 / 6:48 PM ID Date Data Source [id number] 09/10/2013 04:10:00 PM EST [facility] System Name Value Range Interpretation Description Data Sup porting Code Source(s) Document(s ) Prothrombin 13.00 9.40 - Above high Prothrombin [facility] time (PT) {seconds 12.00 normal time (PT) Health } seconds System INR in Blood 1.25 0.70 - Above high INR Result [facility] by Coagulation {Ratio} 1.10 normal Health assay Ratio System Normal = 0.7-1.1Therapeutic = 2.0-3.0Mec hanical Heart = 3.0-4.5 ID Date Data Source [id number] 09/10/2013 04:10:00 PM EST [facility] System Name Value Range Interpretation Description Data Sup porting Code Source(s) Document(s ) Leukocytes 6.3 4.8 - Normal (applies WBC Count [facility] [#/volume] in {10^3_uL 10.8 to non-numeric Health Unspecified } 10^3 uL results) System specimen by Automated count Erythrocytes 4.32 3.80 - Normal (applies RBC Count [facility] [#/volume] in {10^6_uL 5.20 to non-numeric Health Blood by } 10^6 uL results) System Automated count Hemoglobin 13.6 12.0 - Normal (applies Hemoglobin, [facility] [Mass/volume] in {gm/dL} 16.0 to non-numeric Whole Blood Health Blood gm/dL results) System Hematocrit 40.5 % 36.0 - Normal (applies Hematocrit, [facility] [Volume 46.0 % to non-numeric Whole Blood Health Fraction] of results) System Blood Erythrocyte mean 93.8 fl 80.0 - Normal (applies MCV [facility] corpuscular 100.0 to non-numeric Health volume [Entitic fl results) System volume] by Automated count Erythrocyte mean 31.5 pg 26.0 - Normal (applies MCH [facility] corpuscular 34.0 pg to non-numeric Health hemoglobin results) System [Entitic mass] by Automated count Erythrocyte mean 33.6 33.0 - Normal (applies MCHC [facility] corpuscular {gm/dL} 37.0 to non-numeric Health hemoglobin gm/dL results) System concentration [Mass/volume] by Automated count Erythrocyte 13.4 % 11.5 - Normal (applies RDW [facility] distribution 14.5 % to non-numeric Health width [Entitic results) System volume] by Automated count Platelets 209 130 - Normal (applies Platelet [facility] [#/volume] in {10^3_uL 400 to non-numeric Count Health Plasma by } 10^3 uL results) System Automated count Platelet mean 9.6 fl 7.4 - Normal (applies MPV [facility] volume [Entitic 10.4 fl to non-numeric Health volume] in Blood results) System by Automated count Monocytes 0.6 0.3 - Normal (applies Monocyte [facility] [#/volume] in {10^3_uL 0.9 to non-numeric Count Health Blood by Manual } 10^3 uL results) System count Eosinophils 0.5 0.1 - Above high Eosinophil [facility] [#/volume] in {10^3_uL 0.3 normal Count Blood Health Blood } 10^3 uL System Neutrophils 3.0 2.0 - Normal (applies Absolute [facility] [#/volume] in {10^3_uL 8.1 to non-numeric Neutrophil Health Body fluid } 10^3 uL results) Count System Basophils 0.0 0.0 - Normal (applies Basophil [facility] [#/volume] in {10^3_uL 0.1 to non-numeric Count Health Blood by } 10^3 uL results) System Automated count Lymphocyte 2.2 1.0 - Normal (applies Lymphocyte [facility] Absolute {10^3_uL 5.5 to non-numeric Absolute Health } 10^3 uL results) System Neutrophils/100 47.9 % 0.0 - Normal (applies Neutrophil % [facility] leukocytes in 120.0 % to non-numeric Health Blood by results) System Automated count Monocytes/100 9.7 % 6.0 - Above high Monocyte % [facility] leukocytes in 9.0 % normal Health Blood System Eosinophils/100 7.8 % 1.0 - Above high Eosinophil % [facility] leukocytes in 3.0 % normal Health Unspecified System specimen Basophils/100 0.6 % 0.0 - Normal (applies Basophil % [facility] leukocytes in 1.0 % to non-numeric Health Unspecified results) System specimen by Manual count Lymphocytes 34.0 % 21.0 - Normal (applies Lymphocyte % [facility] [#/volume] in 51.0 % to non-numeric Health Blood by results) System Automated count ID Date Data Source [id number] 09/10/2013 04:10:00 PM EST [facility] Name Value Range Interpretation Description Data Sup porting Code Source(s) Document(s ) hCG Less than 5.0 Normal (applies hCG [facility] Quantitative Negative = <5 to non-numeric Quantitative Healt h mIU/mLAPPROXIM results) System ATE GEST. AGE APPROXIMATE HCG mIU/ML 0.2 - 1 week 5 - 50 1 - 2 weeks 50 - 500 2 - 3 weeks 100 - 5,000 3 - 4 weeks 500 - 10,000 4 - 5 weeks 1,000 - 50,000 5 - 6 weeks 10,000 - 100,000 6 - 8 weeks 15,000 - 200,000 8 - 12 weeks 10,000 - 100,000HCG levels between 5-25 mIU/mL may be indicative of early . Correlation with other clinical findings and/or repeat of HCG quantitative testing recommened. ID Date Data Source [id number] 09/10/2013 04:10:00 PM EST [facility] System Name Value Range Interpretation Description Data Sup porting Code Source(s) Document(s ) Sodium 139 137 - Normal (applies Sodium, Serum [facility] [Moles/volume] in mmol/L 145 to non-numeric Health Serum or Plasma mmol/L results) System Potassium 3.9 3.6 - Normal (applies Potassium, [facility] [Mass/volume] in mmol/L 5.0 to non-numeric Serum Health Serum or Plasma mmol/L results) System Chloride 107 98 - Normal (applies Chloride, [facility] [Moles/volume] in mmol/L 107 to non-numeric Serum Health Serum or Plasma mmol/L results) System Carbon dioxide, 19.0 22.0 - Below low normal CO2, Serum [facility] total mmol/L 30.0 Health [Moles/volume] in mmol/L System Serum or Plasma Total Protein 6.8 6.3 - Normal (applies Total Protein [facility] mg/dl 8.2 to non-numeric Health mg/dl results) System Glucose 148 65 - Above high Glucose, [facility] [Mass/volume] in mg/dL 105 normal Serum Health Serum or Plasma mg/dL System Urea nitrogen 10 7 - 18 Normal (applies Blood Urea [facility] [Mass/volume] in mg/dl mg/dl to non-numeric Nitrogen, Health Serum or Plasma results) Serum System Creatinine 0.80 0.70 - Normal (applies Creatinine, [facility] [Mass/volume] in mg/dl 1.20 to non-numeric Serum Health Serum or Plasma mg/dl results) System Alkaline 71 38 - Normal (applies Alkaline [facility] phosphatase {IU/L} 126 to non-numeric Phosphatase, Health isoenzymes IU/L results) Serum System [Enzymatic activity/volume] in Serum or Plasma by Heat stability Bilirubin.total 0.2 0.2 - Normal (applies Bilirubin, [facility] [Mass/volume] in mg/dl 1.3 to non-numeric Serum Total Health Serum or Plasma mg/dl results) System Aspartate 19 5 - 40 Normal (applies Aspartate [facility] aminotransferase {IU/L} IU/L to non-numeric Transaminase, Heal th [Enzymatic results) Serum System activity/volume] in Serum or Plasma by With P-5'-P Albumin 4.1 3.9 - Normal (applies Albumin, [facility] [Mass/volume] in {gm/dl} 5.0 to non-numeric Serum Health Serum or Plasma gm/dl results) System I. Phosphorus 3.6 2.5 - Normal (applies I. Phosphorus [facility] mg/dl 4.5 to non-numeric Health mg/dl results) System Alanine 31 7 - 56 Normal (applies Alanine [facility] aminotransferase {IU/L} IU/L to non-numeric Aminotransfer Heal th [Enzymatic results) ase, Serum System activity/volume] in Serum or Plasma Calcium 8.8 8.4 - Normal (applies Calcium, [facility] [Mass/volume] in mg/dl 10.2 to non-numeric Total Serum Health Serum or Plasma mg/dl results) System A/G Ratio 1.52 Normal (applies A/G Ratio [facility] to non-numeric Health results) System Urate 4.1 2.5 - Normal (applies Uric Acid, [facility] [Mass/volume] in mg/dl 7.5 to non-numeric Serum Health Serum or Plasma mg/dl results) System Anion gap in Serum 13.00 8.00 - Above high Anion Gap [facility] or Plasma mmol/L 12.00 normal Health mmol/L System Glomerular 78.54 Normal (applies GFR [facility] filtration to non-numeric Health rate/1.73 sq results) System M.predicted [Volume Rate/Area] in Serum or Plasma by Creatinine-based formula (CKD-EPI) eGFR will provide clinicians with a more accurate indicator of renal function then the serum creatinine. The eGFR is automa tically calculated from an empiric formula (endorsed by the National Kidney [employer] ion) which incorporates age, sex, and race.Clinicians may notice surprisingly low GFR's with serum creatinine valueswithin normal range- particularly in elderly wo men (with low muscle mass).In the hospital setting, the eGFR should add an element of safety in drug dosing, in assessing the risk of IV contrast administration, and in assessing vascular risk.The NKF staging system is as follows:Normal: eGFR >90 with no kidney markersStage 1: eGFR >90 with kidney markers*Stage 2: eGFR 60- 89Stage 3: eGFR 30-59Stage 4: eGFR 15-29Stage 5: eGFR <15 (usually requir ing dialysis)*Markers include: Proteinuria, Hematuria, abnormal imaging-studies, or other blood or urine test abnormalities ID Date Data Source [id number] 09/10/2013 03:23:00 PM EST [facility] System Name Value Range Interpretation Description Data Sup porting Code Source(s) Document(s ) Polys Cancelled Polys [facility] Lymphocyte %. Cancelled Lymphocyte %. [facility] Monocyte %. Cancelled Monocyte %. [facility] System ID Date Data Source [id number] 04/09/2013 01:07:00 PM EDT [facility] System Name Value Range Interpretation Description Data Sup porting Code Source(s) Document(s ) Phenytoin 24.5 10.0 - Above upper panic Phenytoin [facility] [Mass/volume ug/ml 20.0 limits Level, Serum Health System ] in Serum ug/ml or Plasma Result Reporting|Telephone|[facility]| 3 at 11:04 PMCalled to:Tech Name:Readback by: 04/09/2013 / 11:04 PM ID Date Data Source [id number] 03/30/2013 07:00:00 AM EDT [facility] System Name Value Range Interpretation Description Data Sup porting Code Source(s) Document(s ) Leukocytes 7.4 4.8 - Normal (applies WBC Count [facility] [#/volume] in {10\\S\\3_ 10.8 to non-numeric Health Unspecified uL} 10\\S\\3 results) System specimen by uL Automated count Erythrocytes 3.96 3.80 - Normal (applies RBC Count [facility] [#/volume] in {10\\S\\6_ 5.20 to non-numeric Health Blood by uL} 10\\S\\6 results) System Automated count uL Hemoglobin 12.3 12.0 - Normal (applies Hemoglobin, [facility] [Mass/volume] in {gm/dL} 16.0 to non-numeric Whole Blood Health Blood gm/dL results) System Hematocrit 36.6 % 36.0 - Normal (applies Hematocrit, [facility] [Volume 46.0 % to non-numeric Whole Blood Health Fraction] of results) System Blood Erythrocyte mean 92.4 fl 80.0 - Normal (applies MCV [facility] corpuscular 100.0 to non-numeric Health volume [Entitic fl results) System volume] by Automated count Erythrocyte mean 31.1 pg 26.0 - Normal (applies MCH [facility] corpuscular 34.0 pg to non-numeric Health hemoglobin results) System [Entitic mass] by Automated count Erythrocyte mean 33.6 33.0 - Normal (applies MCHC [facility] corpuscular {gm/dL} 37.0 to non-numeric Health hemoglobin gm/dL results) System concentration [Mass/volume] by Automated count Erythrocyte 13.3 % 11.5 - Normal (applies RDW [facility] distribution 14.5 % to non-numeric Health width [Entitic results) System volume] by Automated count Platelets 166 130 - Normal (applies Platelet [facility] [#/volume] in {10\\S\\3_ 400 to non-numeric Count Health Plasma by uL} 10\\S\\3 results) System Automated count uL Platelet mean 10.7 fl 7.4 - Above high MPV [facility] volume [Entitic 10.4 fl normal Health volume] in Blood System by Automated count Monocytes 0.7 0.3 - Normal (applies Monocyte [facility] [#/volume] in {10\\S\\3_ 0.9 to non-numeric Count Health Blood by Manual uL} 10\\S\\3 results) System count uL Eosinophils 0.3 0.1 - Above high Eosinophil [facility] [#/volume] in {10\\S\\3_ 0.3 normal Count Blood Health Blood uL} 10\\S\\3 System uL Basophils 0.1 0.0 - Normal (applies Basophil [facility] [#/volume] in {10\\S\\3_ 0.1 to non-numeric Count Health Blood by uL} 10\\S\\3 results) System Automated count uL Neutrophils 3.4 2.0 - Normal (applies Absolute [facility] [#/volume] in {10\\S\\3_ 8.1 to non-numeric Neutrophil Health Body fluid uL} 10\\S\\3 results) Count System uL Lymphocyte 2.9 1.0 - Normal (applies Lymphocyte [facility] Absolute {10\\S\\3_ 5.5 to non-numeric Absolute Health uL} 10\\S\\3 results) System uL Neutrophils/100 46.1 % 0.0 - Normal (applies Neutrophil % [facility]ca leukocytes in 120.0 % to non-numeric Health Blood by results) System Automated count Monocytes/100 9.4 % 6.0 - Above high Monocyte % [facility] leukocytes in 9.0 % normal Health Blood System Eosinophils/100 4.6 % 1.0 - Above high Eosinophil % [facility] leukocytes in 3.0 % normal Health Unspecified System specimen Basophils/100 0.7 % 0.0 - Normal (applies Basophil % [facility] leukocytes in 1.0 % to non-numeric Health Unspecified results) System specimen by Manual count Lymphocytes 39.2 % 21.0 - Normal (applies Lymphocyte % [facility] [#/volume] in 51.0 % to non-numeric Health Blood by results) System Automated count ID Date Data Source [id number] 03/30/2013 07:00:00 AM EDT [facility] Name Value Range Interpretation Description Data Sup porting Code Source(s) Document(s ) Sodium 140 137 - Normal (applies Sodium, Serum [facility] [Moles/volum mmol/L 145 to non-numeric Health Syste m e] in Serum mmol/L results) or Plasma Potassium 3.4 3.6 - Below low normal Potassium, [facility] [Mass/volume mmol/L 5.0 Serum Health System ] in Serum mmol/L or Plasma Chloride 108 98 - 107 Above high normal Chloride, [facility] [Moles/volum mmol/L mmol/L Serum Health System e] in Serum or Plasma Carbon 20.0 22.0 - Below low normal CO2, Serum [facility] dioxide, mmol/L 30.0 Health System total mmol/L [Moles/volum e] in Serum or Plasma [place] Glucose 108 mg/dL 65 - 105 Above high Glucose, Serum [facility] [Mass/volume] in mg/dL normal Health System Serum or Plasma [place] Urea nitrogen 8 mg/dl 7 - 18 Normal (applies Blood Urea [facility] [Mass/volume] in mg/dl to non-numeric Nitrogen, Health S yste Serum or Plasma results) Serum Creatinine 0.70 mg/dl 0.70 - Normal (applies Creatinine, [facility] [Mass/volume] in 1.20 mg/dl to non-numeric Serum Health System Serum or Plasma results) Calcium 9.1 mg/dl 8.4 - 10.2 Normal (applies Calcium, Total [facility] [Mass/volume] in mg/dl to non-numeric Serum Health S [facility] Serum or Plasma results) OK Anion gap in 12.00 mmol/L 8.00 - 12.00 Normal (applies to Anion Gap [facility] Serum or mmol/L non-numeric Health System Plasma results) ID Date Data Source [id number] 03/30/2013 07:00:00 AM EDT [facility] System Name Value Range Interpretation Description Data Sup porting Code Source(s) Document(s ) Phenytoin 13.4 10.0 - Normal (applies Phenytoin [facility] [Mass/volume ug/ml 20.0 to non-numeric Level, Serum Health Sy stem ] in Serum ug/ml results) or Plasma ID Date Data Source [id number] 03/30/2013 07:00:00 AM EDT [facility] System Name Value Range Interpretation Description Data Sup porting Code Source(s) Document(s ) Alpha 1 161 83 - 199 Normal (applies Ddihl-3-Ftduw [facility] antitrypsin mg/dL mg/dL to non-numeric rypsin, Serum Health [Mass/volume] results) System in Serum or Plasma Test Performed at: [facility] [employer] , [place] [address] Barbara Matthews M.D. ID Date Data Source [id number] 03/29/2013 06:00:00 AM EDT [facility] System Name Value Range Interpretation Description Data Sup porting Code Source(s) Document(s ) Phenytoin 11.3 10.0 - Normal (applies Phenytoin [facility] [Mass/volume ug/ml 20.0 to non-numeric Level, Serum Health Sy stem ] in Serum ug/ml results) or Plasma ID Date Data Source [id number] 03/28/2013 07:33:48 AM EDT [facility] System Name Value Range Interpretation Description Data Sup porting Code Source(s) Document(s ) Phenytoin 10.5 10.0 - Normal (applies Phenytoin [facility] [Mass/volume ug/ml 20.0 to non-numeric Level, Serum [facility] Sy [facility] ] in Serum ug/ml results) or Plasma ID Date Data Source [id number] 03/28/2013 07:33:11 AM EDT [facility] Name Value Range Interpretation Description Data Sup porting Code Source(s) Document(s ) Leukocytes 9.7 4.8 - Normal (applies WBC Count [facility] [#/volume] in {10\\S\\3_ 10.8 to non-numeric Health Unspecified uL} 10\\S\\3 results) System specimen by uL Automated count Erythrocytes 4.15 3.80 - Normal (applies RBC Count [facility] [#/volume] in {10\\S\\6_ 5.20 to non-numeric Health Blood by uL} 10\\S\\6 results) System Automated count uL Hemoglobin 13.1 12.0 - Normal (applies Hemoglobin, [facility] [Mass/volume] in {gm/dL} 16.0 to non-numeric Whole Blood Health Blood gm/dL results) System Hematocrit 38.0 % 36.0 - Normal (applies Hematocrit, [facility] [Volume 46.0 % to non-numeric Whole Blood Health Fraction] of results) System Blood Erythrocyte mean 91.6 fl 80.0 - Normal (applies MCV [facility] corpuscular 100.0 to non-numeric Health volume [Entitic fl results) System volume] by Automated count Erythrocyte mean 31.6 pg 26.0 - Normal (applies MCH [facility] corpuscular 34.0 pg to non-numeric Health hemoglobin results) System [Entitic mass] by Automated count Erythrocyte mean 34.5 33.0 - Normal (applies MCHC [facility] corpuscular {gm/dL} 37.0 to non-numeric Health hemoglobin gm/dL results) System concentration [Mass/volume] by Automated count Erythrocyte 13.4 % 11.5 - Normal (applies RDW [facility] distribution 14.5 % to non-numeric Health width [Entitic results) System volume] by Automated count Platelets 174 130 - Normal (applies Platelet [facility] [#/volume] in {10\\S\\3_ 400 to non-numeric Count Health Plasma by uL} 10\\S\\3 results) System Automated count uL Platelet mean 10.6 fl 7.4 - Above high MPV [facility] volume [Entitic 10.4 fl normal Health volume] in Blood System by Automated count Monocytes 0.9 0.3 - Above high Monocyte [facility] [#/volume] in {10\\S\\3_ 0.9 normal Count Health Blood by Manual uL} 10\\S\\3 System count uL Eosinophils 0.3 0.1 - Normal (applies Eosinophil [facility] [#/volume] in {10\\S\\3_ 0.3 to non-numeric Count Blood Health Blood uL} 10\\S\\3 results) System uL Basophils 0.0 0.0 - Normal (applies Basophil [facility] [#/volume] in {10\\S\\3_ 0.1 to non-numeric Count Health Blood by uL} 10\\S\\3 results) System Automated count uL Neutrophils 5.7 2.0 - Normal (applies Absolute [facility] [#/volume] in {10\\S\\3_ 8.1 to non-numeric Neutrophil Health Body fluid uL} 10\\S\\3 results) Count System uL Lymphocyte 2.8 1.0 - Normal (applies Lymphocyte [facility] Absolute {10\\S\\3_ 5.5 to non-numeric Absolute Health uL} 10\\S\\3 results) System uL Neutrophils/100 58.4 % 0.0 - Normal (applies Neutrophil % [facility] leukocytes in 120.0 % to non-numeric Health Blood by results) System Automated count Monocytes/100 9.7 % 6.0 - Above high Monocyte % [facility] leukocytes in 9.0 % normal Health Blood System Eosinophils/100 2.8 % 1.0 - Normal (applies Eosinophil % [facility] leukocytes in 3.0 % to non-numeric Health Unspecified results) System specimen Basophils/100 0.4 % 0.0 - Normal (applies Basophil % [facility] leukocytes in 1.0 % to non-numeric Health Unspecified results) System specimen by Manual count Lymphocytes 28.7 % 21.0 - Normal (applies Lymphocyte % [facility] [#/volume] in 51.0 % to non-numeric Health Blood by results) System Automated count ID Date Data Source [id number] 03/28/2013 07:33:11 AM EDT [facility] System Name Value Range Interpretation Description Data Sup porting Code Source(s) Document(s ) Sodium 138 137 - Normal (applies Sodium, Serum [facility] [Moles/volum mmol/L 145 to non-numeric Health Syste m e] in Serum mmol/L results) or Plasma Potassium 3.6 3.6 - Normal (applies Potassium, [facility] [Mass/volume mmol/L 5.0 to non-numeric Serum Health Syste m ] in Serum mmol/L results) or Plasma Chloride 108 98 - 107 Above high normal Chloride, [facility] [Moles/volum mmol/L mmol/L Serum [facility] System e] in Serum or Plasma Carbon 16.0 22.0 - Below low normal CO2, Serum [facility] dioxide, mmol/L 30.0 Health System total mmol/L [Moles/volum e] in Serum or Plasma Total 6.0 6.3 - Below low normal Total Protein [facility] Protein mg/dl 8.2 Health System mg/dl Glucose 92 mg/dL 65 - 105 Normal (applies Glucose, Serum [facility] [Mass/volume mg/dL to non-numeric Health Syste m ] in Serum results) or Plasma ok Urea nitrogen 6 mg/dl 7 - 18 Below low Blood Urea [facility] [Mass/volume] in mg/dl normal Nitrogen, Serum Health System Serum or Plasma Creatinine 0.60 mg/dl 0.70 - 1.20 Below low Creatinine, [facility] [Mass/volume] in mg/dl normal Serum Health System Serum or Plasma Alkaline 49 {IU/L} 38 - 126 Normal Alkaline [facility] phosphatase IU/L (applies to Phosphatase, Health System isoenzymes non-numeric Serum [Enzymatic results) activity/volume] in Serum or Plasma by Heat stability Bilirubin.total 0.9 mg/dl 0.2 - 1.3 Normal Bilirubin, [facility] [Mass/volume] in mg/dl (applies to Serum Total Health Sy stem Serum or Plasma non-numeric results) ok Aspartate 13 {IU/L} 5 - 40 Normal Aspartate [facility] aminotransferase IU/L (applies to Transaminase, Health [Enzymatic non-numeric Serum System activity/volume] in results) Serum or Plasma by With P-5'-P Albumin 3.5 {gm/dl} 3.9 - Below low Albumin, Serum [facility] [Mass/volume] in 5.0 normal Health Serum or Plasma gm/dl System I. Phosphorus 2.3 mg/dl 2.5 - Below low I. Phosphorus [facility] 4.5 normal Health mg/dl System Alanine 9 {IU/L} 7 - 56 Normal Alanine [facility] aminotransferase IU/L (applies to Aminotransferas Healt h [Enzymatic non-numeric e, Serum System activity/volume] in results) Serum or Plasma Calcium 8.0 mg/dl 8.4 - Below low Calcium, Total [facility] [Mass/volume] in 10.2 normal Serum Health Serum or Plasma mg/dl System A/G Ratio 1.40 Normal A/G Ratio [facility] (applies to Health non-numeric System results) Urate [Mass/volume] 4.3 mg/dl 2.5 - Normal Uric Acid, [facility] in Serum or Plasma 7.5 (applies to Serum Health mg/dl non-numeric System results) Anion gap in Serum 14.00 mmol/L 8.00 - Above high Anion Gap [facility] or Plasma 12.00 normal Health mmol/L System Glomerular Greater than 90 Normal GFR [facility] filtration eGFR will (applies to Health rate/1.73 sq provide non-numeric System M.predicted [Volume clinicians with results) Rate/Area] in Serum a more accurate or Plasma by indicator of Creatinine-based renal function formula (CKD-EPI) then the serum creatinine. The eGFR is automatically calculated from an empiric formula (endorsed by the National Kid[employer] Foundation) which incorporates age, sex, and race.Clinicians may notice surprisingly low GFR's with serum creatinine valueswithin normal range- particularly in elderly women (with low muscle mass).In the hospital setting, the eGFR should add an element of safety in drug dosing, in assessing the risk of IV contrast administration, and in assessing vascular risk.The NKF staging system is as follows:Normal: eGFR >90 with no kidney markersStage 1: eGFR >90 with kidney markers*Stage 2: eGFR 60-89Stage 3: eGFR 30-59Stage 4: eGFR 15-29Stage 5: eGFR <15 (usually requiring dialysis)*Marker s include: Proteinuria, Hematuria, abnormal imaging-studies, or other blood or urine test abnormalities ID Date Data Source [id number] 03/27/2013 01:00:00 PM EDT [facility] Name Value Range Interpretation Description Data Sup porting Code Source(s) Document(s ) Amphetamine Negative Normal (applies Amphetamine [facility] Qualitative, to non-numeric Qualitative, Health Urine results) Urine System Barbituates, Negative Normal (applies Barbituates, [facility] Urine. to non-numeric Urine. Health results) System Benzodiazepine, Negative Normal (applies Benzodiazepine [facility] Urine. to non-numeric , Urine. Health results) System Cocaine Qual, Negative Normal (applies Cocaine Qual, [facility] Urine. to non-numeric Urine. Health results) System THC. SEE TEXT Abnormal THC. [facility] Positive (applies to Health These non-numeric System results are results) for medical treatment only. Analysis was performed as non-forensi c testing. Initial screen performed by [employer]zyme Immunoassay . These results are for medical treatment only. Analysis was performed as non-forensi c testing. This result is for medical treatment only. Analysis was performed as non-forensi c testing. These results are for medical treatment only. Analysis was performed as non-forensi c testing. This result is for medical treatment only. Analysis was performed as non-forensi c testing. This result is for medical treatment only. Analysis was performed as non-forensi c testing. These results are for medical treatment only. Analysis was performed as non-forensi c testing. This result is for medical treatment only. Analysis was performed as non-forensi c testing. This result is for medical treatment only. Analysis was performed as non-forensi c testing. Test Performed at: [facility] , [place] [address] Barbara Matthews M.D. Methaqualone Negative Normal (applies Methaqualone [facility] Qualitative, to non-numeric Qualitative, Health Urine results) Urine System Phencyclidine Negative Normal (applies Phencyclidine [facility] PCP to non-numeric PCP Health Qualitative, results) Qualitative, System Urine. Urine. Methadone Negative Normal (applies Methadone [facility] Qualitative, to non-numeric Qualitative, Health Urine results) Urine System Propoxyphene Negative Normal (applies Propoxyphene [facility] Qualitative, to non-numeric Qualitative, Health Urine results) Urine System Opiates, Urine Negative Normal (applies Opiates, Urine [facility] to non-numeric Health results) System ID Date Data Source [id number] 03/27/2013 01:00:00 PM EDT [facility] Name Value Range Interpretation Description Data Sup porting Code Source(s) Document(s ) Amphetamine Negative Negative Normal (applies Amphetamine [facility] [Mass/volume] ng/ml to non-numeric Level, Urine Health in Urine results) System Cut-off = 1000 ng/mL Barbiturates Negative Negative Normal (applies Barbiturate [facility] [Mass/volume] in ng/ml to non-numeric Screen, Urine Heal System Urine by Screen results) method Cut-off = 200 ng/mL Benzodiazepines Negative Negative Normal Benzodiazepines, [facility] [Mass/volume] in ng/mL (applies to Urine Health Urine non-numeric System results) Cut-off = 200 ng/mL Cocaine Negative Negative Normal (applies Cocaine [facility] metabolites.other ng/ml to non-numeric Metabolite Health System [Mass/volume] in results) Screen, Urine Urine Cut-off = 300 ng/mL Methadone Negative Negative Normal (applies Methadone [facility] [Mass/volume] in to non-numeric Level, Urine [facility] System Urine results) Cut-off = 300 ng/mL Opiate 300, Negative Negative ng/ml Normal (applies to Opiate 300, [facility] Urine non-numeric Urine [facility] System results) Cut-off = 300 ng/mL Phencyclidine Negative Negative Normal (applies Phencyclidine, [facility] [Mass/volume] in ng/ml to non-numeric Urine Health S ystem Urine results) Cut-off = 25 ng/mL THC Positive Negative ng/mL Abnormal (applies to THC [facility] non-numeric results) These results are for medical treatment only. The positive findings are unconfirmed. Request confirmatory/quantitative test i f needed. ID Date Data Source [id number] 03/27/2013 08:26:30 AM EDT [facility] System Name Value Range Interpretation Description Data Sup porting Code Source(s) Document(s ) Leukocytes 6.4 4.8 - Normal (applies WBC Count [facility] [#/volume] in {10\\S\\3_ 10.8 to non-numeric Health Unspecified uL} 10\\S\\3 results) System specimen by uL Automated count Erythrocytes 4.19 3.80 - Normal (applies RBC Count [facility] [#/volume] in {10\\S\\6_ 5.20 to non-numeric Health Blood by uL} 10\\S\\6 results) System Automated count uL Hemoglobin 13.4 12.0 - Normal (applies Hemoglobin, [facility] [Mass/volume] in {gm/dL} 16.0 to non-numeric Whole Blood Health Blood gm/dL results) System Hematocrit 38.8 % 36.0 - Normal (applies Hematocrit, [facility] [Volume 46.0 % to non-numeric Whole Blood Health Fraction] of results) System Blood Erythrocyte mean 92.6 fl 80.0 - Normal (applies MCV [facility] corpuscular 100.0 to non-numeric Health volume [Entitic fl results) System volume] by Automated count Erythrocyte mean 32.0 pg 26.0 - Normal (applies MCH [facility] corpuscular 34.0 pg to non-numeric Health hemoglobin results) System [Entitic mass] by Automated count Erythrocyte mean 34.5 33.0 - Normal (applies MCHC [facility] corpuscular {gm/dL} 37.0 to non-numeric Health hemoglobin gm/dL results) System concentration [Mass/volume] by Automated count Erythrocyte 13.8 % 11.5 - Normal (applies RDW [facility] distribution 14.5 % to non-numeric Health width [Entitic results) System volume] by Automated count Platelets 186 130 - Normal (applies Platelet [facility] [#/volume] in {10\\S\\3_ 400 to non-numeric Count Health Plasma by uL} 10\\S\\3 results) System Automated count uL Platelet mean 10.1 fl 7.4 - Normal (applies MPV [facility] volume [Entitic 10.4 fl to non-numeric Health volume] in Blood results) System by Automated count Monocytes 0.4 0.3 - Normal (applies Monocyte [facility] [#/volume] in {10\\S\\3_ 0.9 to non-numeric Count Health Blood by Manual uL} 10\\S\\3 results) System count uL Eosinophils 0.4 0.1 - Above high Eosinophil [facility] [#/volume] in {10\\S\\3_ 0.3 normal Count Blood Health Blood uL} 10\\S\\3 System uL Neutrophils 4.1 2.0 - Normal (applies Absolute [facility] [#/volume] in {10\\S\\3_ 8.1 to non-numeric Neutrophil Health Body fluid uL} 10\\S\\3 results) Count System uL Basophils 0.0 0.0 - Normal (applies Basophil [facility] [#/volume] in {10\\S\\3_ 0.1 to non-numeric Count Health Blood by uL} 10\\S\\3 results) System Automated count uL Lymphocyte 1.4 1.0 - Normal (applies Lymphocyte [facility] Absolute {10\\S\\3_ 5.5 to non-numeric Absolute Health uL} 10\\S\\3 results) System uL Neutrophils/100 64.7 % 0.0 - Normal (applies Neutrophil % [facility] leukocytes in 120.0 % to non-numeric Health Blood by results) System Automated count Monocytes/100 6.6 % 6.0 - Normal (applies Monocyte % [facility] leukocytes in 9.0 % to non-numeric Health Blood results) System Eosinophils/100 6.0 % 1.0 - Above high Eosinophil % [facility] leukocytes in 3.0 % normal Health Unspecified System specimen Basophils/100 0.5 % 0.0 - Normal (applies Basophil % [facility] leukocytes in 1.0 % to non-numeric Health Unspecified results) System specimen by Manual count Lymphocytes 22.2 % 21.0 - Normal (applies Lymphocyte % [facility] [#/volume] in 51.0 % to non-numeric Health Blood by results) System Automated count ID Date Data Source [id number] 03/27/2013 08:26:30 AM EDT [facility] Name Value Range Interpretation Description Data Sup porting Code Source(s) Document(s ) Sodium 138 mmol/L 137 - Normal (applies Sodium, [facility] [Moles/volume] 145 to non-numeric Serum Health in Serum or mmol/L results) System Plasma Potassium 4.1 mmol/L 3.6 - Normal (applies Potassium, [facility] [Mass/volume] 5.0 to non-numeric Serum Health in Serum or mmol/L results) System Plasma Chloride 110 mmol/L 98 - Above high Chloride, [facility] [Moles/volume] 107 normal Serum Health in Serum or mmol/L System Plasma Carbon dioxide, 14.0 mmol/L 22.0 - Below low CO2, Serum [facility] total 30.0 normal Health [Moles/volume] mmol/L System in Serum or Plasma Total Protein 6.5 mg/dl 6.3 - Normal (applies Total [facility] 8.2 to non-numeric Protein Health mg/dl results) System Glucose 115 mg/dL 65 - Above high Glucose, [facility] [Mass/volume] 105 normal Serum Health in Serum or mg/dL System Plasma Urea nitrogen 11 mg/dl 7 - 18 Normal (applies Blood Urea [facility] [Mass/volume] mg/dl to non-numeric Nitrogen, Health in Serum or results) Serum System Plasma Creatinine 0.70 mg/dl 0.70 - Normal (applies Creatinine, [facility] [Mass/volume] 1.20 to non-numeric Serum Health in Serum or mg/dl results) System Plasma Alkaline 54 {IU/L} 38 - Normal (applies Alkaline [facility] phosphatase 126 to non-numeric Phosphatase, Health isoenzymes IU/L results) Serum System [Enzymatic activity/volume ] in Serum or Plasma by Heat stability Bilirubin.total 0.3 mg/dl 0.2 - Normal (applies Bilirubin, [facility] [Mass/volume] 1.3 to non-numeric Serum Total Health in Serum or mg/dl results) System Plasma Aspartate 15 {IU/L} 5 - 40 Normal (applies Aspartate [facility] aminotransferas IU/L to non-numeric Transaminase Health e [Enzymatic results) , Serum System activity/volume ] in Serum or Plasma by With P-5'-P Albumin 3.9 {gm/dl} 3.9 - Normal (applies Albumin, [facility] [Mass/volume] 5.0 to non-numeric Serum Health in Serum or gm/dl results) System Plasma I. Phosphorus 2.9 mg/dl 2.5 - Normal (applies I. [facility] 4.5 to non-numeric Phosphorus Health mg/dl results) System Alanine 15 {IU/L} 7 - 56 Normal (applies Alanine [facility] aminotransferas IU/L to non-numeric Aminotransfe Health e [Enzymatic results) rase, Serum System activity/volume ] in Serum or Plasma Calcium 8.9 mg/dl 8.4 - Normal (applies Calcium, [facility] [Mass/volume] 10.2 to non-numeric Total Serum Health in Serum or mg/dl results) System Plasma A/G Ratio 1.50 Normal (applies A/G Ratio [facility] to non-numeric Health results) System Urate 6.9 mg/dl 2.5 - Normal (applies Uric Acid, [facility] [Mass/volume] 7.5 to non-numeric Serum Health in Serum or mg/dl results) System Plasma Anion gap in 14.00 mmol/L 8.00 - Above high Anion Gap [facility] Serum or Plasma 12.00 normal Health mmol/L System Glomerular Greater than Normal (applies GFR [facility] filtration 90 eGFR will to non-numeric Health rate/1.73 sq provide results) System M.predicted clinicians [Volume with a more Rate/Area] in accurate Serum or Plasma indicator of by renal function Creatinine-base then the serum d formula creatinine. (CKD-EPI) The eGFR is automatically calculated from an empiric formula (endorsed by the National Kidney Foundation) which incorporates age, sex, and race.Clinician s may notice surprisingly low GFR's with serum creatinine valueswithin normal range- particularly in elderly women (with low muscle mass).In the hospital setting, the eGFR should add an element of safety in drug dosing, in assessing the risk of IV contrast administration , and in assessing vascular risk.The NKF staging system is as follows:Normal : eGFR >90 with no kidney markersStage 1: eGFR >90 with kidney markers*Stage 2: eGFR 60-89Stage 3: eGFR 30-59Stage 4: eGFR 15-29Stage 5: eGFR <15 (usually requiring dialysis)*César ers include: Proteinuria, Hematuria, abnormal imaging-studie s, or other blood or urine test abnormalities ID Date Data Source [id number] 03/27/2013 08:26:30 AM EDT [facility] System Name Value Range Interpretation Description Data Sup porting Code Source(s) Document(s ) Phenytoin 5.4 10.0 - Below low normal Phenytoin [facility] [Mass/volume ug/ml 20.0 Level, Serum Health System ] in Serum ug/ml or Plasma ID Date Data Source [id number] 02/09/2013 08:15:00 AM EDT [facility] Name Value Range Interpretation Description Data Sup porting Code Source(s) Document(s ) Anisocytosis 1+ Abnormal Anisocytosis [facility] [Presence] in (applies to Health Blood by non-numeric System Automated count results) Platelets Adequate Normal (applies Platelet Count [facility] [#/volume] in to non-numeric Estimate Health Blood by results) System Estimate ID Date Data Source [id number] 02/09/2013 08:15:00 AM EDT [facility] Name Value Range Interpretation Description Data Sup porting Code Source(s) Document(s ) Amphetamine Negative Normal (applies Amphetamine [facility] Qualitative, to non-numeric Qualitative, Health Urine results) Urine System Barbituates, Negative Normal (applies Barbituates, [facility] Urine. to non-numeric Urine. Health results) System Benzodiazepine, Negative Normal (applies Benzodiazepine [facility] Urine. to non-numeric , Urine. Health results) System Cocaine Qual, Negative Normal (applies Cocaine Qual, [facility] Urine. to non-numeric Urine. Health results) System THC. SEE TEXT Abnormal THC. [facility] Positive (applies to Health These non-numeric System results are results) for medical treatment only. Analysis was performed as non-forensi c testing. Initial screen performed by [employer] Immunoassay . These results are for medical treatment only. Analysis was performed as non-forensi c testing. This result is for medical treatment only. Analysis was performed as non-forensi c testing. These results are for medical treatment only. Analysis was performed as non-forensi c testing. This result is for medical treatment only. Analysis was performed as non-forensi c testing. This result is for medical treatment only. Analysis was performed as non-forensi c testing. These results are for medical treatment only. Analysis was performed as non-forensi c testing. This result is for medical treatment only. Analysis was performed as non-forensi c testing. This result is for medical treatment only. Analysis was performed as non-forensi c testing. Test Performed at: [facility] , [place] [address] Barbara Matthews M.D. Methaqualone Negative Normal (applies Methaqualone [facility] Qualitative, to non-numeric Qualitative, Health Urine results) Urine System Phencyclidine Negative Normal (applies Phencyclidine [facility] PCP to non-numeric PCP Health Qualitative, results) Qualitative, System Urine. Urine. Methadone Negative Normal (applies Methadone [facility] Qualitative, to non-numeric Qualitative, Health Urine results) Urine System Propoxyphene Negative Normal (applies Propoxyphene [facility] Qualitative, to non-numeric Qualitative, Health Urine results) Urine System Opiates, Urine Negative Normal (applies Opiates, Urine [facility] to non-numeric Health results) System ID Date Data Source [id number] 02/09/2013 08:15:00 AM EDT [facility] System Name Value Range Interpretation Description Data Sup porting Code Source(s) Document(s ) Leukocytes 9.1 4.8 - Normal (applies WBC Count [facility] [#/volume] in {10\\S\\3_ 10.8 to non-numeric Health Unspecified uL} 10\\S\\3 results) System specimen by uL Automated count Erythrocytes 4.33 3.80 - Normal (applies RBC Count [facility] [#/volume] in {10\\S\\6_ 5.20 to non-numeric Health Blood by uL} 10\\S\\6 results) System Automated count uL Hemoglobin 13.4 12.0 - Normal (applies Hemoglobin, [facility] [Mass/volume] in {gm/dL} 16.0 to non-numeric Whole Blood Health Blood gm/dL results) System Hematocrit 39.5 % 36.0 - Normal (applies Hematocrit, [facility] [Volume 46.0 % to non-numeric Whole Blood Health Fraction] of results) System Blood Erythrocyte mean 91.2 fl 80.0 - Normal (applies MCV [facility] corpuscular 100.0 to non-numeric Health volume [Entitic fl results) System volume] by Automated count Erythrocyte mean 30.9 pg 26.0 - Normal (applies MCH [facility] corpuscular 34.0 pg to non-numeric Health hemoglobin results) System [Entitic mass] by Automated count Erythrocyte mean 33.9 33.0 - Normal (applies MCHC [facility] corpuscular {gm/dL} 37.0 to non-numeric Health hemoglobin gm/dL results) System concentration [Mass/volume] by Automated count Erythrocyte 13.9 % 11.5 - Normal (applies RDW [facility] distribution 14.5 % to non-numeric Health width [Entitic results) System volume] by Automated count Platelets 168 130 - Normal (applies Platelet [facility] [#/volume] in {10\\S\\3_ 400 to non-numeric Count Health Plasma by uL} 10\\S\\3 results) System Automated count uL Platelet mean 9.8 fl 7.4 - Normal (applies MPV [facility] volume [Entitic 10.4 fl to non-numeric Health volume] in Blood results) System by Automated count Monocytes 0.5 0.3 - Normal (applies Monocyte [facility] [#/volume] in {10\\S\\3_ 0.9 to non-numeric Count Health Blood by Manual uL} 10\\S\\3 results) System count uL Eosinophils 0.2 0.1 - Normal (applies Eosinophil [facility] [#/volume] in {10\\S\\3_ 0.3 to non-numeric Count Blood Health Blood uL} 10\\S\\3 results) System uL Basophils 0.0 0.0 - Normal (applies Basophil [facility] [#/volume] in {10\\S\\3_ 0.1 to non-numeric Count Health Blood by uL} 10\\S\\3 results) System Automated count uL Neutrophils 7.2 2.0 - Normal (applies Absolute [facility] [#/volume] in {10\\S\\3_ 8.1 to non-numeric Neutrophil Health Body fluid uL} 10\\S\\3 results) Count System uL Lymphocyte 1.2 1.0 - Normal (applies Lymphocyte [facility] Absolute {10\\S\\3_ 5.5 to non-numeric Absolute Health uL} 10\\S\\3 results) System uL Neutrophils/100 78.8 % 0.0 - Normal (applies Neutrophil % [facility] leukocytes in 120.0 % to non-numeric Health Blood by results) System Automated count Monocytes/100 5.5 % 6.0 - Below low normal Monocyte % [facility] leukocytes in 9.0 % Health Blood System Eosinophils/100 2.2 % 1.0 - Normal (applies Eosinophil % [facility] leukocytes in 3.0 % to non-numeric Health Unspecified results) System specimen Basophils/100 0.3 % 0.0 - Normal (applies Basophil % [facility] leukocytes in 1.0 % to non-numeric Health Unspecified results) System specimen by Manual count Lymphocytes 13.2 % 21.0 - Below low normal Lymphocyte % [facility] [#/volume] in 51.0 % Health Blood by System Automated count ID Date Data Source [id number] 02/09/2013 08:15:00 AM EDT [facility] Name Value Range Interpretation Description Data Sup porting Code Source(s) Document(s ) hCG Less than 5.0 Normal (applies hCG [facility] Quantitative Negative = <5 to non-numeric Quantitative Healt h mIU/mLAPPROXIM results) System ATE GEST. AGE APPROXIMATE HCG mIU/ML 0.2 - 1 week 5 - 50 1 - 2 weeks 50 - 500 2 - 3 weeks 100 - 5,000 3 - 4 weeks 500 - 10,000 4 - 5 weeks 1,000 - 50,000 5 - 6 weeks 10,000 - 100,000 6 - 8 weeks 15,000 - 200,000 8 - 12 weeks 10,000 - 100,000HCG levels between 5-25 mIU/mL may be indicative of early . Correlation with other clinical findings and/or repeat of HCG quantitative testing recommened. ID Date Data Source [id number] 02/09/2013 08:15:00 AM EDT [facility] System Name Value Range Interpretation Description Data Sup porting Code Source(s) Document(s ) Sodium 137 mmol/L 137 - Normal (applies Sodium, [facility] [Moles/volume] 145 to non-numeric Serum Health in Serum or mmol/L results) System Plasma Potassium 4.3 mmol/L 3.6 - Normal (applies Potassium, [facility] [Mass/volume] 5.0 to non-numeric Serum Health in Serum or mmol/L results) System Plasma Chloride 112 mmol/L 98 - Above high Chloride, [facility] [Moles/volume] 107 normal Serum Health in Serum or mmol/L System Plasma Carbon dioxide, 16.0 mmol/L 22.0 - Below low CO2, Serum [facility] total 30.0 normal Health [Moles/volume] mmol/L System in Serum or Plasma Total Protein 6.3 mg/dl 6.3 - Normal (applies Total [facility] 8.2 to non-numeric Protein Health mg/dl results) System Glucose 107 mg/dL 65 - Above high Glucose, [facility] [Mass/volume] 105 normal Serum Health in Serum or mg/dL System Plasma Urea nitrogen 13 mg/dl 7 - 18 Normal (applies Blood Urea [facility] [Mass/volume] mg/dl to non-numeric Nitrogen, Health in Serum or results) Serum System Plasma Creatinine 0.70 mg/dl 0.70 - Normal (applies Creatinine, [facility] [Mass/volume] 1.20 to non-numeric Serum Health in Serum or mg/dl results) System Plasma Alkaline 56 {IU/L} 38 - Normal (applies Alkaline [facility] phosphatase 126 to non-numeric Phosphatase, Health isoenzymes IU/L results) Serum System [Enzymatic activity/volume ] in Serum or Plasma by Heat stability Bilirubin.total 0.3 mg/dl 0.2 - Normal (applies Bilirubin, [facility] [Mass/volume] 1.3 to non-numeric Serum Total Health in Serum or mg/dl results) System Plasma Aspartate 25 {IU/L} 5 - 40 Normal (applies Aspartate [facility] aminotransferas IU/L to non-numeric Transaminase Health e [Enzymatic results) , Serum System activity/volume ] in Serum or Plasma by With P-5'-P Albumin 4.0 {gm/dl} 3.9 - Normal (applies Albumin, [facility] [Mass/volume] 5.0 to non-numeric Serum Health in Serum or gm/dl results) System Plasma I. Phosphorus 2.1 mg/dl 2.5 - Below low I. [facility] 4.5 normal Phosphorus Health mg/dl System Alanine 32 {IU/L} 7 - 56 Normal (applies Alanine [facility] aminotransferas IU/L to non-numeric Aminotransfe Health e [Enzymatic results) rase, Serum System activity/volume ] in Serum or Plasma Calcium 9.1 mg/dl 8.4 - Normal (applies Calcium, [facility] [Mass/volume] 10.2 to non-numeric Total Serum Health in Serum or mg/dl results) System Plasma A/G Ratio 1.74 Normal (applies A/G Ratio [facility] to non-numeric Health results) System Urate 7.2 mg/dl 2.5 - Normal (applies Uric Acid, [facility] [Mass/volume] 7.5 to non-numeric Serum Health in Serum or mg/dl results) System Plasma Anion gap in 9.00 mmol/L 8.00 - Normal (applies Anion Gap [facility] Serum or Plasma 12.00 to non-numeric Health mmol/L results) System Glomerular Greater than Normal (applies GFR [facility] filtration 90 eGFR will to non-numeric Health rate/1.73 sq provide results) System M.predicted clinicians [Volume with a more Rate/Area] in accurate Serum or Plasma indicator of by renal function Creatinine-base then the serum d formula creatinine. (CKD-EPI) The eGFR is automatically calculated from an empiric formula (endorsed by the [employer]) which incorporates age, sex, and race.Clinician s may notice surprisingly low GFR's with serum creatinine valueswithin normal range- particularly in elderly women (with low muscle mass).In the hospital setting, the eGFR should add an element of safety in drug dosing, in assessing the risk of IV contrast administration , and in assessing vascular risk.The NKF staging system is as follows:Normal : eGFR >90 with no kidney markersStage 1: eGFR >90 with kidney markers*Stage 2: eGFR 60-89Stage 3: eGFR 30-59Stage 4: eGFR 15-29Stage 5: eGFR <15 (usually requiring dialysis)*César ers include: Proteinuria, Hematuria, abnormal imaging-studie s, or other blood or urine test abnormalities ID Date Data Source [id number] 02/09/2013 08:15:00 AM EDT [facility] Name Value Range Interpretation Description Data Sup porting Code Source(s) Document(s ) Phenytoin 6.6 10.0 - Below low normal Phenytoin [facility] [Mass/volume ug/ml 20.0 Level, Serum Health System ] in Serum ug/ml or Plasma ID Date Data Source [id number] 02/09/2013 08:15:00 AM EDT [facility] Name Value Range Interpretation Description Data Sup porting Code Source(s) Document(s ) Amphetamine Negative Negative Normal (applies Amphetamine [facility] [Mass/volume] ng/ml to non-numeric Level, Urine Health in Urine results) System URINE TOX ARRIVED IN THE LAB AT 12:3OPM. Cut-off = 1000 ng/mL Barbiturates Negative Negative Normal (applies Barbiturate [facility] [Mass/volume] in ng/ml to non-numeric Screen, Urine Heal System Urine by Screen results) method Cut-off = 200 ng/mL Benzodiazepines Negative Negative Normal Benzodiazepines, [facility] [Mass/volume] in ng/mL (applies to Urine Health Urine non-numeric System results) Cut-off = 200 ng/mL Cocaine Negative Negative Normal (applies Cocaine [facility] metabolites.other ng/ml to non-numeric Metabolite [facility] System [Mass/volume] in results) Screen, Urine Urine Cut-off = 300 ng/mL Methadone Negative Negative Normal (applies Methadone [facility] [Mass/volume] in to non-numeric Level, Urine Healt h System Urine results) Cut-off = 300 ng/mL Opiate 300, Negative Negative ng/ml Normal (applies to Opiate 300, [facility] Urine non-numeric Urine [facility] System results) Cut-off = 300 ng/mL Phencyclidine Negative Negative Normal (applies Phencyclidine, [facility] [Mass/volume] in ng/ml to non-numeric Urine Health S yste Urine results) Cut-off = 25 ng/mL THC Positive Negative ng/mL Abnormal (applies to THC [facility] non-numeric results) These results are for medical treatment only. The positive findings are unconfirmed. Request confirmatory/quantitative test i f needed. ID Date Data Source [id number] 11/09/2012 11:12:00 AM EDT [facility] System Name Value Range Interpretation Description Data Sup porting Code Source(s) Document(s ) Phenytoin 8.4 10.0 - Below low normal Phenytoin [facility] [Mass/volume ug/ml 20.0 Level, Serum Health System ] in Serum ug/ml or Plasma ID Date Data Source [id number] 10/31/2012 11:28:00 AM EDT [facility] System Name Value Range Interpretation Description Data Sup porting Code Source(s) Document(s ) Phenytoin Less 10.0 - Below low normal Phenytoin [facility] [Mass/volume than 0.5 20.0 Level, Serum Health System ] in Serum ug/ml or Plasma ID Date Data Source [id number] 10/19/2012 10:55:00 AM EST [facility] System Name Value Range Interpretation Description Data Sup porting Code Source(s) Document(s ) Phenytoin 15.2 10.0 - Normal (applies Phenytoin [facility] [Mass/volume ug/ml 20.0 to non-numeric Level, Serum Health Sy stem ] in Serum ug/ml results) or Plasma ok ID Date Data Source [id number] 10/15/2012 01:05:00 PM EST [facility] System Name Value Range Interpretation Description Data Sup porting Code Source(s) Document(s ) Leukocytes 7.9 4.8 - Normal (applies WBC Count [facility] [#/volume] in {10\\S\\3_ 10.8 to non-numeric Health Unspecified uL} 10\\S\\3 results) System specimen by uL Automated count Erythrocytes 4.73 3.80 - Normal (applies RBC Count [facility] [#/volume] in {10\\S\\6_ 5.20 to non-numeric Health Blood by uL} 10\\S\\6 results) System Automated count uL Hemoglobin 15.2 12.0 - Normal (applies Hemoglobin, [facility] [Mass/volume] in {gm/dL} 16.0 to non-numeric Whole Blood Health Blood gm/dL results) System Hematocrit 42.7 % 36.0 - Normal (applies Hematocrit, [facility] [Volume 46.0 % to non-numeric Whole Blood Health Fraction] of results) System Blood Erythrocyte mean 90.3 fl 80.0 - Normal (applies MCV [facility] corpuscular 100.0 to non-numeric Health volume [Entitic fl results) System volume] by Automated count Erythrocyte mean 32.1 pg 26.0 - Normal (applies MCH [facility] corpuscular 34.0 pg to non-numeric Health hemoglobin results) System [Entitic mass] by Automated count Erythrocyte mean 35.6 33.0 - Normal (applies MCHC [facility] corpuscular {gm/dL} 37.0 to non-numeric Health hemoglobin gm/dL results) System concentration [Mass/volume] by Automated count Erythrocyte 13.7 % 11.5 - Normal (applies RDW [facility] distribution 14.5 % to non-numeric Health width [Entitic results) System volume] by Automated count Platelets 290 130 - Normal (applies Platelet [facility] [#/volume] in {10\\S\\3_ 400 to non-numeric Count Health Plasma by uL} 10\\S\\3 results) System Automated count uL Platelet mean 9.6 fl 7.4 - Normal (applies MPV [facility] volume [Entitic 10.4 fl to non-numeric Health volume] in Blood results) System by Automated count Monocytes 0.5 Normal (applies Monocyte [facility] [#/volume] in {10\\S\\3_ to non-numeric Count Health Blood by Manual uL} results) System count Eosinophils 0.3 Normal (applies Eosinophil [facility] [#/volume] in {10\\S\\3} to non-numeric Count Blood Health Blood results) System Basophils 0.05 Normal (applies Basophil [facility] [#/volume] in {10\\S\\3_ to non-numeric Count Health Blood by uL} results) System Automated count Neutrophils 5.1 Normal (applies Absolute [facility] [#/volume] in {10\\S\\3_ to non-numeric Neutrophil Health Body fluid uL} results) Count System Lymphocyte 2.0 Normal (applies Lymphocyte [facility] Absolute {10\\S\\3_ to non-numeric Absolute Health uL} results) System Neutrophils/100 64.4 % Normal (applies Neutrophil % [facility] leukocytes in to non-numeric Health Blood by results) System Automated count Monocytes/100 6.6 % 6.0 - Normal (applies Monocyte % [facility] leukocytes in 9.0 % to non-numeric Health Blood results) System Eosinophils/100 3.6 % 1.0 - Above high Eosinophil % [facility] leukocytes in 3.0 % normal Health Unspecified System specimen Basophils/100 0.6 % 0.0 - Normal (applies Basophil % [facility] leukocytes in 1.0 % to non-numeric Health Unspecified results) System specimen by Manual count Lymphocytes 24.8 % 21.0 - Normal (applies Lymphocyte % [facility] [#/volume] in 51.0 % to non-numeric Health Blood by results) System Automated count ID Date Data Source [id number] 10/15/2012 01:05:00 PM [facility] System Name Value Range Interpretation Description Data Sup porting Code Source(s) Document(s ) hCG Less than 5 Normal (applies hCG [facility] Quantitative Negative = <5 to non-numeric Quantitative Healt h mIU/mLAPPROXIM results) System ATE GEST. AGE APPROXIMATE HCG mIU/ML 0.2 - 1 week 5 - 50 1 - 2 weeks 50 - 500 2 - 3 weeks 100 - 5,000 3 - 4 weeks 500 - 10,000 4 - 5 weeks 1,000 - 50,000 5 - 6 weeks 10,000 - 100,000 6 - 8 weeks 15,000 - 200,000 8 - 12 weeks 10,000 - 100,000HCG levels between 5-25 mIU/mL may be indicative of early . Correlation with other clinical findings and/or repeat of HCG quantitative testing recommened. ID Date Data Source [id number] 10/15/2012 01:05:00 PM EST [facility] System Name Value Range Interpretation Description Data Sup porting Code Source(s) Document(s ) Sodium 135 137 - Below low normal Sodium, Serum [facility] [Moles/volume mmol/L 145 Health ] in Serum or mmol/L System Plasma Potassium 4.5 3.6 - Normal (applies Potassium, [facility] [Mass/volume] mmol/L 5.0 to non-numeric Serum Health in Serum or mmol/L results) System Plasma Chloride 105 98 - 107 Normal (applies Chloride, [facility] [Moles/volume mmol/L mmol/L to non-numeric Serum Health ] in Serum or results) System Plasma Carbon 18.0 22.0 - Below low normal CO2, Serum [facility] dioxide, mmol/L 30.0 Health total mmol/L System [Moles/volume ] in Serum or Plasma Glucose 112 65 - 105 Above high normal Glucose, Serum [facility] [Mass/volume] mg/dL mg/dL Health in Serum or System Plasma Urea nitrogen 9 mg/dl 7 - 18 Normal (applies Blood Urea [facility] [Mass/volume] mg/dl to non-numeric Nitrogen, Health in Serum or results) Serum System Plasma Creatinine 0.80 0.70 - Normal (applies Creatinine, [facility] [Mass/volume] mg/dl 1.20 to non-numeric Serum Health in Serum or mg/dl results) System Plasma Calcium 9.7 8.4 - Normal (applies Calcium, Total [facility] [Mass/volume] mg/dl 10.2 to non-numeric Serum Health in Serum or mg/dl results) System Plasma Anion gap in 12.00 8.00 - Normal (applies Anion Gap [facility] Serum or mmol/L 12.00 to non-numeric Health Plasma mmol/L results) System ID Date Data Source [id number] 10/15/2012 01:05:00 PM EST [facility] Name Value Range Interpretation Description Data Sup porting Code Source(s) Document(s ) Phenytoin 10.0 10.0 - Normal (applies Phenytoin [facility] [Mass/volume ug/ml 20.0 to non-numeric Level, Serum Health Sy stem ] in Serum ug/ml results) or Plasma ID Date Data Source [id number] 07/25/2012 01:20:00 PM EST [facility] Name Value Range Interpretation Description Data Sup porting Code Source(s) Document(s ) Prothrombin 11.70 9.54 - Normal (applies Prothrombin [facility] time (PT) 11.90 to non-numeric time (PT) Health results) System INR in Blood 1.10 0.70 - Normal (applies INR Result [facility] by Coagulation {Ratio} 1.10 to non-numeric Health assay Ratio results) System Normal = 0.7-1.1Therapeutic = 2.0-3.0Mec hanical Heart = 3.0-4.5 ID Date Data Source [id number] 07/25/2012 01:20:00 PM EST [facility] Name Value Range Interpretation Description Data Sup porting Code Source(s) Document(s ) Leukocytes 6.9 4.8 - Normal (applies WBC Count [facility] [#/volume] in {10\\S\\3_ 10.8 to non-numeric Health Unspecified uL} 10\\S\\3 results) System specimen by uL Automated count Erythrocytes 4.21 3.80 - Normal (applies RBC Count [facility] [#/volume] in {10\\S\\6_ 5.20 to non-numeric Health Blood by uL} 10\\S\\6 results) System Automated count uL Hemoglobin 13.5 12.0 - Normal (applies Hemoglobin, [facility] [Mass/volume] in {gm/dL} 16.0 to non-numeric Whole Blood Health Blood gm/dL results) System Hematocrit 39.8 % 36.0 - Normal (applies Hematocrit, [facility] [Volume 46.0 % to non-numeric Whole Blood Health Fraction] of results) System Blood Erythrocyte mean 94.5 fl 80.0 - Normal (applies MCV [facility] corpuscular 100.0 to non-numeric Health volume [Entitic fl results) System volume] by Automated count Erythrocyte mean 32.1 pg 26.0 - Normal (applies MCH [facility] corpuscular 34.0 pg to non-numeric Health hemoglobin results) System [Entitic mass] by Automated count Erythrocyte mean 33.9 33.0 - Normal (applies MCHC [facility] corpuscular {gm/dL} 37.0 to non-numeric Health hemoglobin gm/dL results) System concentration [Mass/volume] by Automated count Erythrocyte 13.9 % 11.5 - Normal (applies RDW [facility] distribution 14.5 % to non-numeric Health width [Entitic results) System volume] by Automated count Platelets 225 130 - Normal (applies Platelet [facility] [#/volume] in {10\\S\\3_ 400 to non-numeric Count Health Plasma by uL} 10\\S\\3 results) System Automated count uL Platelet mean 9.1 fl 7.4 - Normal (applies MPV [facility] volume [Entitic 10.4 fl to non-numeric Health volume] in Blood results) System by Automated count ID Date Data Source [id number] 07/25/2012 01:20:00 PM EST [facility] Name Value Range Interpretation Description Data Sup porting Code Source(s) Document(s ) Sodium 138 mmol/L 137 - Normal (applies Sodium, [facility] [Moles/volume] 145 to non-numeric Serum Health in Serum or mmol/L results) System Plasma Potassium 4.1 mmol/L 3.6 - Normal (applies Potassium, [facility] [Mass/volume] 5.0 to non-numeric Serum Health in Serum or mmol/L results) System Plasma Chloride 106 mmol/L 98 - Normal (applies Chloride, [facility] [Moles/volume] 107 to non-numeric Serum Health in Serum or mmol/L results) System Plasma Carbon dioxide, 22.0 mmol/L 22.0 - Normal (applies CO2, Serum [facility] total 30.0 to non-numeric Health [Moles/volume] mmol/L results) System in Serum or Plasma Total Protein 7.1 mg/dl 6.3 - Normal (applies Total [facility] 8.2 to non-numeric Protein Health mg/dl results) System Glucose 66 mg/dL 65 - Normal (applies Glucose, [facility] [Mass/volume] 105 to non-numeric Serum Health in Serum or mg/dL results) System Plasma Urea nitrogen 13 mg/dl 7 - 18 Normal (applies Blood Urea [facility] [Mass/volume] mg/dl to non-numeric Nitrogen, Health in Serum or results) Serum System Plasma Creatinine 0.70 mg/dl 0.70 - Normal (applies Creatinine, [facility] [Mass/volume] 1.20 to non-numeric Serum Health in Serum or mg/dl results) System Plasma Alkaline 57 {IU/L} 38 - Normal (applies Alkaline [facility] phosphatase 126 to non-numeric Phosphatase, Health isoenzymes IU/L results) Serum System [Enzymatic activity/volume ] in Serum or Plasma by Heat stability Bilirubin 0.2 mg/dl 0.2 - Normal (applies Bilirubin, [facility] direct and 1.3 to non-numeric Serum Total Health total panel mg/dl results) System [Mass/volume] - Serum or Plasma Aspartate 22 {IU/L} 5 - 40 Normal (applies Aspartate [facility] aminotransferas IU/L to non-numeric Transaminase Health e [Enzymatic results) , Serum System activity/volume ] in Serum or Plasma by With P-5'-P Albumin 4.7 {gm/dl} 3.9 - Normal (applies Albumin, [facility] [Mass/volume] 5.0 to non-numeric Serum Health in Serum or gm/dl results) System Plasma I. Phosphorus 3.4 mg/dl 2.5 - Normal (applies I. [facility] 4.5 to non-numeric Phosphorus Health mg/dl results) System Alanine 55 {IU/L} 7 - 56 Normal (applies Alanine [facility] aminotransferas IU/L to non-numeric Aminotransfe Health e [Enzymatic results) rase, Serum System activity/volume ] in Serum or Plasma Calcium 9.3 mg/dl 8.4 - Normal (applies Calcium, [facility] [Mass/volume] 10.2 to non-numeric Total Serum Health in Serum or mg/dl results) System Plasma A/G Ratio 1.96 Normal (applies A/G Ratio [facility] to non-numeric Health results) System Urate 5.3 mg/dl 2.5 - Normal (applies Uric Acid, [facility] [Mass/volume] 7.5 to non-numeric Serum Health in Serum or mg/dl results) System Plasma Anion gap in 10.00 mmol/L 8.00 - Normal (applies Anion Gap [facility] Serum or Plasma 12.00 to non-numeric Health mmol/L results) System Glomerular Greater than Normal (applies GFR [facility] filtration 90 eGFR will to non-numeric Health rate/1.73 sq provide results) System M.predicted clinicians [Volume with a more Rate/Area] in accurate Serum or Plasma indicator of by renal function Creatinine-base then the serum d formula creatinine. (CKD-EPI) The eGFR is automatically calculated from an empiric formula (endorsed by the [employer]) which incorporates age, sex, and race.Clinician s may notice surprisingly low GFR's with serum creatinine valueswithin normal range- particularly in elderly women (with low muscle mass).In the hospital setting, the eGFR should add an element of safety in drug dosing, in assessing the risk of IV contrast administration , and in assessing vascular risk.The NKF staging system is as follows:Normal : eGFR >90 with no kidney markersStage 1: eGFR >90 with kidney markers*Stage 2: eGFR 60-89Stage 3: eGFR 30-59Stage 4: eGFR 15-29Stage 5: eGFR <15 (usually requiring dialysis)*César ers include: Proteinuria, Hematuria, abnormal imaging-studie s, or other blood or urine test abnormalities ID Date Data Source [id number] 07/25/2012 01:20:00 PM [facility] System Name Value Range Interpretation Description Data Sup porting Code Source(s) Document(s ) Phenytoin 14.7 10.0 - Normal (applies Phenytoin [facility] [Mass/volume ug/ml 20.0 to non-numeric Level, Serum Health Sy stem ] in Serum ug/ml results) or Plasma ID Date Data Source [id number] 07/25/2012 12:30:00 PM [facility] System Name Value Range Interpretation Description Data Sup porting Code Source(s) Document(s ) Negative Normal (applies Test [facility] Test Urine, to non-numeric Urine, Health System Visibility results) Visibility Color Color Complete Complete This test can detect HCG urine concentra tion of 25mIU/ml or greater. Negative result at 4 minute reading does not rule out ea rly . If clinically indicated, serum quantitative HCG test should be ordered. ID Date Data Source [id number] 04/11/2012 10:47:00 AM EDT [facility] System Name Value Range Interpretation Description Data Sup porting Code Source(s) Document(s ) Leukocytes 7.3 4.8 - Normal (applies WBC Count [facility] [#/volume] in {10\\S\\3_ 10.8 to non-numeric Health Unspecified uL} 10\\S\\3 results) System specimen by uL Automated count Erythrocytes 4.12 3.80 - Normal (applies RBC Count [facility] [#/volume] in {10\\S\\6_ 5.20 to non-numeric Health Blood by uL} 10\\S\\6 results) System Automated count uL Hemoglobin 12.9 12.0 - Normal (applies Hemoglobin, [facility] [Mass/volume] in {gm/dL} 16.0 to non-numeric Whole Blood Health Blood gm/dL results) System Hematocrit 38.2 % 36.0 - Normal (applies Hematocrit, [facility] [Volume 46.0 % to non-numeric Whole Blood Health Fraction] of results) System Blood Erythrocyte mean 92.7 fl 80.0 - Normal (applies MCV [facility] corpuscular 100.0 to non-numeric Health volume [Entitic fl results) System volume] by Automated count Erythrocyte mean 31.3 pg 26.0 - Normal (applies MCH [facility] corpuscular 34.0 pg to non-numeric Health hemoglobin results) System [Entitic mass] by Automated count Erythrocyte mean 33.8 33.0 - Normal (applies MCHC [facility] corpuscular {gm/dL} 37.0 to non-numeric Health hemoglobin gm/dL results) System concentration [Mass/volume] by Automated count Erythrocyte 13.4 % 11.5 - Normal (applies RDW [facility] distribution 14.5 % to non-numeric Health width [Entitic results) System volume] by Automated count Platelets 214 130 - Normal (applies Platelet [facility] [#/volume] in {10\\S\\3_ 400 to non-numeric Count Health Plasma by uL} 10\\S\\3 results) System Automated count uL Platelet mean 9.6 fl 7.4 - Normal (applies MPV [facility] volume [Entitic 10.4 fl to non-numeric Health volume] in Blood results) System by Automated count Monocytes 0.6 Normal (applies Monocyte [facility] [#/volume] in {10\\S\\3_ to non-numeric Count Health Blood by Manual uL} results) System count Eosinophils 0.5 Normal (applies Eosinophil [facility] [#/volume] in {10\\S\\3} to non-numeric Count Blood Health Blood results) System Neutrophils 3.5 Normal (applies Absolute [facility] [#/volume] in {10\\S\\3_ to non-numeric Neutrophil Health Body fluid uL} results) Count System Basophils 0.03 Normal (applies Basophil [facility] [#/volume] in {10\\S\\3_ to non-numeric Count Health Blood by uL} results) System Automated count Lymphocyte 2.7 Normal (applies Lymphocyte [facility] Absolute {10\\S\\3_ to non-numeric Absolute Health uL} results) System Neutrophils/100 47.8 % Normal (applies Neutrophil % [facility] leukocytes in to non-numeric Health Blood by results) System Automated count Monocytes/100 7.8 % 6.0 - Normal (applies Monocyte % [facility] leukocytes in 9.0 % to non-numeric Health Blood results) System Eosinophils/100 7.0 % 1.0 - Above high Eosinophil % [facility] leukocytes in 3.0 % normal Health Unspecified System specimen Basophils/100 0.4 % 0.0 - Normal (applies Basophil % [facility] leukocytes in 1.0 % to non-numeric Health Unspecified results) System specimen by Manual count Lymphocytes 37.0 % 21.0 - Normal (applies Lymphocyte % [facility] [#/volume] in 51.0 % to non-numeric Health Blood by results) System Automated count ID Date Data Source [id number] 04/11/2012 10:47:00 AM EDT [facility] System Name Value Range Interpretation Description Data Sup porting Code Source(s) Document(s ) Phenytoin 9.1 10.0 - Below low normal Phenytoin [facility] [Mass/volume ug/ml 20.0 Level, Serum Health System ] in Serum ug/ml or Plasma ID Date Data Source [id number] 02/03/2012 11:09:00 AM EDT [facility] System Name Value Range Interpretation Description Data Sup porting Code Source(s) Document(s ) Dilantin Cancelled Dilantin Free [facility] Free wrong order Health System ID Date Data Source [id number] 02/03/2012 11:00:00 AM EDT [facility] System Name Value Range Interpretation Description Data Sup porting Code Source(s) Document(s ) Phenytoin 15.0 10.0 - Normal (applies Phenytoin [facility] [Mass/volume ug/ml 20.0 to non-numeric Level, Serum Health Sy stem ] in Serum ug/ml results) or Plasma ID Date Data Source [id number] 01/25/2012 01:41:00 PM EDT [facility] System Name Value Range Interpretation Description Data Sup porting Code Source(s) Document(s ) Phenytoin 13.5 10.0 - Normal (applies Phenytoin [facility] [Mass/volume ug/ml 20.0 to non-numeric Level, Serum Health Sy stem ] in Serum ug/ml results) or Plasma ID Date Data Source [id number] 01/18/2012 11:33:00 AM EDT [facility] System Name Value Range Interpretation Description Data Sup porting Code Source(s) Document(s ) Phenytoin 12.0 10.0 - Normal (applies Phenytoin [facility] [Mass/volume ug/ml 20.0 to non-numeric Level, Serum Health Sy stem ] in Serum ug/ml results) or Plasma ID Date Data Source [id number] 01/16/2012 06:43:44 AM EDT [facility] System Name Value Range Interpretation Description Data Sup porting Code Source(s) Document(s ) Leukocytes 10.1 4.8 - Normal (applies WBC Count [facility] [#/volume] in {10\\S\\3_ 10.8 to non-numeric Health Unspecified uL} 10\\S\\3 results) System specimen by uL Automated count Erythrocytes 4.61 3.80 - Normal (applies RBC Count [facility] [#/volume] in {10\\S\\6_ 5.20 to non-numeric Health Blood by uL} 10\\S\\6 results) System Automated count uL Hemoglobin 14.5 12.0 - Normal (applies Hemoglobin, [facility] [Mass/volume] in {gm/dL} 16.0 to non-numeric Whole Blood [facility] Blood gm/dL results) System Hematocrit 43.1 % 36.0 - Normal (applies Hematocrit, [facility] [Volume 46.0 % to non-numeric Whole Blood [facility] Fraction] of results) System Blood Erythrocyte mean 93.5 fl 80.0 - Normal (applies MCV [facility] corpuscular 100.0 to non-numeric Health volume [Entitic fl results) System volume] by Automated count Erythrocyte mean 31.5 pg 26.0 - Normal (applies MCH [facility] corpuscular 34.0 pg to non-numeric Health hemoglobin results) System [Entitic mass] by Automated count Erythrocyte mean 33.6 33.0 - Normal (applies MCHC [facility] corpuscular {gm/dL} 37.0 to non-numeric Health hemoglobin gm/dL results) System concentration [Mass/volume] by Automated count Erythrocyte 13.6 % 11.5 - Normal (applies RDW [facility] distribution 14.5 % to non-numeric Health width [Entitic results) System volume] by Automated count Platelets 256 130 - Normal (applies Platelet [facility] [#/volume] in {10\\S\\3_ 400 to non-numeric Count Health Plasma by uL} 10\\S\\3 results) System Automated count uL Platelet mean 10.6 fl 7.4 - Above high MPV [facility] volume [Entitic 10.4 fl normal Health volume] in Blood System by Automated count Monocytes 0.6 Normal (applies Monocyte [facility] [#/volume] in {10\\S\\3_ to non-numeric Count Health Blood by Manual uL} results) System count Eosinophils 0.2 Normal (applies Eosinophil [facility] [#/volume] in {10\\S\\3} to non-numeric Count Blood Health Blood results) System Neutrophils 7.8 Normal (applies Absolute [facility] [#/volume] in {10\\S\\3_ to non-numeric Neutrophil Health Body fluid uL} results) Count System Basophils 0.03 Normal (applies Basophil [facility] [#/volume] in {10\\S\\3_ to non-numeric Count Health Blood by uL} results) System Automated count Lymphocyte 1.5 Normal (applies Lymphocyte [facility] Absolute {10\\S\\3_ to non-numeric Absolute Health uL} results) System Neutrophils/100 77.5 % Normal (applies Neutrophil % [facility] leukocytes in to non-numeric Health Blood by results) System Automated count Monocytes/100 5.5 % 6.0 - Below low normal Monocyte % [facility] leukocytes in 9.0 % Health Blood System Eosinophils/100 1.5 % 1.0 - Normal (applies Eosinophil % [facility] leukocytes in 3.0 % to non-numeric Health Unspecified results) System specimen Basophils/100 0.3 % 0.0 - Normal (applies Basophil % [facility] leukocytes in 1.0 % to non-numeric Health Unspecified results) System specimen by Manual count Lymphocytes 15.2 % 21.0 - Below low normal Lymphocyte % [facility] [#/volume] in 51.0 % Health Blood by System Automated count ID Date Data Source [id number] 01/16/2012 06:43:44 AM EDT [facility] System Name Value Range Interpretation Description Data Sup porting Code Source(s) Document(s ) HCG NEGATIVE Negative Normal (applies HCG [facility] Qualitative mIU/ml to non-numeric Qualitative Health results) System Default Normal RangesNegative <5Indeterm inate 5-25(Please repeat in 2 days.)Positive >25 ID Date Data Source [id number] 01/16/2012 06:43:44 AM EDT [facility] System Name Value Range Interpretation Description Data Sup porting Code Source(s) Document(s ) Sodium 138 137 - Normal (applies Sodium, Serum [facility] [Moles/volume mmol/L 145 to non-numeric Health ] in Serum or mmol/L results) System Plasma Potassium 4.9 3.6 - Normal (applies Potassium, [facility] [Mass/volume] mmol/L 5.0 to non-numeric Serum Health in Serum or mmol/L results) System Plasma Chloride 107 98 - 107 Normal (applies Chloride, [facility] [Moles/volume mmol/L mmol/L to non-numeric Serum Health ] in Serum or results) System Plasma Carbon 16.0 22.0 - Below low normal CO2, Serum [facility] dioxide, mmol/L 30.0 Health total mmol/L System [Moles/volume ] in Serum or Plasma Glucose 131 65 - 105 Above high normal Glucose, Serum [facility] [Mass/volume] mg/dL mg/dL Health in Serum or System Plasma Urea nitrogen 12 mg/dl 7 - 18 Normal (applies Blood Urea [facility] [Mass/volume] mg/dl to non-numeric Nitrogen, Health in Serum or results) Serum System Plasma Creatinine 0.70 0.70 - Normal (applies Creatinine, [facility] [Mass/volume] mg/dl 1.20 to non-numeric Serum Health in Serum or mg/dl results) System Plasma Calcium 9.0 8.4 - Normal (applies Calcium, Total [facility] [Mass/volume] mg/dl 10.2 to non-numeric Serum Health in Serum or mg/dl results) System Plasma Anion gap in 15.00 8.00 - Above high normal Anion Gap [facility] Serum or mmol/L 12.00 Health Plasma mmol/L System ID Date Data Source [id number] 01/16/2012 06:43:44 AM EDT [facility] System Name Value Range Interpretation Description Data Sup porting Code Source(s) Document(s ) Phenytoin 9.2 10.0 - Below low normal Phenytoin [facility] [Mass/volume ug/ml 20.0 Level, Serum [facility] System ] in Serum ug/ml or Plasma ID Date Data Source [id number] 01/04/2012 12:15:00 PM EDT [facility] System Name Value Range Interpretation Description Data Sup porting Code Source(s) Document(s ) Albumin 4.4 3.9 - Normal (applies Albumin, [facility] [Mass/volume] in {gm/dl} 5.0 to non-numeric Serum Health Serum or Plasma gm/dl results) System Bilirubin.total 0.1 0.2 - Below low normal Bilirubin, [facility] [Mass/volume] in mg/dl 1.3 Serum Total Health Serum or Plasma mg/dl System Aspartate 20 5 - 40 Normal (applies Aspartate [facility] aminotransferase {IU/L} IU/L to non-numeric Transaminase, Heal th [Enzymatic results) Serum System activity/volume] in Serum or Plasma by With P-5'-P Alanine 54 7 - 56 Normal (applies Alanine [facility] aminotransferase {IU/L} IU/L to non-numeric Aminotransfer Heal th [Enzymatic results) ase, Serum System activity/volume] in Serum or Plasma Alkaline 51 38 - Normal (applies Alkaline [facility] phosphatase {IU/L} 126 to non-numeric Phosphatase, Health isoenzymes IU/L results) Serum System [Enzymatic activity/volume] in Serum or Plasma by Heat stability Direct Bilirubin 0.1 0.0 - Normal (applies Direct [facility] mg/dl 0.4 to non-numeric Bilirubin Health mg/dl results) System Total Protein 6.7 6.3 - Normal (applies Total Protein [facility] mg/dl 8.2 to non-numeric Health mg/dl results) System ID Date Data Source [id number] 01/04/2012 12:15:00 PM EDT [facility] System Name Value Range Interpretation Description Data Sup porting Code Source(s) Document(s ) Phenytoin 7.4 10.0 - Below low normal Phenytoin [facility] [Mass/volume ug/ml 20.0 Level, Serum [facility] System ] in Serum ug/ml or Plasma ok ID Date Data Source [id number] 12/28/2011 12:04:00 PM EDT [facility] System Name Value Range Interpretation Description Data Sup porting Code Source(s) Document(s ) Digoxin 0.2 0.9 - Below low normal Digoxin Level, [facility] [Mass/volum ng/ml 2.0 Serum Health System e] in Serum ng/ml or Plasma ID Date Data Source [id number] 12/28/2011 12:04:00 PM EDT [facility] System Name Value Range Interpretation Description Data Sup porting Code Source(s) Document(s ) Phenytoin 2.0 10.0 - Below low normal Phenytoin [facility] [Mass/volume ug/ml 20.0 Level, Serum [facility] System ] in Serum ug/ml or Plasma ID Date Data Source [id number] 12/01/2011 06:50:00 AM EDT [facility] System Name Value Range Interpretation Description Data Sup porting Code Source(s) Document(s ) Leukocytes 6.0 4.8 - Normal (applies WBC Count [facility] [#/volume] in {10\\S\\3_ 10.8 to non-numeric Health Unspecified uL} 10\\S\\3 results) System specimen by uL Automated count Erythrocytes 4.41 3.80 - Normal (applies RBC Count [facility] [#/volume] in {10\\S\\6_ 5.20 to non-numeric Health Blood by uL} 10\\S\\6 results) System Automated count uL Hemoglobin 14.0 12.0 - Normal (applies Hemoglobin, [facility] [Mass/volume] in {gm/dL} 16.0 to non-numeric Whole Blood [facility] Blood gm/dL results) System Hematocrit 41.5 % 36.0 - Normal (applies Hematocrit, [facility] [Volume 46.0 % to non-numeric Whole Blood Health Fraction] of results) System Blood Erythrocyte mean 94.1 fl 80.0 - Normal (applies MCV [facility] corpuscular 100.0 to non-numeric Health volume [Entitic fl results) System volume] by Automated count Erythrocyte mean 31.7 pg 26.0 - Normal (applies MCH [facility] corpuscular 34.0 pg to non-numeric Health hemoglobin results) System [Entitic mass] by Automated count Erythrocyte mean 33.7 33.0 - Normal (applies MCHC [facility] corpuscular {gm/dL} 37.0 to non-numeric Health hemoglobin gm/dL results) System concentration [Mass/volume] by Automated count Erythrocyte 47.9 % 11.5 - Above high RDW [facility] distribution 14.5 % normal Health width [Entitic System volume] by Automated count Platelets 202 130 - Normal (applies Platelet [facility] [#/volume] in {10\\S\\3_ 400 to non-numeric Count Health Plasma by uL} 10\\S\\3 results) System Automated count uL Platelet mean 10.0 fl 7.4 - Normal (applies MPV [facility] volume [Entitic 10.4 fl to non-numeric Health volume] in Blood results) System by Automated count Monocytes 0.9 Normal (applies Monocyte [facility] [#/volume] in {10\\S\\3_ to non-numeric Count Health Blood by Manual uL} results) System count Eosinophils 0.0 Normal (applies Eosinophil [facility] [#/volume] in {10\\S\\3} to non-numeric Count Blood Health Blood results) System Neutrophils 2.3 Normal (applies Absolute [facility] [#/volume] in {10\\S\\3_ to non-numeric Neutrophil Health Body fluid uL} results) Count System Basophils 0.00 Normal (applies Basophil [facility] [#/volume] in {10\\S\\3_ to non-numeric Count Health Blood by uL} results) System Automated count Lymphocyte 2.8 Normal (applies Lymphocyte [facility] Absolute {10\\S\\3_ to non-numeric Absolute Health uL} results) System Neutrophils/100 38.2 % Normal (applies Neutrophil % [facility] leukocytes in to non-numeric Health Blood by results) System Automated count Monocytes/100 14.4 % 6.0 - Above high Monocyte % [facility] leukocytes in 9.0 % normal Health Blood System Eosinophils/100 0.0 % 1.0 - Below low normal Eosinophil % [facility] leukocytes in 3.0 % Health Unspecified System specimen Basophils/100 0.0 % 0.0 - Normal (applies Basophil % [facility] leukocytes in 1.0 % to non-numeric Health Unspecified results) System specimen by Manual count Lymphocytes 47.4 % 21.0 - Normal (applies Lymphocyte % [facility] [#/volume] in 51.0 % to non-numeric Health Blood by results) System Automated count ID Date Data Source [id number] 12/01/2011 06:50:00 AM EDT [facility] System Name Value Range Interpretation Description Data Sup porting Code Source(s) Document(s ) Sodium 139 137 - Normal (applies Sodium, Serum [facility] [Moles/volum mmol/L 145 to non-numeric Health Syste m e] in Serum mmol/L results) or Plasma Potassium 4.4 3.6 - Normal (applies Potassium, [facility] [Mass/volume mmol/L 5.0 to non-numeric Serum Health Syste m ] in Serum mmol/L results) or Plasma Chloride 110 98 - 107 Above high normal Chloride, [facility] [Moles/volum mmol/L mmol/L Serum Health System e] in Serum or Plasma Carbon 18.0 22.0 - Below low normal CO2, Serum [facility] dioxide, mmol/L 30.0 Health System total mmol/L [Moles/volum e] in Serum or Plasma ok Glucose 87 mg/dL 65 - 105 Normal (applies Glucose, [facility] [Mass/volume] in mg/dL to non-numeric Serum [facility] Serum or Plasma results) Urea nitrogen 11 mg/dl 7 - 18 Normal (applies Blood Urea [facility] [Mass/volume] in mg/dl to non-numeric Nitrogen, [facility] Serum or Plasma results) Serum Creatinine 0.70 mg/dl 0.70 - Normal (applies Creatinine, [facility] [Mass/volume] in 1.20 mg/dl to non-numeric Serum [facility] System Serum or Plasma results) Calcium 8.8 mg/dl 8.4 - 10.2 Normal (applies Calcium, [facility] [Mass/volume] in mg/dl to non-numeric Total Serum [facility] System Serum or Plasma results) Anion gap in Serum 11.00 8.00 - Normal (applies Anion Gap [facility] or Plasma mmol/L 12.00 to non-numeric Health System mmol/L results) ID Date Data Source [id number] 12/01/2011 06:50:00 AM EDT [facility] Name Value Range Interpretation Description Data Sup porting Code Source(s) Document(s ) Phenytoin 8.3 10.0 - Below low normal Phenytoin [facility] [Mass/volume ug/ml 20.0 Level, Serum Health System ] in Serum ug/ml or Plasma ID Date Data Source [id number] 11/30/2011 06:35:00 AM EDT [facility] Name Value Range Interpretation Description Data Sup porting Code Source(s) Document(s ) Leukocytes 7.1 4.8 - Normal (applies WBC Count [facility] [#/volume] in {10\\S\\3_ 10.8 to non-numeric Health Unspecified uL} 10\\S\\3 results) System specimen by uL Automated count Erythrocytes 4.38 3.80 - Normal (applies RBC Count [facility] [#/volume] in {10\\S\\6_ 5.20 to non-numeric Health Blood by uL} 10\\S\\6 results) System Automated count uL Hemoglobin 13.9 12.0 - Normal (applies Hemoglobin, [facility] [Mass/volume] in {gm/dL} 16.0 to non-numeric Whole Blood Health Blood gm/dL results) System Hematocrit 40.2 % 36.0 - Normal (applies Hematocrit, [facility] [Volume 46.0 % to non-numeric Whole Blood Health Fraction] of results) System Blood Erythrocyte mean 91.8 fl 80.0 - Normal (applies MCV [facility] corpuscular 100.0 to non-numeric Health volume [Entitic fl results) System volume] by Automated count Erythrocyte mean 31.7 pg 26.0 - Normal (applies MCH [facility] corpuscular 34.0 pg to non-numeric Health hemoglobin results) System [Entitic mass] by Automated count Erythrocyte mean 34.6 33.0 - Normal (applies MCHC [facility] corpuscular {gm/dL} 37.0 to non-numeric Health hemoglobin gm/dL results) System concentration [Mass/volume] by Automated count Erythrocyte 13.0 % 11.5 - Normal (applies RDW [facility] distribution 14.5 % to non-numeric Health width [Entitic results) System volume] by Automated count Platelets 222 130 - Normal (applies Platelet [facility] [#/volume] in {10\\S\\3_ 400 to non-numeric Count Health Plasma by uL} 10\\S\\3 results) System Automated count uL Platelet mean 10.2 fl 7.4 - Normal (applies MPV [facility] volume [Entitic 10.4 fl to non-numeric Health volume] in Blood results) System by Automated count Monocytes 0.6 Normal (applies Monocyte [facility] [#/volume] in {10\\S\\3_ to non-numeric Count Health Blood by Manual uL} results) System count Eosinophils 0.3 Normal (applies Eosinophil [facility] [#/volume] in {10\\S\\3} to non-numeric Count Blood Health Blood results) System Basophils 0.06 Normal (applies Basophil [facility] [#/volume] in {10\\S\\3_ to non-numeric Count Health Blood by uL} results) System Automated count Neutrophils 3.0 Normal (applies Absolute [facility] [#/volume] in {10\\S\\3_ to non-numeric Neutrophil Health Body fluid uL} results) Count System Lymphocyte 3.1 Normal (applies Lymphocyte [facility] Absolute {10\\S\\3_ to non-numeric Absolute Health uL} results) System Neutrophils/100 42.3 % Normal (applies Neutrophil % [place] leukocytes in to non-numeric Health Blood by results) System Automated count Monocytes/100 8 % 6 - 9 % Normal (applies Monocyte % [facility] leukocytes in to non-numeric Health Blood results) System Eosinophils/100 5 % 1 - 3 % Above high Eosinophil % [facility] leukocytes in normal Health Unspecified System specimen Basophils/100 1 % 0 - 1 % Normal (applies Basophil % [facility] leukocytes in to non-numeric Health Unspecified results) System specimen by Manual count Lymphocytes 44 % 21 - 51 Normal (applies Lymphocyte % [facility] [#/volume] in % to non-numeric Health Blood by results) System Automated count ID Date Data Source [id number] 11/30/2011 06:35:00 AM EDT [facility] System Name Value Range Interpretation Description Data Sup porting Code Source(s) Document(s ) Sodium 139 137 - Normal (applies Sodium, Serum [facility] [Moles/volum mmol/L 145 to non-numeric Health Syste m e] in Serum mmol/L results) or Plasma Potassium 4.2 3.6 - Normal (applies Potassium, [facility] [Mass/volume mmol/L 5.0 to non-numeric Serum Health Syste m ] in Serum mmol/L results) or Plasma Chloride 108 98 - 107 Above high normal Chloride, [facility] [Moles/volum mmol/L mmol/L Serum Health System e] in Serum or Plasma Carbon 24.0 22.0 - Normal (applies CO2, Serum [facility] dioxide, mmol/L 30.0 to non-numeric Health System total mmol/L results) [Moles/volum e] in Serum or Plasma Glucose 95 mg/dL 65 - 105 Normal (applies Glucose, Serum [facility] [Mass/volume mg/dL to non-numeric Health Syste m ] in Serum results) or Plasma ok Urea nitrogen 11 mg/dl 7 - 18 Normal (applies Blood Urea [facility] [Mass/volume] in mg/dl to non-numeric Nitrogen, Health S ystem Serum or Plasma results) Serum Creatinine 0.70 mg/dl 0.70 - Normal (applies Creatinine, [facility] [Mass/volume] in 1.20 mg/dl to non-numeric Serum Health System Serum or Plasma results) Calcium 8.7 mg/dl 8.4 - 10.2 Normal (applies Calcium, Total [facility] [Mass/volume] in mg/dl to non-numeric Serum Health S ystem Serum or Plasma results) Anion gap in Serum 7.00 8.00 - Below low normal Anion Gap [facility] or Plasma mmol/L 12.00 Health System mmol/L ID Date Data Source [id number] 11/30/2011 06:35:00 AM EDT [facility] Name Value Range Interpretation Description Data Sup porting Code Source(s) Document(s ) Phenytoin 10.6 10.0 - Normal (applies Phenytoin [facility] [Mass/volume ug/ml 20.0 to non-numeric Level, Serum Health Sy stem ] in Serum ug/ml results) or Plasma ID Date Data Source [id number] 11/29/2011 06:12:00 AM EDT [facility] Name Value Range Interpretation Description Data Sup porting Code Source(s) Document(s ) Leukocytes 7.5 4.8 - Normal (applies WBC Count [facility] [#/volume] in {10\\S\\3_ 10.8 to non-numeric Health Unspecified uL} 10\\S\\3 results) System specimen by uL Automated count Erythrocytes 4.28 3.80 - Normal (applies RBC Count [facility] [#/volume] in {10\\S\\6_ 5.20 to non-numeric Health Blood by uL} 10\\S\\6 results) System Automated count uL Hemoglobin 13.4 12.0 - Normal (applies Hemoglobin, [facility] [Mass/volume] in {gm/dL} 16.0 to non-numeric Whole Blood Health Blood gm/dL results) System Hematocrit 39.6 % 36.0 - Normal (applies Hematocrit, [facility] [Volume 46.0 % to non-numeric Whole Blood Health Fraction] of results) System Blood Erythrocyte mean 92.5 fl 80.0 - Normal (applies MCV [facility] corpuscular 100.0 to non-numeric Health volume [Entitic fl results) System volume] by Automated count Erythrocyte mean 31.3 pg 26.0 - Normal (applies MCH [facility] corpuscular 34.0 pg to non-numeric Health hemoglobin results) System [Entitic mass] by Automated count Erythrocyte mean 33.8 33.0 - Normal (applies MCHC [facility] corpuscular {gm/dL} 37.0 to non-numeric Health hemoglobin gm/dL results) System concentration [Mass/volume] by Automated count Erythrocyte 13.4 % 11.5 - Normal (applies RDW [facility] distribution 14.5 % to non-numeric Health width [Entitic results) System volume] by Automated count Platelets 226 130 - Normal (applies Platelet [facility] [#/volume] in {10\\S\\3_ 400 to non-numeric Count Health Plasma by uL} 10\\S\\3 results) System Automated count uL Platelet mean 10.3 fl 7.4 - Normal (applies MPV [facility] volume [Entitic 10.4 fl to non-numeric Health volume] in Blood results) System by Automated count ID Date Data Source [id number] 11/29/2011 06:12:00 AM EDT [facility] Name Value Range Interpretation Description Data Sup porting Code Source(s) Document(s ) Sodium 138 137 - Normal (applies Sodium, Serum [facility] [Moles/volume mmol/L 145 to non-numeric Health ] in Serum or mmol/L results) System Plasma Potassium 3.9 3.6 - Normal (applies Potassium, [facility] [Mass/volume] mmol/L 5.0 to non-numeric Serum Health in Serum or mmol/L results) System Plasma Chloride 107 98 - 107 Normal (applies Chloride, [facility] [Moles/volume mmol/L mmol/L to non-numeric Serum Health ] in Serum or results) System Plasma Carbon 22.0 22.0 - Normal (applies CO2, Serum [facility] dioxide, mmol/L 30.0 to non-numeric Health total mmol/L results) System [Moles/volume ] in Serum or Plasma Glucose 106 65 - 105 Above high normal Glucose, Serum [facility] [Mass/volume] mg/dL mg/dL Health in Serum or System Plasma Urea nitrogen 9 mg/dl 7 - 18 Normal (applies Blood Urea [facility] [Mass/volume] mg/dl to non-numeric Nitrogen, Health in Serum or results) Serum System Plasma Creatinine 0.70 0.70 - Normal (applies Creatinine, [facility] [Mass/volume] mg/dl 1.20 to non-numeric Serum Health in Serum or mg/dl results) System Plasma Calcium 8.6 8.4 - Normal (applies Calcium, Total [facility] [Mass/volume] mg/dl 10.2 to non-numeric Serum Health in Serum or mg/dl results) System Plasma ok Anion gap in 9.00 mmol/L 8.00 - 12.00 Normal (applies to Anion Gap [facility] Serum or mmol/L non-numeric System Plasma results) ID Date Data Source [id number] 11/29/2011 06:12:00 AM EDT [facility] Name Value Range Interpretation Description Data Sup porting Code Source(s) Document(s ) Phenytoin 7.4 10.0 - Below low normal Phenytoin [facility] [Mass/volume ug/ml 20.0 Level, Serum Health System ] in Serum ug/ml or Plasma ID Date Data Source [id number] 11/28/2011 10:34:13 AM EDT [facility] Name Value Range Interpretation Description Data Sup porting Code Source(s) Document(s ) Amphetamine Negative Normal (applies Amphetamine [facility] Qualitative, to non-numeric Qualitative, Health Urine results) Urine System Normal - Negative 1000 ng/mL Barbituates, Urine. Negative Normal (applies to Barbituates , Urine. [facility] non-numeric [facility] System results) Normal - Negative 300 ng/mL Cocaine Qual, Negative Normal (applies to Cocaine Qual, [facility] Urine. non-numeric results) Urine. System Normal - Negative 300 ng/mL Benzodiazepine, Negative Normal (applies Benzodiazepine, [facility] Urine. to non-numeric Urine. Health System results) Normal - Negative 300 ng/mL THC. Positive Abnormal (applies to non-numeric THC. [facility] results) Normal - Negative 50 ng/mL Methaqualone Negative Normal (applies Methaqualone [facility] Qualitative, Urine to non-numeric Qualitative, [facility] results) Phencyclidine PCP Negative Normal (applies Phencyclidine PC P [facility] Qualitative, Urine. to non-numeric Qualitative, Ur ine. Health System results) Normal - Negatgive 25 ng/mL Propoxyphene Negative Normal (applies to Propoxyphene [facility] Qualitative, Urine non-numeric Qualitative, Urine Health System results) Normal - Negative 300 ng/mL Opiates, Urine Negative Normal (applies to Opiates, Urine [facility] non-numeric results) System Normal - Negative 300 ng/mL Methadone Negative Normal (applies to Methadone [facility] Qualitative, Urine non-numeric Qualitative, Urine Health System results) Normal - Negative 300 ng/mL ID Date Data Source [id number] 11/28/2011 10:34:13 AM EDT [facility] Name Value Range Interpretation Description Data Sup porting Code Source(s) Document(s ) Color YELLOW YELLOW Normal (applies Color [facility] to non-numeric Health results) System Appearance of CLEAR CLEAR Normal (applies Urine [facility] Urine to non-numeric Appearance Health results) System pH.. 6.0 4.6 - Normal (applies pH.. [facility] {pH_units} 8.0 pH to non-numeric Health units results) System Specific Greater Normal (applies Urine [facility] gravity of than to non-numeric Specific Health Urine =1.030 results) [facility] Glucose, UA NEGATIVE Normal (applies Glucose, UA [facility] to non-numeric Health results) System Negative Protein 30 mg/dl Normal (applies Protein [facility] [Mass/volume] in to non-numeric Health S yste Serum or Plasma results) Bilirubin Urine NEGATIVE Normal (applies Bilirubin Urine [facility] to non-numeric [facility] System results) Urobilinogen 0.20 {eu/dL} 0.20 Normal (applies Urobilinogen UA [facility] [Mass/volume] in - to non-numeric Health S yste Urine 1.00 results) eu/dL Ketones TRACE Normal (applies Ketones UA [facility] [Mass/volume] in to non-numeric Health S yste Urine results) Negative Leukocyte esterase NEGATIVE Normal (applies Leukocyte Aura ase [facility] [Units/volume] in to non-numeric Concentration [facility] System Urine results) Negative Nitrate+Nitrite NEGATIVE Normal (applies to Nitrite [facility] [Mass/volume] in non-numeric results) Sy stem Unspecified specimen Negative Leukocytes 0-2 Normal (applies White Blood [facility] [#/volume] in to non-numeric Cells Health Syst em Unspecified results) specimen by Automated count Red Blood Cells 0-2 Normal (applies Red Blood Cells [facility] to non-numeric [facility] System results) Epithelial cells 2-5 Normal (applies Epithelial Cells [facility] [Presence] in to non-numeric Health Syst em Unspecified results) specimen by Wet preparation Bacteria moderate Normal (applies Bacteria [facility] [Presence] in to non-numeric Health Syst em Unspecified results) specimen Urine Blood NEGATIVE Negative Normal (applies Urine Blood [facility] to non-numeric Health System results) ID Date Data Source [id number] 11/28/2011 10:34:13 AM EDT [facility] Name Value Range Interpretation Description Data Sup porting Code Source(s) Document(s ) Prothrombin 10.60 9.54 - Normal (applies Prothrombin [facility] time (PT) 11.90 to non-numeric time (PT) Health results) System Prothrombin Ab 0.99 0.70 - Normal (applies INR Result [facility] [Units/volume] {Ratio} 1.10 to non-numeric Health in Serum or Ratio results) System Plasma Normal = 0.7-1.1Therapeutic = 2.0-3.0Mec hanical Heart = 3.0-4.5 ID Date Data Source [id number] 11/28/2011 10:34:13 AM EDT [facility] Name Value Range Interpretation Description Data Sup porting Code Source(s) Document(s ) Leukocytes 6.7 4.8 - Normal (applies WBC Count [facility] [#/volume] in {10\\S\\3_ 10.8 to non-numeric Health Unspecified uL} 10\\S\\3 results) System specimen by uL Automated count Erythrocytes 4.37 3.80 - Normal (applies RBC Count [facility] [#/volume] in {10\\S\\6_ 5.20 to non-numeric Health Blood by uL} 10\\S\\6 results) System Automated count uL Hemoglobin 13.9 12.0 - Normal (applies Hemoglobin, [facility] [Mass/volume] in {gm/dL} 16.0 to non-numeric Whole Blood Health Blood gm/dL results) System Hematocrit 41.0 % 36.0 - Normal (applies Hematocrit, [facility] [Volume 46.0 % to non-numeric Whole Blood Health Fraction] of results) System Blood Erythrocyte mean 93.8 fl 80.0 - Normal (applies MCV [facility] corpuscular 100.0 to non-numeric Health volume [Entitic fl results) System volume] by Automated count Erythrocyte mean 31.8 pg 26.0 - Normal (applies MCH [facility] corpuscular 34.0 pg to non-numeric Health hemoglobin results) System [Entitic mass] by Automated count Erythrocyte mean 33.9 33.0 - Normal (applies MCHC [facility] corpuscular {gm/dL} 37.0 to non-numeric Health hemoglobin gm/dL results) System concentration [Mass/volume] by Automated count Erythrocyte 13.4 % 11.5 - Normal (applies RDW [facility] distribution 14.5 % to non-numeric Health width [Entitic results) System volume] by Automated count Platelets 230 130 - Normal (applies Platelet [facility] [#/volume] in {10\\S\\3_ 400 to non-numeric Count Health Plasma by uL} 10\\S\\3 results) System Automated count uL Platelet mean 10.0 fl 7.4 - Normal (applies MPV [facility] volume [Entitic 10.4 fl to non-numeric Health volume] in Blood results) System by Automated count Eosinophils 0.4 Normal (applies Eosinophil [facility] [#/volume] in {10\\S\\3} to non-numeric Count Blood Health Blood results) System Monocytes 0.5 Normal (applies Monocyte [facility] [#/volume] in {10\\S\\3_ to non-numeric Count Health Blood by Manual uL} results) System count Basophils 0.05 Normal (applies Basophil [facility] [#/volume] in {10\\S\\3_ to non-numeric Count Health Blood by uL} results) System Automated count Neutrophils 3.5 Normal (applies Absolute [facility] [#/volume] in {10\\S\\3_ to non-numeric Neutrophil Health Body fluid uL} results) Count System Lymphocyte 2.2 Normal (applies Lymphocyte [facility] Absolute {10\\S\\3_ to non-numeric Absolute Health uL} results) System Neutrophils/100 52.1 % Normal (applies Neutrophil % [facility] leukocytes in to non-numeric Health Blood by results) System Automated count Monocytes/100 7.6 % 6.0 - Normal (applies Monocyte % [facility] leukocytes in 9.0 % to non-numeric Health Blood results) System Eosinophils/100 6.4 % 1.0 - Above high Eosinophil % [facility] leukocytes in 3.0 % normal Health Unspecified System specimen Basophils/100 0.7 % 0.0 - Normal (applies Basophil % [facility] leukocytes in 1.0 % to non-numeric Health Unspecified results) System specimen by Manual count Lymphocytes 33.2 % 21.0 - Normal (applies Lymphocyte % [facility] [#/volume] in 51.0 % to non-numeric Health Blood by results) System Automated count ID Date Data Source [id number] 11/28/2011 10:34:13 AM EDT [facility] Name Value Range Interpretation Description Data Sup porting Code Source(s) Document(s ) HCG NEGATIVE Negative Normal (applies HCG [facility] Qualitative mIU/ml to non-numeric Qualitative Health results) System Default Normal RangesNegative <5Indeterm inate 5-25(Please repeat in 2 days.)Positive >25 ID Date Data Source [id number] 11/28/2011 10:34:13 AM EDT [facility] Name Value Range Interpretation Description Data Sup porting Code Source(s) Document(s ) Sodium 139 mmol/L 137 - Normal (applies Sodium, [facility] [Moles/volume] 145 to non-numeric Serum Health in Serum or mmol/L results) System Plasma Potassium 4.5 mmol/L 3.6 - Normal (applies Potassium, [facility] [Mass/volume] 5.0 to non-numeric Serum Health in Serum or mmol/L results) System Plasma Chloride 106 mmol/L 98 - Normal (applies Chloride, [facility] [Moles/volume] 107 to non-numeric Serum Health in Serum or mmol/L results) System Plasma Carbon dioxide, 19.0 mmol/L 22.0 - Below low CO2, Serum [facility] total 30.0 normal Health [Moles/volume] mmol/L System in Serum or Plasma Total Protein 7.0 mg/dl 6.3 - Normal (applies Total [facility] 8.2 to non-numeric Protein Health mg/dl results) System Glucose 99 mg/dL 65 - Normal (applies Glucose, [facility] [Mass/volume] 105 to non-numeric Serum Health in Serum or mg/dL results) System Plasma Urea nitrogen 11 mg/dl 7 - 18 Normal (applies Blood Urea [facility] [Mass/volume] mg/dl to non-numeric Nitrogen, Health in Serum or results) Serum System Plasma Creatinine 0.80 mg/dl 0.70 - Normal (applies Creatinine, [facility] [Mass/volume] 1.20 to non-numeric Serum Health in Serum or mg/dl results) System Plasma Alkaline 41 {IU/L} 38 - Normal (applies Alkaline [facility] phosphatase 126 to non-numeric Phosphatase, Health isoenzymes IU/L results) Serum System [Enzymatic activity/volume ] in Serum or Plasma by Heat stability Bilirubin 0.2 mg/dl 0.2 - Normal (applies Bilirubin, [facility] direct and 1.3 to non-numeric Serum Total Health total panel mg/dl results) System [Mass/volume] - Serum or Plasma Aspartate 10 {IU/L} 5 - 40 Normal (applies Aspartate [facility] aminotransferas IU/L to non-numeric Transaminase Health e [Enzymatic results) , Serum System activity/volume ] in Serum or Plasma by With P-5'-P Albumin 4.7 {gm/dl} 3.9 - Normal (applies Albumin, [facility] [Mass/volume] 5.0 to non-numeric Serum Health in Serum or gm/dl results) System Plasma I. Phosphorus 3.8 mg/dl 2.5 - Normal (applies I. [facility] 4.5 to non-numeric Phosphorus Health mg/dl results) System Alanine Less than 6 7 - 56 Below low Alanine [facility] aminotransferas IU/L normal Aminotransfe Health e [Enzymatic rase, Serum System activity/volume ] in Serum or Plasma Calcium 9.7 mg/dl 8.4 - Normal (applies Calcium, [facility] [Mass/volume] 10.2 to non-numeric Total Serum Health in Serum or mg/dl results) System Plasma A/G Ratio 2.04 Normal (applies A/G Ratio [facility] to non-numeric Health results) System Urate 5.6 mg/dl 2.5 - Normal (applies Uric Acid, [facility] [Mass/volume] 7.5 to non-numeric Serum Health in Serum or mg/dl results) System Plasma Anion gap in 14.00 mmol/L 8.00 - Above high Anion Gap [facility] Serum or Plasma 12.00 normal Health mmol/L System Glomerular Greater than Normal (applies GFR [facility] filtration 60 eGFR will to non-numeric Health rate/1.73 sq provide results) System M.predicted clinicians [Volume with a more Rate/Area] in accurate Serum or Plasma indicator of by renal function Creatinine-base then the serum d formula creatinine. (CKD-EPI) The eGFR is automatically calculated from an empiric formula (endorsed by the [employer]) which incorporates age, sex, and race.Clinician s may notice surprisingly low GFR's with serum creatinine valueswithin normal range- particularly in elderly women (with low muscle mass).In the hospital setting, the eGFR should add an element of safety in drug dosing, in assessing the risk of IV contrast administration , and in assessing vascular risk.The NKF staging system is as follows:Normal : eGFR >90 with no kidney markersStage 1: eGFR >90 with kidney markers*Stage 2: eGFR 60-89Stage 3: eGFR 30-59Stage 4: eGFR 15-29Stage 5: eGFR <15 (usually requiring dialysis)*César ers include: Proteinuria, Hematuria, abnormal imaging-studie s, or other blood or urine test abnormalities ID Date Data Source [id number] 11/28/2011 10:34:13 AM [facility] Name Value Range Interpretation Description Data Sup porting Code Source(s) Document(s ) Amphetamine Negative Negative Normal (applies Amphetamine [facility] [Mass/volume] ng/ml to non-numeric Level, Urine Health in Urine results) System Cut-off = 1000 ng/mL Barbiturates Negative Negative Normal (applies Barbiturate [facility] [Mass/volume] in ng/ml to non-numeric Screen, Urine Heal th System Urine by Screen results) method Cut-off = 200 ng/mL Benzodiazepines Negative Negative Normal Benzodiazepines, [facility] [Mass/volume] in ng/mL (applies to Urine Health Urine non-numeric System results) Cut-off = 200 ng/mL Cocaine Negative Negative Normal (applies Cocaine [facility] metabolites.other ng/ml to non-numeric Metabolite Health System [Mass/volume] in results) Screen, Urine Urine Cut-off = 300 ng/mL Methadone Negative Normal (applies to Methadone Level, [facility] [Mass/volume] in non-numeric Urine System Urine results) Cut-off = 300 ng/mL Opiate 300, Negative Negative ng/ml Normal (applies to Opiate 300, [facility] Urine non-numeric Urine [facility] System results) Cut-off = 300 ng/mL Phencyclidine Negative Negative Normal (applies Phencyclidine, [facility] [Mass/volume] in ng/ml to non-numeric Urine Health S ystem Urine results) Cut-off = 25 ng/mL THC Positive Negative ng/mL Abnormal (applies to THC [facility] non-numeric results) ID Date Data Source [id number] 11/28/2011 07:30:00 AM EDT [facility] Name Value Range Interpretation Description Data Sup porting Code Source(s) Document(s ) Alcohol NONE Normal (applies Alcohol Ethyl, [facility] Ethyl, DETECTED to non-numeric Blood Health System Blood None results) Detected ID Date Data Source [id number] 11/28/2011 06:40:20 AM EDT [facility] Name Value Range Interpretation Description Data Sup porting Code Source(s) Document(s ) Prolactin 24.4 Normal (applies Prolactin, [facility] [Mass/volume] ng/mL to non-numeric Serum Health Syst em in Serum or results) Plasma Reference Range Female Postmenopausal: 2.0- 20.0 : 10.0-209.0 Non-: 3.0- 30.0 Test Performed at: [place] [address] Barbara Matthews M.D. ID Date Data Source [id number] 10/27/2011 06:44:00 AM EST [facility] Name Value Range Interpretation Description Data Sup porting Code Source(s) Document(s ) Reticulocyte 1.85 % 0.50 - Above high normal Reticulocyte, [facility] , Automated 1.50 % Automated Health System ID Date Data Source [id number] 10/27/2011 06:44:00 AM EST [facility] Name Value Range Interpretation Description Data Sup porting Code Source(s) Document(s ) Leukocytes 6.3 4.8 - Normal (applies WBC Count [facility] [#/volume] in {10\\S\\3_ 10.8 to non-numeric Health Unspecified uL} 10\\S\\3 results) System specimen by uL Automated count Erythrocytes 4.15 3.80 - Normal (applies RBC Count [facility] [#/volume] in {10\\S\\6_ 5.20 to non-numeric Health Blood by uL} 10\\S\\6 results) System Automated count uL Hemoglobin 13.1 12.0 - Normal (applies Hemoglobin, [facility] [Mass/volume] in {gm/dL} 16.0 to non-numeric Whole Blood Health Blood gm/dL results) System Hematocrit 38.3 % 36.0 - Normal (applies Hematocrit, [facility] [Volume 46.0 % to non-numeric Whole Blood Health Fraction] of results) System Blood Erythrocyte mean 31.6 pg 26.0 - Normal (applies MCH [facility] corpuscular 34.0 pg to non-numeric Health hemoglobin results) System [Entitic mass] by Automated count Erythrocyte mean 92.3 fl 80.0 - Normal (applies MCV [facility] corpuscular 100.0 to non-numeric Health volume [Entitic fl results) System volume] by Automated count Erythrocyte mean 34.2 33.0 - Normal (applies MCHC [facility] corpuscular {gm/dL} 37.0 to non-numeric Health hemoglobin gm/dL results) System concentration [Mass/volume] by Automated count Platelets 244 130 - Normal (applies Platelet [facility] [#/volume] in {10\\S\\3_ 400 to non-numeric Count Health Plasma by uL} 10\\S\\3 results) System Automated count uL Erythrocyte 12.9 % 11.5 - Normal (applies RDW [facility] distribution 14.5 % to non-numeric Health width [Entitic results) System volume] by Automated count Platelet mean 10.7 fl 7.4 - Above high MPV [facility] volume [Entitic 10.4 fl normal Health volume] in Blood System by Automated count ID Date Data Source [id number] 10/27/2011 06:44:00 AM EST [facility] Name Value Range Interpretation Description Data Sup porting Code Source(s) Document(s ) Sodium 140 137 - Normal (applies Sodium, Serum [facility] [Moles/volum mmol/L 145 to non-numeric Health Syste m e] in Serum mmol/L results) or Plasma Potassium 4.1 3.6 - Normal (applies Potassium, [facility] [Mass/volume mmol/L 5.0 to non-numeric Serum Health Syste m ] in Serum mmol/L results) or Plasma Chloride 110 98 - 107 Above high normal Chloride, [facility] [Moles/volum mmol/L mmol/L Serum Health System e] in Serum or Plasma Carbon 24.0 22.0 - Normal (applies CO2, Serum [facility] dioxide, mmol/L 30.0 to non-numeric Health System total mmol/L results) [Moles/volum e] in Serum or Plasma Glucose 113 65 - 105 Above high normal Glucose, Serum [facility] [Mass/volume mg/dL mg/dL Health System ] in Serum or Plasma ok Urea nitrogen 9 mg/dl 7 - 18 Normal (applies Blood Urea [facility] [Mass/volume] in mg/dl to non-numeric Nitrogen, Health S te Serum or Plasma results) Serum Creatinine 0.70 mg/dl 0.70 - Normal (applies Creatinine, [facility] [Mass/volume] in 1.20 mg/dl to non-numeric Serum Health System Serum or Plasma results) Calcium 8.8 mg/dl 8.4 - 10.2 Normal (applies Calcium, Total [facility] [Mass/volume] in mg/dl to non-numeric Serum Health S te Serum or Plasma results) Anion gap in Serum 6.00 8.00 - Below low normal Anion Gap [facility] or Plasma mmol/L 12.00 Health System mmol/L ID Date Data Source [id number] 10/26/2011 07:00:00 AM EST [facility] Name Value Range Interpretation Description Data Sup porting Code Source(s) Document(s ) Levetiracetam 11.40 See Normal (applies LevETIRAcetam [facility] [Mass/volume] report to non-numeric Level, Serum Health in Serum or results) System Plasma ID Date Data Source [id number] 10/26/2011 07:00:00 AM EST [facility] Name Value Range Interpretation Description Data Sup porting Code Source(s) Document(s ) Leukocytes 7.8 4.8 - Normal (applies WBC Count [facility] [#/volume] in {10\\S\\3_ 10.8 to non-numeric Health Syst em Unspecified uL} 10\\S\\3 results) specimen by uL Automated count ok Erythrocytes 4.21 3.80 - Normal RBC Count [facility] [#/volume] in {10\\S\\6_uL} 5.20 (applies to Health Syste m Blood by 10\\S\\6 uL non-numeric Automated count results) Hemoglobin 13.3 {gm/dL} 12.0 - Normal Hemoglobin, [facility] [Mass/volume] in 16.0 (applies to Whole Blood [facility] Sy stem Blood gm/dL non-numeric results) Hematocrit 39.0 % 36.0 - Normal Hematocrit, [facility] [Volume Fraction] 46.0 % (applies to Whole Blood [facility] S ystem of Blood non-numeric results) Erythrocyte mean 92.6 fl 80.0 - Normal MCV [facility] corpuscular 100.0 fl (applies to Health System volume [Entitic non-numeric volume] by results) Automated count Erythrocyte mean 31.6 pg 26.0 - Normal MCH [facility] corpuscular 34.0 pg (applies to Health System hemoglobin non-numeric [Entitic mass] by results) Automated count Erythrocyte mean 34.1 {gm/dL} 33.0 - Normal MCHC [facility] corpuscular 37.0 (applies to Health System hemoglobin gm/dL non-numeric concentration results) [Mass/volume] by Automated count Platelets 254 {10\\S\\3_uL} 130 - 400 Normal Platelet Count [facility] [#/volume] in 10\\S\\3 uL (applies to Health System Plasma by non-numeric Automated count results) Erythrocyte 13.0 % 11.5 - Normal RDW [facility] distribution 14.5 % (applies to Health System width [Entitic non-numeric volume] by results) Automated count Platelet mean 10.2 fl 7.4 - Normal MPV [facility] volume [Entitic 10.4 fl (applies to Health Syste m volume] in Blood non-numeric by Automated results) count Polys 45 % Normal Polys [facility] (applies to Health System non-numeric results) Lymphocytes 47 % 21 - 51 % Normal Lymphocyte % [facility] [#/volume] in (applies to Health System Blood by non-numeric Automated count results) Monocytes/100 6 % 6 - 9 % Normal Monocyte % [facility] leukocytes in (applies to Health System Blood non-numeric results) Eosinophils/100 2 % 1 - 3 % Normal Eosinophil % [facility] leukocytes in (applies to Health System Unspecified non-numeric specimen results) Basophils/100 0 % 0 - 1 % Normal Basophil % [facility] leukocytes in (applies to Health System Unspecified non-numeric specimen by results) Manual count Anisocytosis 1+ Abnormal Anisocytosis [facility] [Presence] in (applies to Health System Blood by non-numeric Automated count results) Platelets Normal Normal Platelet Count [facility] [#/volume] in (applies to [facility] System Blood by Estimate non-numeric results) ID Date Data Source [id number] 10/26/2011 07:00:00 AM EST [facility] Name Value Range Interpretation Description Data Sup porting Code Source(s) Document(s ) Sodium 139 137 - Normal (applies Sodium, Serum [facility] [Moles/volum mmol/L 145 to non-numeric Health Syste m e] in Serum mmol/L results) or Plasma Potassium 3.7 3.6 - Normal (applies Potassium, [facility] [Mass/volume mmol/L 5.0 to non-numeric Serum Health Syste m ] in Serum mmol/L results) or Plasma Chloride 109 98 - 107 Above high normal Chloride, [facility] [Moles/volum mmol/L mmol/L Serum Health System e] in Serum or Plasma Glucose 91 mg/dL 65 - 105 Normal (applies Glucose, Serum [facility] [Mass/volume mg/dL to non-numeric Health Syste m ] in Serum results) or Plasma ok Carbon dioxide, 24.0 mmol/L 22.0 - 30.0 Normal (applies CO2, Serum [facility] total [Moles/volume] mmol/L to non-numeric [facility] th System in Serum or Plasma results) Urea nitrogen 5 mg/dl 7 - 18 Below low normal Blood Urea [facility] [Mass/volume] in mg/dl Nitrogen, Health System Serum or Plasma Serum Creatinine 0.60 mg/dl 0.70 - 1.20 Below low normal Creatinine [facility] [Mass/volume] in mg/dl , Serum [facility] System Serum or Plasma Calcium 8.6 mg/dl 8.4 - 10.2 Normal (applies Calcium, [facility] [Mass/volume] in mg/dl to non-numeric Total Health S ystem Serum or Plasma results) Serum Anion gap in Serum 6.00 mmol/L 8.00 - Below low normal Anion Gap [facility] or Plasma 12.00 Health System mmol/L ID Date Data Source [id number] 10/25/2011 06:43:03 AM EST [facility] Name Value Range Interpretation Description Data Sup porting Code Source(s) Document(s ) Levetiracetam 9.80 Normal (applies LevETIRAcetam [facility] [Mass/volume] in to non-numeric Level, Serum Healt h Serum or Plasma results) System Reference Range: See report ID Date Data Source [id number] 10/25/2011 06:43:03 AM EST [facility] Name Value Range Interpretation Description Data Sup porting Code Source(s) Document(s ) Sodium 136 137 - Below low normal Sodium, Serum [facility] [Moles/volume mmol/L 145 Health ] in Serum or mmol/L System Plasma Potassium 3.3 3.6 - Below low normal Potassium, [facility] [Mass/volume] mmol/L 5.0 Serum Health in Serum or mmol/L System Plasma Chloride 109 98 - 107 Above high normal Chloride, [facility] [Moles/volume mmol/L mmol/L Serum Health ] in Serum or System Plasma Carbon 22.0 22.0 - Normal (applies CO2, Serum [facility] dioxide, mmol/L 30.0 to non-numeric Health total mmol/L results) System [Moles/volume ] in Serum or Plasma Glucose 127 65 - 105 Above high normal Glucose, Serum [facility] [Mass/volume] mg/dL mg/dL Health in Serum or System Plasma Urea nitrogen 6 mg/dl 7 - 18 Below low normal Blood Urea [facility] [Mass/volume] mg/dl Nitrogen, Health in Serum or Serum System Plasma Creatinine 0.60 0.70 - Below low normal Creatinine, [facility] [Mass/volume] mg/dl 1.20 Serum Health in Serum or mg/dl System Plasma Calcium 8.7 8.4 - Normal (applies Calcium, Total [facility] [Mass/volume] mg/dl 10.2 to non-numeric Serum Health in Serum or mg/dl results) System Plasma Anion gap in 5.00 8.00 - Below low normal Anion Gap [facility] Serum or mmol/L 12.00 Health Plasma mmol/L System ID Date Data Source [id number] 10/25/2011 06:43:03 AM EST [facility] Name Value Range Interpretation Description Data Sup porting Code Source(s) Document(s ) Albumin 4.1 3.9 - Normal (applies Albumin, [facility] [Mass/volume] in {gm/dl} 5.0 to non-numeric Serum Health Serum or Plasma gm/dl results) System Aspartate 17 5 - 40 Normal (applies Aspartate [facility] aminotransferase {IU/L} IU/L to non-numeric Transaminase, Heal th [Enzymatic results) Serum System activity/volume] in Serum or Plasma by With P-5'-P Bilirubin.total 0.8 0.2 - Normal (applies Bilirubin, [facility] [Mass/volume] in mg/dl 1.3 to non-numeric Serum Total Health Serum or Plasma mg/dl results) System Alkaline 41 38 - Normal (applies Alkaline [facility] phosphatase {IU/L} 126 to non-numeric Phosphatase, Health isoenzymes IU/L results) Serum System [Enzymatic activity/volume] in Serum or Plasma by Heat stability Alanine 11 7 - 56 Normal (applies Alanine [facility] aminotransferase {IU/L} IU/L to non-numeric Aminotransfer Heal th [Enzymatic results) ase, Serum System activity/volume] in Serum or Plasma Direct Bilirubin 0.3 0.0 - Normal (applies Direct [facility] mg/dl 0.4 to non-numeric Bilirubin Health mg/dl results) System Total Protein 6.2 6.3 - Below low normal Total Protein [facility] mg/dl 8.2 Health mg/dl System ID Date Data Source [id number] 10/25/2011 06:43:03 AM EST [facility] Name Value Range Interpretation Description Data Sup porting Code Source(s) Document(s ) Magnesium 2.2 1.7 - Normal (applies Magnesium, [facility] [Mass/volume {mEq/L} 2.2 to non-numeric Serum Health Syste m ] in Serum mEq/L results) or Plasma ID Date Data Source [id number] 10/25/2011 06:43:03 AM EST [facility] Name Value Range Interpretation Description Data Sup porting Code Source(s) Document(s ) Cholesterol 167 "." Above high normal Cholesterol, [facility] [Mass/volume] mg/dl mg/dl Serum Health in Serum or System Plasma <200 mg/dL = [id number] - 239 md/dL = Borderline>240 mg/dL = High Risk Triglyceride 63 mg/dl 35 - 135 Normal (applies Triglycerides, [facility] [Mass/volume] in mg/dl to non-numeric Serum Health S ystem Serum or Plasma results) Optimal = < 100 mg/dLBoderline High = 15 0 - 199 mg/dLHigh = 200 - 499 mg/dLVery High = > 500 mg/dL Cholesterol in HDL 53.0 mg/dL 32.0 - Normal (applies HDL Choleste rol, [facility] [Mass/volume] in 75.0 mg/dL to non-numeric Serum [facility] System Serum or Plasma results) Cholesterol in LDL 101.4 Normal (applies Low Density [facility] [Mass/volume] in mg/dL to non-numeric Lipoprotein, Healt h System Serum or Plasma results) Calculated OPTIMAL: LESS THAN 100 mg/dLNEAR OPTIMAL : 100 - 129 mg/dLBODERLINE HIGH: 130 - 150 mg/dL Cholesterol in VLDL 12.6 Normal (applies to VLDL, Serum [facility] [Mass/volume] in non-numeric System Serum or Plasma results) CHD Risk 3.15 2.40 - Normal (applies to CHD Risk [facility] 5.30 non-numeric System results) ID Date Data Source [id number] 10/25/2011 06:40:32 AM EST [facility] RN Collect Name Value Range Interpretation Description Data Sup porting Code Source(s) Document(s ) Appearance of CLEAR CLEAR Normal (applies Urine [facility] Urine to non-numeric Appearance Health results) System Color YELLOW YELLOW Normal (applies Color [facility] to non-numeric Health results) System pH.. 5.5 4.6 - Normal (applies pH.. [facility] {pH_units} 8.0 pH to non-numeric Health units results) System Specific Greater Normal (applies Urine [facility] gravity of than to non-numeric Specific Health Urine =1.030 results) [facility] Protein 100 mg/dl Normal (applies Protein [facility] [Mass/volume] to non-numeric Health in Serum or results) System Plasma Glucose, UA NEGATIVE Normal (applies Glucose, UA [facility] to non-numeric Health results) System Negative Urobilinogen 0.20 {eu/dL} 0.20 - Normal (applies Urobilinogen UA [facility] [Mass/volume] in 1.00 to non-numeric Health S ystem Urine eu/dL results) Bilirubin Urine NEGATIVE Normal (applies Bilirubin Urine [facility] to non-numeric Health System results) Nitrate+Nitrite NEGATIVE Normal (applies Nitrite [facility] [Mass/volume] in to non-numeric Health S ystem Unspecified results) specimen Negative Ketones [Mass/volume] NEGATIVE Normal (applies to Ketones U A [facility] in Urine non-numeric results) System Negative Leukocyte esterase NEGATIVE Normal (applies Leukocyte Aura ase [facility] [Units/volume] in to non-numeric Concentration [facility] System Urine results) Negative Urine Blood SMALL NEG Abnormal (applies to Urine Blood [facility] System non-numeric results) ID Date Data Source [id number] 10/25/2011 06:00:00 AM EST [facility] Name Value Range Interpretation Description Data Sup porting Code Source(s) Document(s ) Leukocytes 12.3 4.8 - Above high WBC Count [facility] [#/volume] in {10\\S\\3_uL} 10.8 normal Health Unspecified 10\\S\\3 System specimen by uL Automated count Erythrocytes 4.26 3.80 - Normal (applies RBC Count [facility] [#/volume] in {10\\S\\6_uL} 5.20 to non-numeric Health Blood by 10\\S\\6 results) System Automated count uL Hemoglobin 13.5 12.0 - Normal (applies Hemoglobin, [facility] [Mass/volume] {gm/dL} 16.0 to non-numeric Whole Blood Health in Blood gm/dL results) System Erythrocyte 91.3 fl 80.0 - Normal (applies MCV [facility] mean 100.0 to non-numeric Health corpuscular fl results) System volume [Entitic volume] by Automated count Hematocrit 38.9 % 36.0 - Normal (applies Hematocrit, [facility] [Volume 46.0 % to non-numeric Whole Blood Health Fraction] of results) System Blood Erythrocyte 31.7 pg 26.0 - Normal (applies MCH [facility] mean 34.0 pg to non-numeric Health corpuscular results) System hemoglobin [Entitic mass] by Automated count Erythrocyte 34.7 33.0 - Normal (applies MCHC [facility] mean {gm/dL} 37.0 to non-numeric Health corpuscular gm/dL results) System hemoglobin concentration [Mass/volume] by Automated count Platelets 255 130 - Normal (applies Platelet [facility] [#/volume] in {10\\S\\3_uL} 400 to non-numeric Count Health Plasma by 10\\S\\3 results) System Automated count uL Erythrocyte 12.9 % 11.5 - Normal (applies RDW [facility] distribution 14.5 % to non-numeric Health width [Entitic results) System volume] by Automated count Platelet mean 10.2 fl 7.4 - Normal (applies MPV [facility] volume [Entitic 10.4 fl to non-numeric Health volume] in results) System Blood by Automated count Polys Cancelled Polys [facility] System Lymphocytes 0 % 21 - 51 Below low normal Lymphocyte % [facility] [#/volume] in % Health Blood by System Automated count Eosinophils/100 0 % 1 - 3 % Below low normal Eosinophil % [facility] leukocytes in Health Unspecified System specimen Monocytes/100 0 % 6 - 9 % Below low normal Monocyte % [facility] leukocytes in Health Blood System Basophils/100 0 % 0 - 1 % Normal (applies Basophil % [facility] leukocytes in to non-numeric Health Unspecified results) System specimen by Manual count ID Date Data Source [id number] 10/25/2011 02:53:29 AM EST [facility] Name Value Range Interpretation Description Data Source(s ) Supporting Code Document(s ) Benzodia Negative Normal (applies to Benzodiazepine, [facility] zepine, non-numeric Urine. Health System Urine. results) Normal - Negative 300 ng/mL Amphetamine Negative Normal (applies to Amphetamine [facility] Qualitative, Urine non-numeric Qualitative, Urine Health System results) Normal - Negative 1000 ng/mL Barbituates, Urine. Negative Normal (applies to Barbituates , Urine. [facility] non-numeric Health System results) Normal - Negative 300 ng/mL THC. Positive Abnormal (applies to non-numeric THC. [facility] System results) Normal - Negative 50 ng/mL Cocaine Qual, Negative Normal (applies to Cocaine Qual, [facility] Urine. non-numeric results) Urine. System Normal - Negative 300 ng/mL Methaqualone Negative Normal (applies Methaqualone [facility] Qualitative, Urine to non-numeric Qualitative, [facility] results) Phencyclidine PCP Negative Normal (applies Phencyclidine PC P [facility] Qualitative, Urine. to non-numeric Qualitative, Ur ine. Health System results) Normal - Negatgive 25 ng/mL Propoxyphene Negative Normal (applies to Propoxyphene [facility] Qualitative, Urine non-numeric Qualitative, Urine Health System results) Normal - Negative 300 ng/mL Opiates, Urine Negative Normal (applies to Opiates, Urine [facility] non-numeric results) System Normal - Negative 300 ng/mL Methadone Negative Normal (applies to Methadone [facility] Qualitative, Urine non-numeric Qualitative, Urine Health System results) Normal - Negative 300 ng/mL ID Date Data Source [id number] 10/25/2011 02:53:29 AM EST [facility] Name Value Range Interpretation Description Data Sup porting Code Source(s) Document(s ) Barbiturates NEGATIVE Negative Normal (applies Barbiturate [facility] [Mass/volume] ng/ml to non-numeric Screen, Urine Health in Urine by results) System Screen method Cut-off = 200 ng/mL Amphetamine NEGATIVE Negative Normal (applies Amphetamine [facility] [Mass/volume] in ng/ml to non-numeric Level, Urine Healt h System Urine results) Cut-off = 1000 ng/mL Cocaine NEGATIVE Negative Normal (applies Cocaine [facility] metabolites.other ng/ml to non-numeric Metabolite Health System [Mass/volume] in results) Screen, Urine Urine Cut-off = 300 ng/mL Methadone NEGATIVE Normal (applies to Methadone Level, [facility] Health [Mass/volume] in non-numeric Urine System Urine results) Cut-off = 300 ng/mL Benzodiazepines NEGATIVE Negative Normal Benzodiazepines, [facility] [Mass/volume] in ng/mL (applies to Urine Health Urine non-numeric System results) Cut-off = 200 ng/mL Opiate 300, NEGATIVE Negative ng/ml Normal (applies to Opiate 300, [facility] Urine non-numeric Urine Health System results) Cut-off = 300 ng/mL Phencyclidine NEGATIVE Negative Normal (applies Phencyclidine, [facility] [Mass/volume] in ng/ml to non-numeric Urine Health S yste Urine results) Cut-off = 25 ng/mL THC POSITIVE Negative ng/mL Abnormal (applies to THC [facility] non-numeric results) Cut-off = 50 ng/mL ID Date Data Source [id number] 10/24/2011 10:00:00 PM EST [facility] Name Value Range Interpretation Description Data Sup porting Code Source(s) Document(s ) Erythrocytes 4.58 3.80 - Normal (applies RBC Count [facility] [#/volume] in {10\\S\\6_ 5.20 to non-numeric Health Blood by uL} 10\\S\\6 results) System Automated count uL Leukocytes 10.8 4.8 - Above high WBC Count [facility] [#/volume] in {10\\S\\3_ 10.8 normal Health Unspecified uL} 10\\S\\3 System specimen by uL Automated count Hemoglobin 14.8 12.0 - Normal (applies Hemoglobin, [facility] [Mass/volume] {gm/dL} 16.0 to non-numeric Whole Blood Health in Blood gm/dL results) System HEMOLYZED SPECIMEN Erythrocyte mean 32.3 pg 26.0 - Normal (applies MCH [facility] corpuscular 34.0 pg to non-numeric Health System hemoglobin [Entitic results) mass] by Automated count Erythrocyte mean 91.7 fl 80.0 - Normal (applies MCV [facility] corpuscular volume 100.0 fl to non-numeric Health System [Entitic volume] by results) Automated count Hematocrit [Volume 42.0 % 36.0 - Normal (applies Hematocrit, [facility] Fraction] of Blood 46.0 % to non-numeric Whole Blood [facility] System results) Platelets 264 130 - 400 Normal (applies Platelet Count [facility] [#/volume] in {10\\S\\3_u 10\\S\\3 uL to non-numeric Health Syst em Plasma by Automated L} results) count Erythrocyte mean 35.2 33.0 - Normal (applies MCHC [facility] corpuscular {gm/dL} 37.0 to non-numeric Health System hemoglobin gm/dL results) concentration [Mass/volume] by Automated count Erythrocyte 12.9 % 11.5 - Normal (applies RDW [facility] distribution width 14.5 % to non-numeric Health System [Entitic volume] by results) Automated count Basophils 0.03 Normal (applies Basophil Count [facility] [#/volume] in Blood {10\\S\\3_u to non-numeric Healt h System by Automated count L} results) Monocytes 0.7 Normal (applies Monocyte Count [facility] [#/volume] in Blood {10\\S\\3_u to non-numeric Healt h System by Manual count L} results) Platelet mean 10.3 fl 7.4 - Normal (applies MPV [facility] volume [Entitic 10.4 fl to non-numeric Health Sy stem volume] in Blood by results) Automated count Eosinophils 0.1 Normal (applies Eosinophil [facility] [#/volume] in Blood {10\\S\\3} to non-numeric Count Blood Hea lth System results) Neutrophils 8.4 Normal (applies Absolute [facility] [#/volume] in Body {10\\S\\3_u to non-numeric Neutrophil Healt h System fluid L} results) Count Lymphocyte Absolute 1.6 Normal (applies Lymphocyte [facility] {10\\S\\3_u to non-numeric Absolute Health System L} results) Neutrophils/100 77.2 % Normal (applies Neutrophil % [facility] leukocytes in Blood to non-numeric Healt h System by Automated count results) Eosinophils/100 1 % 1 - 3 % Below low normal Eosinophil % [facility] leukocytes in Health System Unspecified specimen Monocytes/100 7 % 6 - 9 % Normal (applies Monocyte % [facility] leukocytes in Blood to non-numeric Healt h System results) Basophils/100 0 % 0 - 1 % Normal (applies Basophil % [facility] leukocytes in to non-numeric Health Syst em Unspecified results) specimen by Manual count Lymphocytes 15 % 21 - 51 % Below low normal Lymphocyte % [facility] [#/volume] in Blood Health Sys tem by Automated count ID Date Data Source [id number] 10/24/2011 10:00:00 PM EST [facility] Name Value Range Interpretation Description Data Sup porting Code Source(s) Document(s ) hCG Less than 5.0 Normal (applies hCG [facility] Quantitative Negative = <5 to non-numeric Quantitative Healt h mIU/mLAPPROXIM results) System ATE GEST. AGE APPROXIMATE HCG mIU/ML 0.2 - 1 week 5 - 50 1 - 2 weeks 50 - 500 2 - 3 weeks 100 - 5,000 3 - 4 weeks 500 - 10,000 4 - 5 weeks 1,000 - 50,000 5 - 6 weeks 10,000 - 100,000 6 - 8 weeks 15,000 - 200,000 8 - 12 weeks 10,000 - 100,000HCG levels between 5-25 mIU/mL may be indicative of early . Correlation with other clinical findings and/or repeat of HCG quantitative testing recommened. ID Date Data Source [id number] 10/24/2011 10:00:00 PM EST [facility] Name Value Range Interpretation Description Data Sup porting Code Source(s) Document(s ) Sodium 135 137 - Below low normal Sodium, Serum [facility] [Moles/volume mmol/L 145 Health ] in Serum or mmol/L System Plasma Chloride 106 98 - 107 Normal (applies Chloride, [facility] [Moles/volume mmol/L mmol/L to non-numeric Serum Health ] in Serum or results) System Plasma Urea nitrogen 8 mg/dl 7 - 18 Normal (applies Blood Urea [facility] [Mass/volume] mg/dl to non-numeric Nitrogen, Health in Serum or results) Serum System Plasma Carbon 17.0 22.0 - Below low normal CO2, Serum [facility] dioxide, mmol/L 30.0 Health total mmol/L System [Moles/volume ] in Serum or Plasma Glucose 114 65 - 105 Above high normal Glucose, Serum [facility] [Mass/volume] mg/dL mg/dL Health in Serum or System Plasma Creatinine 0.80 0.70 - Normal (applies Creatinine, [facility] [Mass/volume] mg/dl 1.20 to non-numeric Serum Health in Serum or mg/dl results) System Plasma Anion gap in 12.00 8.00 - Normal (applies Anion Gap [facility] Serum or mmol/L 12.00 to non-numeric Health Plasma mmol/L results) System Calcium 9.0 8.4 - Normal (applies Calcium, Total [facility] [Mass/volume] mg/dl 10.2 to non-numeric Serum Health in Serum or mg/dl results) System Plasma ID Date Data Source [id number] 10/24/2011 10:00:00 PM EST [facility] Name Value Range Interpretation Description Data Sup porting Code Source(s) Document(s ) Alcohol NON-DETECTE Normal (applies Alcohol Ethyl, [facility] Ethyl, D None to non-numeric Blood Health System Blood Detected results) Procedure Vital Signs ID Date Data Source UNK Name Value Range Interpretation Code Description Data Source(s) Body temperature 98.1 [degF] 0 - 200 Normal (applies to 98.1 [degF ] [facility] non-numeric results) Heal th System Body temperature 36.7 Izabela 0 - 99.9 Normal (applies to 36.7 Izabela [facility] non-numeric results) Heal th System Diastolic blood 72 mm[Hg] 0 - 999 Normal (applies to 72 mm[Hg] [facility] pressure non-numeric results) [facility] System Systolic blood 115 mm[Hg] 0 - 999 Normal (applies to 115 mm[Hg] [facility] pressure non-numeric results) [facility] System Deprecated Oxygen 98 % 0 - 999 Normal (applies to 98 % [facility] saturation in non-numeric results) H ealth System Capillary blood by Oximetry Respiratory rate 17 0 - 999 Normal (applies to 17 [facility] non-numeric results) [facility] System Heart rate 88 0 - 999 Normal (applies to 88 [facility] non-numeric results) [facility] System Body mass index 20.3 kg/m2 20.3 kg/m2 [facility] (BMI) [Ratio] Health Syst em Body weight 55.61 kg 55.61 kg [facility] Measured [facility] System Body surface area 1.6 m2 1.6 m2 [facility] Derived from Health Syste m formula Body height 170.18 cm 170.18 cm [facility] Patient Treatment Plan of Care Planned Activity Planned Date Details Description Data Source (s) 200 ACTUAT [facility] 0.09 [facility]04[facility] MG/[facility] Metered Dose 11:49:47 AM EST Sy stem Inhaler Basaglar KwikPen 100 units/mL 09/04/2018 [facility] subcutaneous solution 10:30:27 AM EST Sys tem quetiapine 50 MG Oral Tablet 09/04/2018 [facility] 10:29:47 AM EST System Multivitamin preparation 09/04/2018 [facility] 10:29:36 AM EST System Mirtazapine 30 MG Oral Tablet 09/04/2018 [facility] 10:28:36 AM EST System topiramate 100 MG Oral Tablet 09/04/2018 [facility] 10:28:24 AM EST System Metformin hydrochloride 1000 09/04/2018 [facility] MG Oral Tablet 10:27:39 AM EST System Lisinopril 20 MG Oral Tablet 09/04/2018 [facility] 10:25:29 AM EST System Levetiracetam 1000 MG [facility]04/2018 [facility] Tablet 10:24:56 AM EST System Hydrochlorothiazide 12.5 MG 09/04/2018 [facility] Oral Capsule 10:20:48 AM EST System gabapentin 300 MG Oral 09/04/2018 [facility] Health Capsule 10:19:21 AM EST System Folic Acid 1 MG Oral Tablet 09/04/2018 [facility] 10:16:57 AM EST System duloxetine 30 MG Delayed 09/04/2018 [facility] Oral Capsule 10:15:28 AM EST Syst em Ascorbic Acid 1000 MG 09/04/2018 [facility] Extended Release Oral Tablet 10:15:02 AM EST System Admelog SoloStar 100 units/mL 09/04/2018 [facility] injectable solution 10:13:54 AM EST Syste m Insulin Glargine 09/04/2018 [facility] 10:03:07 AM EST System Amlodipine 5 MG Oral Tablet 12/19/2014 [facility] 04:58:32 PM EDT System Acetaminophen 500 MG Oral 04/06/2014 [facility] Tablet 05:59:06 PM EDT System Levetiracetam 500 MG [facility]18[facility] Tablet 04:22:29 PM EDT System Albuterol 0.09 MG/ACTUAT [facility] Metered Dose Inhaler System Basaglar KwikPen 100 units/mL [facility] subcutaneous solution System Levetiracetam 750 [facility] Tablet System duloxetine 30 MG Delayed [facility] Health Release Oral Capsule System 200 ACTUAT [facility]ol 0.[facility] MG/ACTUAT Metered Dose Syste m Inhaler Phenytoin sodium 100 MG [facility] Extended Release Oral Capsule System gabapentin 300 MG Oral Tablet [facility] gabapentin [facility] System Folic Acid 1 MG Oral Tablet [facility] Metformin [facility] System Ultralente Insulin, Human [facility] Levetiracetam 1000 MG Oral [facility] Health Tablet [Keppra] System Naproxen 250 MG Oral Tablet [facility]
[2020-05-11] MEDS ORDERED: SODIUM CHLORIDE 0.9% 500 ML INFUS.BAG IV ONE (08:32)
[2020-05-11] MEDS ORDERED: ONDANSETRON 4 MG/2 ML VIAL IVPB ONE (08:38)
--- NOTE | 2020-05-11 09:24 | EKG ---
Test Reason : Blood Pressure : / mmHG Vent. Rate : 092 BPM Atrial Rate : 092 BPM P-R Int : 148 ms QRS Dur : 082 ms QT Int : 372 ms P-R-T Axes : 071 055 073 degrees QTc Int : 460 ms NORMAL SINUS RHYTHM BIATRIAL ENLARGEMENT LEFT VENTRICULAR HYPERTROPHY ABNORMAL ECG WHEN COMPARED WITH ECG OF 25-AUG-2019 16:18, NO SIGNIFICANT CHANGE WAS FOUND Confirmed by Catherine Benavidez ([id number]) on 05/11/2020 9:24:08 AM Referred By: Confirmed By:Catherine Benavidez
[2020-05-11 09:54] LABS: VENOUS BASE EXCESS -21.2 mmol/L (-2-2); VENOUS PCO2 19.5 mmHg (38-52)
[2020-05-11 09:56] LABS: VENOUS PH 7.12 (7.310-7.410)
[2020-05-11 09:58] LABS: BASO % 0.2 % (0-2.0); EOS % 0.1 % (0-4.5); HEMATOCRIT 45.5 % (32.4-45.2); HEMOGLOBIN 14.4 GM/dL (10.7-15.3); MCH 31.1 pg (25.7-33.7); MCHC 31.7 g/dl (32.0-36.0); MEAN CELL VOLUME 98.3 fl (80-96); MEAN PLT VOLUME 9.4 fl (7.5-11.1); MONO % 2.3 % (3.8-10.2); NEUT % 90.4 % (42.8-82.8); PLATELET COUNT 262 K/MM3 (134-434); RBC 4.64 M/mm3 (3.60-5.2); RDW 13.2 % (11.6-15.6)
[2020-05-11 10:00] LABS: URINE APPEARANCE CLEAR; URINE BILIRUBIN NEGATIVE (NEGATIVE); URINE COLOR YELLOW; URINE GLUCOSE (UA) 3+ (NEGATIVE); URINE KETONE 4+ (NEGATIVE); URINE LEUK ESTERASE NEGATIVE (NEGATIVE); URINE NITRITE NEGATIVE (NEGATIVE); URINE PROTEIN NEGATIVE (NEGATIVE); URINE UROBILINOGEN 0.2 mg/dL (0.2-1.0)
[2020-05-11 10:06] LABS: COCAINE, UR NEGATIVE ng/ml (CUTOFF=300); PHENCYCLIDINE,URINE NEGATIVE ng/ml (CUTOFF=25)
[2020-05-11 10:15] LABS: URINE BENZODIAZEPINES NEGATIVE ng/ml (CUTOFF=200)
[2020-05-11 10:18] LABS: METHADONE, UR NEGATIVE ng/ml (CUTOFF=300); OPIATES, URI NEGATIVE ng/ml (CUTOFF=300); URINE AMPHETAMINES NEGATIVE ng/ml (CUTOFF=500)
[2020-05-11 10:24] LABS: ARTERIAL BLD GAS O2 SATURATION 97.8 mmHg (95-98); ARTERIAL BLOOD GAS BASE EXCESS -21.6 mmol/L (-2-2); ARTERIAL BLOOD GAS PO2 133.9 mmHg (80-100)
[2020-05-11 10:35] LABS: ALBUMIN 4.6 g/dl (3.4-5.0); BLOOD UREA NITROGEN 23.2 mg/dL (7-18); CALCIUM 9.7 mg/dL (8.5-10.1); CREATININE 1.5 mg/dL (0.55-1.3); POTASSIUM 5.5 mmol/L (3.5-5.1); TOT PROT 8.1 g/dl (6.4-8.2)
[2020-05-11 10:38] LABS: ARTERIAL BLOOD GAS pH 7.112 (7.350-7.450)
[2020-05-11] MEDS ORDERED: INSULIN REGULAR 100 UNITS in SODIUM CHLORIDE 99 ML IVPB SCH (10:45)
[2020-05-11 10:47] LABS: BILIRUBIN,TOTAL 0.6 mg/dL (0.2-1)
[2020-05-11 10:50] LABS: URINE BARBITURATES NEGATIVE ng/ml (CUTOFF=200)
--- OUTSIDE RECORDS SUMMARY | 2020-05-11 11:12 | XMS ---
:1970 Author Organization [facility] Care Team Providers Name Role Phone HHHVCC Unavailable Unavailable RACIEL REYNOLDS Unavailable Unavailable KIM MCCLELLAN Unavailable Unavailable HHHVCC Unavailable Unavailable [facility]HHVCC Unavailable Unavailable Amber Unavailable Unavailable Amber Unavailable Unavailable Amber Unavailable Unavailable Amber Unavailable Unavailable Amber Unavailable Unavailable MARIMAR MAKI Unavailable Unavailable [facility]HHVCC Unavailable Unavailable TOMAS CHEUNG Unavailable Unavailable Re-disclosure Warning The records that [...] is protected by Article 27-F of the [facility] Public Health law. If you continue you may haveaccess to information: Regarding HIV / AIDS; Provided by facilities licensed or operated by the [facility] Office of Mental Health; or Provided by the [facility] Office for People With Developmental Disabilities. If such information is present, then the following [facility] mandated warning applies: This information has [...] law may result in a fine or snf sentence or both. A general authorization for the release of medical or other information is NOT sufficient authorization for further disclosure. Encounters Encounter Providers Location Date Indications Data Source(s ) [facility]: SK[facility] [employer] [facility] Att[facility]: SKYE, [facility] [employer] Outpatient Attender: SKYE, 04/10/2020 [facility] OLGAAdmitter: SKYE, 06:00:00 [facility] [employer] Outpatient Attender: ASL9 03/22/2020 [facility] ([facility] 11:15:33 AM Care Lucy dasilva) EDT Patient admitted. Outpatient Attender: SKYE, 03/13/2020 04:23:00 PM [facility] BELENGAAttender: FERNANDEZ REYNOLDS [facility] [employer] JOANAdmitter: TOMAS CHEUNG Outpatient Attender: ASL9 [facility] 02/18/2020 12:04:01 PM [facility] ([facility]) Patient admitted. Outpatient Attender: WJCS9 [facility] 02/18/2020 12:03:58 PM [facility] ([facility]) Patient admitted. Outpatient Attender: ASL9 [facility] 02/18/2020 12:03:01 PM [facility] ([facility]) Patient admitted. Outpatient Attender: WJC9 [facility] 02/18/2020 12:02:58 PM [facility] ([facility]) Patient admitted. Outpatient Attender: GIAL 01/16/2020 06:00:00 AM [facility] FERNANDEZ REYNOLDS [facility] RACIEL Outpatient Attender: GAIL 12/17/2019 06:00:00 AM [facility]: FERNANDEZ REYNOLDS [facility] RACIEL Outpatient Attender: WJC9 [facility] 12/14/2019 03:50:09 PM [facility] ([facility]) Patient admitted. Outpatient Attender: MMV9 [facility] 12/14/2019 03:50:06 PM [facility] ([facility]) Patient admitted. Outpatient Attender: GAIL 11/26/2019 06:00:00 AM [facility]: FERNANDEZ REYNOLDS [facility] RACIEL Outpatient Attender: GAIL 10/31/2019 06:00:00 AM [facility]: FERNANDEZ REYNOLDS [facility] RACIEL Outpatient Attender: ELEUTERIO 10/15/2019 06:00:00 AM [facility] KIM MackeyAttender: GAIL [facility] MCdmitter: KIM MCCLELLAN Outpatient Attender: WJC9 [facility] 10/09/2019 11:58:13 AM [facility] ([facility]) Patient admitted. Outpatient Attender: WJCS9 [facility] 07/27/2019 02:35:32 PM [facility] ([facility]) Patient admitted. Outpatient Attender: MMVH9 [facility] 07/27/2019 02:35:29 PM [facility] ([facility]) Patient admitted. Outpatient Attender: MMVH9 [facility] 07/06/2019 03:54:51 PM [facility] ([facility]) Patient admitted. Outpatient Attender: [id number] [facility] 07/06/2019 03:54:48 PM [facility] ([facility]) Patient admitted. Outpatient Attender: GAIL 05/17/2019 06:00:00 AM [facility] MCdmitter: FERNANDEZ REYNOLDS [facility] [employer] RACIEL Outpatient Attender: GAIL 04/25/2019 06:00:00 AM [facility] MCdmitter: FERNANDEZ REYNOLDS [facility] [employer] RACIEL Outpatient Attender: [id number] 04/16/2019 06:00:00 AM [facility] ILYA MAKI; [facility] [employer] Inna.Attender: Eve REYNOLDSitter: [id number] MARIMAR MAKI Outpatient Attender: [id number] 04/09/2019 06:00:00 AM [facility] IYLA MAKI; [employer] M.Attender: Eve REYNOLDSitter: [id number] MARIMAR MAKI Outpatient Attender: [id number] 04/02/2019 06:00:00 AM [facility] ILYA MAKI; [employer] Inna.Attender: Eve REYNOLDSitter: [phone] MARIMAR MAKI Outpatient Attender: GAIL 03/08/2019 06:00:00 AM [facility] Eveitter: FERNANDEZ REYNOLDS [facility] [employer] RACIEL Outpatient Attender: Joe 02/05/2019 06:00:00 [facility] [employer] Pop: Joe Clark Outpatient Attender: GAIL 02/01/2019 06:00:00 AM [facility] Eveitter: FERNANDEZ REYNOLDS [employer] RACIEL Outpatient Attender: Joe 01/04/2019 06:00:00 AM [facility] SamantafresnoAttender: GAIL [employer] JOANAdmitter: Joe Clark Outpatient Attender: GAIL, 12/28/2018 06:00:00 AM [facility] JOANAdmitter: FERNANDEZ REYNOLDS [facility] [employer] RACIEL Outpatient Attender: GAIL, 11/30/2018 06:00:00 AM [facility] JOANAdmitter: FERNANDEZ REYNOLDS [facility] [employer] RACIEL Outpatient Attender: GAIL, 11/27/2018 06:00:00 AM [facility] JOANAdmitter: FERNANDEZ REYNOLDS [facility] [employer] RACIEL Outpatient Attender: GAIL, 11/23/2018 06:00:00 AM [facility] JOANAdmitter: FERNANDEZ REYNOLDS [facility] [employer] RACIEL Outpatient Attender: GAIL, 11/16/2018 09:08:00 AM [facility] FERNANDEZ REYNOLDS [employer] RACIEL Outpatient Attender: [id number] 10/06/2018 06:00:00 AM [facility] ILYA MAKI; [facility] [employer] [facility] PeytonAdmitter: [id number] MARIMAR MAKI Outpatient Attender: ELEUTERIO, 09/29/2018 06:00:00 AM [facility] KIM MackeyAdmitter: [facility] [employer] [facility] [employer] KIM MCCLELLAN Immunizations Vaccine Date Status Description Data Source(s) Tdap 04/06/2014 completed Tdap on: 06-Apr-2014 Site: St ructure of deltoid muscle (body structure) [facility] 12:00:00 AM EDT Lot #: [id number] [facility] Medications Medication Brand Start Product Dose Route Administrative Pharmacy atus Indications Reaction Description Data Name Date Form Instructions Instructions Source(s) 200 ACTUAT Ventol 09/04/ AEROSOL 2 RESPIR complet [facility] Albuterol in HFA 2018 {puff [facility] 0.09 90 11:49: (s)} (INHAL System [...] [facility] KwikPen 100 Glargine 100 TION {units} [employer] units/mL UNT/ML Pen Syste m subcutaneous Injector solution [Basaglar] Ultralente insulin 0 SUBCUTA completed [facility] Insulin, Human NEOUS Heal th insulin System Levetiracetam levETIRAcetam TABL 1 ORAL completed [facility] 750 MG Oral 750 mg oral ET {tab(s)} Health Tablet tablet System levETIRAcetam 750 mg oral tablet 200 ACTUAT Ventolin HFA AERO 2 RESPIRA completed [facility] Albuterol 0.09 CFC free 90 BRAD {puff(s)} [email or web address] MG/ACTUAT mcg/inh (INHALA Syst em Metered Dose inhalation TION) Inhaler aerosol Ventolin HFA CFC free 90 mcg/inh inhalation aerosol Insurance Providers Payer name Policy type Policy ID Covered Covered alliance party's Policy P emmy / Coverage alliance party ID relationship to Liu Inf ormation type liu YANIV [id number] 100 HEALTH NON CAP MEDICAID [id number] SP [id number] YANIV [id number] 100 HEALTH NON CAP Problems, Conditions, and Diagnoses Code Display Name Description Problem Type Effective Data Sour ce(s) Dates 345.90 Seizure disorder Seizure disorder Problem [facility] [id number].[id number] [facility] Z79.4 senior living INTERMEDIATE Diagnosis 04/10/2020 [place] (current) use of (CURRENT) USE OF 06:00:00 AM [employer] insulin INSULIN EDT [employer] 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, NOT 06:00:00 AM [facility] epilepsy and INTRACTABLE, W/O EDT Care epileptic STAT [employer] syndromes, not intractable, without status epilepticus I10 Essential ESSENTIAL Diagnosis 04/10/2020 [place] [facility] (primary) (PRIMARY) 06:00:00 AM [facility] hypertension HYPERTENSION EDT [employer] G56.00 Carpal tunnel CARPAL TUNNEL Diagnosis 04/10/2020 [facility] syndrome, SYNDROME, 06:00:00 AM [facility] unspecified upper UNSPECIFIED UPPER EDT Care limb [employer] E11.40 Type 2 diabetes TYPE 2 DIABETES Diagnosis 04/10/2020 [place] mellitus with MELLITUS WITH 06:00:00 AM [facility] diabetic DIABETIC EDT Care neuropathy, NEUROPATHY, UNSP Corpora tion unspecified F41.1 Generalized GENERALIZED Diagnosis 04/10/2020 [facility] anxiety disorder ANXIETY DISORDER 06:00:00 AM [employer] EDT [employer] F17.200 Nicotine NICOTINE Diagnosis 04/10/2020 [facility] dependence, DEPENDENCE, 06:00:00 AM [facility] unspecified, UNSPECIFIED, EDT Care uncomplicated UNCOMPLICATED Corporat ion G47.00 Insomnia, INSOMNIA, Diagnosis 04/10/2020 [place] [facility] unspecified UNSPECIFIED 06:00:00 AM [facility] EDT [employer] F33.1 Major depressive MAJOR DEPRESSIVE Diagnosis 04/10/2020 [place] disorder, DISORDER, 06:00:00 AM [facility] recurrent, RECURRENT, EDT Care moderate MODERATE Corporation F17.210 Nicotine NICOTINE Diagnosis 04/09/2019 [place] [facility] dependence, DEPENDENCE, 06:00:00 AM [facility] cigarettes, CIGARETTES, EDT Care uncomplicated UNCOMPLICATED Corporat ion E13.10 DKA (diabetic DKA (diabetic Diagnosis [facility] ketoacidoses) ketoacidoses) Health S ystem Surgeries/Procedures Procedure Description Date Indications Data Source(s) Electroencephalogram 08/30/2018 [facility] 01:29:00 PM System EST - 08/30/2018 01:29:00 PM EST MV HbA1c 08/28/2018 [facility] 07:19:00 PM System EST - 08/28/2018 07:19:00 PM EST Electrocardiogram 12 Lead 08/28/2018 [facility] 03:22:00 PM System EST - 08/28/2018 03:22:00 PM EST Urine Test POCT 08/28/2018 [facility] 02:24:35 PM System EST - 08/28/2018 02:24:35 PM EST Manual Diff 08/28/2018 [facility] 02:24:00 PM System EST - 08/28/2018 02:24:00 PM EST XR Chest PA and Left Lateral 02/12/2015 [facility] 04:06:00 PM System EDT - 02/12/2015 04:06:00 PM EDT Venipuncture 02/12/2014 [facility] 12:00:00 AM System EDT - 02/12/2014 12:00:00 AM EDT Venipuncture 02/12/2014 [facility] 12:00:00 AM System EDT - 02/12/2014 12:00:00 AM EDT Electroencephalogram 01/16/2014 [facility] 10:46:00 AM System EDT - 01/16/2014 10:46:00 AM EDT Electrocardiogram 12 Lead [facility] EDT - 01/15/2014 12:43:00 PM EDT Venipuncture 12/07/2013 [facility] 12:00:00 AM System EDT - 12/07/2013 12:00:00 AM EDT Electrocardiogram 12 Lead 09/16/2013 [facility] 11:13:00 PM System EST - 09/16/2013 11:13:00 PM EST Electroencephalogram Awake + 09/12/2013 [facility] Asleep 02:20:00 PM System EST - 09/12/2013 02:20:00 PM EST Electrocardiogram 12 Lead [facility]/10/2013 [facility] 04:17:00 PM System EST - 09/10/2013 04:17:00 PM EST Venipuncture 09/10/2013 [facility] th 03:44:00 PM System EST - 09/10/2013 03:44:00 PM EST Venipuncture 04/09/2013 [facility] th 12:00:00 AM System EDT - 04/09/2013 12:00:00 AM EDT Electroencephalogram 03/30/2013 [facility] 01:43:00 PM System EDT - 03/30/2013 01:43:00 PM EDT Electroencephalogram 03/28/2013 [facility] 01:47:00 PM System EDT - 03/28/2013 01:47:00 PM EDT Electrocardiogram 12 Lead 03/28/2013 [facility] 11:36:00 AM System EDT - 03/28/2013 11:36:00 AM EDT XR Chest Single PA view 03/27/2013 [facility] Health 12:13:20 PM System EDT - 03/27/2013 12:13:20 PM EDT Electrocardiogram 12 Lead 03/27/2013 [facility] 10:33:00 AM System EDT - 03/27/2013 10:33:00 AM EDT XR Chest Single AP view 03/27/2013 [facility] 10:32:00 AM System EDT - 03/27/2013 10:32:00 AM EDT Auto Differential 02/09/2013 [facility] 08:15:00 AM System EDT - 02/09/2013 08:15:00 AM EDT Dilantin Free 01/25/2012 [facility] 02:48:34 PM System EDT - 01/25/2012 02:48:34 PM EDT Dilantin [facility]2012 [facility] 11[facility]00 AM System EDT - 01/18/2012 11:33:00 AM EDT Electroencephalogram Awake + 12/01/2011 [facility] 10:32:00 AM System EDT - 12/01/2011 10:32:00 AM EDT LevETIRAcetam Level, Serum [facility]/28/2011 [facility] 07[facility]30[facility]00 AM System EDT - 11/28/2011 07:30:00 AM EDT Electrocardiogram 12 Lead [facility]/28/[facility] 06:35:16 AM System EDT - 11/28/2011 06:35:16 AM EDT Electroencephalogram 10/25/2011 [facility] 09:00:00 AM System EST - 10/25/2011 09:00:00 AM EST Electrocardiogram 12 Lead 10/24/2011 [facility] 10[facility]00:00 PM System EST - 10/24/2011 10:00:00 PM EST Results ID Date Data Source [id number] 09/04/2018 06:00:00 AM EST [facility] He [facility] System Name Value Range Interpretation Description Data [...] 91.4 fl 83.0 - Normal (applies MCV [facility] corpuscular 98.0 fl to non-numeric Health volume [Entitic results) System volume] by Automated count Erythrocyte mean 31.1 pg 26.0 - Normal (applies MCH [facility] ore corpuscular 34.0 pg to non-numeric Health [...] 10^3 uL System ID Date Data Source [id number] 09/04/2018 06:00:00 AM EST [facility] He alth [...] urine test abnormalities ID Date Data Source [id number] 09/03/2018 06:00:00 AM EST [facility] System Name [...] 10^3 uL System ID Date Data Source [id number] 09/03/2018 06:00:00 AM EST [facility] ch[facility]o System Name Value Range [...] urine test abnormalities ID Date Data Source [id number] 09/02/2018 10:20:00 PM EST [facility] He [facility] System Name Value Range Interpretation Description Data [...] isoenzymes [Enzymatic IU/L (applies to Phosphatase, Hea lt System activity/volume] in non-numeric Serum Serum or Plasma by results) Heat stability Bilirubin.total 0.3 mg/dl 0.2 - 1.3 Normal Bilirubin, [facility] [Mass/volume] in Serum mg/dl (applies to Serum Total Hea lt System or Plasma non-numeric results) Direct Bilirubin [...] urine test abnormalities ID Date Data Source [id number] 09/02/2018 06:00:00 AM EST [facility] System Name Value [...] 10^3 uL System ID Date Data Source [id number] 09/02/2018 06:00:00 AM EST [facility] He chayo System Name Value Range [...] urine test abnormalities ID Date Data Source [id number] 09/01/2018 06:00:00 AM EST [facility]th System Name Value Range Interpretation Description Data Source(s ) Supporting Code Document(s ) [id number] 347.03 Normal (applies to [id number] [facility] non-numeric Health System results) tHbWB 3845.61 Normal (applies to tHbWB [facility] non-numeric Health System results) %HbA1C 10.41 % 3.00 - Above high normal %HbA1C [facility] 6.50 % Health System ID Date Data Source [id number] 09/01/2018 06:00:00 AM EST [facility] He alth [...] 10^3 uL System ID Date Data Source [id number] 09/01/2018 06:00:00 AM EST [facility] He alth [...] urine test abnormalities ID Date Data Source [id number] 08/31/2018 12:59:00 PM EST [facility] He [facility] System Name Value Range Interpretation Description Data [...] [facility] aminotransferase IU/L to non-numeric Transaminase, Heal th System [Enzymatic results) Serum activity/volume] in Serum or Plasma by With P-5'-P Previously released as 28 on 08/31/2018, 02:44 PM by [id number] - repeated Albumin 4.9 {gm/dl} 3.9 - 5.0 Normal (applies Albumin, [facility] [Mass/volume] in gm/dl to non-numeric Serum Health S yste Serum or Plasma results) Previously released as 4.5 on 08/31/2018, 02:44 PM by [id number] - repeated I. Phosphorus 4.7 mg/dl 2.5 - 4.5 Above high I. Phosphorus [facility] mg/dl normal Health System Alanine 22 {IU/L} 7 - 56 Normal Alanine [facility] aminotransferase IU/L ([facility] [Enzymatic non-numeric e, Serum activity/volume] in results) Serum or Plasma Previously released as 18 on 08/31/2018, 02:44 PM by [id number] - repeated Calcium 9.9 mg/dl 8.4 - 10.2 Normal (applies Calcium, [facility] [Mass/volume] in mg/dl to non-numeric Total Serum [facility] System Serum or Plasma results) Previously released as 9.6 on 08/31/2018, 02:44 PM by [id number] - repeated A/G Ratio 1.36 Normal (applies to non-numeric A/G R atio [facility] System results) Previously released as 1.13 on 09/04/2018 , 11:25 AM by [id number] - repeatedPreviously released as 1.15 on 08/31/2018, 02:44 PM by [id number] - repeated Urate [Mass/volume] 3.3 mg/dl 2.5 - 7.5 Normal (applies Uric Acid, [facility] in Serum or Plasma mg/dl to non-numeric Serum [facility] System results) Previously released as 3.2 on 08/31/2018, 02:44 PM by [id number] - repeated Anion gap in 18.00 mmol/L 8.00 - 12.00 Above high Anion Gap [facility] Serum or mmol/L normal System Plasma Previously released as 15.00 on 9, 02:44 PM by [id number] - repeated Glomerular filtration 40.26 Normal (applies to GFR [facility] rate/1.73 sq M.predicted non-numeric results) System [Volume [...] urine test abnormalities ID Date Data Source [id number] 08/31/2018 06:00:00 AM EST [facility] He alth [...] 10^3 uL System ID Date Data Source [id number] 08/31/2018 06:00:00 AM EST [facility] St[facility] System Name Value Range Interpretation Description Data Source(s ) Supporting Code Document(s ) [id number] 355.54 Normal (applies to [id number] [facility] non-numeric Health System results) tHbWB 3918.27 Normal (applies to tHbWB [facility] non-numeric Health System results) %HbA1C 10.45 % 3.00 - Above high normal %HbA1C [facility] 6.50 % Health System ID Date Data Source [id number] 08/30/2018 06:00:00 AM EST [facility] He alth [...] 10^3 uL System ID Date Data Source [id number] 08/30/2018 06:00:00 AM EST [facility] He alth [...] 6.3 - Below low normal Total Protein iTmoteo bianca mg/dl 8.2 Health mg/dl System Glucose 319 65 - Above high Glucose, [facility] [Mass/volume] in mg/dL 105 normal Serum Health Serum or Plasma mg/dL System Urea nitrogen 10 7 - 18 Normal (applies Blood Urea [facility] [Mass/volume] in mg/dl mg/dl to non-numeric Nitrogen, [facility] Serum or Plasma results) Serum System Creatinine 0.80 0.70 - Normal (applies Creatinine, [facility] [Mass/volume] in mg/dl 1.20 to non-numeric Serum Health Serum or Plasma mg/dl results) System Alkaline 47 38 - Normal (applies Alkaline [facility] phosphatase {IU/L} 126 to non-numeric Phosphatase, [facility] isoenzymes IU/L results) Serum System [Enzymatic activity/volume] [...] urine test abnormalities ID Date Data Source [id number] 08/29/2018 05:31:00 AM EST [facility] He alth [...] - Below low normal O2 Saturation Timoteo bianca 99.0 % Health System Sodium, WB 136 [...] results) System Plasma ID Date Data Source [id number] 08/29/2018 04:43:00 AM EST [facility] He alth System Name Value Range Interpretation Description Data Sup porting Code Source(s) Document(s ) Beta 0.19 0.02 - Normal (applies Beta [facility] Hydroxybutyrate mg/dL 0.27 to non-numeric Hydroxybutyrate Hea lth mg/dL results) System ID Date Data Source [id number] 08/29/2018 04:43:00 AM [facility] domingo System Name Value Range Interpretation Description Data Sup porting Code Source(s) Document(s ) aPTT in Blood 28.4 20.0 - Normal (applies Activated [facility] by {Second 30.3 to non-numeric Partial Health Coagulation s} Seconds results) Thromboplastin System assay Time ID Date Data Source [id number] 08/29/2018 04:43:00 AM EST [facility] Saleem alth [...] Heart = 3.0-4.5 ID Date Data Source [id number] 08/29/2018 04:43:00 AM [facility] System Name [...] urine test abnormalities ID Date Data Source [id number] 08/29/2018 04:43:00 AM EST [facility] dom[facility] System Name Value Range Interpretation Description Data Sup porting Code Source(s) Document(s ) Magnesium 1.6 1.5 - Normal (applies Magnesium, [facility] [Mass/volume {mEq/L} 2.2 to non-numeric Serum Health Syste m ] in Serum mEq/L results) or Plasma ID Date Data Source [id number] 08/29/2018 04:43:00 AM EST [facility] St[facility] System Name Value Range Interpretation Description Data Sup porting Code Source(s) Document(s ) Creatine 199 30 - 135 Above high normal Creatine [facility] kinase.MB {IU/L} IU/L Kinase, Serum Health System [Mass/volum e] in Serum or Plasma ID Date Data Source [id number] 08/29/2018 04:43:00 AM EST [facility] He alth [...] Health results) System ID Date Data Source [id number] 08/29/2018 04:43:00 AM EST [facility] System Name [...] 10^3 uL System ID Date Data Source [id number] 08/29/2018 04:43:00 AM EST [facility] He alth [...] Serum or Plasma results) <200 mg/dL = [id number] - 239 md/dL = Borderline>240 mg/dL = [...] VLDL 10.2 Normal (applies to VLDL, [facility] [Mass/volume] in non-numeric System Serum or Plasma results) CHD Risk 3.09 2.40 - Normal (applies to CHD Risk [facility] Health 5.30 non-numeric System results) ID Date Data Source [id number] 08/29/2018 12:11:00 AM EST [facility] alth System Name Value Range Interpretation Description Data Sup porting Code Source(s) Document(s ) Bacteria NO GROWTH Culture [facility] identified in Revstr Blood Health Syst em Blood by Aerobe culture ID Date Data Source [id number] 08/28/2018 11:54:00 PM EST [facility] He alth [...] results) System Plasma ID Date Data Source [id number] 08/28/2018 09:18:00 PM EST [facility] He alth [...] or results) Plasma ID Date Data Source [id number] 08/28/2018 09:18:00 PM EST [facility] System Name Value Range Interpretation [...] Health System results) ID Date Data Source [id number] 08/28/2018 08:20:00 PM EST Timoteojuan daniel Saleem alth System Name Value Range Interpretation Description Data Sup porting Code Source(s) Document(s ) Deprecated Micro Result Normal (applies Aerobic [facility] Bacteria Final Culture to non-numeric Culture, Health identified Reading results) Urine System in Urine by Note::"MULTIPL Aerobe E BACTERIAL culture MORPHOTYPES PRESENT, POSSIBLE CONTAMINATION, SUGGEST RECOLLECTION IF CLINICALLY INDICATED". ID Date Data Source [id number] 08/28/2018 07:19:00 PM EST [facility] St[facility] alth System Name Value Range Interpretation Description Data Sup porting Code Source(s) Document(s ) Beta 2.31 0.02 - Above high Beta [facility] Hydroxybutyrate mg/dL 0.27 normal Hydroxybutyrate Health mg/dL System ID Date Data Source [id number] 08/28/2018 07:19:00 PM EST [facility] Name [...] Antibiotics strongly encouraged ID Date Data Source [id number] 08/28/2018 07:19:00 PM EST [facility] [...] Plasma results) ok ID Date Data Source [id number] 08/28/2018 07:19:00 PM GALE [facility] System Name Value Range Interpretation Description Data Sup porting Code Source(s) Document(s ) Troponin I 0.03 0.00 - Normal (applies Troponin I [facility] Quantitative - ng/mL 0.04 to non-numeric Quantitative - Healt h MV Only ng/mL results) MV Only System ID Date Data Source [id number] 08/28/2018 07:19:00 PM EST [facility] System Name Value Range Interpretation Description Data Sup porting Code Source(s) Document(s ) Magnesium 1.5 1.5 - Normal (applies Magnesium, [facility] [Mass/volume {mEq/L} 2.2 to non-numeric Serum Health Syste m ] in Serum mEq/L results) or Plasma ID Date Data Source [id number] 08/28/2018 07:19:00 PM EST [facility] System Name Value Range Interpretation Description Data Sup porting Code Source(s) Document(s ) Bacteria NO GROWTH Culture [facility] identified in Bacteria Blood Health Syst em Blood by Aerobe culture ID Date Data Source [id number] 08/28/2018 03:40:00 PM EST [facility] System Name [...] Plasma mmol/L System ID Date Data Source [id number] 08/28/2018 02:57:00 PM EST [facility] System Name Value Range Interpretation Description Data Sup porting Code Source(s) Document(s ) Amphetamine Negative Negative Normal (applies Amphetamine [facility] [Mass/volume] ng/ml to non-numeric Level, Urine Health in Urine results) System Cut-off = 1000 ng/mL Barbiturates Negative Negative Normal (applies Barbiturate [facility] [Mass/volume] in ng/ml to non-numeric Screen, Urine [facility] Urine by Screen results) method Cut-off [...] [Mass/volume] in ng/mL to non-numeric Level, [facility] results) Cut-off = 300 ng/mL Opiate 300, Negative Negative ng/ml Normal (applies to Opiate 300, [facility] Urine non-numeric Urine Health System results) Cut-off = 300 ng/mL Phencyclidine Negative Negative Normal (applies Phencyclidine, Timoteo bianca [Mass/volume] in ng/ml to non-numeric Urine Health S ystem Urine results) Cut-off = 25 ng/mL Cannabinoid Positive Negative Abnormal Cannabinoid [facility] ([facility]) ng/mL (applies to ([facility]) Health System non-numeric results) Cutt-off = 50These results are for medic al treatment only. The positive findings are unconfirmed. Request confirmatory/quanti tative test if needed. ID Date Data Source [id number] 08/28/2018 02:20:00 PM EST [facility] [...] target amplification method ID Date Data Source [id number] 08/28/2018 01:54:00 PM EST [facility] [...] 10^3 uL System ID Date Data Source [id number] 08/28/2018 01:54:00 PM EST [facility] [...] or Plasma results) ID Date Data Source [id number] 08/28/2018 01:54:00 PM EST [facility] Name Value Range Interpretation Description Data Sup porting Code Source(s) Document(s ) Osmolalit 508 50 - 1400 Normal (applies Osmolality, [facility] y, Spot {mOsm/kg} mOsm/kg to non-numeric Spot Urine Health System Urine results) ID Date Data Source [id number] 08/28/2018 01:54:00 PM EST Timoteofijuan daniel [facility] System Name Value Range Interpretation Description Data Sup porting Code Source(s) Document(s ) Osmolality of 323 280 - Above high normal Osmolality, [facility] Serum or {mOsm/kg 300 Serum Health Plasma } mOsm/kg System ID Date Data Source [id number] 08/28/2018 01:54:00 PM EST [facility] Name [...] Health System results) ID Date Data Source [id number] 08/28/2018 10:56:00 AM EST Mason [facility] System Name Value Range Interpretation Description Data Sup porting Code Source(s) Document(s ) Topiramate 1.00 see note Normal (applies Topiramate [facility] [Mass/volume] {mcg/mL} mcg/mL to non-numeric Level, Serum Health in Serum or results) System Plasma Unable to flag abnormal result(s), p lease referto reference range(s) below:THERAPEUTIC RANGES FOR TOPIRAMATE: Daily Dose Peak Trough(mg) (mcg/mL) (mcg/mL) 100 6.5-9.2 4.5-6.6200 12 .0-16.0 8.0-12.0400 20.0-30.0 14.0-20.0This test was developed and its analytical performancecharacteristics have been determined by [employer] [place], [place]. It hasnot been cleared or approved by the U.[place]. Marquita d and DrugAdministration. This assay has been validated pursuantto the CLIA regulation s and is used for clinicalpurposes.This test was performed at:[facility] [address] [id number] Performed a t:[facility], [address] [place] [address] [id number] Robert M.D., Ph.D. ID Date Data Source [id number] 08/28/2018 10:56:00 AM EST [facility] System Name Value Range Interpretation Description Data Sup porting Code Source(s) Document(s ) Levetiracetam 1.00 Normal (applies LevETIRAcetam [facility] [Mass/volume] in {mcg/mL to non-numeric Level, Serum Healt h Serum or Plasma } results) System Unable to flag abnormal result(s), pl easerefer to reference range(s) below:Therapeutic Levels:Drug Dosage Trough Fliq930 mg BID 3.1-10.0 mcg/mL 10.0-25.0 mcg/kQ9241 m g BID 4.9-37.1 mcg/mL 30.0-40.0 mcg/nG8071 mg BID 7.0-34.0 mcg/mL 36 .1-70.0 mcg/mLToxic level: Not establishedFor additional information, p lease refer tohttp://education.[employer]/ faq/CAK330(This link is being provided for informational/educational purposes only. )This test was developed and its analytical performancecharacteristics have been det ermined by [employer] [place], [place]. It hasnot been cleared or approved by the U.S. Food and DrugAdministration. This assay has been validated pursuantto the CLIA regulations and is used for clinicalpurposes.This test w as performed at:[facility] [address] [id number] Performed at:[facility] - [facility], [address] [place] [id number] Robert M.D., Ph.D. ID Date Data Source [id number] 08/28/2018 10:56:00 AM EST [facility] Name Value Range Interpretation Description Data Sup porting Code Source(s) Document(s ) Beta 7.17 0.02 - Above high Beta [facility] Hydroxybutyrate mg/dL 0.27 normal Hydroxybutyrate Health mg/dL System ID Date Data Source [id number] 08/28/2018 10:56:00 AM EST [facility] System Name Value Range Interpretation Description Data Sup porting Code Source(s) Document(s ) Color YELLOW Yellow Normal (applies Color [facility] to non-numeric Health results) System Appearance of CLEAR Clear Normal (applies Urine [facility] Urine to non-numeric Appearance Health results) System Specific 1.020 1.001 - Normal (applies Urine Specific [facility] gravity of 1.035 to non-numeric [facility] Urine results) System pH.. 5.5 4.6 [...] non-numeric System results) ID Date Data Source [id number] 08/28/2018 10:56:00 AM EST [facility] [...] Health results) System ID Date Data Source [id number] 08/28/2018 10:56:00 AM EST [facility] [...] 10^3 uL System ID Date Data Source [id number] 08/28/2018 10:56:00 AM EST [facility] [...] Alanine [facility] aminotransferase IU/L ([facility] [Enzymatic non-numeric e, Serum [...] urine test abnormalities ID Date Data Source [id number] 08/28/2018 10:56:00 AM EST [facility] System Name Value Range Interpretation Description Data [...] Health System results) ID Date Data Source [id number] 02/12/2015 07:48:00 PM EDT [facility] Saleem al[facility] [...] Peak 500 mg BID 3.1-10.0 mcg/mL 10.0-25.0 mcg/aR1433 mg BID 4 .9-37.1 mcg/mL 30.0-40.0 mcg/dO1348 mg BID 7.0-34.0 mcg/mL 36.1-70.0 mcg/mL To xic level: Not established This test was performed at: [facility] [address] Test Performed at: [employer] [facility], [address] [place] [address] Spike morales M.D., Ph.D. ID Date Data Source [id number] 02/12/2015 07:48:00 PM EDT [facility] System Name Value Range Interpretation Description Data Sup porting Code Source(s) Document(s ) Creatine 89 30 - 135 Normal (applies Creatine [facility] kinase.MB {IU/L} IU/L to non-numeric Kinase, Serum Health Syst em [Mass/volum results) e] in Serum or Plasma ID Date Data Source [id number] 02/12/2015 04:06:00 PM EDT [facility] System Name Value Range Interpretation Description Data Sup porting Code Source(s) Document(s ) Color YELLOW Yellow Normal (applies Color [facility] to non-numeric Health results) System Appearance of CLEAR Clear Normal (applies Urine [facility] Urine to non-numeric Appearance Health results) System Specific 1.020 Normal (applies Urine Specific [facility] gravity of to non-numeric [facility] Urine results) System pH.. 6.0 4.6 [...] Health results) System ID Date Data Source [id number] 02/12/2015 04:06:00 PM EDT [facility] System Name [...] normal Health System ID Date Data Source [id number] 02/12/2015 04:06:00 PM EDT [facility] [...] System Automated count ID Date Data Source [id number] 02/12/2015 04:06:00 PM EDT [facility] Name Value Range Interpretation Description Data Sup porting Code Source(s) Document(s ) HCG NEGATIVE Negative Normal (applies HCG [facility] Qualitative mIU/ml to non-numeric Qualitative Health results) System Default Normal RangesNegative <5Indeterm inate 5-25(Please repeat in 2 days.)Positive >25 ID Date Data Source [id number] 02/12/2015 04:06:00 PM EDT [facility] [...] aminotransferase {IU/L} IU/L to non-numeric Transaminase, Heal [Enzymatic results) Serum System activity/volume] in Serum [...] urine test abnormalities ID Date Data Source [id number] 02/12/2015 04:06:00 PM EDT [facility] [...] [facility] non-numeric results) Cutt-off = 50These results are for medic al treatment only. The positive findings are unconfirmed. Request confirmatory/quanti tative test if needed. ID Date Data Source [id number] 02/12/2014 10:47:00 AM EDT Mason domingo System Name Value Range Interpretation Description Data Sup porting Code Source(s) Document(s ) Levetiracetam 7.50 Normal (applies LevETIRAcetam [facility] [Mass/volume] in {mcg/mL to non-numeric Level, Serum Healt h Serum or Plasma } results) System Unable to flag abnormal result(s), p lease refer to reference range(s) below:Therapeutic Levels:Drug Dosage Trough Peak 500 mg BID 3.1-10.0 mcg/mL 10.0-25.0 mcg/fR5342 m g BID 4.9-37.1 mcg/mL 30.0-40.0 mcg/eE2020 mg BID 7.0-34.0 mcg/mL 36 .1-70.0 mcg/mLToxic level: Not established This test was performed at: [facility] [address] Test P erformed at: [facility] - [facility], [address] [place] [address] Iam Nagel MD,PhD ID Date Data Source [id number] 01/17/2014 06:22:00 AM EDT Timoteobianca domingo System Name Value Range Interpretation Description Data Sup porting Code Source(s) Document(s ) Phenytoin 15.0 10.0 - Normal (applies Phenytoin [facility] [Mass/volume ug/ml 20.0 to non-numeric Level, Serum Health Sy stem ] in Serum ug/ml results) or Plasma ID Date Data Source [id number] 01/16/2014 06:50:00 AM FERNANDEZ domingo System Name [...] System Automated count ID Date Data Source [id number] 01/16/2014 06:50:00 AM EDAakash domingo System Name Value Range [...] urine test abnormalities ID Date Data Source [id number] 01/16/2014 06:50:00 AM EDT Mason domingo System Name Value Range Interpretation Description Data Sup porting Code Source(s) Document(s ) Phenytoin 16.3 10.0 - Normal (applies Phenytoin [facility] [Mass/volume ug/ml 20.0 to non-numeric Level, Serum Health Sy stem ] in Serum ug/ml results) or Plasma ID Date Data Source [id number] 01/15/2014 11:00:00 AM EDT [facility] Name Value Range Interpretation Description Data Sup porting Code Source(s) Document(s ) Color YELLOW YELLOW Normal (applies Color [facility] to non-numeric Health results) System Appearance of SL CLOUDY CLEAR Abnormal Urine [facility] Urine (applies to Appearance Health non-numeric System results) Specific 1.025 Normal (applies Urine [facility] gravity of to non-numeric Specific Health Urine results) [facility] pH.. 6.5 4.6 - Normal (applies [...] [facility] [Units/volume] in to non-numeric Concentration Hea lt System Urine results) Negative Urine Blood NEGATIVE Normal (applies to Urine Blood [facility] Health non-numeric results) System ID Date Data Source [id number] 01/15/2014 11:00:00 AM EDT [facility] [...] quantitative testing recommened. ID Date Data Source [id number] 01/15/2014 11:00:00 AM EDT Montefij[facility] daniel domingo System Name Value Range Interpretation Description [...] urine test abnormalities ID Date Data Source [id number] 01/15/2014 11:00:00 AM EDT [facility] Name Value Range Interpretation Description Data Sup porting Code Source(s) Document(s ) Phenytoin 8.4 10.0 - Below low normal Phenytoin [facility] [Mass/volume ug/ml 20.0 Level, Serum Health System ] in Serum ug/ml or Plasma ID Date Data Source [id number] 01/15/2014 11:00:00 AM EDT [facility] Name Value Range Interpretation Description Data Sup porting Code Source(s) Document(s ) Amphetamine Negative Negative Normal (applies Amphetamine [facility] [Mass/volume] ng/ml to non-numeric Level, Urine Health in Urine results) System Cut-off = 1000 ng/mL Barbiturates Negative Negative Normal (applies Barbiturate [facility] [Mass/volume] in ng/ml to non-numeric Screen, Urine [facility] System Urine by Screen results) method Cut-off [...] Positive Negative ng/mL Abnormal (applies to [facility] System non-numeric results) These results are for medical treatment only. The positive findings are unconfirmed. Request confirmatory/quantitative test i f needed. ID Date Data Source [id number] 01/15/2014 06:00:00 AM EDT [facility] [...] Heart = 3.0-4.5 ID Date Data Source [id number] 01/15/2014 06:00:00 AM EDT [facility] [...] System Automated count ID Date Data Source [id number] 12/13/2013 03:20:00 PM EDT [facility] Name Value Range Interpretation Description Data Sup porting Code Source(s) Document(s ) Color YELLOW YELLOW Normal (applies Color [facility] to non-numeric Health results) System Appearance of CLEAR CLEAR Normal (applies Urine [facility] Urine to non-numeric Appearance Health results) System Specific 1.020 Normal (applies Urine [facility] gravity of to non-numeric Specific Health Urine results) [facility] pH.. 7.5 4.6 - Normal (applies [...] [facility] [Units/volume] in to non-numeric Concentration [facility] System Urine results) Negative Urine Blood NEGATIVE Normal (applies to Urine Blood [facility] non-numeric results) System ID Date Data Source [id number] 12/13/2013 03:20:00 PM EDT [facility] System Name Value Range Interpretation Description Data Sup porting Code Source(s) Document(s ) Phenytoin 3.1 10.0 - Below low normal Phenytoin [facility] [Mass/volume ug/ml 20.0 Level, Serum Health System ] in Serum ug/ml or Plasma ID Date Data Source [id number] 12/13/2013 03:20:00 PM EDT [facility] System Name Value Range Interpretation Description Data Sup porting Code Source(s) Document(s ) Amphetamine Negative Negative Normal (applies Amphetamine [facility] [Mass/volume] ng/ml to non-numeric Level, Urine Health in Urine results) System Cut-off = 1000 ng/mL Barbiturates Negative Negative Normal (applies Barbiturate [facility] [Mass/volume] in ng/ml to non-numeric Screen, Urine [facility] Urine by Screen results) method Cut-off [...] [facility] [Mass/volume] in to non-numeric Level, Urine [facility] System Urine results) Cut-off = 300 ng/mL Opiate 300, Negative Negative ng/ml Normal (applies to Opiate 300, [facility] Urine non-numeric Urine Health System results) Cut-off = 300 ng/mL Phencyclidine Negative Negative Normal (applies Phencyclidine, Timoteo bianca [Mass/volume] in ng/ml to non-numeric Urine Health S yste Urine results) Cut-off = 25 ng/mL [facility] Positive Negative ng/mL Abnormal (applies to [facility] System non-numeric results) These results are for medical treatment only. The positive findings are unconfirmed. Request confirmatory/quantitative test i f needed. ID Date Data Source [id number] 12/13/2013 11:45:00 AM EDT [facility] He alth [...] [Mass/volume] in 16.0 to non-numeric Whole Blood [facility] System Blood gm/dL results) Hematocrit [Volume 42.2 % 36.0 - Normal (applies Hematocrit, [facility] Fraction] of Blood 46.0 % to non-numeric Whole Blood [facility] System results) Erythrocyte mean 96.3 fl 80.0 [...] by Automated count ID Date Data Source [id number] 12/13/2013 11:45:00 AM EDT [facility] al[facility] [...] quantitative testing recommened. ID Date Data Source [id number] 12/13/2013 11:45:00 AM EDT [facility] [...] [facility] [Mass/volume] in 1.20 to non-numeric Serum [employer] Serum or Plasma mg/dl results) Alkaline phosphatase [...] Aspartate [facility] aminotransferase IU/L to non-numeric Transaminase, [facility] [Enzymatic results) Serum activity/volume] in Serum [...] [facility] aminotransferase IU/L to non-numeric Aminotransfera Hea [facility] System [Enzymatic results) se, Serum activity/volume] in [...] urine test abnormalities ID Date Data Source [id number] 12/07/2013 11:08:00 AM EDT Monte[facility] daniel He chayo System Name Value Range Interpretation [...] System Automated count ID Date Data Source [id number] 12/07/2013 11:08:00 AM FERNANDEZ domingo System Name Value Range [...] urine test abnormalities ID Date Data Source [id number] 12/07/2013 11:08:00 AM EDT [facility] daniel Saleem [facility] System Name Value Range Interpretation Description Data Sup porting Code Source(s) Document(s ) Phenytoin 3.4 10.0 - Below low normal Phenytoin [facility] [Mass/volume ug/ml 20.0 Level, Serum Health System ] in Serum ug/ml or Plasma ID Date Data Source [id number] 12/07/2013 11:08:00 AM EDT [facility] daniel He al[facility] System Name Value Range Interpretation [...] System Serum or Plasma <200 mg/dL = [id number] - 239 md/dL = Borderline>240 mg/dL = [...] non-numeric System results) ID Date Data Source [id number] 10/29/2013 09:50:00 AM EDT Monte[facility] daniel [facility] System Name Value Range Interpretation Description Data Sup porting Code Source(s) Document(s ) Prothrombin Cancelled Prothrombin [facility] time (PT) time (PT) Health System INR in Blood Cancelled INR Result [facility] by Coagulation no specimen Health assay received System ID Date Data Source [id number] 10/29/2013 09:50:00 AM EDT [facility] daniel domingo System Name Value Range Interpretation Description [...] System Automated count ID Date Data Source [id number] 10/29/2013 09:50:00 AM EDT [facility] alth [...] quantitative testing recommened. ID Date Data Source [id number] 10/29/2013 09:50:00 AM EDT [facility]th [...] urine test abnormalities ID Date Data Source [id number] 10/29/2013 09:50:00 AM EDT Monte[facility] Saleem [facility] System Name Value Range Interpretation Description Data Sup porting Code Source(s) Document(s ) Phenytoin 5.6 10.0 - Below low normal Phenytoin [facility] [Mass/volume ug/ml 20.0 Level, Serum Health System ] in Serum ug/ml or Plasma ID Date Data Source [id number] 09/16/2013 10:45:00 PM EST [facility] He alth [...] non-numeric count results) ID Date Data Source [id number] 09/16/2013 10:45:00 PM EST [facility] System Name Value Range Interpretation Description Data Sup porting Code Source(s) Document(s ) HCG NEGATIVE Negative Normal (applies HCG [facility] Qualitative mIU/ml to non-numeric Qualitative Health results) System Default Normal RangesNegative <5Indeterm inate 5-25(Please repeat in 2 days.)Positive >25 ID Date Data Source [id number] 09/16/2013 10:45:00 PM EST [facility] [...] urine test abnormalities ID Date Data Source [id number] 09/16/2013 10:45:00 PM EST [facility] System Name Value Range Interpretation Description Data Sup porting Code Source(s) Document(s ) Phenytoin 3.1 10.0 - Below low normal Phenytoin [facility] [Mass/volume ug/ml 20.0 Level, Serum Health System ] in Serum ug/ml or Plasma ID Date Data Source [id number] 09/14/2013 05:40:00 AM EST [facility] He alth [...] [Mass/volume] in 16.0 to non-numeric Whole Blood [facility] System Blood gm/dL results) Hematocrit [Volume 39.2 % 36.0 - Normal (applies Hematocrit, [facility] Fraction] of Blood 46.0 % to non-numeric Whole Blood [facility] System results) Erythrocyte mean 92.0 fl 80.0 [...] by Automated count ID Date Data Source [id number] 09/14/2013 05:40:00 AM EST [facility] He alth [...] e isoenzymes [Enzymatic IU/L (applies to Phosphatase, [facility] System activity/volume] in non-numeric Serum Serum or Plasma by results) Heat stability Bilirubin.total 0.4 mg/dl 0.2 - 1.3 Normal Bilirubin, [facility] [Mass/volume] in Serum mg/dl (applies to Serum Total Hea [facility] System or Plasma non-numeric results) Aspartate 31 [...] Alanine [facility] aminotransferase IU/L ([facility] [Enzymatic non-numeric e, Serum [...] urine test abnormalities ID Date Data Source [id number] 09/14/2013 05:40:00 AM EST [facility] System Name Value Range Interpretation Description Data Sup porting Code Source(s) Document(s ) Phenytoin 19.1 10.0 - Normal (applies Phenytoin [facility] [Mass/volume ug/ml 20.0 to non-numeric Level, Serum Health Sy stem ] in Serum ug/ml results) or Plasma ID Date Data Source [id number] 09/13/2013 06:40:00 AM EST [facility] System 2 sets of blood culture for leukocytosis . Name Value Range Interpretation Description Data Sup porting Code Source(s) Document(s ) Bacteria NO GROWTH Culture [facility] identified in Bacteria Blood Health Syst em Blood by Aerobe culture ID Date Data Source [id number] 09/13/2013 06:40:00 AM EST [facility] He alth [...] System Automated count ID Date Data Source [id number] 09/13/2013 06:40:00 AM EST [facility] He alth [...] urine test abnormalities ID Date Data Source [id number] 09/13/2013 06:40:00 AM EST [facility] al[facility] System Name Value Range Interpretation Description Data Sup porting Code Source(s) Document(s ) Phenytoin 23.8 10.0 - Above upper panic Phenytoin [facility] [Mass/volume ug/ml 20.0 limits Level, Serum Health System ] in Serum ug/ml or Plasma Result Reporting|Telephone|mike shipley rn rb| 09/13/2013 at 10:19 AMCalled to:mike mccainTech Name:gsReadback by:wai mccain 09/13/2013 / 10:18 AM ID Date Data Source [id number] 09/12/2013 09:05:00 PM EST [facility] St[facility] System Name Value Range Interpretation Description Data Sup porting Code Source(s) Document(s ) Deprecated Micro Result Normal (applies Aerobic Culture, [facility] Bacteria to non-numeric Urine Health identified results) System in Urine by Aerobe culture XXX Escherichia Organism [facility] microorganis coli Health m serotype System [Identifier] in Isolate by Agglutinatio n Harvey Count > 100,000 Harvey Count [facility] CFU/ML Health System Amikacin <=16 [...] System [Susceptibil ity] ID Date Data Source [id number] 09/12/2013 09:05:00 PM EST [facility] System Name Value Range Interpretation Description Data Sup porting Code Source(s) Document(s ) Color DARK YELLOW Abnormal Color [facility] YELLOW (applies to Health non-numeric System results) Appearance of CLOUDY CLEAR Abnormal Urine [facility] Urine (applies to Appearance Health non-numeric System results) Specific 1.025 Normal (applies Urine [facility] gravity of to non-numeric Specific Health Urine results) [place] [facility] pH.. 5.5 4.6 - Normal (applies [...] eu/dL Ketones NEGATIVE Normal (applies Ketones UA [facility] [Mass/volume] in to non-numeric Health S ystem Urine results) Negative Nitrate+Nitrite NEGATIVE Normal (applies to Nitrite [facility] [Mass/volume] in non-numeric results) Sy stem Unspecified specimen Negative Leukocyte esterase MODERATE Normal (applies Leukocyte Aura ase [facility] [Units/volume] in to non-numeric Concentration a [facility] System Urine results) Negative Leukocytes 30-50 Normal (applies to White Blood Cells [facility] [#/volume] in non-numeric System Unspecified results) specimen by Automated count Red Blood Cells 3-5 Normal (applies to Red Blood Cells [facility] non-numeric System results) Epithelial cells 3-6 Normal (applies to Epithelial Izabela ls [facility] [Presence] in non-numeric System Unspecified results) specimen by Wet preparation Mucus MODERATE Normal (applies to Mucus [facility] non-[facility] System results) Bacteria [Presence] LARGE Normal (applies to Bacteria [facility] in Unspecified non-numeric System specimen results) Urine Blood SMALL Normal (applies to Urine Blood [facility] non-numeric System results) ID Date Data Source [id number] 09/12/2013 01:50:[address] [facility] System Name Value Range Interpretation Description Data [...] System Automated count ID Date Data Source [id number] 09/12/2013 06:10:00 AM EST [facility] He alth [...] [Mass/volume] in 16.0 to non-numeric Whole Blood [facility] System Blood gm/dL results) Hematocrit [Volume 41.4 % 36.0 - Normal (applies Hematocrit, [facility] Fraction] of Blood 46.0 % to non-numeric Whole Blood [facility] System results) Erythrocyte mean 92.4 fl 80.0 [...] by Automated count ID Date Data Source [id number] 09/12/2013 06:10:00 AM EST [facility] He alth [...] urine test abnormalities ID Date Data Source [id number] 09/12/2013 06:10:00 AM EST [facility] alth [...] / 2:07 PM ID Date Data Source [id number] 09/11/2013 07:49:28 AM EST [facility] System Name Value Range Interpretation Description Data Sup porting Code Source(s) Document(s ) Phenytoin 31.6 10.0 - Above upper panic Phenytoin [facility] [Mass/volume ug/ml 20.0 limits Level, Serum Health System ] in Serum ug/ml or Plasma Result Reporting|Telephone|jaspreet hdz rn/rb| 09/11/2013 at 11:33 AMCalled to:jaspreet spears rn/rbTech Name:col garland Francesadback by:jaspreet spears rn/rbverified 09/11/2013 / 11:32 AM ID Date Data Source [id number] 09/10/2013 06:50:33 PM EST [facility] System Name [...] Negative ng/mL Abnormal (applies to [facility] non-numeric results) These results are for medical treatment only. The positive findings are unconfirmed. Request confirmatory/quantitative test i f needed. ID Date Data Source [id number] 09/10/2013 05:30:50 PM EST [facility] System Name Value Range Interpretation Description Data Sup porting Code Source(s) Document(s ) Phenytoin 30.7 10.0 - Above upper panic Phenytoin [facility] [Mass/volume ug/ml 20.0 limits Level, Serum Health System ] in Serum ug/ml or Plasma Result Reporting|Telephone|ROSSY CRUM S| 09/10/2013 at 6:48 PMCalled to:[employer] Name:Lyubov by:[facility] 09/10/2013 / 6:48 PM ID Date Data Source [id number] 09/10/2013 04:10:00 PM EST [facility] [...] Heart = 3.0-4.5 ID Date Data Source [id number] 09/10/2013 04:10:00 PM EST [facility] System Name Value Range [...] System Automated count ID Date Data Source [id number] 09/10/2013 04:10:00 PM EST [facility] alth [...] quantitative testing recommened. ID Date Data Source [id number] 09/10/2013 04:10:00 PM EST [facility] System Name Value Range Interpretation Description [...] urine test abnormalities ID Date Data Source [id number] 09/10/2013 03:23:00 PM EST [facility] System Name Value Range Interpretation Description Data Sup porting Code Source(s) Document(s ) Polys Cancelled Polys [facility] Lymphocyte %. Cancelled Lymphocyte %. [facility] Monocyte %. Cancelled Monocyte %. [facility] ID Date Data Source [id number] 04/09/2013 01:07:00 PM EDT [facility] System Name Value Range Interpretation Description Data Sup porting Code Source(s) Document(s ) Phenytoin 24.5 10.0 - Above upper panic Phenytoin [facility] [Mass/volume ug/ml 20.0 limits Level, Serum [facility] System ] in Serum ug/ml or Plasma Result Reporting|Telephone|[facility]| 3 at 11:04 PMCalled to:Tech Name:Readback by: 04/09/2013 / 11:04 PM ID Date Data Source [id number] 03/30/2013 07:00:00 AM EDT [facility] [...] System Automated count ID Date Data Source [id number] 03/30/2013 07:00:00 AM EDT [facility] System Name [...] System Plasma results) ID Date Data Source [id number] 03/30/2013 07:00:00 AM EDT [facility] System Name Value Range Interpretation Description Data Sup porting Code Source(s) Document(s ) Phenytoin 13.4 10.0 - Normal (applies Phenytoin [facility] [Mass/volume ug/ml 20.0 to non-numeric Level, Serum Health Sy stem ] in Serum ug/ml results) or Plasma ID Date Data Source [id number] 03/30/2013 07:00:00 AM EDT [facility] System Name Value Range Interpretation Description Data Sup porting Code Source(s) Document(s ) Alpha 1 161 83 - 199 Normal (applies [id number] [facility] antitrypsin mg/dL mg/dL to non-numeric rypsin, [facility] [Mass/volume] results) System in Serum or Plasma Test Performed at: [facility] [place] [address] Barbara Matthews M.D. ID Date Data Source [id number] 03/29/2013 06:00:00 AM EDT [facility] System Name Value Range Interpretation Description Data Sup porting Code Source(s) Document(s ) Phenytoin 11.3 10.0 - Normal (applies Phenytoin [facility] [Mass/volume ug/ml 20.0 to non-numeric Level, Serum Health Sy stem ] in Serum ug/ml results) or Plasma ID Date Data Source [id number] 03/28/2013 07:33:48 AM EDT [facility] System Name Value Range Interpretation Description Data Sup porting Code Source(s) Document(s ) Phenytoin 10.5 10.0 - Normal (applies Phenytoin [facility] [Mass/volume ug/ml 20.0 to non-numeric Level, Serum Health Sy stem ] in Serum ug/ml results) or Plasma ID Date Data Source [id number] 03/28/2013 07:33:11 AM EDT [facility] System Name [...] System Automated count ID Date Data Source [id number] 03/28/2013 07:33:11 AM EDT [facility] dom[facility] System Name Value [...] urine test abnormalities ID Date Data Source [id number] 03/27/2013 01:00:00 PM EDT [facility] He alth [...] as non-forensi c testing. Test Performed at: [facility] , [place] [address] Barbara Matthews M.D. Methaqualone Negative Normal (applies [...] Health results) System ID Date Data Source [id number] 03/27/2013 01:00:00 PM EDT [facility] He alth [...] [facility] [Mass/volume] in to non-numeric Level, Urine [facility] System Urine results) Cut-off = 300 ng/mL Opiate 300, Negative Negative ng/ml Normal (applies to Opiate 300, [facility] Urine non-numeric Urine [facility] System results) Cut-off = 300 ng/mL Phencyclidine Negative Negative Normal (applies Phencyclidine, Timoteo bianca [Mass/volume] in ng/ml to non-numeric Urine Health S ystem Urine results) Cut-off = 25 ng/mL [facility] Positive Negative ng/mL Abnormal (applies to [facility] System non-numeric results) These results are for medical treatment only. The positive findings are unconfirmed. Request confirmatory/quantitative test i f needed. ID Date Data Source [id number] 03/27/2013 08:26:30 AM EDT [facility] He chayo [...] System Automated count ID Date Data Source [id number] 03/27/2013 08:26:30 AM EDT [facility] System Name [...] urine test abnormalities ID Date Data Source [id number] 03/27/2013 08:26:30 AM EDT [facility] System Name Value Range Interpretation Description Data Sup porting Code Source(s) Document(s ) Phenytoin 5.4 10.0 - Below low normal Phenytoin [facility] [Mass/volume ug/ml 20.0 Level, Serum [facility] System ] in Serum ug/ml or Plasma ID Date Data Source [id number] 02/09/2013 08:15:00 AM EDT [facility] System Name Value Range Interpretation Description Data Sup porting Code Source(s) Document(s ) Anisocytosis 1+ Abnormal Anisocytosis [facility] [Presence] in (applies to Health Blood by non-numeric System Automated count results) Platelets Adequate Normal (applies Platelet Count [facility] [#/volume] in to non-numeric Estimate Health Blood by results) System Estimate ID Date Data Source [id number] 02/09/2013 08:15:00 AM EDT [facility] He alth [...] as non-forensi c testing. Test Performed at: [facility] , [place] [address] Barbara Matthews M.D. Methaqualone Negative Normal (applies [...] Health results) System ID Date Data Source [id number] 02/09/2013 08:15:00 AM EDT [facility] He alth [...] System Automated count ID Date Data Source [id number] 02/09/2013 08:15:00 AM EDT Tim[facility]ofijuan daniel He ch[facility] System Name Value Range Interpretation [...] quantitative testing recommened. ID Date Data Source [id number] 02/09/2013 08:15:00 AM FERNANDEZ [facility] System Name Value Range [...] urine test abnormalities ID Date Data Source [id number] 02/09/2013 08:15:00 AM EDT [facility] System Name Value Range Interpretation Description Data Sup porting Code Source(s) Document(s ) Phenytoin 6.6 10.0 - Below low normal Phenytoin [facility] [Mass/volume ug/ml 20.0 Level, Serum [facility] System ] in Serum ug/ml or Plasma ID Date Data Source [id number] 02/09/2013 08:15:00 AM EDT [facility] He alth [...] i f needed. ID Date Data Source [id number] 11/09/2012 11:12:00 AM EDT [facility] System Name Value Range Interpretation Description Data Sup porting Code Source(s) Document(s ) Phenytoin 8.4 10.0 - Below low normal Phenytoin [facility] [Mass/volume ug/ml 20.0 Level, Serum [facility] System ] in Serum ug/ml or Plasma ID Date Data Source [id number] 10/31/2012 11:28:00 AM EDT [facility] System Name Value Range Interpretation Description Data Sup porting Code Source(s) Document(s ) Phenytoin Less 10.0 - Below low normal Phenytoin [facility] [Mass/volume than 0.5 20.0 Level, [facility] ] in Serum ug/ml or Plasma ID Date Data Source [id number] 10/19/2012 10:55:00 AM EST [facility] System Name Value Range Interpretation Description Data Sup porting Code Source(s) Document(s ) Phenytoin 15.2 10.0 - Normal (applies Phenytoin [facility] [Mass/volume ug/ml 20.0 to non-numeric Level, Serum Health Sy stem ] in Serum ug/ml results) or Plasma ok ID Date Data Source [id number] 10/15/2012 01:05:00 PM EST [facility] al[facility] [...] System Automated count ID Date Data Source [id number] 10/15/2012 01:05:00 PM EST [facility] System Name [...] quantitative testing recommened. ID Date Data Source [id number] 10/15/2012 01:05:00 PM EST [facility] System Name Value [...] mmol/L results) System ID Date Data Source [id number] 10/15/2012 01:05:00 PM EST [facility] System Name Value Range Interpretation Description Data Sup porting Code Source(s) Document(s ) Phenytoin 10.0 10.0 - Normal (applies Phenytoin [facility] [Mass/volume ug/ml 20.0 to non-numeric Level, Serum Health Sy stem ] in Serum ug/ml results) or Plasma ID Date Data Source [id number] 07/25/2012 01:20:00 PM EST [facility] He alth [...] Heart = 3.0-4.5 ID Date Data Source [id number] 07/25/2012 01:20:00 PM EST [facility] System Name Value Range [...] by Automated count ID Date Data Source [id number] 07/25/2012 01:20:00 PM EST [facility] System Name Value Range [...] urine test abnormalities ID Date Data Source [id number] 07/25/2012 01:20:00 PM GALE [facility] System Name Value Range Interpretation Description Data Sup porting Code Source(s) Document(s ) Phenytoin 14.7 10.0 - Normal (applies Phenytoin [facility] [Mass/volume ug/ml 20.0 to non-numeric Level, Serum Health Sy stem ] in Serum ug/ml results) or Plasma ID Date Data Source [id number] 07/25/2012 12:30:00 PM G[facility] System [...] should be ordered. ID Date Data Source [id number] 04/11/2012 10:47:00 AM EDT [facility] [...] System Automated count ID Date Data Source [id number] 04/11/2012 10:47:00 AM EDT Timoteojuan daniel Saleem [facility] System Name Value Range Interpretation Description Data Sup porting Code Source(s) Document(s ) Phenytoin 9.1 10.0 - Below low normal Phenytoin [facility] [Mass/volume ug/ml 20.0 Level, Serum [facility] System ] in Serum ug/ml or Plasma ID Date Data Source [id number] 02/03/2012 11:09:00 AM EDT Timoteojuan daniel Sale[facility] System Name Value Range Interpretation Description Data Sup porting Code Source(s) Document(s ) Dilantin Cancelled Dilantin Free [facility] Free wrong order Health System ID Date Data Source [id number] 02/03/2012 11:00:00 AM EDT Timoteojuan daniel [facility]em [facility] System Name Value Range Interpretation Description Data Sup porting Code Source(s) Document(s ) Phenytoin 15.0 10.0 - Normal (applies Phenytoin [facility] [Mass/volume ug/ml 20.0 to non-numeric Level, Serum Health Sy stem ] in Serum ug/ml results) or Plasma ID Date Data Source [id number] 01/25/2012 01:41:00 PM EDT Timoteojuan daniel Saleem al[facility] System Name Value Range Interpretation Description Data Sup porting Code Source(s) Document(s ) Phenytoin 13.5 10.0 - Normal (applies Phenytoin [facility] [Mass/volume ug/ml 20.0 to non-numeric Level, Serum Health Sy stem ] in Serum ug/ml results) or Plasma ID Date Data Source [id number] 01/18/2012 11:33:00 AM EDT Timoteojuan daniel [facility] System Name Value Range Interpretation Description Data Sup porting Code Source(s) Document(s ) Phenytoin 12.0 10.0 - Normal (applies Phenytoin [facility] [Mass/volume ug/ml 20.0 to non-numeric Level, Serum Health Sy stem ] in Serum ug/ml results) or Plasma ID Date Data Source [id number] 01/16/2012 06:43:44 AM FERNANDEZ [facility] System Name Value Range [...] System Automated count ID Date Data Source [id number] 01/16/2012 06:43:44 AM EDT [facility] System Name Value Range Interpretation Description Data Sup porting Code Source(s) Document(s ) HCG NEGATIVE Negative Normal (applies HCG [facility] Qualitative mIU/ml to non-numeric Qualitative Health results) System Default Normal RangesNegative <5Indeterm inate 5-25(Please repeat in 2 days.)Positive >25 ID Date Data Source [id number] 01/16/2012 06:43:44 AM EDT [facility] He alth [...] Plasma mmol/L System ID Date Data Source [id number] 01/16/2012 06:43:44 AM EDT [facility] System Name Value Range Interpretation Description Data Sup porting Code Source(s) Document(s ) Phenytoin 9.2 10.0 - Below low normal Phenytoin [facility] [Mass/volume ug/ml 20.0 Level, Serum [facility] System ] in Serum ug/ml or Plasma ID Date Data Source [id number] 01/04/2012 12:15:00 PM EDT [facility] System Name [...] mg/dl results) System ID Date Data Source [id number] 01/04/2012 12:15:00 PM EDT [facility] System Name Value Range Interpretation Description Data Sup porting Code Source(s) Document(s ) Phenytoin 7.4 10.0 - Below low normal Phenytoin [facility] [Mass/volume ug/ml 20.0 Level, Serum [facility] System ] in Serum ug/ml or Plasma ok ID Date Data Source [id number] 12/28/2011 12:04:00 PM EDT [facility] System Name Value Range Interpretation Description Data Sup porting Code Source(s) Document(s ) Digoxin 0.2 0.9 - Below low normal Digoxin Level, [facility] [Mass/volum ng/ml 2.0 [facility] System e] in Serum ng/ml or Plasma ID Date Data Source [id number] 12/28/2011 12:04:00 PM EDT [facility] System Name Value Range Interpretation Description Data Sup porting Code Source(s) Document(s ) Phenytoin 2.0 10.0 - Below low normal Phenytoin [facility] [Mass/volume ug/ml 20.0 Level, Serum [facility] System ] in Serum ug/ml or Plasma ID Date Data Source [id number] 12/01/2011 06:50:00 AM FERNANDEZ [facility] System Name Value Range [...] 1.0 - Below low normal Eosinophil % [facility] leukocytes in 3.0 % Health Unspecified System specimen Basophils/100 0.0 % 0.0 - Normal (applies Basophil % [facility] leukocytes in 1.0 % to non-numeric Health Unspecified results) System specimen by Manual count Lymphocytes 47.4 % 21.0 - Normal (applies Lymphocyte % [facility] [#/volume] in 51.0 % to non-numeric Health Blood by results) System Automated count ID Date Data Source [id number] 12/01/2011 06:50:00 AM EDT [facility] He alth [...] [facility] [Mass/volume] in mg/dL to non-numeric Serum [facility] S te Serum or Plasma results) Urea nitrogen 11 mg/dl 7 - 18 Normal (applies Blood Urea [facility] [Mass/volume] in mg/dl to non-numeric Nitrogen, [facility] yste Serum or Plasma results) Serum Creatinine 0.70 mg/dl 0.70 - Normal (applies Creatinine, [facility] [Mass/volume] in 1.20 mg/dl to non-numeric Serum [facility] System Serum or Plasma results) Calcium 8.8 mg/dl 8.4 - 10.2 Normal (applies Calcium, [facility] [Mass/volume] in mg/dl to non-numeric Total Serum [facility] System Serum or Plasma results) Anion gap in Serum 11.00 8.00 - Normal (applies Anion Gap Timoteo bianca or Plasma mmol/L 12.00 to non-numeric Health System mmol/L results) ID Date Data Source [id number] 12/01/2011 06:50:00 AM EDT [facility] System Name Value Range Interpretation Description Data Sup porting Code Source(s) Document(s ) Phenytoin 8.3 10.0 - Below low normal Phenytoin [facility] [Mass/volume ug/ml 20.0 Level, Serum Health System ] in Serum ug/ml or Plasma ID Date Data Source [id number] 11/30/2011 06:35:00 AM EDT [facility] He alth [...] System Automated count ID Date Data Source [id number] 11/30/2011 06:35:00 AM EDT [facility] chayo [...] Health System mmol/L ID Date Data Source [id number] 11/30/2011 06:35:00 AM EDT [facility] System Name Value Range Interpretation Description Data Sup porting Code Source(s) Document(s ) Phenytoin 10.6 10.0 - Normal (applies Phenytoin [facility] [Mass/volume ug/ml 20.0 to non-numeric Level, Serum Health Sy stem ] in Serum ug/ml results) or Plasma ID Date Data Source [id number] 11/29/2011 06:12:00 AM EDT [facility] alth [...] by Automated count ID Date Data Source [id number] 11/29/2011 06:12:00 AM EDT [facility] [...] System Plasma results) ID Date Data Source [id number] 11/29/2011 06:12:00 AM EDT [facility] System Name Value Range Interpretation Description Data Sup porting Code Source(s) Document(s ) Phenytoin 7.4 10.0 - Below low normal Phenytoin [facility] [Mass/volume ug/ml 20.0 Level, Serum Health System ] in Serum ug/ml or Plasma ID Date Data Source [id number] 11/28/2011 10:34:13 AM EDT [facility] He alth [...] Negative Normal (applies to Cocaine Qual, [facility] Health Urine. non-numeric results) Urine. System Normal [...] Negative 300 ng/mL ID Date Data Source [id number] 11/28/2011 10:34:13 AM EDT [facility] He alth [...] to non-numeric Specific Health Urine =1.030 results) [place] [facility] Glucose, UA NEGATIVE Normal (applies Glucose, [...] [Mass/volume] in - to non-numeric Health S te Urine 1.00 results) eu/dL Ketones TRACE Normal (applies Ketones UA [facility] [Mass/volume] in to non-numeric Health S yste Urine results) Negative Leukocyte esterase NEGATIVE Normal (applies Leukocyte Aura ase [facility] [Units/volume] in to non-numeric Concentration a [facility] System Urine results) Negative Nitrate+Nitrite NEGATIVE Normal [...] Health System results) ID Date Data Source [id number] 11/28/2011 10:34:13 AM EDT [facility] He alth [...] Heart = 3.0-4.5 ID Date Data Source [id number] 11/28/2011 10:34:13 AM EDT [facility] He alth [...] System Automated count ID Date Data Source [id number] 11/28/2011 10:34:13 AM EDT [facility] System Name Value Range Interpretation Description Data Sup porting Code Source(s) Document(s ) HCG NEGATIVE Negative Normal (applies HCG [facility] Qualitative mIU/ml to non-numeric Qualitative Health results) System Default Normal RangesNegative <5Indeterm inate 5-25(Please repeat in 2 days.)Positive >25 ID Date Data Source [id number] 11/28/2011 10:34:13 AM EDT [facility] He alth [...] urine test abnormalities ID Date Data Source [id number] 11/28/2011 10:34:13 AM EDAaksah [facility] System Name Value Range Interpretation Description Data [...] Methadone Negative Normal (applies to Methadone Level, [facility] [Mass/volume] in non-numeric Urine System [...] Negative ng/mL Abnormal (applies to [facility] non-numeric results) ID Date Data Source [id number] 11/28/2011 07:30:00 AM EDT [facility]em al[facility] System Name Value Range Interpretation Description Data Sup porting Code Source(s) Document(s ) Alcohol NONE Normal (applies Alcohol Ethyl, [facility] Ethyl, DETECTED to non-numeric Blood Health System Blood None results) Detected ID Date Data Source [id number] 11/28/2011 06:40:20 AM EDT [facility] System Name Value Range Interpretation Description Data Sup porting Code Source(s) Document(s ) Prolactin 24.4 Normal (applies Prolactin, [facility] [Mass/volume] ng/mL to non-numeric Serum Health Syst em in Serum or results) Plasma Reference Range Female Postmenopausal: 2.0- 20.0 : 10.0-209.0 Non-: 3.0- 30.0 Test Performed at: [place] [address] Barbara Matthews M.D. ID Date Data Source [id number] 10/27/2011 06:44:00 AM EST [facility] System Name Value Range Interpretation Description Data Sup porting Code Source(s) Document(s ) Reticulocyte 1.85 % 0.50 - Above high normal Reticulocyte, Timoteo bianca , Automated 1.50 % Automated Health System ID Date Data Source [id number] 10/27/2011 06:44:00 AM EST [facility] System Name [...] by Automated count ID Date Data Source [id number] 10/27/2011 06:44:00 AM EST [facility] He alth [...] re [Mass/volume] in mg/dl to non-numeric Serum [facility] S te Serum or Plasma results) Anion gap in Serum 6.00 8.00 - Below low normal Anion Gap [facility] or Plasma mmol/L 12.00 Health System mmol/L ID Date Data Source [id number] 10/26/2011 07:00:00 AM EST [facility] System Name Value Range Interpretation Description Data Sup porting Code Source(s) Document(s ) Levetiracetam 11.40 See Normal (applies LevETIRAcetam [facility] [Mass/volume] report to non-numeric Level, Serum Health in Serum or results) System Plasma ID Date Data Source [id number] 10/26/2011 07:00:00 AM EST [facility] He alth [...] [Mass/volume] in 16.0 (applies to Whole Blood [facility] Sy stem Blood gm/dL non-numeric results) Hematocrit 39.0 % 36.0 - Normal Hematocrit, [facility] [Volume Fraction] 46.0 % (applies to Whole Blood [facility] S ystem of Blood non-numeric results) Erythrocyte [...] Estimate non-numeric results) ID Date Data Source [id number] 10/26/2011 07:00:00 AM GALE Saleem alth System Name Value [...] [facility] total [Moles/volume] mmol/L to non-numeric [facility] th System in Serum or Plasma [...] Health System mmol/L ID Date Data Source [id number] 10/25/2011 06:43:03 AM GALE Saleem alth System Name Value Range Interpretation Description Data Sup porting Code Source(s) Document(s ) Levetiracetam 9.80 Normal (applies LevETIRAcetam [facility] [Mass/volume] in to non-numeric Level, Serum [facility] Serum or Plasma results) System Reference Range: See report ID Date Data Source [id number] 10/25/2011 06:43:03 AM EST [facility] [...] Plasma mmol/L System ID Date Data Source [id number] 10/25/2011 06:43:03 AM EST [facility] [...] 6.3 - Below low normal Total Protein Timoeto bianca mg/dl 8.2 Health mg/dl System ID Date Data Source [id number] 10/25/2011 06:43:03 AM EST [facility] System Name Value Range Interpretation Description Data Sup porting Code Source(s) Document(s ) Magnesium 2.2 1.7 - Normal (applies Magnesium, [facility] [Mass/volume {mEq/L} 2.2 to non-numeric Serum Health Syste m ] in Serum mEq/L results) or Plasma ID Date Data Source [id number] 10/25/2011 06:43:03 AM EST [facility] Name Value Range Interpretation Description Data Sup porting Code Source(s) Document(s ) Cholesterol 167 "." Above high normal Cholesterol, [facility] [Mass/volume] mg/dl mg/dl Serum Health in Serum or System Plasma <200 mg/dL = [id number] - 239 md/dL = Borderline>240 mg/dL = [...] [facility] [Mass/volume] in mg/dL to non-numeric [facility], [facility] Serum or Plasma results) Calculated OPTIMAL: LESS THAN 100 mg/dLNEAR OPTIMAL : 100 - 129 mg/dLBODERLINE HIGH: 130 - 150 mg/dL Cholesterol in VLDL 12.6 Normal (applies to VLDL, Serum [facility] [Mass/volume] in non-numeric System Serum or Plasma results) CHD Risk 3.15 2.40 - Normal (applies to CHD Risk [facility] 5.30 non-numeric System results) ID Date Data Source [id number] 10/25/2011 06:40:32 AM EST [facility] [...] to non-numeric Specific Health Urine =1.030 results) [place] [facility] Protein 100 mg/dl Normal (applies Protein [...] NEGATIVE Normal (applies to Ketones U A [facility] in Urine non-numeric results) System Negative Leukocyte esterase NEGATIVE Normal (applies Leukocyte Aura ase [facility] [Units/volume] in to non-numeric Concentration [facility] System Urine results) Negative Urine Blood SMALL NEG Abnormal (applies to Urine Blood [facility] non-numeric results) ID Date Data Source [id number] 10/25/2011 06:00:00 AM EST [facility] [...] Blood by Automated count Polys Cancelled Polys [facility] System Lymphocytes 0 % 21 - 51 [...] by Manual count ID Date Data Source [id number] 10/25/2011 02:53:29 AM EST [facility] [...] THC. Positive Abnormal (applies to non-numeric THC. [facility] System results) Normal - Negative 50 ng/mL Cocaine Qual, Negative Normal (applies to Cocaine Qual, Mon [facility] Urine. non-numeric results) Urine. System Normal - Negative 300 ng/mL Methaqualone Negative Normal (applies Methaqualone [facility] Qualitative, Urine to non-numeric Qualitative, [facility] results) Phencyclidine PCP Negative Normal (applies Phencyclidine PC P [facility] Qualitative, Urine. to non-numeric Qualitative, Ur ine. Health System results) Normal - Negatgive 25 ng/mL Propoxyphene Negative Normal (applies to Propoxyphene Timoteo bainca Qualitative, Urine non-numeric Qualitative, Urine Health System results) Normal - Negative 300 ng/mL Opiates, Urine Negative Normal (applies to Opiates, Urine [facility] non-numeric results) System Normal - Negative 300 ng/mL Methadone Negative Normal (applies to Methadone [facility] Qualitative, Urine non-numeric Qualitative, Urine Health System results) Normal - Negative 300 ng/mL ID Date Data Source [id number] 10/25/2011 02:53:29 AM EST [facility] System Name [...] Methadone NEGATIVE Normal (applies to Methadone Level, [facility] [Mass/volume] in non-numeric Urine System Urine [...] Negative ng/mL Abnormal (applies to THC [facility] non-numeric results) Cut-off = 50 ng/mL ID Date Data Source [id number] 10/24/2011 10:00:00 PM EST [facility] [...] Blood 46.0 % to non-numeric Whole Blood [facility] System results) Platelets 264 130 - 400 [...] e [#/volume] in Blood {10\\S\\3_u to non-numeric [facility] by Automated count L} results) Monocytes 0.7 Normal (applies Monocyte Count [facility] [#/volume] in Blood {10\\S\\3_u to non-numeric [facility] by Manual count L} results) [...] by Automated count ID Date Data Source [id number] 10/24/2011 10:00:00 PM EST [facility] [...] quantitative testing recommened. ID Date Data Source [id number] 10/24/2011 10:00:00 PM GALE Saleem alth System Name Value [...] results) System Plasma ID Date Data Source [id number] 10/24/2011 10:00:00 PM G[facility] alth System Name Value [...] 72 mm[Hg] [facility] pressure non-numeric results) [facility] System Systolic blood 115 mm[Hg] 0 - 999 Normal (applies to 115 mm[Hg] [facility] pressure non-numeric results) [facility] System Deprecated Oxygen 98 % 0 - 999 Normal (applies to 98 % [facility] saturation in non-numeric results) H ealth System Capillary blood by Oximetry Respiratory rate 17 0 - 999 Normal (applies to 17 [facility] non-numeric results) [facility] Heart rate 88 0 - 999 Normal (applies to 88 [facility] non-numeric results) [facility] Body mass index 20.3 kg/m2 20.3 kg/m2 [facility] (BMI) [Ratio] Health Syst em Body weight 55.61 kg 55.61 kg [facility] Measured Health System Body surface area 1.6 m2 1.6 m2 [facility] Derived from Health Syste m formula Body height 170.18 cm 170.18 cm [facility] Patient Treatment Plan of Care Planned Activity Planned Date Details Description Data Source (s) 200 ACTUAT Albuterol 0.09 09/04/2018 [facility] MG/ACTUAT Metered Dose 11:49:47 AM EST Sy stem Inhaler Basaglar KwikPen 100 units/mL 09/04/2018 [facility] subcutaneous solution 10:30:27 AM EST Sys tem quetiapine 50 MG Oral Tablet 09/04/2018 [facility] 10:29:47 AM EST System Multivitamin preparation 09/04/2018 [facility] 10:29:36 AM EST System Mirtazapine 30 MG Oral Tablet 09/04/2018 [facility] 10:28:36 AM EST System topiramate 100 MG Oral Tablet 09/04/2018 [facility] 10:28:24 AM EST System Metformin hydrochloride 1000 09/04/2018 [facility] MG Oral Tablet 10:27:39 AM EST System Lisinopril 20 MG Oral Tablet 09/04/2018 [facility] 10:25:29 AM EST System Levetiracetam 1000 MG Oral 09/04/2018 [facility] Tablet 10:24:56 AM EST System Hydrochlorothiazide 12.5 MG 09/04/2018 [facility] Oral Capsule 10:20:48 AM EST System gabapentin 300 MG Oral 09/04/2018 [facility] Health Capsule 10:19:21 AM EST System Folic Acid 1 MG Oral Tablet 09/04/2018 [facility] 10:16:57 AM EST System duloxetine 30 MG Delayed 09/04/2018 [facility] Release Oral Capsule 10:15:28 AM EST Syst em Ascorbic Acid 1000 MG 09/04/2018 [facility] Extended Release Oral Tablet 10:15:02 AM EST System Admelog SoloStar 100 units/mL 09/04/2018 [facility] injectable solution 10:13:54 AM EST Syste m Insulin Glargine 09/04/2018 [facility] 10:03:07 AM EST System Amlodipine 5 MG Oral Tablet 12/19/2014 [facility] 04:58:32 PM EDT System Acetaminophen 500 MG Oral 04/06/2014 [facility] Tablet 05:59:06 PM EDT System Levetiracetam 500 MG Oral 01/18/2014 [facility] Tablet 04:22:29 PM EDT System Albuterol 0.09 MG/ACTUAT [facility] Metered Dose Inhaler System Basaglar KwikPen 100 units/mL [facility] subcutaneous solution System Levetiracetam 750 MG Oral [facility] Tablet System duloxetine [address] [facility] Health Release Oral Capsule System 200 ACTUAT Albuterol 0.09 [facility] MG/ACTUAT Metered Dose Syste m Inhaler Phenytoin sodium 100 MG [facility] Extended Release Oral Capsule System gabapentin 300 MG Oral Tablet [facility] gabapentin [facility] System Folic Acid 1 MG Oral Tablet [facility] Metformin [facility] System Ultralente Insulin, Human [facility] Levetiracetam 1000 MG Oral [facility] Tablet [Keppra] System Naproxen 250 MG Oral Tablet [facility]
--- NOTE | 2020-05-11 11:37 | PDOC ---
Documentation entered by Gwen Durham SCRIBE, acting as scribe for Iram Modi MD. Iram Modi MD: This documentation has been prepared by the scribe, Gwen Durham SCRIBE, under my direction and personally reviewed by me in its entirety. I confirm that the documentation accurately reflects all work, treatment, procedures, and medical decision making performed by me. Attending Attestation - Resident Resident Name: Tiffanie Medina - ED Attending Attestation I have performed the following: I have examined & evaluated the patient, The case was reviewed & discussed with the resident, I agree w/resident's findings & plan, Exceptions are as noted - HPI HPI: 05/11/20 09:11 Patient is a 49 year old female with a significant past medical history of seizures, hypertension, and diabetes, who presents to the ED, BIBA, with generalized weakess, nausea, vomiting, and abdominal pain since yesterday. Patient stated the last thing she ate before the onset of her symptoms was a hot dog and that since then she has had about 5-6 episodes of vomiting (including one episode in the ambulance). Patient disclosed that she has not been able to tolerate PO or take her medications since last night. Last bowel movement: 3 days ago. Patient denies: productive cough, diarrhea, dysuria, sick contacts, or any other related symptoms. Allergies: NKDA - Physicial Exam PE: 05/11/20 10:00 GENERAL: Awake, alert, and fully oriented, in no acute distress HEAD: No signs of trauma EYES: PERRLA, EOMI, sclera anicteric, conjunctiva clear ENT: Auricles normal inspection, hearing grossly normal, nares patent, oropharynx clear without exudates. Dry mucosa NECK: Normal ROM, supple, no lymphadenopathy, JVD, or masses LUNGS: Breath sounds equal, clear to auscultation bilaterally. No wheezes, and no crackles HEART: Regular rate and rhythm, normal S1 and S2, no murmurs, rubs or gallops ABDOMEN: Soft, nontender, normoactive bowel sounds. No guarding, no rebound. No masses EXTREMITIES: Normal range of motion, no edema. No clubbing or cyanosis. No cords, erythema, or tenderness NEUROLOGICAL: Cranial nerves II through XII grossly intact. Normal speech, normal gait SKIN: Warm, Dry, normal turgor, no rashes or lesions noted. - Medical Decision Making Pt presents with extremely elevated blood glucose, suspected DKA on initial evaluation. VBG showed low bicarb and acidosis, ABG sent for definitive assessment of acid/base status. +Metabolic acidosis. Will start insulin drip for DKA, give fluids. Plan for ICU admission. Discharge - Discharge Information Problems reviewed: Yes Clinical Impression/Diagnosis: DKA, type 1 Qualifiers: Diabetes mellitus complication detail: without coma Qualified Code(s): E10.10 - Type 1 diabetes mellitus with ketoacidosis without coma - Follow up/Referral - Patient Discharge Instructions - Post Discharge Activity
--- NOTE | 2020-05-11 11:46 | HP ---
Admitting History and Physical - Admission History of Present Illness: 9 y/o female with a PMH of seizures, HTN, asthma, and uncontrolled IDDM BIBA from home due to nausea/vomiting, abdominal pain, and progressive generalized weakness since last night. Per the patient she ate a hotdog prior to feeling ill. She has since had 5-6 episodes of post-tussive NBNB emesis, the last one in the ambulance. She has not been able to eat or take any of her home medications since last night. Patient reports that she has never been in DKA, but was admitted to the ICU because of her sugar in 2011. 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 ...LMP: 04/19/20 ...: No Endocrine: Yes: Diabetes Mellitus - Smoking History Smoking history: Never smoked Have you smoked in the past 12 months: No Aproximately how many cigarettes per day: 10 - Alcohol/Substance Use Hx Alcohol Use: No Home Medications - Allergies Allergies/Adverse Reactions: Allergies Allergy/AdvReac Type Severity Reaction Status Date / Time No Known Allergies Allergy Verified 10/07/19 17:09 - Home Medications Home Medications: Ambulatory Orders Insulin Glargine,Hum.rec.anlog [Basaglar Kwikpen U-100] 16 unit SQ HS 10/07/19 Insulin Lispro [Admelog Solostar] unit SQ AC 10/07/19 Multivitamin [Multiple Vitamins] 1 each PO DAILY 10/07/19 Topiramate 100 mg PO BID 10/07/19 levETIRAcetam [Keppra Xr -] 1,250 mg PO BID 10/07/19 Insulin Lispro [Admelog Solostar] 9 - 13 unit SQ TID #1 insuln.pen 03/27/20 Lisinopril 2.5 mg PO DAILY 05/11/20 Metformin HCl [Glucophage] 1,000 mg PO BID 05/11/20 Sertraline HCl [Zoloft] 50 mg PO DAILY 05/11/20 traZODone HCL [Trazodone HCl] 50 mg PO HS PRN 05/11/20 Physical Examination Vital Signs: Vital Signs Temperature 98.3 F 05/11/20 07:37 Pulse Rate 100 H 05/11/20 11:38 Respiratory Rate 18 05/11/20 11:38 Blood Pressure 193/97 H 05/11/20 11:38 O2 Sat by Pulse Oximetry (%) 100 05/11/20 11:38 Cardiovascular: Yes: Tachycardia, S1, S2 Respiratory: Yes: Regular, CTA Bilaterally Gastrointestinal: Yes: Normal Bowel Sounds, Soft. No: Tenderness Neurological: Yes: Alert, Oriented Labs: CBC, BMP 05/11/20 09:15 05/11/20 09:15 Problem List - Problems (1) DKA, type 1 Assessment/Plan: icu insulin drip endo ivf Code(s): E10.10 - TYPE 1 DIABETES MELLITUS WITH KETOACIDOSIS WITHOUT COMA Qualifiers: Diabetes mellitus complication detail: without coma Qualified Code(s): E10.10 - Type 1 diabetes mellitus with ketoacidosis without coma (2) HTN (hypertension) Assessment/Plan: monitor Code(s): I10 - ESSENTIAL (PRIMARY) HYPERTENSION (3) Seizure Assessment/Plan: resume meds and monitor Code(s): R56.9 - UNSPECIFIED CONVULSIONS (4) Vomiting Assessment/Plan: ivf monitor gi Code(s): R11.10 - VOMITING, UNSPECIFIED
--- NOTE | 2020-05-11 12:27 | CONSULT ---
Consult Consult Specialty:: PULM/CCM Referred by:: Dr. Henry Reason for Consultation:: DKA - History of Present Illness Chief Complaint: Nausea/vomiting, hyperglycemia History of Present Illness: 49 y/o female with medical history of seizures, HTN, asthma, and uncontrolled IDDM BIBA from home due to nausea/vomiting, abdominal pain, and progressive generalized weakness. Per the patient she ate a hotdog prior to feeling ill. She has since had 5-6 episodes of post-tussive NBNB emesis, the last one in the ambulance. She has not been able to eat or take any of her home medications since last night. Patient reports that she has never been in DKA, but was admitted to the ICU because of her sugar in 2011. In ED labs were noted for elevated AGAP of 24 and beta -hydro of 106.5. Patient was admitted to ICU for further care of DKA requiring insulin drip. 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 Cardio/Vascular: Yes: HTN Pulmonary: Yes: Asthma ...LMP: 04/19/20 ...: No - Alcohol/Substance Use Hx Alcohol Use: No - Smoking History Smoking history: Never smoked Have you smoked in the past 12 months: No Aproximately how many cigarettes per day: 10 Home Medications - Allergies Allergies/Adverse Reactions: Allergies Allergy/AdvReac Type Severity Reaction Status Date / Time No Known Allergies Allergy Verified 10/07/19 17:09 - Home Medications Home Medications: Ambulatory Orders Insulin Glargine,Hum.rec.anlog [Basagldavid Prather U-100] 16 unit SQ HS 10/07/19 Insulin Lispro [Admelog Solostar] unit SQ AC 10/07/19 Multivitamin [Multiple Vitamins] 1 each PO DAILY 10/07/19 Topiramate 100 mg PO BID 10/07/19 levETIRAcetam [Keppra Xr -] 1,250 mg PO BID 10/07/19 Insulin Lispro [Admelog Solostar] 9 - 13 unit SQ TID #1 insuln.pen 03/27/20 Lisinopril 2.5 mg PO DAILY 05/11/20 Metformin HCl [Glucophage] 1,000 mg PO BID 05/11/20 Sertraline HCl [Zoloft] 50 mg PO DAILY 05/11/20 traZODone HCL [Trazodone HCl] 50 mg PO HS PRN 05/11/20 Review of Systems - Review of Systems Constitutional: reports: No Symptoms Eyes: reports: No Symptoms HENT: reports: No Symptoms Neck: reports: No Symptoms Cardiovascular: reports: No Symptoms Respiratory: reports: No Symptoms Gastrointestinal: reports: Nausea, Vomiting Genitourinary: reports: No Symptoms Breasts: reports: No Symptoms Reported Musculoskeletal: reports: No Symptoms Integumentary: reports: No Symptoms Neurological: reports: No Symptoms Endocrine: reports: No Symptoms Hematology/Lymphatic: reports: No Symptoms Psychiatric: reports: No Symptoms Physical Exam Vital Signs: Vital Signs Temperature 98.3 F 05/11/20 07:37 Pulse Rate 100 H 05/11/20 11:38 Respiratory Rate 18 05/11/20 11:38 Blood Pressure 193/97 H 05/11/20 11:38 O2 Sat by Pulse Oximetry (%) 100 05/11/20 11:38 Constitutional: Yes: Well Nourished, No Distress, Calm Eyes: Yes: WNL, Conjunctiva Clear, EOM Intact HENT: Yes: WNL, Atraumatic, Normocephalic Neck: Yes: WNL, Supple, Trachea Midline Cardiovascular: Yes: WNL, Regular Rate and Rhythm, S1, S2 Respiratory: Yes: WNL, Regular, CTA Bilaterally Gastrointestinal: Yes: WNL, Normal Bowel Sounds, Soft ...Rectal Exam: Yes: Deferred Renal/: Yes: WNL Breast(s): Yes: WNL Musculoskeletal: Yes: WNL Extremities: Yes: WNL Edema: No Peripheral Pulses WNL: Yes Integumentary: Yes: WNL Neurological: Yes: WNL, Alert, Oriented, Cran Nerves II-XII Intact ...Motor Strength: WNL Psychiatric: Yes: WNL, Oriented Labs: CBC, BMP 05/11/20 09:15 05/11/20 09:15 Problem List - Problems (1) DKA, type 1 Code(s): E10.10 - TYPE 1 DIABETES MELLITUS WITH KETOACIDOSIS WITHOUT COMA Qualifiers: Diabetes mellitus complication detail: without coma Qualified Code(s): E10.10 - Type 1 diabetes mellitus with ketoacidosis without coma (2) Elevated WBC count Code(s): D72.829 - ELEVATED WHITE BLOOD CELL COUNT, UNSPECIFIED (3) HTN (hypertension) Code(s): I10 - ESSENTIAL (PRIMARY) HYPERTENSION (4) Seizure disorder Code(s): G40.909 - EPILEPSY, UNSP, NOT INTRACTABLE, WITHOUT STATUS EPILEPTICUS Assessment/Plan 49 y/o female with medical history of seizures, HTN, asthma, and uncontrolled IDDM BIBA admitted to ICU for DKA requiring insulin drip. -Insulin drip as per DKA protocol -1L IVF bolus -BGM q 1 hour -recheck BMP q 4 hours until AGAP is improved -NPO at this time -Zofran for nausea/vomiting -Heparin SQ for DVT ppx -PPI for PUD ppx -Home dose Keppra -Lisinopril -Follow up on blood cultures -Low thresholds for abx at this time, patient asymptomatic and afebrile, will reassess in am Phyllis Jacob ACNP [id number]
[2020-05-11] MEDS ORDERED: SODIUM CHLORIDE 1,000 ML IV STA (12:41)
[2020-05-11 13:06] LABS: PLATELET ESTIMATE NORMAL
[2020-05-11] MEDS ORDERED: DEXTROSE 5%-NORMAL SALINE 1,000 ML IV SCH (17:30)
[2020-05-11 18:54] LABS: BASO % 0.1 % (0-2.0); HEMATOCRIT 34.9 % (32.4-45.2); HEMOGLOBIN 11.6 GM/dL (10.7-15.3); MCH 31.7 pg (25.7-33.7); MCHC 33.2 g/dl (32.0-36.0); MEAN CELL VOLUME 95.3 fl (80-96); MEAN PLT VOLUME 8.8 fl (7.5-11.1); MONO % 7.3 % (3.8-10.2); NEUT % 83.6 % (42.8-82.8); PLATELET COUNT 209 K/MM3 (134-434); RBC 3.66 M/mm3 (3.60-5.2); RDW 13.1 % (11.6-15.6); WHITE BLOOD COUNT 19.1 K/mm3 (4.0-10.0)
[2020-05-11 19:24] LABS: ALBUMIN 3.8 g/dl (3.4-5.0); BILIRUBIN,TOTAL 0.4 mg/dL (0.2-1); BLOOD UREA NITROGEN 18.4 mg/dL (7-18); CALCIUM 7.8 mg/dL (8.5-10.1); CREATININE 1.1 mg/dL (0.55-1.3); POTASSIUM 4.2 mmol/L (3.5-5.1); TOT PROT 6.9 g/dl (6.4-8.2)
[2020-05-11] MEDS: INSULIN (LEVEMIR) 100 UNITS/ML UNITS SQ SCH ×2 (19:53→22:21)
[2020-05-11] MEDS ORDERED: levETIRAcetam XR 750 MG TAB PO SCH (22:00)
[2020-05-11] MEDS: levETIRAcetam XR 500 MG TAB PO SCH (22:28)
[2020-05-11] MEDS: levETIRAcetam XR 750 MG TAB PO SCH (22:28)
[2020-05-11] MEDS: TOPIRAMATE 100 MG TABLET PO SCH (22:28)
[2020-05-12] MEDS ORDERED: DEXTROSE 50%-WATER - 25 GM/50 ML VIAL IVPUSH ONE (00:31)
[2020-05-12] MEDS: BENZOCAINE/MENTH/CETYLPYRD CL 1 EACH LOZENGE MM PRN ×2 (01:10→10:01)
[2020-05-12] MEDS: INSULIN SLIDING SCALE (NOVOLOG) 1 VIAL SQ SCH ×5 (02:16→21:35)
[2020-05-12 07:59] LABS: BASO % 0.2 % (0-2.0); EOS % 0.3 % (0-4.5); HEMATOCRIT 37.3 % (32.4-45.2); HEMOGLOBIN 12.8 GM/dL (10.7-15.3); LYMPH % 14.9 % (8-40); MCH 32.3 pg (25.7-33.7); MCHC 34.3 g/dl (32.0-36.0); MEAN PLT VOLUME 9.2 fl (7.5-11.1); MONO % 6.7 % (3.8-10.2); NEUT % 77.9 % (42.8-82.8); PLATELET COUNT 198 K/MM3 (134-434); RBC 3.97 M/mm3 (3.60-5.2); RDW 12.8 % (11.6-15.6); WHITE BLOOD COUNT 15.8 K/mm3 (4.0-10.0)
--- NOTE | 2020-05-12 09:07 | CONSULT ---
Consult Consult Specialty:: Endocrinology Referred by:: Dr Monet Reason for Consultation:: DKA - History of Present Illness Chief Complaint: Nausea History of Present Illness: This is a 49 y/o female with h/o seizures, HTN, asthma, and T1DDM s/P DKA in the past, thyroid nodules was BIBA from home due to nausea/vomiting, abdominal pain, and progressive generalized weakness starting Tuesday.. Per the patient she ate a hotdog prior to feeling ill. She had 5-6 episodes of vomiting. She has not been able to eat or take any of her home medications since last night. In ED labs were noted for elevated AGAP of 24 and beta -hydro of 106.5. Patient was admitted to ICU for further care of DKA including insulin drip. Pt currently in bed in ICU. Feels good except for sore throat from vomiting. As per patient her blood sugar at home on Tuesday morning was 191 and the last dose of Basaglar 10 units she took at 10 PM on Tuesday night. Says she has been taking her Insulin regularly. 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 Cardio/Vascular: Yes: HTN Pulmonary: Yes: Asthma ...LMP: 04/19/20 ...: No Endocrine: Yes: Diabetes Mellitus - Alcohol/Substance Use Hx Alcohol Use: No - Smoking History Smoking history: Never smoked Have you smoked in the past 12 months: No Aproximately how many cigarettes per day: 10 Home Medications - Allergies Allergies/Adverse Reactions: Allergies Allergy/AdvReac Type Severity Reaction Status Date / Time No Known Allergies Allergy Verified 10/07/19 17:09 - Home Medications Home Medications: Ambulatory Orders Insulin Glargine,Hum.rec.anlog [Basaglar Kwikpen U-100] 16 unit SQ HS 10/07/19 Insulin Lispro [Admelog Solostar] unit SQ AC 10/07/19 Multivitamin [Multiple Vitamins] 1 each PO DAILY 10/07/19 Topiramate 100 mg PO BID 10/07/19 levETIRAcetam [Keppra Xr -] 1,250 mg PO BID 10/07/19 Insulin Lispro [Admelog Solostar] 9 - 13 unit SQ TID #1 insuln.pen 03/27/20 Lisinopril 2.5 mg PO DAILY 05/11/20 Metformin HCl [Glucophage] 1,000 mg PO BID 05/11/20 Sertraline HCl [Zoloft] 50 mg PO DAILY 05/11/20 traZODone HCL [Trazodone HCl] 50 mg PO HS PRN 05/11/20 Review of Systems - Review of Systems Constitutional: reports: No Symptoms Eyes: reports: No Symptoms HENT: reports: Throat Pain Neck: reports: No Symptoms Cardiovascular: reports: No Symptoms Respiratory: reports: No Symptoms Gastrointestinal: reports: No Symptoms Genitourinary: reports: No Symptoms Neurological: reports: No Symptoms Endocrine: reports: No Symptoms Physical Exam Vital Signs: Vital Signs Temperature 98.3 F 05/12/20 06:00 Pulse Rate 70 05/12/20 06:00 Respiratory Rate 16 05/12/20 06:00 Blood Pressure 190/79 H 05/12/20 06:00 O2 Sat by Pulse Oximetry (%) 100 05/12/20 06:00 Constitutional: Yes: No Distress, Calm Eyes: Yes: Conjunctiva Clear HENT: Yes: Atraumatic, Normocephalic Neck: Yes: Supple, Trachea Midline Cardiovascular: Yes: Regular Rate and Rhythm Respiratory: Yes: Regular, CTA Bilaterally Gastrointestinal: Yes: Normal Bowel Sounds, Soft Musculoskeletal: Yes: WNL Extremities: Yes: WNL Edema: No Neurological: Yes: WNL, Alert, Oriented Labs: CBC, BMP 05/12/20 06:15 05/12/20 06:15 Assessment/Plan AP: TIDM DKA Thyroid nodule HTN CO2 15, A Gap 13 now from 18 and 8 Off Insulin drip Levemir 10 units daily started Start D5 1/2NS 50 ml/hr BGM Q4 hr with Novolog Coverage Rpt CMP in 4 to 6 hrs IV hydration as necessary Electrolyte replacement as necessary
[2020-05-12 09:18] LABS: ALBUMIN 3.5 g/dl (3.4-5.0); BILIRUBIN,TOTAL 0.7 mg/dL (0.2-1); BLOOD UREA NITROGEN 12.6 mg/dL (7-18); CALCIUM 8.9 mg/dL (8.5-10.1); CREATININE 0.7 mg/dL (0.55-1.3); TOT PROT 6.6 g/dl (6.4-8.2)
[2020-05-12] MEDS ORDERED: PT OWN MED DRAWER 7, Y5N ONE ×2 (09:37→09:38)
[2020-05-12] MEDS: levETIRAcetam XR 500 MG TAB PO SCH ×2 (09:43→21:26)
[2020-05-12] MEDS: TOPIRAMATE 100 MG TABLET PO SCH ×2 (09:43→21:27)
[2020-05-12] MEDS: levETIRAcetam XR 750 MG TAB PO SCH ×2 (09:43→21:26)
[2020-05-12] MEDS: HEPARIN NA (PORCINE) 5,000 UNITS/ML 1ML VIAL SQ SCH ×2 (09:44→21:24)
[2020-05-12] MEDS: SERTRALINE HCL 50 MG TABLET (FP) PO SCH (09:45)
[2020-05-12] MEDS: PANTOPRAZOLE 40 MG TABLET PO SCH (09:45)
[2020-05-12] MEDS ORDERED: LISINOPRIL 5 MG TABLET PO SCH ×2 (10:00→12:04)
--- NOTE | 2020-05-12 11:39 | PN ---
Progress Note, Physician Chief Complaint: N/V DKA History of Present Illness: This is a 49 y/o female with h/o seizures, HTN, asthma, and T1DDM s/P DKA in the past, thyroid nodules was BIBA from home due to nausea/vomiting, abdominal pain, and progressive generalized weakness starting Tuesday after she ate hot dog. She had 5-6 episodes of vomiting. She has not been able to eat or take any of her home medications since last night. In ED labs were noted for elevated AGAP of 24 and beta -hydro of 106.5. Patient was admitted to ICU for further care of DKA including insulin drip + IVF. Insulin drip has been stopped now. Pt feels much better. As per patient her blood sugar at home on Tuesday morning was 191 and the last dose of Basaglar 10 units she took at 10 PM on Tuesday night. Says she has been taking her Insulin regularly. 05/12/20- AG at 13 from 8; K 4.2 hemolyzed Started on IVF-D5 @ 50 cc/hr Wants to eat Denies any N/V Seen by Endocrinology this AM. - Current Medication List Current Medications: Active Medications Benzocaine/Menthol (Cepacol Lozenge -) 1 each MM PRN PRN PRN Reason: SORE THROAT Last Admin: 05/12/20 10:01 Dose: 1 each Documented by: Chlorhexidine Gluconate (Hibiclens For Decolonization -) 1 applic TP [facility] Heparin Sodium (Porcine) (Heparin -) 5,000 unit SQ BID [facility] Last Admin: 05/12/20 09:44 Dose: 5,000 unit Documented by: Insulin Aspart (Novolog Vial Sliding Scale -) 1 vial SQ [facility]; Protocol Last Admin: 05/12/20 06:53 Dose: Not Given Documented by: Insulin Detemir (Levemir Vial) 10 units SQ [facility] Last Admin: 05/11/20 22:21 Dose: Not Given Documented by: Levetiracetam (Keppra Xr -) 750 mg PO BID [facility] Last Admin: 05/12/20 09:43 Dose: 750 mg Documented by: Levetiracetam (Keppra Xr -) 500 mg PO BID [facility] Last Admin: 05/12/20 09:43 Dose: 500 mg Documented by: Lisinopril (Prinivil) 2.5 mg PO DAILY [facility] Last Admin: 05/12/20 09:44 Dose: 2.5 mg Documented by: Mupirocin (Bactroban 2% Ointment -) 1 applic TP BID [facility] Pantoprazole Sodium (Protonix -) 40 mg PO DAILY [facility] Last Admin: 05/12/20 09:45 Dose: 40 mg Documented by: Sertraline HCl (Zoloft -) 50 mg PO DAILY [facility] Last Admin: 05/12/20 09:45 Dose: 50 mg Documented by: Topiramate (Topamax -) 100 mg PO BID [facility] Last Admin: 05/12/20 09:43 Dose: 100 mg Documented by: Trazodone HCl (Desyrel -) 50 mg PO PRN PRN Reason: PAIN - Objective Vital Signs: Vital Signs Temperature 98.3 F 05/12/20 06:00 Pulse Rate 70 05/12/20 06:00 Respiratory Rate 16 05/12/20 06:00 Blood Pressure 190/79 H 05/12/20 06:00 O2 Sat by Pulse Oximetry (%) 100 05/12/20 06:00 Constitutional: Yes: No Distress, Calm, Thin Cardiovascular: Yes: Regular Rate and Rhythm Respiratory: Yes: Regular, CTA Bilaterally Gastrointestinal: Yes: Normal Bowel Sounds, Soft Genitourinary: Yes: WNL Musculoskeletal: Yes: WNL Extremities: Yes: WNL Edema: No Peripheral Pulses WNL: Yes Neurological: Yes: Alert, Oriented Psychiatric: Yes: Alert, Oriented Labs: CBC, BMP 05/12/20 06:15 05/12/20 06:15 Problem List - Problems (1) DKA, type 1 Assessment/Plan: -Endocrine consult -Continue IVF D5 1/2 NS at 50 cc/hr -repeat BMP-to check K, will make note of AG as well -AG at 13, goal <12 -Resume diet -Recheck Beta hydroxybutyrate -Is compliant with medications outpatient as per pt Problems reviewed: Yes Code(s): E10.10 - TYPE 1 DIABETES MELLITUS WITH KETOACIDOSIS WITHOUT COMA Qualifiers: Diabetes mellitus complication detail: without coma Qualified Code(s): E10.10 - Type 1 diabetes mellitus with ketoacidosis without coma (2) HTN (hypertension) Assessment/Plan: -Resume Lisinopril 2.5 mg po daily -Titrate up if needed -Low sodium diabetic diet Problems reviewed: Yes Code(s): I10 - ESSENTIAL (PRIMARY) HYPERTENSION (3) Nausea & vomiting Assessment/Plan: -resolved -Also noted Marijuana use, uses daily as per pt. Problems reviewed: Yes Code(s): R11.2 - NAUSEA WITH VOMITING, UNSPECIFIED Assessment/Plan See problem list
[2020-05-12] MEDS ORDERED: DEXTROSE 5%-0.45% SALINE 1,000 ML IV SCH (11:45)
[2020-05-12] MEDS: MUPIROCIN 2% TOPICAL OINTMENT 22 GM TUBE TP SCH ×2 (12:02→21:22)
[2020-05-12] MEDS ORDERED: DEXTROSE 5%-LACTATED RINGERS 1,000 ML IV SCH ×2 (12:15→17:45)
[2020-05-12] MEDS ORDERED: LISINOPRIL 5 MG TABLET PO ONE ×2 (12:15→21:15)
--- NOTE | 2020-05-12 13:31 | PN ---
Teaching Attending Note Name of Resident: Mo Crane ATTENDING PHYSICIAN STATEMENT I saw and evaluated the patient. I reviewed the resident's note and discussed the case with the resident. I agree with the resident's findings and plan as documented. SUBJECTIVE: Patient seen and examined in the ICU. Awake and alert. Currently off IV Insulin. Denies CP or SOB. Intake & Output 05/09/20 05/10/20 05/11/20 05/12/20 23:59 23:59 23:59 23:59 Intake Total 3071 Output Total 1000 Balance 2071 Weight 113 lb 12.136 oz Last Vital Signs Temp Pulse Resp BP Pulse Ox 98.3 F 76 15 199/88 H 100 05/12/20 06:00 05/12/20 10:00 05/12/20 10:00 05/12/20 10:00 05/12/20 10:00 Active Medications Benzocaine/Menthol (Cepacol Lozenge -) 1 each MM PRN PRN PRN Reason: SORE THROAT Last Admin: 05/12/20 10:01 Dose: 1 each Documented by: Chlorhexidine Gluconate (Hibiclens For Decolonization -) 1 applic TP [facility] Heparin Sodium (Porcine) (Heparin -) 5,000 unit SQ BID [facility] Last Admin: 05/12/20 09:44 Dose: 5,000 unit Documented by: Dextrose/Lactated Ringer's (D5-Lr -) 1,000 mls @ 100 mls/hr IV ASDIR [facility] Last Admin: 05/12/20 12:09 Dose: 100 mls/hr Documented by: Insulin Aspart (Novolog Vial Sliding Scale -) 1 vial SQ [facility]; Protocol Last Admin: 05/12/20 11:47 Dose: Not Given Documented by: Insulin Detemir (Levemir Vial) 10 units SQ [facility] Last Admin: 05/11/20 22:21 Dose: Not Given Documented by: Levetiracetam (Keppra Xr -) 750 mg PO BID [facility] Last Admin: 05/12/20 09:43 Dose: 750 mg Documented by: Levetiracetam (Keppra Xr -) 500 mg PO BID [facility] Last Admin: 05/12/20 09:43 Dose: 500 mg Documented by: Lisinopril (Prinivil) 5 mg PO DAILY [facility] Mupirocin (Bactroban 2% Ointment -) 1 applic TP BID [facility] Last Admin: 05/12/20 12:02 Dose: Not Given Documented by: Pantoprazole Sodium (Protonix -) 40 mg PO DAILY [facility] Last Admin: 05/12/20 09:45 Dose: 40 mg Documented by: Sertraline HCl (Zoloft -) 50 mg PO DAILY [facility] Last Admin: 05/12/20 09:45 Dose: 50 mg Documented by: Topiramate (Topamax -) 100 mg PO BID [facility] Last Admin: 05/12/20 09:43 Dose: 100 mg Documented by: Trazodone HCl (Desyrel -) 50 mg PO HS PRN PRN Reason: PAIN Constitutional: Yes: Thin, No Distress, Calm Eyes: Yes: WNL, Conjunctiva Clear, EOM Intact HENT: Yes: WNL, Atraumatic, Normocephalic Neck: Yes: WNL, Supple, Trachea Midline Cardiovascular: Yes: WNL, Regular Rate and Rhythm, S1, S2 Respiratory: Yes: WNL, Regular, CTA Bilaterally Gastrointestinal: Yes: WNL, Normal Bowel Sounds, Soft ...Rectal Exam: Yes: Deferred Renal/: Yes: WNL Breast(s): Yes: WNL Musculoskeletal: Yes: WNL Extremities: Yes: WNL Edema: No Peripheral Pulses WNL: Yes Integumentary: Yes: WNL Neurological: Yes: WNL, Alert, Oriented, Non-focal ...Motor Strength: WNL Psychiatric: Yes: WNL, Oriented Labs: Laboratory Results - last 24 hr 05/11/20 05/11/20 05/11/20 09:15 09:15 14:01 WBC RBC Hgb Hct MCV MCH MCHC RDW Plt Count MPV Absolute Neuts (auto) Neutrophils % Lymphocytes % Monocytes % Eosinophils % Basophils % Nucleated RBC % Platelet Estimate Normal Platelet Comment No clumping noted Sodium Potassium Chloride Carbon Dioxide Anion Gap BUN Creatinine Est GFR (CKD-EPI)AfAm Est GFR (CKD-EPI)NonAf POC Glucometer 346 Random Glucose Hemoglobin A1c % 10.4 H Calcium Total Bilirubin AST ALT Alkaline Phosphatase Total Protein Albumin 05/11/20 05/11/20 05/11/20 14:54 16:03 17:15 WBC RBC Hgb Hct MCV MCH MCHC RDW Plt Count MPV Absolute Neuts (auto) Neutrophils % Lymphocytes % Monocytes % Eosinophils % Basophils % Nucleated RBC % Platelet Estimate Platelet Comment Sodium Potassium Chloride Carbon Dioxide Anion Gap BUN Creatinine Est GFR (CKD-EPI)AfAm Est GFR (CKD-EPI)NonAf POC Glucometer 287 225 165 Random Glucose Hemoglobin A1c % Calcium Total Bilirubin AST ALT Alkaline Phosphatase Total Protein Albumin 05/11/20 05/11/20 05/11/20 18:02 18:10 18:10 WBC 19.1 H RBC 3.66 Hgb 11.6 Hct 34.9 D MCV 95.3 MCH 31.7 MCHC 33.2 RDW 13.1 Plt Count 209 D MPV 8.8 Absolute Neuts (auto) 15.9 H Neutrophils % 83.6 H Lymphocytes % 9.0 D Monocytes % 7.3 D Eosinophils % 0.0 D Basophils % 0.1 Nucleated RBC % 0 Platelet Estimate Platelet Comment Sodium 140 Potassium 4.2 Chloride 114 H Carbon Dioxide 18 L Anion Gap 8 BUN 18.4 H Creatinine 1.1 Est GFR (CKD-EPI)AfAm 68.75 Est GFR (CKD-EPI)NonAf 59.32 POC Glucometer 162 Random Glucose 163 H Hemoglobin A1c % Calcium 7.8 L Total Bilirubin 0.4 AST 15 ALT 23 Alkaline Phosphatase 64 Total Protein 6.9 Albumin 3.8 05/11/20 05/11/20 05/11/20 19:25 20:52 23:05 WBC RBC Hgb Hct MCV MCH MCHC RDW Plt Count MPV Absolute Neuts (auto) Neutrophils % Lymphocytes % Monocytes % Eosinophils % Basophils % Nucleated RBC % Platelet Estimate Platelet Comment Sodium Potassium Chloride Carbon Dioxide Anion Gap BUN Creatinine Est GFR (CKD-EPI)AfAm Est GFR (CKD-EPI)NonAf POC Glucometer 167 130 69 Random Glucose Hemoglobin A1c % Calcium Total Bilirubin AST ALT Alkaline Phosphatase Total Protein Albumin 05/12/20 05/12/20 05/12/20 00:29 02:06 06:15 WBC 15.8 H RBC 3.97 Hgb 12.8 Hct 37.3 MCV 94.0 MCH 32.3 MCHC 34.3 RDW 12.8 Plt Count 198 MPV 9.2 Absolute Neuts (auto) 12.3 H Neutrophils % 77.9 Lymphocytes % 14.9 D Monocytes % 6.7 Eosinophils % 0.3 D Basophils % 0.2 Nucleated RBC % 0 Platelet Estimate Platelet Comment Sodium Potassium Chloride Carbon Dioxide Anion Gap BUN Creatinine Est GFR (CKD-EPI)AfAm Est GFR (CKD-EPI)NonAf POC Glucometer 59 216 Random Glucose Hemoglobin A1c % Calcium Total Bilirubin AST ALT Alkaline Phosphatase Total Protein Albumin 05/12/20 05/12/20 05/12/20 06:15 06:15 06:40 WBC RBC Hgb Hct MCV MCH MCHC RDW Plt Count MPV Absolute Neuts (auto) Neutrophils % Lymphocytes % Monocytes % Eosinophils % Basophils % Nucleated RBC % Platelet Estimate Platelet Comment Sodium 138 Potassium 4.0 Chloride 110 H Carbon Dioxide 15 L Anion Gap 13 BUN 12.6 Creatinine 0.7 Est GFR (CKD-EPI)AfAm 118.74 Est GFR (CKD-EPI)NonAf 102.45 POC Glucometer 98 Random Glucose 88 Hemoglobin A1c % 10.3 H Calcium 8.9 Total Bilirubin 0.7 AST 32 ALT 28 Alkaline Phosphatase 62 Total Protein 6.6 Albumin 3.5 05/12/20 11:44 WBC RBC Hgb Hct MCV MCH MCHC RDW Plt Count MPV Absolute Neuts (auto) Neutrophils % Lymphocytes % Monocytes % Eosinophils % Basophils % Nucleated RBC % Platelet Estimate Platelet Comment Sodium Potassium Chloride Carbon Dioxide Anion Gap BUN Creatinine Est GFR (CKD-EPI)AfAm Est GFR (CKD-EPI)NonAf POC Glucometer 103 Random Glucose Hemoglobin A1c % Calcium Total Bilirubin AST ALT Alkaline Phosphatase Total Protein Albumin Problem List - Problems (1) DKA, type 1 Code(s): E10.10 - TYPE 1 DIABETES MELLITUS WITH KETOACIDOSIS WITHOUT COMA Qualifiers: Diabetes mellitus complication detail: without coma Qualified Code(s): E10.10 - Type 1 diabetes mellitus with ketoacidosis without coma (2) Elevated WBC count Code(s): D72.829 - ELEVATED WHITE BLOOD CELL COUNT, UNSPECIFIED (3) HTN (hypertension) Code(s): I10 - ESSENTIAL (PRIMARY) HYPERTENSION (4) Seizure disorder Code(s): G40.909 - EPILEPSY, UNSP, NOT INTRACTABLE, WITHOUT STATUS EPILEPTICUS Assessment/Plan Resolving DKA SHRUTI Seizure DO HTN Asthma Uncontrolled IDDM -SQ insulin and sliding scale per Endocrine -IVF : D5 LR -Follow BGM and repeat BMP : Follow AG -PO as tolerated -Zofran for nausea/vomiting -Heparin SQ for DVT ppx -PPI for PUD ppx -Home dose Keppra -Increase Lisinopril -Floor if remains off IV Insulin Dr Zuniga
--- NOTE | 2020-05-12 14:49 | CON.GI ---
Consult Consult Specialty:: GI Referred by:: Dr. Reji Henry Reason for Consultation:: Dysphagia - History of Present Illness Chief Complaint: Vomiting History of Present Illness: 49F admitted with nausea, vomiting, noted to have uncontrolled diabetes. Had throat pain after multiple episodes of vomiting. Denies dysphagia. Throat pain continues. No EGD/Colon in past. No family history of colon cancer or other GI malignancy. No abdominal pain. 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 Cardio/Vascular: Yes: HTN Pulmonary: Yes: Asthma ...LMP: 04/19/20 ...: No Endocrine: Yes: Diabetes Mellitus - Past Surgical History Additional Surgical History: Benign breast biopsy - Alcohol/Substance Use Hx Alcohol Use: No History of Substance Use: reports: None - Smoking History Smoking history: Never smoked Have you smoked in the past 12 months: No Aproximately how many cigarettes per day: 10 - Social History Usual Living Arrangement: With Parent ADL: Independent Occupation: Unemployed Place of : [facility] History of Recent Travel: No Home Medications - Allergies Allergies/Adverse Reactions: Allergies Allergy/AdvReac Type Severity Reaction Status Date / Time No Known Allergies Allergy Verified 10/07/19 17:09 - Home Medications Home Medications: Ambulatory Orders Insulin Glargine,Hum.rec.anlog [Basagldavid Brarpen U-100] 16 unit SQ HS 10/07/19 Insulin Lispro [Admelog Solostar] unit SQ AC 10/07/19 Multivitamin [Multiple Vitamins] 1 each PO DAILY 10/07/19 Topiramate 100 mg PO BID 10/07/19 levETIRAcetam [Keppra Xr -] 1,250 mg PO BID 10/07/19 Insulin Lispro [Admelog Solostar] 9 - 13 unit SQ TID #1 insuln.pen 03/27/20 Lisinopril 2.5 mg PO DAILY 05/11/20 Metformin HCl [Glucophage] 1,000 mg PO BID 05/11/20 Sertraline HCl [Zoloft] 50 mg PO DAILY 05/11/20 traZODone HCL [Trazodone HCl] 50 mg PO HS PRN 05/11/20 Family Medical History Other Family History: Mother: Alive:Healthy. Father: alive: Healthy. "a lot" of half siblings. 1 sister: healthy. Daughter: at childbirth Review of Systems - Review of Systems Constitutional: denies: Chills Cardiovascular: denies: Chest Pain Respiratory: denies: Cough, SOB Gastrointestinal: reports: Vomiting. denies: Abdominal Pain, Diarrhea, Dysphagia, Vomiting Blood Physical Exam-GI Vital Signs: Vital Signs Temperature 98.3 F 05/12/20 06:00 Pulse Rate 76 05/12/20 10:00 Respiratory Rate 15 05/12/20 10:00 Blood Pressure 199/88 H 05/12/20 10:00 O2 Sat by Pulse Oximetry (%) 100 05/12/20 10:00 Constitutional: Yes: Calm Eyes: No: Sclera Icterus HENT: Yes: Other (question of geographic tongue vs. pipo on tongue. tongue tender upon palpation with tongue depressor) Cardiovascular: Yes: Regular Rate and Rhythm. No: Murmur Respiratory: Yes: CTA Bilaterally Gastrointestinal Inspection: No: Distention, Scars ...Auscultate: Yes: Normoactive Bowel Sounds ...Palpate: Yes: Soft. No: Hepatomegaly, Splenomegaly, Tenderness ...Percussion: No: Tympanitic Edema: No (No LE edema) Neurological: Yes: Alert Labs: CBC, BMP 05/12/20 06:15 05/12/20 06:15 Hepatic Panel Total Bilirubin 0.7 mg/dL (0.2-1) 05/12/20 06:15 AST 32 U/L (15-37) 05/12/20 06:15 ALT 28 U/L (13-61) 05/12/20 06:15 Alkaline Phosphatase 62 U/L (45-117) 05/12/20 06:15 Albumin 3.5 g/dl (3.4-5.0) 05/12/20 06:15 Problem List - Problems (1) Nausea & vomiting Assessment/Plan: Suspect precipiated by uncontrolled diabetes. Suspect Advise: 1. Glycemic control 2. Nystatin swish and swallow 3. ENT evaluation if continued tongue and throat pain Recall as needed Code(s): R11.2 - NAUSEA WITH VOMITING, UNSPECIFIED
[2020-05-12 15:20] LABS: BLOOD UREA NITROGEN 11.3 mg/dL (7-18); CALCIUM 8.5 mg/dL (8.5-10.1); CREATININE 0.8 mg/dL (0.55-1.3); POTASSIUM 3.7 mmol/L (3.5-5.1)
[2020-05-12] MEDS ORDERED: INSULIN (NOVOLOG) ASPART 100 UNITS/ML 10ML VIAL SQ ONE (17:37)
[2020-05-12] MEDS ORDERED: INSULIN (LEVEMIR) 100 UNITS/ML UNITS SQ SCH (18:00)
--- NOTE | 2020-05-12 18:13 | PN ---
Physical Exam: SUBJECTIVE: Patient seen and examined. No overnight events. glucose at midnight was 59. 1/2 amp of glucose was given. OBJECTIVE: Vital Signs Period Temp Pulse Resp BP Sys/Jesus Pulse Ox Last 24 Hr 97.9 F-98.3 F 70-85 15-18 149-199/72-88 96-100 GENERAL: The patient is awake, alert, and fully oriented, in no acute distress. HEENT: Normal with no signs of trauma. No ptosis. MMM LUNGS: Breath sounds equal, clear to auscultation bilaterally, no wheezes, no crackles, no accessory muscle use. HEART: Regular rate and rhythm, S1, S2 without murmur, rub or gallop. ABDOMEN: Soft, nontender, nondistended, normoactive bowel sounds, no guarding, no rebound EXTREMITIES: 2+ pulses, warm, well-perfused, no edema. NEUROLOGICAL: Normal speech, gait not observed. PSYCH: Normal mood, normal affect. SKIN: Warm, dry, normal turgor, no rashes or lesions noted Laboratory Results - last 24 hr 05/11/20 05/11/20 05/11/20 18:02 18:10 18:10 WBC 19.1 H RBC 3.66 Hgb 11.6 Hct 34.9 D MCV 95.3 MCH 31.7 MCHC 33.2 RDW 13.1 Plt Count 209 D MPV 8.8 Absolute Neuts (auto) 15.9 H Neutrophils % 83.6 H Lymphocytes % 9.0 D Monocytes % 7.3 D Eosinophils % 0.0 D Basophils % 0.1 Nucleated RBC % 0 Sodium 140 Potassium 4.2 Chloride 114 H Carbon Dioxide 18 L Anion Gap 8 BUN 18.4 H Creatinine 1.1 Est GFR (CKD-EPI)AfAm 68.75 Est GFR (CKD-EPI)NonAf 59.32 POC Glucometer 162 Random Glucose 163 H Hemoglobin A1c % Calcium 7.8 L Total Bilirubin 0.4 AST 15 ALT 23 Alkaline Phosphatase 64 Total Protein 6.9 Albumin 3.8 Beta-Hydroxybutyrate 05/11/20 05/11/20 05/11/20 19:25 20:52 23:05 WBC RBC Hgb Hct MCV MCH MCHC RDW Plt Count MPV Absolute Neuts (auto) Neutrophils % Lymphocytes % Monocytes % Eosinophils % Basophils % Nucleated RBC % Sodium Potassium Chloride Carbon Dioxide Anion Gap BUN Creatinine Est GFR (CKD-EPI)AfAm Est GFR (CKD-EPI)NonAf POC Glucometer 167 130 69 Random Glucose Hemoglobin A1c % Calcium Total Bilirubin AST ALT Alkaline Phosphatase Total Protein Albumin Beta-Hydroxybutyrate 05/12/20 05/12/20 05/12/20 00:29 02:06 06:15 WBC 15.8 H RBC 3.97 Hgb 12.8 Hct 37.3 MCV 94.0 MCH 32.3 MCHC 34.3 RDW 12.8 Plt Count 198 MPV 9.2 Absolute Neuts (auto) 12.3 H Neutrophils % 77.9 Lymphocytes % 14.9 D Monocytes % 6.7 Eosinophils % 0.3 D Basophils % 0.2 Nucleated RBC % 0 Sodium Potassium Chloride Carbon Dioxide Anion Gap BUN Creatinine Est GFR (CKD-EPI)AfAm Est GFR (CKD-EPI)NonAf POC Glucometer 59 216 Random Glucose Hemoglobin A1c % Calcium Total Bilirubin AST ALT Alkaline Phosphatase Total Protein Albumin Beta-Hydroxybutyrate 05/12/20 05/12/20 05/12/20 06:15 06:15 06:40 WBC RBC Hgb Hct MCV MCH MCHC RDW Plt Count MPV Absolute Neuts (auto) Neutrophils % Lymphocytes % Monocytes % Eosinophils % Basophils % Nucleated RBC % Sodium 138 Potassium 4.0 Chloride 110 H Carbon Dioxide 15 L Anion Gap 13 BUN 12.6 Creatinine 0.7 Est GFR (CKD-EPI)AfAm 118.74 Est GFR (CKD-EPI)NonAf 102.45 POC Glucometer 98 Random Glucose 88 Hemoglobin A1c % 10.3 H Calcium 8.9 Total Bilirubin 0.7 AST 32 ALT 28 Alkaline Phosphatase 62 Total Protein 6.6 Albumin 3.5 Beta-Hydroxybutyrate 05/12/20 05/12/20 05/12/20 11:44 14:35 17:27 WBC RBC Hgb Hct MCV MCH MCHC RDW Plt Count MPV Absolute Neuts (auto) Neutrophils % Lymphocytes % Monocytes % Eosinophils % Basophils % Nucleated RBC % Sodium 133 L Potassium 3.7 Chloride 103 Carbon Dioxide 20 L Anion Gap 10 BUN 11.3 Creatinine 0.8 Est GFR (CKD-EPI)AfAm 101.04 Est GFR (CKD-EPI)NonAf 87.18 POC Glucometer 103 422 Random Glucose 354 H Hemoglobin A1c % Calcium 8.5 Total Bilirubin AST ALT Alkaline Phosphatase Total Protein Albumin Beta-Hydroxybutyrate 17.8 H Active Medications Generic Name Dose Route Start Last Admin Trade Name Freq PRN Reason Stop Dose Admin Benzocaine/Menthol 1 each 05/12/20 00:32 05/12/20 10:01 Cepacol Lozenge - MM 1 each PRN PRN Administration SORE THROAT Chlorhexidine Gluconate 1 applic 05/12/20 22:00 Hibiclens For Decolonization - TP HS [facility] Heparin Sodium (Porcine) 5,000 unit 05/12/20 10:00 05/12/20 09:44 Heparin - SQ 5,000 unit BID [facility] Administration Dextrose/Lactated Ringer's 1,000 mls @ 50 mls/hr 05/12/20 17:45 05/12/20 17:46 D5-Lr - IV 50 mls/hr ASDIR [facility] Administration Insulin Aspart 1 vial 05/12/20 07:00 05/12/20 17:51 Novolog Vial Sliding Scale - SQ Not Given ACHS [facility] Protocol Insulin Detemir 10 units 05/12/20 18:00 05/12/20 17:45 Levemir Vial SQ 10 units 1800 [facility] Administration Levetiracetam 750 mg 05/11/20 22:00 05/12/20 09:43 Keppra Xr - PO 750 mg BID [facility] Administration Levetiracetam 500 mg 05/11/20 22:00 05/12/20 09:43 Keppra Xr - PO 500 mg BID [facility] Administration Lisinopril 5 mg 05/12/20 12:04 Prinivil PO DAILY [facility] Mupirocin 1 applic 05/12/20 10:00 05/12/20 12:02 Bactroban 2% Ointment - TP Not Given BID [facility] Nystatin 500,000 units 05/12/20 18:00 Nystatin Oral Suspension - PO 05/15/20 17:59 Q6HPO [facility] Pantoprazole Sodium 40 mg 05/12/20 10:00 05/12/20 09:45 Protonix - PO 40 mg DAILY [facility] Administration Sertraline HCl 50 mg 05/12/20 10:00 05/12/20 09:45 Zoloft - PO 50 mg DAILY [facility] Administration Topiramate 100 mg 05/11/20 22:00 05/12/20 09:43 Topamax - PO 100 mg BID [facility] Administration Trazodone HCl 50 mg 05/11/20 16:59 Desyrel - PO HS PRN PAIN ASSESSMENT/PLAN: 49 YO F PMH HTN, asthma, epilepsy (keppra and topiramate), and IDDM was BIBA from home for N/V, abdominal pain, and progressive generalized weakness for one day. Glucose was foudn to be 685. Admitted to ICU for DKA management. Neuro #epilepsy (home rx: keppra and topiramate) -Topiramate 100 mg PO BID - Keppra 750 PO BID, 500 mg PO BID> Make 1250 mg dose -Pain: Trazodone 50 mg HS PRN #Cardio -EKG: NSR, biatrial enlargement, LVH, 92bpm, NE interval 148ms, QRS duration 82ms, QTC 460ms #HTN: lisinopril increased to 5 mg PO Daily #Pulm CXR: persistent blunting Right angle. Since 06/22/2019, there is no change of adverse nature. Slight blunting of right angle, sharp left emily, clear lungs, normal mediastinum ENDO #DKA Glucose 685 on admission, HbA1c 10.4, beta hydroxybuyrate 106.5, anion gap 24 UA: 3+ glucose, 4+ ketones ABG: pH 7.112, LOW HCO3 5.9, CO2 18.8///ELEVATED O2 133.9 Metabolic acidosis with respiratory compensation -s/p insulin drip. gap closed. On Levemir 10 units sq hs and ISS ACHS RENAL BUN/Cr 23.2/1.5 on admission SHRUTI likely 2/2 dehydration/hypovolemia Heme #leukocytosis improved to 15.8 Psych Sertraline 50 mg PO daily Utox: marijuana positive FEN D5 NS @125 ml/h DVT PPX heparin 5000 sq BID Visit type - Emergency Visit Emergency Visit: Yes ED Registration Date: 05/11/20 Care time: The patient presented to the Emergency Department on the above date and was hospitalized for further evaluation of their emergent condition. - New Patient This patient is new to me today: No - Critical Care Critical Care patient: No ATTENDING PHYSICIAN STATEMENT I saw and evaluated the patient. I reviewed the resident's note and discussed the case with the resident. I agree with the resident's findings and plan as documented. SUBJECTIVE: OBJECTIVE: ASSESSMENT AND PLAN:
--- NOTE | 2020-05-12 18:19 | HOSP ---
Subjective - Review of Symptoms Gastrointestinal: Yes: Nausea Physical Examination Vital Signs: Vital Signs Temperature 98.3 F 05/12/20 06:00 Pulse Rate 76 05/12/20 10:00 Respiratory Rate 15 05/12/20 10:00 Blood Pressure 199/88 H 05/12/20 10:00 O2 Sat by Pulse Oximetry (%) 100 05/12/20 10:00 Constitutional: Yes: No Distress HENT: Yes: Atraumatic, Normocephalic Cardiovascular: Yes: Regular Rate and Rhythm, S1, S2 Respiratory: Yes: Regular, CTA Bilaterally Gastrointestinal: Yes: WNL, Normal Bowel Sounds Labs: CBC, BMP 05/12/20 06:15 05/12/20 14:35 Hospitalist Encounter Assessment: 49 YO F PMH HTN, asthma, epilepsy (keppra and topiramate), and IDDM was BIBA from home for N/V, abdominal pain, and progressive generalized weakness for one day. Glucose was found to be 685, beta hydroxybuyrate 106.5, anion gap 24, and UA with 3+ glucose, 4+ ketones. ABG: pH 7.112, LOW HCO3 5.9, CO2 18.8///ELEVATED O2 133.9 shows Metabolic acidosis with respiratory compensation. Admitted to ICU for DKA management. Patient is now s/p insulin drip and gap is closed. SHe is currently on On Levemir 10 units sq hs and ISS ACHS Patient is stable for transfer to med surg. Visit type - Emergency Visit Emergency Visit: Yes ED Registration Date: 05/11/20 Care time: The patient presented to the Emergency Department on the above date and was hospitalized for further evaluation of their emergent condition. - New Patient This patient is new to me today: No - Critical Care Critical Care patient: No
[2020-05-12] MEDS: NYSTATIN 500,000 UNITS/5 ML SUSPENSION PO SCH ×2 (18:44→23:00)
[2020-05-12] MEDS: CHLORHEXIDINE GLUCONATE 4% CLEANSER FOR DECOLONIZATION TP SCH (21:22)
[2020-05-12] MEDS: traZODone HCL 50 MG TABLET (FP) PO PRN (21:24)
[2020-05-13] MEDS: INSULIN SLIDING SCALE (NOVOLOG) 1 VIAL SQ SCH ×3 (06:24→16:07)
[2020-05-13] MEDS: NYSTATIN 500,000 UNITS/5 ML SUSPENSION PO SCH ×3 (06:24→17:01)
[2020-05-13] MEDS: BENZOCAINE/MENTH/CETYLPYRD CL 1 EACH LOZENGE MM PRN (06:25)
[2020-05-13 08:01] LABS: BLOOD UREA NITROGEN 9.7 mg/dL (7-18); CALCIUM 8.8 mg/dL (8.5-10.1); CREATININE 0.6 mg/dL (0.55-1.3); POTASSIUM 3.8 mmol/L (3.5-5.1)
[2020-05-13] MEDS ORDERED: PT OWN MED DRAWER 7, Y5N ONE ×2 (09:07→21:13)
--- NOTE | 2020-05-13 09:19 | PN ---
Progress Note (short form) - Note Progress Note: Feels good No Nausea Fluctuating blood sugar Vital Signs Period Temp Pulse Resp BP Sys/Jesus Pulse Ox Last 24 Hr 98.2 F-98.7 F 67-81 14-20 154-199/67-88 100-100 PE: AOx3 Neck: Supple Lungs: CTA CVS: S1S2 Abd: Benign Ext:No edema Neuro: No focal deficit CMP Sodium 136 mmol/L (136-145) 05/13/20 06:20 Potassium 3.8 mmol/L (3.5-5.1) 05/13/20 06:20 Chloride 104 mmol/L (98-107) 05/13/20 06:20 Carbon Dioxide 24 mmol/L (21-32) 05/13/20 06:20 Anion Gap 8 MMOL/L (8-16) 05/13/20 06:20 BUN 9.7 mg/dL (7-18) 05/13/20 06:20 Creatinine 0.6 mg/dL (0.55-1.3) 05/13/20 06:20 Est GFR (CKD-EPI)AfAm 124.92 05/13/20 06:20 Est GFR (CKD-EPI)NonAf 107.78 05/13/20 06:20 POC Glucometer 127 UNITS (80-120) 05/13/20 07:01 Random Glucose 45 mg/dL (74-106) L* 05/13/20 06:20 Hemoglobin A1c % 10.3 % (4.2-6.3) H 05/12/20 06:15 Calcium 8.8 mg/dL (8.5-10.1) 05/13/20 06:20 Total Bilirubin 0.7 mg/dL (0.2-1) 05/12/20 06:15 AST 32 U/L (15-37) 05/12/20 06:15 ALT 28 U/L (13-61) 05/12/20 06:15 Alkaline Phosphatase 62 U/L (45-117) 05/12/20 06:15 Total Protein 6.6 g/dl (6.4-8.2) 05/12/20 06:15 Albumin 3.5 g/dl (3.4-5.0) 05/12/20 06:15 Beta-Hydroxybutyrate 17.8 mg/dL (0.2-2.8) H 05/12/20 14:35 Current Medications Generic Name Dose Route Start Last Admin Trade Name Freq PRN Reason Stop Dose Admin Benzocaine/Menthol 1 each 05/12/20 00:32 05/13/20 06:25 Cepacol Lozenge - MM 1 each PRN PRN Administration SORE THROAT Chlorhexidine Gluconate 1 applic 05/12/20 22:00 05/12/20 21:22 Hibiclens For Decolonization - TP 1 applic HS [facility] Administration Heparin Sodium (Porcine) 5,000 unit 05/12/20 10:00 05/12/20 21:24 Heparin - SQ 5,000 unit BID [facility] Administration Insulin Aspart 1 vial 05/12/20 07:00 05/13/20 06:24 Novolog Vial Sliding Scale - SQ Not Given ACHS [facility] Protocol Insulin Detemir 10 units 05/12/20 18:00 05/12/20 17:45 Levemir Vial SQ 10 units 1800 [facility] Administration Levetiracetam 750 mg 05/11/20 22:00 05/12/20 21:26 Keppra Xr - PO 750 mg BID [facility] Administration Levetiracetam 500 mg 05/11/20 22:00 05/12/20 21:26 Keppra Xr - PO 500 mg BID [facility] Administration Lisinopril 10 mg 05/13/20 10:00 Prinivil PO DAILY [facility] Mupirocin 1 applic 05/12/20 10:00 05/12/20 21:22 Bactroban 2% Ointment - TP Not Given BID [facility] Nystatin 500,000 units 05/12/20 18:00 05/13/20 06:24 Nystatin Oral Suspension - PO 05/15/20 17:59 500,000 units Q6HPO [facility] Administration Pantoprazole Sodium 40 mg 05/12/20 10:00 05/12/20 09:45 Protonix - PO 40 mg DAILY [facility] Administration Sertraline HCl 50 mg 05/12/20 10:00 05/12/20 09:45 Zoloft - PO 50 mg DAILY [facility] Administration Topiramate 100 mg 05/11/20 22:00 05/12/20 21:27 Topamax - PO 100 mg BID [facility] Administration Trazodone HCl 50 mg 05/11/20 16:59 05/12/20 21:24 Desyrel - PO 50 mg HS PRN Administration PAIN AP: TIDM DKA resolved Thyroid nodule HTN CO2 24, A Gap 8 Off Insulin drip Levemir 10 units daily Coverage Novolog Coverage Off D5 BGM QACHS IV hydration as necessary Electrolyte replacement as necessary
[2020-05-13] MEDS: HEPARIN NA (PORCINE) 5,000 UNITS/ML 1ML VIAL SQ SCH ×2 (09:40→21:56)
[2020-05-13] MEDS: levETIRAcetam XR 500 MG TAB PO SCH ×2 (09:41→21:56)
[2020-05-13] MEDS: levETIRAcetam XR 750 MG TAB PO SCH ×2 (09:41→21:56)
[2020-05-13] MEDS: PANTOPRAZOLE 40 MG TABLET PO SCH (09:42)
[2020-05-13] MEDS: SERTRALINE HCL 50 MG TABLET (FP) PO SCH (09:42)
[2020-05-13] MEDS: TOPIRAMATE 100 MG TABLET PO SCH ×2 (09:42→22:00)
[2020-05-13] MEDS ORDERED: LISINOPRIL 10 MG TABLET PO SCH (10:00)
--- NOTE | 2020-05-13 13:54 | PN ---
Progress Note (short form) - Note Progress Note: Feels overall better. Had an episode of hypoglycemia overnight. No CP or SOB. Intake & Output 05/10/20 05/11/20 05/12/20 05/13/20 23:59 23:59 23:59 23:59 Intake Total 3071 1250 300 Output Total 1000 Balance 2071 1250 300 Weight 113 lb 12.136 oz Last Vital Signs Temp Pulse Resp BP Pulse Ox 98.8 F 69 18 177/90 H 100 05/13/20 10:00 05/13/20 12:00 05/13/20 12:00 05/13/20 12:00 05/13/20 10:00 Active Medications Benzocaine/Menthol (Cepacol Lozenge -) 1 each MM PRN PRN PRN Reason: SORE THROAT Last Admin: 05/13/20 06:25 Dose: 1 each Documented by: Chlorhexidine Gluconate (Hibiclens For Decolonization -) 1 applic TP HS [facility] Last Admin: 05/12/20 21:22 Dose: 1 applic Documented by: Heparin Sodium (Porcine) (Heparin -) 5,000 unit SQ BID [facility] Last Admin: 05/13/20 09:40 Dose: 5,000 unit Documented by: Insulin Aspart (Novolog Vial Sliding Scale -) 1 vial SQ TIDAC [facility]; Protocol Last Admin: 05/13/20 11:05 Dose: 12 units Documented by: Insulin Aspart (Novolog Vial Sliding Scale -) 1 vial SQ HS [facility]; Protocol Insulin Detemir (Levemir Vial) 10 units SQ 1800 [facility] Last Admin: 05/12/20 17:45 Dose: 10 units Documented by: Levetiracetam (Keppra Xr -) 750 mg PO BID [facility] Last Admin: 05/13/20 09:41 Dose: 750 mg Documented by: Levetiracetam (Keppra Xr -) 500 mg PO BID [facility] Last Admin: 05/13/20 09:41 Dose: 500 mg Documented by: Lisinopril (Prinivil) 10 mg PO DAILY [facility] Last Admin: 05/13/20 09:42 Dose: 10 mg Documented by: Mupirocin (Bactroban 2% Ointment -) 1 applic TP BID [facility] Last Admin: 05/12/20 21:22 Dose: Not Given Documented by: Nystatin (Nystatin Oral Suspension -) 500,000 units PO Q6HPO [facility] Stop: 05/15/20 17:59 Last Admin: 05/13/20 11:13 Dose: 500,000 units Documented by: Pantoprazole Sodium (Protonix -) 40 mg PO DAILY [facility] Last Admin: 05/13/20 09:42 Dose: 40 mg Documented by: Sertraline HCl (Zoloft -) 50 mg PO DAILY [facility] Last Admin: 05/13/20 09:42 Dose: 50 mg Documented by: Topiramate (Topamax -) 100 mg PO BID [facility] Last Admin: 05/13/20 09:42 Dose: 100 mg Documented by: Trazodone HCl (Desyrel -) 50 mg PO HS PRN PRN Reason: PAIN Last Admin: 05/12/20 21:24 Dose: 50 mg Documented by: Constitutional: Yes: Thin, No Distress, Calm Eyes: Yes: WNL, Conjunctiva Clear, EOM Intact HENT: Yes: WNL, Atraumatic, Normocephalic Neck: Yes: WNL, Supple, Trachea Midline Cardiovascular: Yes: WNL, Regular Rate and Rhythm, S1, S2 Respiratory: Yes: WNL, Regular, CTA Bilaterally Gastrointestinal: Yes: WNL, Normal Bowel Sounds, Soft ...Rectal Exam: Yes: Deferred Renal/: Yes: WNL Breast(s): Yes: WNL Musculoskeletal: Yes: WNL Extremities: Yes: WNL Edema: No Peripheral Pulses WNL: Yes Integumentary: Yes: WNL Neurological: Yes: WNL, Alert, Oriented, Non-focal ...Motor Strength: WNL Psychiatric: Yes: WNL, Oriented Labs: Laboratory Results - last 24 hr 05/11/20 05/11/20 05/12/20 09:15 11:00 14:35 Sodium 133 L Potassium 3.7 Chloride 103 Carbon Dioxide 20 L Anion Gap 10 BUN 11.3 Creatinine 0.8 Est GFR (CKD-EPI)AfAm 101.04 Est GFR (CKD-EPI)NonAf 87.18 POC Glucometer Random Glucose 354 H Calcium 8.5 Beta-Hydroxybutyrate 17.8 H Topiramate 3.8 COVID-19 ([facility]) Not detected 05/12/20 05/12/20 05/12/20 17:27 19:36 21:34 Sodium Potassium Chloride Carbon Dioxide Anion Gap BUN Creatinine Est GFR (CKD-EPI)AfAm Est GFR (CKD-EPI)NonAf POC Glucometer 422 305 290 Random Glucose Calcium Beta-Hydroxybutyrate Topiramate COVID-19 ([facility]) 05/13/20 05/13/20 05/13/20 06:20 06:20 07:01 Sodium 136 Potassium 3.8 Chloride 104 Carbon Dioxide 24 Anion Gap 8 BUN 9.7 Creatinine 0.6 Est GFR (CKD-EPI)AfAm 124.92 Est GFR (CKD-EPI)NonAf 107.78 POC Glucometer 50 127 Random Glucose 45 L* Calcium 8.8 Beta-Hydroxybutyrate Topiramate COVID-19 ([facility]) 05/13/20 05/13/20 11:02 12:34 Sodium Potassium Chloride Carbon Dioxide Anion Gap BUN Creatinine Est GFR (CKD-EPI)AfAm Est GFR (CKD-EPI)NonAf POC Glucometer 433 274 Random Glucose Calcium Beta-Hydroxybutyrate Topiramate COVID-19 ([facility]) Problem List - Problems (1) DKA, type 1 Code(s): E10.10 - TYPE 1 DIABETES MELLITUS WITH KETOACIDOSIS WITHOUT COMA Qualifiers: Diabetes mellitus complication detail: without coma Qualified Code(s): E10.10 - Type 1 diabetes mellitus with ketoacidosis without coma (2) Elevated WBC count Code(s): D72.829 - ELEVATED WHITE BLOOD CELL COUNT, UNSPECIFIED (3) HTN (hypertension) Code(s): I10 - ESSENTIAL (PRIMARY) HYPERTENSION (4) Seizure disorder Code(s): G40.909 - EPILEPSY, UNSP, NOT INTRACTABLE, WITHOUT STATUS EPILEPTICUS Assessment/Plan Resolving DKA SHRUTI Seizure DO HTN Asthma Uncontrolled IDDM -SQ insulin and sliding scale per Endocrine -PO As tolerated -Heparin SQ for DVT ppx -Home dose Keppra -Lisinopril -Floor versus DC planning Dr Zuniga
--- NOTE | 2020-05-13 14:44 | PN ---
Progress Note, Physician History of Present Illness: 49 yo female admitted to ICU for DKA. Pt resting comfortable. Complains of headache. Hypoglycemia (60) over night, given insure. - Current Medication List Current Medications: Active Medications Benzocaine/Menthol (Cepacol Lozenge -) 1 each MM PRN PRN PRN Reason: SORE THROAT Last Admin: 05/13/20 06:25 Dose: 1 each Documented by: Chlorhexidine Gluconate (Hibiclens For Decolonization -) 1 applic TP HS [facility] Last Admin: 05/12/20 21:22 Dose: 1 applic Documented by: Heparin Sodium (Porcine) (Heparin -) 5,000 unit SQ BID [facility] Last Admin: 05/13/20 09:40 Dose: 5,000 unit Documented by: Insulin Aspart (Novolog Vial Sliding Scale -) 1 vial SQ TIDAC [facility]; Protocol Last Admin: 05/13/20 11:05 Dose: 12 units Documented by: Insulin Aspart (Novolog Vial Sliding Scale -) 1 vial SQ HS [facility]; Protocol Insulin Detemir (Levemir Vial) 10 units SQ 1800 [facility] Last Admin: 05/12/20 17:45 Dose: 10 units Documented by: Levetiracetam (Keppra Xr -) 750 mg PO BID [facility] Last Admin: 05/13/20 09:41 Dose: 750 mg Documented by: Levetiracetam (Keppra Xr -) 500 mg PO BID [facility] Last Admin: 05/13/20 09:41 Dose: 500 mg Documented by: Lisinopril (Prinivil) 10 mg PO DAILY [facility] Last Admin: 05/13/20 09:42 Dose: 10 mg Documented by: Mupirocin (Bactroban 2% Ointment -) 1 applic TP BID [facility] Last Admin: 05/12/20 21:22 Dose: Not Given Documented by: Nystatin (Nystatin Oral Suspension -) 500,000 units PO Q6HPO [facility] Stop: 05/15/20 17:59 Last Admin: 05/13/20 11:13 Dose: 500,000 units Documented by: Pantoprazole Sodium (Protonix -) 40 mg PO DAILY [facility] Last Admin: 05/13/20 09:42 Dose: 40 mg Documented by: Sertraline HCl (Zoloft -) 50 mg PO DAILY [facility] Last Admin: 05/13/20 09:42 Dose: 50 mg Documented by: Topiramate (Topamax -) 100 mg PO BID [facility] Last Admin: 05/13/20 09:42 Dose: 100 mg Documented by: Trazodone HCl (Desyrel -) 50 mg PO HS PRN PRN Reason: PAIN Last Admin: 05/12/20 21:24 Dose: 50 mg Documented by: - Objective Vital Signs: Vital Signs Temperature 98.8 F 05/13/20 14:00 Pulse Rate 84 05/13/20 14:00 Respiratory Rate 15 05/13/20 14:00 Blood Pressure 174/78 H 05/13/20 14:00 O2 Sat by Pulse Oximetry (%) 98 05/13/20 14:00 Constitutional: Yes: Well Nourished, No Distress Eyes: Yes: Conjunctiva Clear, EOM Intact HENT: Yes: Atraumatic, Normocephalic Cardiovascular: Yes: Regular Rate and Rhythm, S1. No: Bradycardia, Gallop, Murmur Respiratory: Yes: Regular, CTA Bilaterally Gastrointestinal: Yes: Normal Bowel Sounds, Soft. No: Tenderness Musculoskeletal: No: Back Pain, Joint Stiffness, Muscle Pain Labs: CBC, BMP 05/12/20 06:15 05/13/20 06:20 Problem List - Problems (1) Diabetes Code(s): E11.9 - TYPE 2 DIABETES MELLITUS WITHOUT COMPLICATIONS Impression/Plan Impression/Plan: 49 YO F PMH HTN, asthma, epilepsy (keppra and topiramate), and IDDM was BIBA from home for N/V, abdominal pain, and progressive generalized weakness for one day. Glucose was foudn to be 685. Admitted to ICU for DKA management. DKA resolved. Pt stable Neuro #epilepsy (home rx: keppra and topiramate) -Topiramate 100 mg PO BID - Keppra 750 PO BID, 500 mg PO BID> Make 1250 mg dose -Pain: Trazodone 50 mg HS PRN #Cardio -EKG: NSR, biatrial enlargement, LVH, 92bpm, CA interval 148ms, QRS duration 82ms, QTC 460ms #HTN: lisinopril increased to 5 mg PO Daily #Pulm CXR: persistent blunting Right angle. Since 06/22/2019, there is no change of adverse nature. Slight blunting of right angle, sharp left emily, clear lungs, normal mediastinum ENDO #DKA - Resolved #Diabetes - Lantis 10, qHS - Novolog sliding scale #Hypoglycemia - Hypoglycemic overnight, given insure, resolved RENAL SHRUTI Resolved Psych Sertraline 50 mg PO daily Utox: marijuana positive DVT PPX heparin 5000 sq BID Dispo: Pt pending floor vs discharge Visit type - Emergency Visit Emergency Visit: Yes ED Registration Date: 05/11/20 Care time: The patient presented to the Emergency Department on the above date and was hospitalized for further evaluation of their emergent condition. - New Patient This patient is new to me today: No - Critical Care Critical Care patient: No ATTENDING PHYSICIAN STATEMENT I saw and evaluated the patient. I reviewed the resident's note and discussed the case with the resident. I agree with the resident's findings and plan as documented. SUBJECTIVE: OBJECTIVE: ASSESSMENT AND PLAN:
[2020-05-13 14:56] VITALS: BMI 17.6
[2020-05-13] MEDS ORDERED: ACETAMINOPHEN 500 MG TABLET (FP) PO PRN (15:23)
[2020-05-13] MEDS ORDERED: LISINOPRIL 10 MG TABLET PO ONE (15:45)
--- NOTE | 2020-05-13 15:59 | PN ---
Progress Note, Physician Chief Complaint: N/V DKA History of Present Illness: This is a 49 y/o female with h/o seizures, HTN, asthma, and T1DDM s/P DKA in the past, thyroid nodules was BIBA from home due to nausea/vomiting, abdominal pain, and progressive generalized weakness starting Tuesday after she ate hot dog. She had 5-6 episodes of vomiting. She has not been able to eat or take any of her home medications since last night. In ED labs were noted for elevated AGAP of 24 and beta -hydro of 106.5. Patient was admitted to ICU for further care of DKA including insulin drip + IVF. Insulin drip has been stopped now. Pt feels much better. As per patient her blood sugar at home on Tuesday morning was 191 and the last dose of Basaglar 10 units she took at 10 PM on Tuesday night. Says she has been taking her Insulin regularly. 05/12/20- AG at 13 from 8; K 4.2 hemolyzed Started on IVF-D5 @ 50 cc/hr Wants to eat Denies any N/V Seen by Endocrinology this AM. 05/13/20: NAD denies any N/V/abd pain Hypoglycemia overnight, BGM elevated this afternoon because pt had Ensure overnight for hypoglycemia On Levemir 10 U 1800 BP still elevated despite lisinopril 10 mg this AM - Current Medication List Current Medications: Active Medications Benzocaine/Menthol (Cepacol Lozenge -) 1 each MM PRN PRN PRN Reason: SORE THROAT Last Admin: 05/13/20 06:25 Dose: 1 each Documented by: Chlorhexidine Gluconate (Hibiclens For Decolonization -) 1 applic TP HS [facility] Last Admin: 05/12/20 21:22 Dose: 1 applic Documented by: Heparin Sodium (Porcine) (Heparin -) 5,000 unit SQ BID [facility] Last Admin: 05/13/20 09:40 Dose: 5,000 unit Documented by: Insulin Aspart (Novolog Vial Sliding Scale -) 1 vial SQ TIDAC [facility]; Protocol Last Admin: 05/13/20 11:05 Dose: 12 units Documented by: Insulin Aspart (Novolog Vial Sliding Scale -) 1 vial SQ HS [facility]; Protocol Insulin Detemir (Levemir Vial) 10 units SQ DAILY [facility] Levetiracetam (Keppra Xr -) 750 mg PO BID [facility] Last Admin: 05/13/20 09:41 Dose: 750 mg Documented by: Levetiracetam (Keppra Xr -) 500 mg PO BID [facility] Last Admin: 05/13/20 09:41 Dose: 500 mg Documented by: Lisinopril (Prinivil) 10 mg PO ONCE ONE Stop: 05/13/20 15:21 Lisinopril (Prinivil) 20 mg PO DAILY [facility] Mupirocin (Bactroban 2% Ointment -) 1 applic TP BID [facility] Last Admin: 05/12/20 21:22 Dose: Not Given Documented by: Nystatin (Nystatin Oral Suspension -) 500,000 units PO Q6HPO [facility] Stop: 05/15/20 17:59 Last Admin: 05/13/20 11:13 Dose: 500,000 units Documented by: Pantoprazole Sodium (Protonix -) 40 mg PO DAILY [facility] Last Admin: 05/13/20 09:42 Dose: 40 mg Documented by: Sertraline HCl (Zoloft -) 50 mg PO DAILY [facility] Last Admin: 05/13/20 09:42 Dose: 50 mg Documented by: Topiramate (Topamax -) 100 mg PO BID [facility] Last Admin: 05/13/20 09:42 Dose: 100 mg Documented by: Trazodone HCl (Desyrel -) 50 mg PO HS PRN PRN Reason: PAIN Last Admin: 05/12/20 21:24 Dose: 50 mg Documented by: - Objective Vital Signs: Vital Signs Temperature 98.8 F 05/13/20 14:00 Pulse Rate 84 05/13/20 14:00 Respiratory Rate 15 05/13/20 14:00 Blood Pressure 174/78 H 05/13/20 14:00 O2 Sat by Pulse Oximetry (%) 98 05/13/20 14:00 Constitutional: Yes: No Distress, Calm, Cachectic Cardiovascular: Yes: Regular Rate and Rhythm Respiratory: Yes: Regular, CTA Bilaterally Gastrointestinal: Yes: Normal Bowel Sounds, Soft Genitourinary: Yes: WNL Musculoskeletal: Yes: WNL Extremities: Yes: WNL Edema: No Peripheral Pulses WNL: Yes Neurological: Yes: Alert, Oriented Psychiatric: Yes: Alert, Oriented Labs: CBC, BMP 05/12/20 06:15 05/13/20 06:20 Problem List - Problems (1) DKA, type 1 Assessment/Plan: -Endocrine consult -Labs this AM unremarkable -AG closed -Tolerating diet -Beta hydroxybutyrate trended down -Is compliant with medications outpatient as per pt -Change Levemir to 10 U QAM -ISS -A1c 10.3 Problems reviewed: Yes Code(s): E10.10 - TYPE 1 DIABETES MELLITUS WITH KETOACIDOSIS WITHOUT COMA Qualifiers: Diabetes mellitus complication detail: without coma Qualified Code(s): E10.10 - Type 1 diabetes mellitus with ketoacidosis without coma (2) HTN (hypertension) Assessment/Plan: -Increase lisinopril to 20 mg po daily -Low sodium diabetic diet Problems reviewed: Yes Code(s): I10 - ESSENTIAL (PRIMARY) HYPERTENSION (3) Nausea & vomiting Assessment/Plan: -resolved -Also noted Marijuana use, uses daily as per pt. Problems reviewed: Yes Code(s): R11.2 - NAUSEA WITH VOMITING, UNSPECIFIED Assessment/Plan See problem list
[2020-05-13] MEDS: MUPIROCIN 2% TOPICAL OINTMENT 22 GM TUBE TP SCH (21:56)
[2020-05-13] MEDS: CHLORHEXIDINE GLUCONATE 4% CLEANSER FOR DECOLONIZATION TP SCH (21:56)
[2020-05-13] MEDS ORDERED: INSULIN SLIDING SCALE (NOVOLOG) 1 VIAL SQ SCH (22:00)
[2020-05-13] MEDS: traZODone HCL 50 MG TABLET (FP) PO PRN (22:00)
[2020-05-13] MEDS: POLYETHYLENE GLYCOL 3350 119 GM BTL PO SCH (22:28)
[2020-05-14] MEDS: NYSTATIN 500,000 UNITS/5 ML SUSPENSION PO SCH ×3 (00:30→13:21)
[2020-05-14 06:40] LABS: HEMOGLOBIN 14.4 GM/dL (10.7-15.3); MCH 32.4 pg (25.7-33.7); MCHC 34.3 g/dl (32.0-36.0); MEAN CELL VOLUME 94.2 fl (80-96); RBC 4.46 M/mm3 (3.60-5.2); RDW 13.1 % (11.6-15.6); WHITE BLOOD COUNT 5.2 K/mm3 (4.0-10.0)
[2020-05-14] MEDS: INSULIN SLIDING SCALE (NOVOLOG) 1 VIAL SQ SCH ×2 (06:48→11:21)
[2020-05-14 07:03] LABS: BLOOD UREA NITROGEN 12.6 mg/dL (7-18); CALCIUM 8.8 mg/dL (8.5-10.1); CREATININE 0.7 mg/dL (0.55-1.3); MAGNESIUM 1.8 mg/dL (1.8-2.4); PHOSPHOROUS 2.7 mg/dL (2.5-4.9); POTASSIUM 4.2 mmol/L (3.5-5.1)
--- NOTE | 2020-05-14 09:01 | PN ---
Progress Note (short form) - Note Progress Note: Feels good Blood sugar high in the morning Had apple juice and glucerna at 5 AM Vital Signs Period Temp Pulse Resp BP Sys/Jesus Pulse Ox Last 24 Hr 98.2 F-98.8 F 64-84 12-22 124-184/72-92 98-100 PE: AOx3 Neck: Supple Lungs: CTA CVS: S1S2 Abd: Benign Ext:No edema Neuro: No focal deficit CMP Sodium 132 mmol/L (136-145) L 05/14/20 05:50 Potassium 4.2 mmol/L (3.5-5.1) 05/14/20 05:50 Chloride 100 mmol/L (98-107) 05/14/20 05:50 Carbon Dioxide 20 mmol/L (21-32) L 05/14/20 05:50 Anion Gap 11 MMOL/L (8-16) 05/14/20 05:50 BUN 12.6 mg/dL (7-18) 05/14/20 05:50 Creatinine 0.7 mg/dL (0.55-1.3) 05/14/20 05:50 Est GFR (CKD-EPI)AfAm 118.74 05/14/20 05:50 Est GFR (CKD-EPI)NonAf 102.45 05/14/20 05:50 POC Glucometer 396 UNITS (80-120) 05/14/20 08:41 Random Glucose 432 mg/dL (74-106) H* 05/14/20 05:50 Hemoglobin A1c % 10.3 % (4.2-6.3) H 05/12/20 06:15 Calcium 8.8 mg/dL (8.5-10.1) 05/14/20 05:50 Phosphorus 2.7 mg/dL (2.5-4.9) 05/14/20 05:50 Magnesium 1.8 mg/dL (1.8-2.4) 05/14/20 05:50 Total Bilirubin 0.7 mg/dL (0.2-1) 05/12/20 06:15 AST 32 U/L (15-37) 05/12/20 06:15 ALT 28 U/L (13-61) 05/12/20 06:15 Alkaline Phosphatase 62 U/L (45-117) 05/12/20 06:15 Total Protein 6.6 g/dl (6.4-8.2) 05/12/20 06:15 Albumin 3.5 g/dl (3.4-5.0) 05/12/20 06:15 Beta-Hydroxybutyrate 17.8 mg/dL (0.2-2.8) H 05/12/20 14:35 Current Medications Generic Name Dose Route Start Last Admin Trade Name Freq PRN Reason Stop Dose Admin Acetaminophen 1,000 mg 05/13/20 15:23 05/13/20 22:01 Tylenol - PO 1,000 mg Q6H PRN Administration PAIN Benzocaine/Menthol 1 each 05/12/20 00:32 05/13/20 06:25 Cepacol Lozenge - MM 1 each PRN PRN Administration SORE THROAT Chlorhexidine Gluconate 1 applic 05/12/20 22:00 05/13/20 21:56 Hibiclens For Decolonization - TP 1 applic HS [facility] Administration Heparin Sodium (Porcine) 5,000 unit 05/12/20 10:00 05/13/20 21:56 Heparin - SQ 5,000 unit BID [facility] Administration Insulin Aspart 1 vial 05/13/20 11:00 05/14/20 06:48 Novolog Vial Sliding Scale - SQ 12 units TIDAC [facility] Administration Protocol Insulin Aspart 1 vial 05/13/20 22:00 05/13/20 22:28 Novolog Vial Sliding Scale - SQ 4 units HS [facility] Administration Protocol Insulin Detemir 10 units 05/14/20 10:00 Levemir Vial SQ DAILY [facility] Levetiracetam 750 mg 05/11/20 22:00 05/13/20 21:56 Keppra Xr - PO 750 mg BID [facility] Administration Levetiracetam 500 mg 05/11/20 22:00 05/13/20 21:56 Keppra Xr - PO 500 mg BID [facility] Administration Lisinopril 20 mg 05/14/20 10:00 Prinivil PO DAILY [facility] Mupirocin 1 applic 05/12/20 10:00 05/13/20 21:56 Bactroban 2% Ointment - TP Not Given BID [facility] Nystatin 500,000 units 05/12/20 18:00 05/14/20 05:38 Nystatin Oral Suspension - PO 05/15/20 17:59 500,000 units Q6HPO [facility] Administration Pantoprazole Sodium 40 mg 05/12/20 10:00 05/13/20 09:42 Protonix - PO 40 mg DAILY [facility] Administration Polyethylene Glycol 17 gm 05/13/20 19:15 05/13/20 22:28 Miralax (For Daily Use) - PO 17 gm DAILY [facility] Administration Sertraline HCl 50 mg 05/12/20 10:00 05/13/20 09:42 Zoloft - PO 50 mg DAILY [facility] Administration Topiramate 100 mg 05/11/20 22:00 05/13/20 22:00 Topamax - PO 100 mg BID [facility] Administration Trazodone HCl 50 mg 05/11/20 16:59 05/13/20 22:00 Desyrel - PO 50 mg HS PRN Administration PAIN AP: TIDM DKA resolved Thyroid nodule HTN: Uncontrolled. Diet discussed. No juice, regular sodas or other sugary drinks unless blood sugar is low. Off Insulin drip Levemir 10 units daily Novolog Coverage TID with meals Off D5 BGM QACHS IV hydration as necessary Electrolyte replacement as necessary
[2020-05-14] MEDS: HEPARIN NA (PORCINE) 5,000 UNITS/ML 1ML VIAL SQ SCH (09:20)
[2020-05-14 09:26] LABS: MEAN PLT VOLUME 9.3 fl (7.5-11.1); PLATELET COUNT 187 K/MM3 (134-434)
[2020-05-14] MEDS: PANTOPRAZOLE 40 MG TABLET PO SCH (09:26)
[2020-05-14] MEDS: TOPIRAMATE 100 MG TABLET PO SCH (09:27)
[2020-05-14] MEDS: SERTRALINE HCL 50 MG TABLET (FP) PO SCH (09:27)
[2020-05-14] MEDS: levETIRAcetam XR 500 MG TAB PO SCH (09:32)
[2020-05-14] MEDS: levETIRAcetam XR 750 MG TAB PO SCH (09:32)
[2020-05-14] MEDS ORDERED: LISINOPRIL 20 MG TABLET PO SCH (10:00)
[2020-05-14] MEDS ORDERED: INSULIN (LEVEMIR) 100 UNITS/ML UNITS SQ SCH (10:00)
[2020-05-14] MEDS: POLYETHYLENE GLYCOL 3350 119 GM BTL PO SCH (10:08)
[2020-05-14] MEDS: MUPIROCIN 2% TOPICAL OINTMENT 22 GM TUBE TP SCH ×2 (11:00→11:05)
--- NOTE | 2020-05-14 11:03 | PN ---
Progress Note, Physician Chief Complaint: N/V DKA History of Present Illness: This is a 49 y/o female with h/o seizures, HTN, asthma, and T2DDM s/P DKA in the past diagnosed 4 years ago, thyroid nodules was BIBA from home due to nausea/vomiting, abdominal pain, and progressive generalized weakness starting Tuesday after she ate hot dog. She had 5-6 episodes of vomiting. She has not been able to eat or take any of her home medications since last night. In ED labs were noted for elevated AGAP of 24 and beta -hydro of 106.5. Patient was admitted to ICU for further care of DKA including insulin drip + IVF. Insulin drip has been stopped now. Pt feels much better. As per patient her blood sugar at home on Tuesday morning was 191 and the last dose of Basaglar 10 units she took at 10 PM on Tuesday night. Says she has been taking her Insulin regularly. 05/12/20- AG at 13 from 8; K 4.2 hemolyzed Started on IVF-D5 @ 50 cc/hr Wants to eat Denies any N/V Seen by Endocrinology this AM. 05/13/20: NAD denies any N/V/abd pain Hypoglycemia overnight, BGM elevated this afternoon because pt had Ensure overnight for hypoglycemia On Levemir 10 U 1800 BP still elevated despite lisinopril 10 mg this AM 05/14/20: BGMS elevated early this AM, had apple juice and glucerna - Current Medication List Current Medications: Active Medications Acetaminophen (Tylenol -) 1,000 mg PO Q6H PRN PRN Reason: PAIN Last Admin: 05/13/20 22:01 Dose: 1,000 mg Documented by: Benzocaine/Menthol (Cepacol Lozenge -) 1 each MM PRN PRN PRN Reason: SORE THROAT Last Admin: 05/13/20 06:25 Dose: 1 each Documented by: Chlorhexidine Gluconate (Hibiclens For Decolonization -) 1 applic TP HS [facility] Last Admin: 05/13/20 21:56 Dose: 1 applic Documented by: Heparin Sodium (Porcine) (Heparin -) 5,000 unit SQ BID LYNDSEY Last Admin: 05/14/20 09:20 Dose: 5,000 unit Documented by: Insulin Aspart (Novolog Vial Sliding Scale -) 1 vial SQ TIDAC [facility]; Protocol Last Admin: 05/14/20 06:48 Dose: 12 units Documented by: Insulin Aspart (Novolog Vial Sliding Scale -) 1 vial SQ HS [facility]; Protocol Last Admin: 05/13/20 22:28 Dose: 4 units Documented by: Insulin Detemir (Levemir Vial) 10 units SQ DAILY [facility] Last Admin: 05/14/20 09:10 Dose: 10 unit Documented by: Levetiracetam (Keppra Xr -) 750 mg PO BID [facility] Last Admin: 05/14/20 09:32 Dose: 750 mg Documented by: Levetiracetam (Keppra Xr -) 500 mg PO BID [facility] Last Admin: 05/14/20 09:32 Dose: 500 mg Documented by: Lisinopril (Prinivil) 20 mg PO DAILY [facility] Last Admin: 05/14/20 09:26 Dose: 20 mg Documented by: Mupirocin (Bactroban 2% Ointment -) 1 applic TP BID [facility] Last Admin: 05/13/20 21:56 Dose: Not Given Documented by: Nystatin (Nystatin Oral Suspension -) 500,000 units PO Q6HPO [facility] Stop: 05/15/20 17:59 Last Admin: 05/14/20 05:38 Dose: 500,000 units Documented by: Pantoprazole Sodium (Protonix -) 40 mg PO DAILY [facility] Last Admin: 05/14/20 09:26 Dose: 40 mg Documented by: Polyethylene Glycol (Miralax (For Daily Use) -) 17 gm PO DAILY [facility] Last Admin: 05/14/20 10:08 Dose: 17 gm Documented by: Sertraline HCl (Zoloft -) 50 mg PO DAILY [facility] Last Admin: 05/14/20 09:27 Dose: 50 mg Documented by: Topiramate (Topamax -) 100 mg PO BID [facility] Last Admin: 05/14/20 09:27 Dose: 100 mg Documented by: Trazodone HCl (Desyrel -) 50 mg PO HS PRN PRN Reason: PAIN Last Admin: 05/13/20 22:00 Dose: 50 mg Documented by: - Objective Vital Signs: Vital Signs Temperature 98.5 F 05/14/20 02:26 Pulse Rate 77 05/14/20 02:26 Respiratory Rate 12 05/14/20 02:26 Blood Pressure 124/72 05/14/20 02:26 O2 Sat by Pulse Oximetry (%) 100 05/14/20 08:31 Labs: CBC, BMP 05/14/20 05:50 05/14/20 05:50 Problem List - Problems (1) HTN (hypertension) Assessment/Plan: -Increase lisinopril to 20 mg po daily -Low sodium diabetic diet Problems reviewed: Yes Code(s): I10 - ESSENTIAL (PRIMARY) HYPERTENSION (2) Nausea & vomiting Assessment/Plan: -resolved -Also noted Marijuana use, uses daily as per pt. Problems reviewed: Yes Code(s): R11.2 - NAUSEA WITH VOMITING, UNSPECIFIED
[2020-05-14] MEDS ORDERED: LISINOPRIL 20 MG TABLET PO ONE (12:38)
[2020-05-14 13:47] VITALS: TEMP 98.4
[2020-05-14 15:46] VITALS: BP 173/87; PULSE 96
[2020-05-14] MEDS ORDERED: PT OWN MED DRAWER 7, Y5N ONE (18:47)
== END 2020-05-14 17:10 | disposition home or self-care (01) | DRG 420 ==
LOC: JER 07:32 → JERBED 10:49 → JICU 12:00
PROVIDERS: ADMIT Internal Medicine Pulmonary Disease; ATTEND Internal Medicine Pulmonary Disease
DX: E10.10 Type 1 diabetes mellitus with ketoacidosis without coma (principal); J45.909 Unspecified asthma, uncomplicated; I10 Essential (primary) hypertension; D72.829 Elevated white blood cell count, unspecified; E86.0 Dehydration; F12.90 Cannabis use, unspecified, uncomplicated; N17.9 Acute kidney failure, unspecified; R11.2 Nausea with vomiting, unspecified; G40.909 Epilepsy, unspecified, not intractable, without status epilepticus; E04.1 Nontoxic single thyroid nodule; E10.65 Type 1 diabetes mellitus with hyperglycemia; E86.1 Hypovolemia
CPT/HCPCS: 36415; 36600; 71045-TC-FY; 80048; 80053; 80177; 80201; 80307; 81003; 82010; 82803; 82962; 83036; 83735; 84100; 84703; 85025; 85027; 87086; 93005; 93010; 99285-25; J1644; U0003

== ENCOUNTER 2020-06-29 12:00 | Inpatient (IN) | payer OTHER ==
[2020-06-29 13:17] LABS: BASO % 0.9 % (0-2.0); EOS % 0.1 % (0-4.5); HEMATOCRIT 41.7 % (32.4-45.2); HEMOGLOBIN 13.1 GM/dL (10.7-15.3); LYMPH % 4.9 % (8-40); MCH 31.2 pg (25.7-33.7); MCHC 31.4 g/dl (32.0-36.0); MEAN CELL VOLUME 99.2 fl (80-96); MEAN PLT VOLUME 10.1 fl (7.5-11.1); MONO % 3.4 % (3.8-10.2); NEUT % 90.7 % (42.8-82.8); PLATELET COUNT 288 K/MM3 (134-434); RBC 4.21 M/mm3 (3.60-5.2); RDW 13.9 % (11.6-15.6); WHITE BLOOD COUNT 11.3 K/mm3 (4.0-10.0)
[2020-06-29 13:21] LABS: VENOUS BASE EXCESS -15.5 mmol/L (-2-2); VENOUS O2 SATURATION 56.9 % (70-80); VENOUS PCO2 38.4 mmHg (38-52)
[2020-06-29 13:22] LABS: VENOUS PH 7.14 (7.310-7.410)
[2020-06-29 13:25] LABS: INR 0.95 (0.83-1.09); PROTHROMBIN TIME (PATIENT) 11.5 SEC (9.7-13.0)
[2020-06-29 13:28] LABS: ACTIVATED PTT 29.2 SECONDS (25.2-36.5)
[2020-06-29 13:32] LABS: CHLORIDE 93 mmol/L (98-107); SODIUM 125 mmol/L (136-145)
[2020-06-29 13:35] LABS: CALCIUM 9.3 mg/dL (8.5-10.1)
[2020-06-29 13:36] LABS: ALBUMIN 3.8 g/dl (3.4-5.0); BLOOD UREA NITROGEN 21.3 mg/dL (7-18); CO2 14 mmol/L (21-32); LIPASE 300 U/L (73-393)
[2020-06-29 13:38] LABS: SGPT/ALT 53 U/L (13-61)
[2020-06-29 13:39] LABS: CREATININE 1.2 mg/dL (0.55-1.3); SGOT/AST 69 U/L (15-37)
[2020-06-29 13:40] LABS: BILIRUBIN,TOTAL 0.9 mg/dL (0.2-1); TOT PROT 7.4 g/dl (6.4-8.2)
[2020-06-29 13:41] LABS: ALK PHOS 95 U/L (45-117)
[2020-06-29 14:02] LABS: ANION GAP 19 MMOL/L (8-16)
[2020-06-29 14:03] LABS: GLUCOSE,RANDOM 676 mg/dL (74-106); POTASSIUM 6.1 mmol/L (3.5-5.1)
[2020-06-29] MEDS ORDERED: SODIUM CHLORIDE 0.9% 500 ML INFUS.BAG IV ONE (14:15)
[2020-06-29] MEDS ORDERED: INSULIN REGULAR 100 UNITS in SODIUM CHLORIDE 99 ML IVPB SCH (14:30)
[2020-06-29 15:13] LABS: URINE APPEARANCE CLEAR; URINE BILIRUBIN NEGATIVE (NEGATIVE); URINE COLOR YELLOW; URINE GLUCOSE (UA) 3+ (NEGATIVE); URINE KETONE 3+ (NEGATIVE); URINE LEUK ESTERASE NEGATIVE (NEGATIVE); URINE NITRITE NEGATIVE (NEGATIVE); URINE PROTEIN NEGATIVE (NEGATIVE); URINE UROBILINOGEN 0.2 mg/dL (0.2-1.0)
[2020-06-29 18:05] LABS: POTASSIUM 3.8 mmol/L (3.5-5.1)
[2020-06-29 18:08] LABS: CALCIUM 8.7 mg/dL (8.5-10.1)
[2020-06-29 18:09] LABS: BLOOD UREA NITROGEN 17.2 mg/dL (7-18)
[2020-06-29] MEDS ORDERED: SODIUM CHLORIDE 0.45%/POT 20 MEQ/1,000 ML INFUS.BAG IV SCH ×2 (18:15→18:26)
[2020-06-29] MEDS ORDERED: SODIUM CHLORIDE 0.45% 1,000 ML IV SCH ×2 (18:15)
[2020-06-29 18:33] LABS: URINE BARBITURATES NEGATIVE ng/ml (CUTOFF=200)
[2020-06-29 18:34] LABS: COCAINE, UR NEGATIVE ng/ml (CUTOFF=300); METHADONE, UR NEGATIVE ng/ml (CUTOFF=300); OPIATES, URI NEGATIVE ng/ml (CUTOFF=300); PHENCYCLIDINE,URINE NEGATIVE ng/ml (CUTOFF=25); URINE AMPHETAMINES NEGATIVE ng/ml (CUTOFF=500); URINE BENZODIAZEPINES NEGATIVE ng/ml (CUTOFF=200)
[2020-06-29] MEDS ORDERED: POTASSIUM CHLORIDE 40 MEQ in SODIUM CHLORIDE 0.45% 1,000 ML IV SCH ×2 (19:30→20:38)
[2020-06-29 19:31] LABS: ARTERIAL BLD GAS O2 SATURATION 96.2 mmHg (95-98); ARTERIAL BLOOD GAS PO2 86.1 mmHg (80-100); ARTERIAL BLOOD GAS pH 7.349 (7.350-7.450)
[2020-06-29 19:32] LABS: ALLENS TEST POSITIVE
[2020-06-29] MEDS ORDERED: D5-1/2NS+40 MEQ KCL - 40 MEQ/1,000 ML INFUS.BAG IV SCH ×3 (20:00→22:00)
[2020-06-29] MEDS ORDERED: SODIUM CHLORIDE 0.45% 1,000 ML with POTASSIUM CHLORIDE 40 MEQ IV SCH (20:30)
[2020-06-29] MEDS ORDERED: LABETALOL HCL 5 MG/1 ML (100MG/20 ML VIAL) IVPUSH ONE (21:19)
[2020-06-29] MEDS: MUPIROCIN 2% TOPICAL OINTMENT FOR DECOLONIZATION NS SCH (21:36)
[2020-06-29] MEDS: TOPIRAMATE 100 MG TABLET PO SCH (21:36)
[2020-06-29] MEDS ORDERED: levETIRAcetam 250 MG TABLET PO ONE (21:37)
[2020-06-29] MEDS ORDERED: levETIRAcetam 500 MG TABLET (FP) PO ONE (21:37)
[2020-06-29] MEDS ORDERED: CHLORHEXIDINE GLUCONATE 4% CLEANSER FOR DECOLONIZATION TP SCH (22:00)
[2020-06-29] MEDS ORDERED: levETIRAcetam 500 MG TABLET (FP) PO SCH ×2 (22:00)
[2020-06-29 22:25] LABS: POTASSIUM 5.4 mmol/L (3.5-5.1)
[2020-06-29 22:26] LABS: BLOOD UREA NITROGEN 13.5 mg/dL (7-18); CALCIUM 8.8 mg/dL (8.5-10.1)
[2020-06-29 22:30] LABS: CREATININE 0.8 mg/dL (0.55-1.3)
[2020-06-29 23:59] LABS: POTASSIUM 3.5 mmol/L (3.5-5.1)
[2020-06-30] LABS: CALCIUM 9.4 mg/dL (8.5-10.1)
[2020-06-30 00:01] LABS: BLOOD UREA NITROGEN 12.8 mg/dL (7-18)
[2020-06-30 00:04] LABS: CREATININE 0.8 mg/dL (0.55-1.3)
[2020-06-30] MEDS ORDERED: LABETALOL HCL 5 MG/1 ML (100MG/20 ML VIAL) IVPUSH ONE ×2 (01:29→04:45)
[2020-06-30 03:49] VITALS: BMI 31.1
[2020-06-30 06:37] LABS: EOS % 1.7 % (0-4.5); HEMATOCRIT 35.3 % (32.4-45.2); MCH 31.9 pg (25.7-33.7); MCHC 34.1 g/dl (32.0-36.0); MEAN CELL VOLUME 93.6 fl (80-96); MONO % 6.6 % (3.8-10.2); NEUT % 66.7 % (42.8-82.8); PLATELET COUNT 277 K/MM3 (134-434); RBC 3.77 M/mm3 (3.60-5.2); RDW 13.1 % (11.6-15.6); WHITE BLOOD COUNT 9.8 K/mm3 (4.0-10.0)
[2020-06-30] MEDS ORDERED: INSULIN (LEVEMIR) 100 UNITS/ML UNITS SQ SCH (07:00)
[2020-06-30] MEDS: INSULIN SLIDING SCALE (NOVOLOG) 1 VIAL SQ SCH ×3 (07:07→17:15)
[2020-06-30 07:08] LABS: BLOOD UREA NITROGEN 9.6 mg/dL (7-18)
[2020-06-30 07:11] LABS: CREATININE 0.7 mg/dL (0.55-1.3)
[2020-06-30] MEDS ORDERED: levETIRAcetam 250 MG TABLET PO ONE ×2 (09:46→17:31)
[2020-06-30] MEDS ORDERED: levETIRAcetam 500 MG TABLET (FP) PO ONE ×2 (09:46→17:31)
[2020-06-30] MEDS ORDERED: PT OWN MED DRAWER 7, Y5N ONE (09:46)
[2020-06-30] MEDS: TOPIRAMATE 100 MG TABLET PO SCH (09:58)
[2020-06-30] MEDS ORDERED: ENOXAPARIN NA (PORCINE) 40 MG/0.4 ML DISP.SYRIN SQ SCH (10:00)
[2020-06-30] MEDS ORDERED: SERTRALINE HCL 50 MG TABLET (FP) PO SCH (10:00)
[2020-06-30] MEDS ORDERED: LISINOPRIL 10 MG TABLET PO SCH (10:00)
[2020-06-30] MEDS: MUPIROCIN 2% TOPICAL OINTMENT FOR DECOLONIZATION NS SCH (10:03)
[2020-06-30 11:28] LABS: POTASSIUM 3.5 mmol/L (3.5-5.1)
[2020-06-30 11:31] LABS: BLOOD UREA NITROGEN 7.2 mg/dL (7-18)
[2020-06-30 11:34] LABS: CALCIUM 9.4 mg/dL (8.5-10.1)
[2020-06-30 11:35] LABS: CREATININE 0.8 mg/dL (0.55-1.3)
[2020-06-30 18:19] VITALS: BP 180/89; PULSE 80; TEMP 98
== END 2020-06-30 19:06 | disposition home or self-care (01) | DRG 420 ==
LOC: JER 12:00 → JICU 17:13 → JERBED 17:14 → JICU 20:03
PROVIDERS: ADMIT Family Medicine; ATTEND Family Medicine
DX: E11.10 Type 2 diabetes mellitus with ketoacidosis without coma (principal); G92 Toxic encephalopathy; I10 Essential (primary) hypertension; J45.909 Unspecified asthma, uncomplicated; G40.909 Epilepsy, unspecified, not intractable, without status epilepticus; Z79.4 Long term (current) use of insulin
CPT/HCPCS: 36415; 36600; 70450-TC; 71045-TC-FY; 80048; 80053; 80307; 81003; 82010; 82550; 82553; 82803; 82962; 83036; 83605; 83690; 84443; 84484; 85025; 85610; 85730; 87086; 93005; 93010; 99285-25; C9803; U0003

== ENCOUNTER 2022-05-04 14:35 | Inpatient (IN) | payer OTHER ==
[2022-05-04] MEDS ORDERED: SODIUM CHLORIDE 0.9% 500 ML INFUS.BAG IV ONE (15:55)
[2022-05-04] MEDS ORDERED: CALCIUM GLUCONATE 10% - 1,000 MG/10 ML VIAL IVPUSH ONE (15:55)
[2022-05-04] MEDS ORDERED: CALCIUM GLUCONATE 10% - 1,000 MG/10 ML VIAL ONE (16:08)
[2022-05-04 16:23] LABS: VENOUS BASE EXCESS -22.5 mmol/L (-2-2); VENOUS O2 SATURATION 29.5 % (70-80); VENOUS PCO2 24.1 mmHg (38-52); VENOUS PH 7.048 (7.310-7.410)
[2022-05-04 16:40] LABS: CHLORIDE 86 mmol/L (98-107); SODIUM 121 mmol/L (136-145)
[2022-05-04 16:42] LABS: ALBUMIN 3.9 g/dl (3.4-5.0); BLOOD UREA NITROGEN 35.9 mg/dL (7-18); CALCIUM 9.8 mg/dL (8.5-10.1); CO2 6 mmol/L (21-32)
[2022-05-04 16:45] LABS: CREATININE 1.5 mg/dL (0.55-1.3); SGOT/AST 34 U/L (15-37); SGPT/ALT 36 U/L (13-61)
[2022-05-04 16:47] LABS: BILIRUBIN,TOTAL 0.5 mg/dL (0.2-1); TOT PROT 7.7 g/dl (6.4-8.2)
[2022-05-04 16:48] LABS: ALK PHOS 191 U/L (45-117)
[2022-05-04] MEDS ORDERED: ACETAMINOPHEN 1000 MG/100 ML BAG IVPB ONE (16:48)
[2022-05-04] MEDS ORDERED: ACETAMINOPHEN INJECTION 100 ML IVPB ONE (16:58)
[2022-05-04 16:59] LABS: ANION GAP 29 MMOL/L (8-16); GLUCOSE,RANDOM 646 mg/dL (74-106)
[2022-05-04 17:02] LABS: BASO % 0.7 % (0-2.0); EOS % 0.1 % (0-4.5); HEMATOCRIT 37.7 % (32.4-45.2); HEMOGLOBIN 11.1 GM/dL (10.7-15.3); LYMPH % 12.1 % (8-40); MCH 30.4 pg (25.7-33.7); MCHC 29.5 g/dl (32.0-36.0); MEAN CELL VOLUME 102.8 fl (80-96); MONO % 5.7 % (3.8-10.2); NEUT % 81.4 % (42.8-82.8); PLATELET COUNT 375 10^3/uL (134-434); RBC 3.66 M/mm3 (3.60-5.2); RDW 15.2 % (11.6-15.6); WHITE BLOOD COUNT 11.9 K/mm3 (4.0-10.0)
[2022-05-04] MEDS ORDERED: INSULIN REGULAR HUMAN 100 UNITS/ML *VIAL IVPUSH ONE (17:04)
[2022-05-04] MEDS ORDERED: INSULIN REGULAR HUMAN 100 UNITS/ML *VIAL* (FOR IVP) IVPUSH ONE (17:06)
[2022-05-04 17:08] LABS: URINE APPEARANCE CLEAR; URINE BILIRUBIN NEGATIVE (NEGATIVE); URINE COLOR YELLOW; URINE GLUCOSE (UA) 3+ (NEGATIVE); URINE KETONE 4+ (NEGATIVE); URINE LEUK ESTERASE NEGATIVE (NEGATIVE); URINE NITRITE NEGATIVE (NEGATIVE); URINE PROTEIN TRACE (NEGATIVE); URINE UROBILINOGEN 0.2 mg/dL (0.2-1.0)
[2022-05-04] MEDS ORDERED: INSULIN REGULAR 100 UNITS in SODIUM CHLORIDE 99 ML IVPB SCH (17:15)
[2022-05-04] MEDS ORDERED: INSULIN REGULAR HUMAN 100 UNITS/ML *VIAL ONE (17:33)
[2022-05-04] MEDS ORDERED: SODIUM CHLORIDE 1,000 ML IV SCH (18:30)
[2022-05-04] MEDS ORDERED: morphine CARPU-JECT 2 MG/1 ML DISP.SYRIN IVPUSH ONE (19:09)
[2022-05-04] MEDS ORDERED: levETIRAcetam 500 MG/5 ML INJECTION VIAL IVPB ONE (20:39)
[2022-05-04] MEDS ORDERED: ACETAMINOPHEN 1000 MG/100 ML BAG IVPB PRN (20:45)
[2022-05-04] MEDS ORDERED: HYDROmorphone HCL CARPU-JECT 2 MG/1 ML DISP.SYRIN IVPUSH STA (20:46)
[2022-05-04] MEDS ORDERED: HYDROmorphone HCl 2 MG/ML VIAL IVPUSH STA (20:48)
[2022-05-04] MEDS ORDERED: LACTATED RINGERS SOLUTION 1,000 ML/1,000 ML INFUS.BAG IV STA (20:49)
[2022-05-04] MEDS ORDERED: ALBUTEROL SO4 0.083% IH SOL 2.5 MG/3 ML VIAL.NEB. NEB PRN (20:54)
[2022-05-04] MEDS ORDERED: traZODone HCL 50 MG TABLET (FP) ONE (21:08)
[2022-05-04] MEDS: CHLORHEXIDINE GLUCONATE 4% CLEANSER FOR DECOLONIZATION TP SCH (21:28)
[2022-05-04] MEDS: CARVEDILOL 12.5 MG TABLET (FP) PO SCH (21:28)
[2022-05-04] MEDS: traZODone HCL 50 MG TABLET (FP) PO SCH (21:28)
[2022-05-04] MEDS: MUPIROCIN 2% TOPICAL OINTMENT FOR DECOLONIZATION NS SCH (21:28)
[2022-05-04] MEDS: HEPARIN NA (PORCINE) 5,000 UNITS/ML 1ML VIAL SQ SCH (21:28)
[2022-05-04] MEDS: ZONISAMIDE 100 MG CAPSULE PO SCH (21:55)
[2022-05-04] MEDS ORDERED: levETIRAcetam 500 MG TABLET (FP) PO SCH (22:00)
[2022-05-04] MEDS ORDERED: ATORVASTATIN CA 20 MG TABLET (FP) PO SCH (22:00)
[2022-05-04 22:04] LABS: CALCIUM 8.6 mg/dL (8.5-10.1)
[2022-05-04 22:05] LABS: BLOOD UREA NITROGEN 30.4 mg/dL (7-18); MAGNESIUM 1.9 mg/dL (1.8-2.4)
[2022-05-04 22:09] LABS: PHOSPHOROUS 3.3 mg/dL (2.5-4.9)
[2022-05-04 22:10] LABS: CREATININE 1.1 mg/dL (0.55-1.3)
[2022-05-05] MEDS ORDERED: LACTATED RINGERS SOLUTION 1,000 ML/1,000 ML INFUS.BAG IV STA ×2 (01:06→02:36)
[2022-05-05] MEDS ORDERED: DEXTROSE 5%-NORMAL SALINE 1,000 ML IV SCH (01:15)
[2022-05-05] MEDS ORDERED: HYDROmorphone HCl 2 MG/ML VIAL IVPUSH STA (04:06)
[2022-05-05] MEDS ORDERED: HYDROmorphone HCl 2 MG/ML VIAL IVPUSH ONE (04:51)
[2022-05-05] MEDS: DOCUSATE SODIUM 100 MG CAPSULE (FP) PO SCH ×3 (05:45→22:10)
[2022-05-05] MEDS: HEPARIN NA (PORCINE) 5,000 UNITS/ML 1ML VIAL SQ SCH ×3 (05:46→22:10)
[2022-05-05 07:36] LABS: BASO % 0.2 % (0-2.0); EOS % 0.1 % (0-4.5); HEMATOCRIT 29.5 % (32.4-45.2); HEMOGLOBIN 9.5 GM/dL (10.7-15.3); LYMPH % 8.5 % (8-40); MCH 30.8 pg (25.7-33.7); MCHC 32.3 g/dl (32.0-36.0); MEAN CELL VOLUME 95.5 fl (80-96); MEAN PLT VOLUME 8.3 fl (7.5-11.1); MONO % 6.2 % (3.8-10.2); PLATELET COUNT 321 10^3/uL (134-434); RBC 3.09 M/mm3 (3.60-5.2); RDW 14.1 % (11.6-15.6); WHITE BLOOD COUNT 18.4 K/mm3 (4.0-10.0)
[2022-05-05 08:00] LABS: BLOOD UREA NITROGEN 20.8 mg/dL (7-18); CALCIUM 8.5 mg/dL (8.5-10.1)
[2022-05-05 08:01] LABS: MAGNESIUM 1.6 mg/dL (1.8-2.4)
[2022-05-05 08:03] LABS: CREATININE 0.8 mg/dL (0.55-1.3); PHOSPHOROUS 2.9 mg/dL (2.5-4.9)
[2022-05-05] MEDS ORDERED: MAGNESIUM SULF 50% (8.12 MEQ/2 ML-1 GM VIAL) IVPB ONE (08:34)
[2022-05-05] MEDS ORDERED: LISINOPRIL 20 MG TABLET PO SCH (10:00)
[2022-05-05] MEDS ORDERED: CLOPIDOGREL BISULFATE 75 MG TABLET (FP) PO SCH (10:00)
[2022-05-05] MEDS: levETIRAcetam 500 MG/5 ML INJECTION VIAL IVPB SCH ×2 (10:19→22:11)
[2022-05-05] MEDS: PANTOPRAZOLE SODIUM 40 MG VIAL IVPUSH SCH (10:20)
[2022-05-05] MEDS: traZODone HCL 50 MG TABLET (FP) PO SCH ×2 (10:20→22:10)
[2022-05-05] MEDS: DULoxetine HCL 30 MG CAPSULE.DR PO SCH (10:20)
[2022-05-05] MEDS: MUPIROCIN 2% TOPICAL OINTMENT FOR DECOLONIZATION NS SCH ×2 (10:20→22:10)
[2022-05-05] MEDS: FAMOTIDINE 20 MG TABLET PO SCH (10:20)
[2022-05-05] MEDS: ASPIRIN 81 MG CHEWABLE TABLETS PO SCH (10:20)
[2022-05-05] MEDS: CARVEDILOL 12.5 MG TABLET (FP) PO SCH ×2 (10:20→22:10)
[2022-05-05] MEDS: amLODIPine BESYLATE 5 MG TABLET (FP) PO SCH (10:20)
[2022-05-05] MEDS: THIAMINE HCL 200 MG/2 ML VIAL IVPB SCH (10:21)
[2022-05-05] MEDS: DEXTROSE 5%-NORMAL SALINE 1,000 ML IV SCH (11:42)
[2022-05-05] MEDS: ZONISAMIDE 100 MG CAPSULE PO SCH ×2 (12:12→22:41)
[2022-05-05 13:13] LABS: CALCIUM 8.5 mg/dL (8.5-10.1)
[2022-05-05 13:14] LABS: BLOOD UREA NITROGEN 17.3 mg/dL (7-18); MAGNESIUM 1.6 mg/dL (1.8-2.4)
[2022-05-05 13:15] LABS: BLOOD UREA NITROGEN 16.6 mg/dL (7-18)
[2022-05-05 13:16] LABS: CALCIUM 8.1 mg/dL (8.5-10.1); MAGNESIUM 1.4 mg/dL (1.8-2.4)
[2022-05-05 13:17] LABS: CREATININE 0.9 mg/dL (0.55-1.3); PHOSPHOROUS 2.2 mg/dL (2.5-4.9)
[2022-05-05 13:18] LABS: CREATININE 0.8 mg/dL (0.55-1.3); PHOSPHOROUS 2.2 mg/dL (2.5-4.9)
[2022-05-05] MEDS: INSULIN (LEVEMIR) 100 UNITS/ML UNITS SQ SCH ×2 (14:00→22:11)
[2022-05-05] MEDS: INSULIN SLIDING SCALE (NOVOLOG) 1 VIAL SQ SCH ×2 (17:50→22:11)
[2022-05-05] MEDS: CHLORHEXIDINE GLUCONATE 4% CLEANSER FOR DECOLONIZATION TP SCH (22:11)
[2022-05-06] MEDS ORDERED: DEXTROSE 50%-WATER 25 GM/50 ML DISP.SYRIN ONE (06:22)
[2022-05-06] MEDS ORDERED: DEXTROSE 50%-WATER 25 GM/50 ML DISP.SYRIN IVPUSH PRN (06:27)
[2022-05-06] MEDS: HEPARIN NA (PORCINE) 5,000 UNITS/ML 1ML VIAL SQ SCH ×3 (06:31→22:54)
[2022-05-06] MEDS: INSULIN SLIDING SCALE (NOVOLOG) 1 VIAL SQ SCH ×4 (06:31→22:54)
[2022-05-06] MEDS: DOCUSATE SODIUM 100 MG CAPSULE (FP) PO SCH ×3 (06:32→22:53)
[2022-05-06] MEDS: traZODone HCL 50 MG TABLET (FP) PO SCH ×2 (09:01→22:53)
[2022-05-06] MEDS: levETIRAcetam 500 MG/5 ML INJECTION VIAL IVPB SCH ×2 (09:01→22:54)
[2022-05-06] MEDS: ZONISAMIDE 100 MG CAPSULE PO SCH ×2 (09:01→22:54)
[2022-05-06] MEDS: FAMOTIDINE 20 MG TABLET PO SCH (09:01)
[2022-05-06] MEDS: amLODIPine BESYLATE 5 MG TABLET (FP) PO SCH (09:01)
[2022-05-06] MEDS: DULoxetine HCL 30 MG CAPSULE.DR PO SCH (09:01)
[2022-05-06] MEDS: PANTOPRAZOLE SODIUM 40 MG VIAL IVPUSH SCH (09:02)
[2022-05-06] MEDS: MUPIROCIN 2% TOPICAL OINTMENT FOR DECOLONIZATION NS SCH (09:02)
[2022-05-06] MEDS: ASPIRIN 81 MG CHEWABLE TABLETS PO SCH (09:02)
[2022-05-06] MEDS: CARVEDILOL 12.5 MG TABLET (FP) PO SCH ×2 (09:02→22:53)
[2022-05-06] MEDS: THIAMINE HCL 200 MG/2 ML VIAL IVPB SCH (10:06)
[2022-05-06] MEDS: INSULIN (LEVEMIR) 100 UNITS/ML UNITS SQ SCH ×2 (10:06→22:54)
[2022-05-06] MEDS: DEXTROSE 5%-NORMAL SALINE 1,000 ML IV SCH (12:40)
[2022-05-06 13:30] VITALS: BMI 16.4
[2022-05-06 15:31] LABS: CALCIUM 8.1 mg/dL (8.5-10.1)
[2022-05-06 15:32] LABS: BLOOD UREA NITROGEN 5.7 mg/dL (7-18)
[2022-05-06 15:35] LABS: CREATININE 0.8 mg/dL (0.55-1.3)
[2022-05-06] MEDS ORDERED: ALBUTEROL SO4 0.083% IH SOL 2.5 MG/3 ML VIAL.NEB. NEB PRN (16:51)
[2022-05-06] MEDS ORDERED: HYDROmorphone HCl 2 MG/ML VIAL IVPUSH STA (16:51)
[2022-05-06] MEDS ORDERED: CHLORHEXIDINE GLUCONATE 4% CLEANSER FOR DECOLONIZATION TP SCH (22:00)
[2022-05-07] MEDS: HEPARIN NA (PORCINE) 5,000 UNITS/ML 1ML VIAL SQ SCH ×3 (05:56→22:33)
[2022-05-07] MEDS: DOCUSATE SODIUM 100 MG CAPSULE (FP) PO SCH ×3 (05:56→22:33)
[2022-05-07] MEDS: INSULIN SLIDING SCALE (NOVOLOG) 1 VIAL SQ SCH ×4 (06:00→22:35)
[2022-05-07] MEDS: CARVEDILOL 12.5 MG TABLET (FP) PO SCH ×2 (11:30→22:33)
[2022-05-07] MEDS: traZODone HCL 50 MG TABLET (FP) PO SCH ×2 (11:30→22:33)
[2022-05-07] MEDS: THIAMINE HCL 200 MG/2 ML VIAL IVPB SCH (11:30)
[2022-05-07] MEDS: ASPIRIN 81 MG CHEWABLE TABLETS PO SCH (11:30)
[2022-05-07] MEDS: amLODIPine BESYLATE 5 MG TABLET (FP) PO SCH (11:30)
[2022-05-07] MEDS: FAMOTIDINE 20 MG TABLET PO SCH (11:30)
[2022-05-07] MEDS: DULoxetine HCL 30 MG CAPSULE.DR PO SCH (11:31)
[2022-05-07] MEDS: PANTOPRAZOLE SODIUM 40 MG VIAL IVPUSH SCH (11:32)
[2022-05-07] MEDS: ZONISAMIDE 100 MG CAPSULE PO SCH ×2 (11:33→22:33)
[2022-05-07] MEDS ORDERED: INSULIN SLIDING SCALE (NOVOLOG) 1 VIAL SQ ONE (11:56)
[2022-05-07] MEDS: levETIRAcetam 500 MG/5 ML INJECTION VIAL IVPB SCH ×2 (12:05→22:34)
[2022-05-07] MEDS: INSULIN (LEVEMIR) 100 UNITS/ML UNITS SQ SCH ×2 (12:20→22:36)
[2022-05-07 12:36] LABS: BASO % 1.3 % (0-2.0); EOS % 1.4 % (0-4.5); HEMOGLOBIN 10.5 GM/dL (10.7-15.3); MCH 31.9 pg (25.7-33.7); MEAN PLT VOLUME 7.8 fl (7.5-11.1); MONO % 10.1 % (3.8-10.2); NEUT % 62.2 % (42.8-82.8); PLATELET COUNT 281 10^3/uL (134-434); RDW 14.2 % (11.6-15.6); WHITE BLOOD COUNT 5.3 K/mm3 (4.0-10.0)
[2022-05-07 13:09] LABS: BLOOD UREA NITROGEN 8.4 mg/dL (7-18); CALCIUM 8.9 mg/dL (8.5-10.1)
[2022-05-07 13:12] LABS: CREATININE 0.7 mg/dL (0.55-1.3)
[2022-05-07 13:14] LABS: BILIRUBIN,TOTAL 0.4 mg/dL (0.2-1); TOT PROT 6.2 g/dl (6.4-8.2)
[2022-05-07] MEDS: MAG HYDROX/AL HYDROX/SIMETH 30 ML UNIT-DOSE CUP PO SCH (18:06)
[2022-05-07] MEDS: POLYETHYLENE GLYCOL (HEALTHYLAX) 3350 17 GM PACKET PO SCH (22:33)
[2022-05-08] MEDS: MAG HYDROX/AL HYDROX/SIMETH 30 ML UNIT-DOSE CUP PO SCH ×4 (01:00→17:44)
[2022-05-08] MEDS: HEPARIN NA (PORCINE) 5,000 UNITS/ML 1ML VIAL SQ SCH ×3 (06:34→21:27)
[2022-05-08] MEDS: DOCUSATE SODIUM 100 MG CAPSULE (FP) PO SCH ×3 (06:34→21:26)
[2022-05-08] MEDS: INSULIN SLIDING SCALE (NOVOLOG) 1 VIAL SQ SCH ×4 (06:34→21:28)
[2022-05-08] MEDS: POLYETHYLENE GLYCOL (HEALTHYLAX) 3350 17 GM PACKET PO SCH ×3 (10:00→21:22)
[2022-05-08] MEDS: FAMOTIDINE 20 MG TABLET PO SCH (10:01)
[2022-05-08] MEDS: CARVEDILOL 12.5 MG TABLET (FP) PO SCH ×2 (10:01→21:26)
[2022-05-08] MEDS: levETIRAcetam 500 MG/5 ML INJECTION VIAL IVPB SCH ×2 (10:01→21:26)
[2022-05-08] MEDS: traZODone HCL 50 MG TABLET (FP) PO SCH ×2 (10:01→21:26)
[2022-05-08] MEDS: ASPIRIN 81 MG CHEWABLE TABLETS PO SCH (10:01)
[2022-05-08] MEDS: ZONISAMIDE 100 MG CAPSULE PO SCH ×2 (10:02→22:13)
[2022-05-08] MEDS: PANTOPRAZOLE SODIUM 40 MG VIAL IVPUSH SCH (10:02)
[2022-05-08] MEDS: DULoxetine HCL 30 MG CAPSULE.DR PO SCH (10:02)
[2022-05-08] MEDS: THIAMINE HCL 200 MG/2 ML VIAL IVPB SCH (10:02)
[2022-05-08] MEDS: INSULIN (LEVEMIR) 100 UNITS/ML UNITS SQ SCH ×2 (10:05→21:27)
[2022-05-08] MEDS: amLODIPine BESYLATE 5 MG TABLET (FP) PO SCH (10:06)
[2022-05-09] MEDS: MAG HYDROX/AL HYDROX/SIMETH 30 ML UNIT-DOSE CUP PO SCH ×4 (01:18→17:06)
[2022-05-09] MEDS: DOCUSATE SODIUM 100 MG CAPSULE (FP) PO SCH ×3 (06:06→21:20)
[2022-05-09] MEDS: HEPARIN NA (PORCINE) 5,000 UNITS/ML 1ML VIAL SQ SCH ×3 (06:06→21:25)
[2022-05-09] MEDS: INSULIN SLIDING SCALE (NOVOLOG) 1 VIAL SQ SCH ×4 (06:07→21:23)
[2022-05-09 10:10] LABS: CALCIUM 9.1 mg/dL (8.5-10.1)
[2022-05-09 10:11] LABS: BLOOD UREA NITROGEN 11.7 mg/dL (7-18)
[2022-05-09 10:14] LABS: CREATININE 0.8 mg/dL (0.55-1.3)
[2022-05-09] MEDS: CARVEDILOL 12.5 MG TABLET (FP) PO SCH ×2 (10:59→21:21)
[2022-05-09] MEDS: ASPIRIN 81 MG CHEWABLE TABLETS PO SCH (10:59)
[2022-05-09] MEDS: FAMOTIDINE 20 MG TABLET PO SCH (10:59)
[2022-05-09] MEDS: amLODIPine BESYLATE 5 MG TABLET (FP) PO SCH (10:59)
[2022-05-09] MEDS: DULoxetine HCL 30 MG CAPSULE.DR PO SCH (10:59)
[2022-05-09] MEDS: traZODone HCL 50 MG TABLET (FP) PO SCH ×2 (11:00→21:21)
[2022-05-09] MEDS: PANTOPRAZOLE SODIUM 40 MG VIAL IVPUSH SCH (11:01)
[2022-05-09] MEDS: ZONISAMIDE 100 MG CAPSULE PO SCH ×2 (11:01→21:45)
[2022-05-09] MEDS: POLYETHYLENE GLYCOL (HEALTHYLAX) 3350 17 GM PACKET PO SCH ×2 (11:12→21:22)
[2022-05-09] MEDS: levETIRAcetam 500 MG/5 ML INJECTION VIAL IVPB SCH (11:20)
[2022-05-09] MEDS: INSULIN (LEVEMIR) 100 UNITS/ML UNITS SQ SCH ×2 (11:21→21:36)
[2022-05-09] MEDS: THIAMINE HCL 200 MG/2 ML VIAL IVPB SCH (12:41)
[2022-05-09 13:23] LABS: BASO % 1.3 % (0-2.0); EOS % 2.8 % (0-4.5); HEMATOCRIT 32.4 % (32.4-45.2); HEMOGLOBIN 10.8 GM/dL (10.7-15.3); LYMPH % 38.5 % (8-40); MCH 30.8 pg (25.7-33.7); MCHC 33.2 g/dl (32.0-36.0); MEAN CELL VOLUME 92.6 fl (80-96); MEAN PLT VOLUME 8.4 fl (7.5-11.1); MONO % 7.5 % (3.8-10.2); NEUT % 49.9 % (42.8-82.8); PLATELET COUNT 341 10^3/uL (134-434); RBC 3.49 M/mm3 (3.60-5.2); RDW 13.9 % (11.6-15.6); WHITE BLOOD COUNT 4.6 K/mm3 (4.0-10.0)
[2022-05-09 19:13] VITALS: PULSE 85
[2022-05-09] MEDS: levETIRAcetam 500 MG TABLET (FP) PO SCH (21:31)
[2022-05-10] MEDS: MAG HYDROX/AL HYDROX/SIMETH 30 ML UNIT-DOSE CUP PO SCH ×3 (00:27→12:00)
[2022-05-10] MEDS: HEPARIN NA (PORCINE) 5,000 UNITS/ML 1ML VIAL SQ SCH ×2 (05:53→13:46)
[2022-05-10] MEDS: DOCUSATE SODIUM 100 MG CAPSULE (FP) PO SCH ×3 (05:53→13:49)
[2022-05-10] MEDS: INSULIN SLIDING SCALE (NOVOLOG) 1 VIAL SQ SCH ×2 (06:02→12:01)
[2022-05-10] MEDS ORDERED: MAGNESIUM 2GM/50ML STERILE WATER IVPB IVPB ONE (08:50)
[2022-05-10] MEDS ORDERED: NAPH,MB-DB/K PH,MBDB POWDER PACKET PO ONE (08:51)
[2022-05-10 08:54] VITALS: BP 135/88; RESP 18; TEMP 98.2
[2022-05-10] MEDS: POLYETHYLENE GLYCOL (HEALTHYLAX) 3350 17 GM PACKET PO SCH (09:22)
[2022-05-10] MEDS: traZODone HCL 50 MG TABLET (FP) PO SCH (09:23)
[2022-05-10] MEDS: FAMOTIDINE 20 MG TABLET PO SCH (09:23)
[2022-05-10] MEDS: levETIRAcetam 500 MG TABLET (FP) PO SCH (09:23)
[2022-05-10] MEDS: CARVEDILOL 12.5 MG TABLET (FP) PO SCH (09:23)
[2022-05-10] MEDS: amLODIPine BESYLATE 5 MG TABLET (FP) PO SCH (09:23)
[2022-05-10] MEDS: ASPIRIN 81 MG CHEWABLE TABLETS PO SCH (09:23)
[2022-05-10] MEDS: ZONISAMIDE 100 MG CAPSULE PO SCH (09:53)
[2022-05-10] MEDS: DULoxetine HCL 30 MG CAPSULE.DR PO SCH (09:53)
[2022-05-10] MEDS: PANTOPRAZOLE SODIUM 40 MG VIAL IVPUSH SCH (12:00)
[2022-05-10] MEDS: INSULIN (LEVEMIR) 100 UNITS/ML UNITS SQ SCH (12:01)
[2022-05-10 12:51] LABS: HEMATOCRIT 31.6 % (32.4-45.2); HEMOGLOBIN 10.4 GM/dL (10.7-15.3); LYMPH % 29.4 % (8-40); MCH 30.6 pg (25.7-33.7); MCHC 32.9 g/dl (32.0-36.0); MEAN PLT VOLUME 8.5 fl (7.5-11.1); MONO % 9.3 % (3.8-10.2); NEUT % 56.3 % (42.8-82.8); PLATELET COUNT 397 10^3/uL (134-434); RDW 13.9 % (11.6-15.6); WHITE BLOOD COUNT 5.2 K/mm3 (4.0-10.0)
[2022-05-10 13:14] LABS: CALCIUM 9.6 mg/dL (8.5-10.1)
[2022-05-10 13:15] LABS: BLOOD UREA NITROGEN 17.2 mg/dL (7-18)
[2022-05-10] MEDS: THIAMINE HCL 200 MG/2 ML VIAL IVPB SCH (13:15)
[2022-05-10 13:18] LABS: CREATININE 0.7 mg/dL (0.55-1.3)
[2022-05-11] MEDS ORDERED: ERGOCALCIFEROL (VIT D2) 50,000 UNIT (1.25 MG) CAPSULE PO SCH ×2 (10:00)
== END 2022-05-10 17:08 | disposition home health service (06) | DRG 637 ==
LOC: JER 14:35 → JERBED 17:06 → JICU 20:18 → J5S 05-06 16:38
PROVIDERS: ADMIT Family Medicine; ATTEND Family Medicine
DX: E11.10 Type 2 diabetes mellitus with ketoacidosis without coma (principal); G92.8 Other toxic encephalopathy; R64 Cachexia; Z68.1 Body mass index [BMI] 19.9 or less, adult; N17.9 Acute kidney failure, unspecified; I10 Essential (primary) hypertension; J45.909 Unspecified asthma, uncomplicated; Z79.4 Long term (current) use of insulin; F17.210 Nicotine dependence, cigarettes, uncomplicated; E11.40 Type 2 diabetes mellitus with diabetic neuropathy, unspecified; G40.909 Epilepsy, unspecified, not intractable, without status epilepticus; I45.81 Long QT syndrome; E86.0 Dehydration; E87.5 Hyperkalemia; Z91.14 Patient's other noncompliance with medication regimen; F25.9 Schizoaffective disorder, unspecified; I35.1 Nonrheumatic aortic (valve) insufficiency
CPT/HCPCS: 36415; 71045-TC-FY; 80048; 80053; 80061; 81003; 82010; 82550; 82803; 82962; 83036; 83605; 83690; 83735; 84100; 84443; 84484; 85025; 87040; 87086; 93005; 93010; 97116-GP; 97162-GP; 99291; 99292; C9803-CS; J1644; U0003; U0005